=== PATIENT | male | born 1940 | race Caucasian/White ===

== ENCOUNTER 2023-02-17 13:31 | Outpatient (OUT) | payer MEDICARE, SELFPAY ==
[2023-02-17 14:00] LABS: Bilirubin Urine NEGATIVE (NEGATIVE); Blood Urine NEGATIVE (NEGATIVE); Clarity Urine CLEAR (CLEAR); Color Urine LT. YELLOW (YELLOW); Glucose Urine UA NEGATIVE (NEGATIVE); Ketones Urine NEGATIVE (NEGATIVE); Leukocyte Esterase Urine SMALL (NEGATIVE); Nitrite Urine NEGATIVE (NEGATIVE); Protein Urine NEGATIVE (NEG/TRACE); Urobilinogen Urine 0.2 EU/dL (0.2-1.0); pH Urine 5.5 (5.0-9.0)
[2023-02-17 14:07] LABS: Basophils Absolute Auto 0.1 10^3/uL (0.0-0.1); Basophils Percent Auto 1.2 % (0.2-2.0); Eosinophils Absolute Auto 0.9 10^3/uL (0.0-0.7); Eosinophils Percent Auto 10.9 % (0.9-7.0); Hematocrit 40.3 % (42.0-54.0); Hemoglobin 12.4 g/dL (14.0-18.0); Immature Granulocytes Abs Auto 0.05 10^3/uL (0.00-0.03); Immature Granulocytes Pct Auto 0.6 % (0.0-0.5); Lymphocytes Absolute Auto 0.8 10^3/uL (1.2-3.8); Mean Corpuscular HGB Conc 30.8 g/dL (29.9-35.2); Mean Corpuscular Hemoglobin 28.2 pg (25.9-34.0); Mean Corpuscular Volume 91.8 fL (80.0-94.0); Mean Platelet Volume 10.2 fL (9.5-13.5); Monocytes Absolute Auto 0.7 10^3/uL (0.3-0.8); Monocytes Percent Auto 8.3 % (1.7-12.0); Neutrophils Absolute Auto 5.8 10^3/uL (1.4-6.5); Platelet Count 176 10^3/uL (150-450); Red Blood Count 4.39 10^6/uL (4.70-6.10); White Blood Count 8.4 10^3/uL (4.0-11.0)
[2023-02-17 14:14] LABS: Creatinine Urine Random 34.03 mg/dL (20.00-300.00); Protein Creatinine Ratio Urine 0.51; Total Protein Urine Random 17.4 mg/dL (<=11.9)
[2023-02-17 14:44] LABS: Alanine Aminotransferase 19 U/L (16-63); Albumin Globulin Ratio 0.6; Albumin Level 3.1 g/dL (3.4-5.0); Alkaline Phosphatase 80 U/L (46-116); Anion Gap 12.6; Aspartate Amino Transferase 30 U/L (15-37); BUN Creatinine Ratio 20.7; Bilirubin Total 0.8 mg/dL (0.2-1.0); Calcium 8.4 mg/dL (8.5-10.1); Carbon Dioxide 26.8 mmol/L (21.0-32.0); Chloride 107 mmol/L (98-107); Estimated GFR (African America 33 (>=60); Estimated GFR (Non-African Ame 27 (>=60); Globulin 5.4 g/dL; Glucose 181 mg/dL (74-106); Phosphorus 3.5 mg/dL (2.6-4.7); Potassium 4.4 mmol/L (3.5-5.1); Sodium 142 mmol/L (136-145); Total Protein 8.5 g/dL (6.4-8.2)
[2023-02-18 11:09] LABS: PTH, Intact 70 pg/mL (15-65)
== END 2023-02-17 13:32 | disposition home or self-care (01) ==
PROVIDERS: PCP Internal Medicine; Visit Provider Internal Medicine Nephrology
DX: I12.9 Hypertensive chronic kidney disease with stage 1 through stage 4 chronic kidney disease, or unspecified chronic kidney disease (principal); N18.4 Chronic kidney disease, stage 4 (severe); E79.0 Hyperuricemia without signs of inflammatory arthritis and tophaceous disease; N20.0 Calculus of kidney; E11.22 Type 2 diabetes mellitus with diabetic chronic kidney disease; E21.1 Secondary hyperparathyroidism, not elsewhere classified; E78.5 Hyperlipidemia, unspecified; E55.9 Vitamin D deficiency, unspecified
CPT/HCPCS: 36415; 80053; 81003; 82306; 82570; 83735; 83970; 84100; 84156; 85025

== ENCOUNTER 2023-09-09 13:20 | Inpatient (IN) | payer MEDICARE, SELFPAY ==
[2023-09-09] VITALS (65 sets, daily range): BP systolic 92–191; BP diastolic 61–148; PULSE 68–150; RESP 6–40; TEMP 36.2–37.4; O2SAT 88–96; BMI 28.7; BMI 30.5
--- NOTE | 2023-09-09 13:29 | ED.CHESTPAI1 ---
HPI - Chest Pain General Chief Complaint: Chest Pain Stated Complaint: CHEST PAIN Time Seen by Provider: 09/09/23 13:28 History of Present Illness HPI narrative: Patient is an 83-year-old male with a history of cardiomyopathy, CHF, A-fib who presents to the ER with his daughter and grandson for the evaluation of shortness of breath and increased confusion. Patient's grandson states that he visited him yesterday and the patient was complaining of shortness of breath, today they took him to a regular doctor's appointment and the nurse practitioner noted that he had an abnormal EKG, he is noted to be in rapid A-fib in the ER. He does have a history of A-fib and daughter states he takes Eliquis for this, it is sent to his home so it does not show up on a pharmacy list. Patient reports not feeling well for the last week, he was noted to be hypoxic, in rapid A-fib. He denies vomiting or diarrhea. He is eating and drinking according to him, his is also sick so the daughter states neither one of them have been caring for themselves appropriately over the last several days. Today he seems more confused to them. Related Data Home Medications Medication Instructions Recorded Confirmed allopurinol 300 mg tablet 300 mg PO BID 09/09/23 09/09/23 apixaban 5 mg tablet (Eliquis) 5 mg PO Q12H 09/09/23 09/09/23 bumetanide 1 mg tablet 1 mg PO BID 09/09/23 09/09/23 carvedilol 25 mg tablet 25 mg PO BID 09/09/23 09/09/23 hydralazine 100 mg tablet 100 mg PO BID 09/09/23 09/09/23 Allergies Allergy/AdvReac Type Severity Reaction Status Date / Time No Known Drug Allergies Allergy Verified 09/09/23 13:28 Review of Systems ROS Constitutional Denies: fever or chills Ears, nose, mouth, and throat Denies: throat pain or nasal congestion Cardiovascular Reports: chest pain Respiratory Reports: shortness of breath; Denies: cough Gastrointestinal Denies: nausea or vomiting Genitourinary Denies: painful urination Musculoskeletal Denies: back pain Integumentary/Breast Denies: rash Neurological Reports: confusion; Denies: headache Endocrine Denies: excessive urination Hematologic/Lymphatic Reports: easy bruising and easy bleeding PFSH PFSH Social History Smoking status: Never smoker Exam Narrative Exam Narrative: Gen.: Awake, alert, in no distress Head: Normocephalic, atraumatic ENT: Significantly dry Mucous membranes Respiratory: No respiratory distress, lungs clear bilaterally Cardio: Tachycardia, irregular Gastrointestinal: Abdomen is soft, nondistended and nontender to palpation Extremities: Moves extremities equally, Bilateral lower extremities with chronic vascular changes and duskiness, multiple scabbed wounds to the anterior tibias. Psych: Normal mood and affect Neuro: Patient is drowsy but answers questions appropriately, slow to answer but with no slurred speech or focal deficit. Skin: Warm, dry, intact Constitutional Vital Signs, click to edit/add: Last Vital Signs Temp 98.1 F 09/09/23 13:28 Pulse 124 H 09/09/23 13:50 Resp 16 09/09/23 13:50 BP 171/147 H 09/09/23 14:16 Pulse Ox 95 09/09/23 13:50 O2 Del Method Room Air 09/09/23 13:28 Course Vital Signs Vital signs: Vital Signs Temperature 98.1 F 09/09/23 13:28 Pulse Rate 134 H 09/09/23 13:28 Respiratory Rate 20 09/09/23 13:28 Blood Pressure 179/128 H 09/09/23 13:28 Pulse Oximetry 89 L 09/09/23 13:28 Oxygen Delivery Method Room Air 09/09/23 13:28 Temperature 98.1 F 09/09/23 13:28 Pulse Rate 124 H 09/09/23 13:50 Respiratory Rate 16 09/09/23 13:50 Blood Pressure 171/147 H 09/09/23 14:16 Pulse Oximetry 95 09/09/23 13:50 Oxygen Delivery Method Room Air 09/09/23 13:28 MDM - Chest Pain MDM Narrative Medical decision making narrative: Patient was given a Cardizem bolus, started on a Cardizem drip, gentle IV fluids given as he appeared clinically dry. CT of the brain, chest x-ray were obtained, CT angio of the chest is not able to be performed as the patient has significant acute kidney injury. BNP is elevated, troponin within normal limits. The remainder of his lab studies are stable. Except for his potassium of 6.3. Calcium gluconate, sodium bicarb, insulin and glucose given in the ER. Second line was inserted for peripheral IV access. Patient will be admitted to ICU For A-fib with RVR, hyperkalemia, CHF. Stable at time of admission. Medical Records Data Attestation: I reviewed the patient's medical records. Lab Data Attestation: I reviewed the patient's lab results. Labs: Lab Results 09/09/23 Range/Units 13:45 WBC 7.5 (4.0-11.0) 10^3/uL RBC 5.27 (4.70-6.10) 10^6/uL Hgb 14.8 (14.0-18.0) g/dL Hct 49.7 (42.0-54.0) % MCV 94.3 H (80.0-94.0) fL MCH 28.1 (25.9-34.0) pg MCHC 29.8 L (29.9-35.2) g/dL RDW 19.8 H (11.0-15.0) % Plt Count 178 (150-450) 10^3/uL MPV 11.2 (9.5-13.5) fL Seg Neuts % (Manual) 81.0 Band Neutrophils % 1.0 (0-5) % Lymphocytes % (Manual) 8.0 L (20.5-60.0) % Monocytes % (Manual) 8.0 (1.7-12.0) % Eosinophils % (Manual) 2.0 (0.9-7.0) % Basophils % (Manual) 0.0 L (0.2-2.0) % Neutrophils # (Manual) 6.07 (1.4-6.5) 10^3/uL Band Neutrophils # 0.1 (0.0-0.3) 10^3/uL Lymphocytes # (Manual) 0.60 L (1.20-3.80) 10^3/uL Monocytes # (Manual) 0.60 (0.30-0.80) 10^3/uL Eosinophils # (Manual) 0.15 (0.00-0.70) 10^3/uL Basophils # (Manual) 0.00 (0.00-0.10) 10^3/uL Anisocytosis 1+ PT 13.5 H (9.0-11.6) sec INR 1.29 APTT 29.5 (22.3-36.2) sec Sodium 144 (136-145) mmol/L Potassium 6.3 H* (3.5-5.1) mmol/L Chloride 107 (98-107) mmol/L Carbon Dioxide 23.0 (21.0-32.0) mmol/L Anion Gap 20.3 BUN 59.0 H (7.0-18.0) mg/dL Creatinine 2.67 H (0.70-1.30) mg/dL Est GFR ( Amer) 28 L (>=60) Est GFR (Non-Af Amer) 23 L (>=60) BUN/Creatinine Ratio 22.1 Glucose 178 H (74-106) mg/dL Calcium 9.4 (8.5-10.1) mg/dL Total Bilirubin 3.3 H (0.2-1.0) mg/dL AST 52 H (15-37) U/L ALT 19 (16-63) U/L Alkaline Phosphatase 90 (46-116) U/L Troponin I High Sens 48.1 (4.0-76.1) pg/mL NT-Pro-B Natriuret Pep 29966.0 H* (<=1800.0) pg/mL Total Protein 10.6 H (6.4-8.2) g/dL Albumin 3.4 (3.4-5.0) g/dL Globulin 7.2 g/dL Albumin/Globulin Ratio 0.[address] scan - head: Attestation: I have reviewed the pertinent imaging results. Radiologist's impression: ITS Impressions Head CT 09/09/23 15:09 IMPRESSION: 1. No acute intracranial abnormality. 2. Periventricular deep white matter gliosis likely secondary to chronic microangiopathic disease. 3. Chronic pansinusitis. Electronically authenticated by: GLENDY WASHBURN Date: 09/09/2023 15:24 Chest x-ray: Attestation: I have reviewed the pertinent imaging results. Radiologist's impression: ITS Impressions Head CT 09/09/23 15:09 IMPRESSION: 1. No acute intracranial abnormality. 2. Periventricular deep white matter gliosis likely secondary to chronic microangiopathic disease. 3. Chronic pansinusitis. Electronically authenticated by: GLENDY WASHBURN Date: 09/09/2023 15:24 ECG Data Attestation: I personally reviewed and interpreted this ECG as follows: (A-fib with RVR at a rate of 132, ST depression noted in the lateral leads with no acute ST elevation or ectopy. EKG reviewed by attending physician) Discharge Plan Discharge Chief Complaint: Chest Pain Clinical Impression: CHF (congestive heart failure), Acute confusion, Hypoxia, Atrial fibrillation with rapid ventricular response, Acute hyperkalemia, Acute kidney injury Patient Disposition: Admitted As Inpatient Time of Disposition Decision: 15:32 Prescriptions / Home Meds: No Action carvedilol 25 mg tablet 25 mg PO BID hydralazine 100 mg tablet 100 mg PO BID bumetanide 1 mg tablet 1 mg PO BID allopurinol 300 mg tablet 300 mg PO BID Eliquis 5 mg tablet 5 mg PO Q12H Referrals: DENNIS RICH [Primary Care Provider] - 1 week
--- NOTE | 2023-09-09 13:38 | ECG_ITS ---
The [facility] Test Date: 2023-09-09 Pat Name: FAWAD KIRKPATRICK Department: Room: - Gender: Male [employer]: : 1940 Requested By: DENNIS RICH Order Number: [id number] Reading MD: CATHY JUAREZ Measurements Intervals [place] Rate: 132 P: -83047 [place]: -80956 QRS: -25 QRSD: 98 T: 130 QT: 298 QTc: 376 Interpretive Statements 55585 Atrial fibrillation with rapid ventricular response 3434 Septal myocardial infarction, age undetermined [address] depression, possible subendocardial injury or digitalis effect 35058 Twave abnormality, possible anterolateral ischemia or digitalis effect 9150 abnormal ECG Electronically Signed On 09-09-2023 22:18:15 EST by CATHY JUAREZ
[2023-09-09] MEDS: DILTIAZEM HCL 25 MG/5 ML VIAL 10 MG IV (14:16)
[2023-09-09] MEDS: 0.9 % SODIUM CHLORIDE 1,000 ML 500 ML IV (14:17)
[2023-09-09] MEDS: dilTIAZem HCL 125 MG in 0.9 % SODIUM CHLORIDE 100 ML IV (14:21)
[2023-09-09 14:27] LABS: Hematocrit 49.7 % (42.0-54.0); Hemoglobin 14.8 g/dL (14.0-18.0); Mean Corpuscular HGB Conc 29.8 g/dL (29.9-35.2); Mean Corpuscular Hemoglobin 28.1 pg (25.9-34.0); Mean Corpuscular Volume 94.3 fL (80.0-94.0); Mean Platelet Volume 11.2 fL (9.5-13.5); Platelet Count 178 10^3/uL (150-450); Red Blood Count 5.27 10^6/uL (4.70-6.10); Red Cell Distribution Width 19.8 % (11.0-15.0); White Blood Count 7.5 10^3/uL (4.0-11.0)
[2023-09-09 14:47] LABS: Alanine Aminotransferase 19 U/L (16-63); Albumin Globulin Ratio 0.5; Albumin Level 3.4 g/dL (3.4-5.0); Alkaline Phosphatase 90 U/L (46-116); Anion Gap 20.3; Aspartate Amino Transferase 52 U/L (15-37); BUN Creatinine Ratio 22.1; Bilirubin Total 3.3 mg/dL (0.2-1.0); Calcium 9.4 mg/dL (8.5-10.1); Chloride 107 mmol/L (98-107); Estimated GFR (African America 28 (>=60); Estimated GFR (Non-African Ame 23 (>=60); Globulin 7.2 g/dL; Glucose 178 mg/dL (74-106); Sodium 144 mmol/L (136-145); Total Protein 10.6 g/dL (6.4-8.2); Troponin I High Sensitivity 48.1 pg/mL (4.0-76.1)
[2023-09-09 14:50] LABS: Potassium 6.3 mmol/L (3.5-5.1)
[2023-09-09 14:53] LABS: INR 1.29; Partial Thromboplastin Time 29.5 sec (22.3-36.2); Prothrombin Time 13.5 sec (9.0-11.6)
[2023-09-09 14:55] LABS: Segmented Neut Absolute Manual 6.07 10^3/uL (1.4-6.5)
[2023-09-09 14:56] LABS: Anisocytosis 1+; Band Neutrophils Absolute 0.1 10^3/uL (0.0-0.3); Eosinophils Absolute Manual 0.15 10^3/uL (0.00-0.70)
--- NOTE | 2023-09-09 15:09 | CT_ITS ---
The [address] [address] Patient Name: FAWAD KIRKPATRICK MRN: [id number] date: 1940 Sex: M Assigned Patient Location: ER Current Patient Location: ER Accession/Order Number: [id number] Exam Date: 09/09/2023 15:05 Report Date: 09/09/2023 15:24 At the request of: SUSAN VALDES Procedure: CT head/brain wo con CT head/brain wo con, 09/09/2023 3:05 PM EST INDICATION: Confusion COMPARISON: No prior CT scan of the head available for comparison at the time of this dictation. TECHNIQUE: Axial CT images of the brain from skull base to vertex, including portions of the face and sinuses, were obtained without contrast. Multiplanar reformatted images were generated and reviewed as needed. FINDINGS: No intracranial mass, hydrocephalus, midline shift or acute hemorrhage. No extra-axial collection. Periventricular and deep white matter microvascular ischemic change. [place]-white matter differentiation is preserved. Remote lacunar infarcts within the basal ganglia bilaterally. Chronic mucosal thickening within the ethmoid air cells, sphenoid, maxillary and frontal sinuses with complete opacification of the left frontal sinus. The mastoid air cells are clear. Orbits are within normal limits. No acute skull fracture. CT/CT head/brain wo con IMPRESSION: 1. No acute intracranial abnormality. 2. Periventricular deep white matter gliosis likely secondary to chronic microangiopathic disease. 3. Chronic pansinusitis. Electronically authenticated by: GLENDY WASHBURN Date: 09/09/2023 15:24
--- NOTE | 2023-09-09 15:20 | XR_ITS ---
[address] [address] Patient Name: FAWAD KIRKPATRICK MRN: [id number] date: 1940 Sex: M Assigned Patient Location: ER Current Patient Location: ED.MAIN Accession/Order Number: [id number] Exam Date: 09/09/2023 15:09 Report Date: 09/09/2023 15:49 At the request of: SUSAN VALDES Procedure: XR chest 2V Two-view CHEST RADIOGRAPH, 09/09/2023 3:09 PM EST COMPARISON: None. CLINICAL HISTORY: Shortness of breath Findings and impression: 1. Borderline pulmonary venous hypertension/pulmonary vascular congestion. 2. Mild bibasilar atelectasis suspected. Subtle underlying pneumonitis would be difficult to exclude. 3. Cardiomegaly. 4. Degenerative changes visualized spine and bilateral shoulders. The bones are mineralized. Electronically authenticated by: Gianna RODRIGUEZ Date: 09/09/2023 15:49
[2023-09-09] MEDS: CALCIUM GLUCONATE 1,000 MG/10 ML VIAL 1000 MG IVP (15:23)
[2023-09-09] MEDS: SODIUM BICARBONATE 50 MEQ/50 ML 8.4% - SYRINGE IV (15:23)
[2023-09-09] MEDS: DEXTROSE 50 %-WATER 25 GM/50 ML SYRINGE IV (15:23)
[2023-09-09] MEDS: INSULIN REGULAR 300 UNITS/3 ML 10 UNIT IV (15:23)
--- NOTE | 2023-09-09 15:38 | PC.NURSE ---
pt resting in bed comfortably at this time. daughter remains at bedside. Dr Deleon in room discussing plan to keep pt at hospital.
[2023-09-09 16:27] LABS: Adenovirus NOT DETECTED (NOT DETECTE); Bordetella parapertussis NOT DETECTED (NOT DETECTE); Coronavirus 229E NOT DETECTED (NOT DETECTE); Coronavirus HKU1 NOT DETECTED (NOT DETECTE); Coronavirus NL63 NOT DETECTED (NOT DETECTE); Coronavirus OC43 NOT DETECTED (NOT DETECTE); Human Metapneumovirus NOT DETECTED (NOT DETECTE); Human Rhinovirus/Enterovirus NOT DETECTED (NOT DETECTE); Influenza B NOT DETECTED (NOT DETECTE); Mycoplasma pneumoniae NOT DETECTED (NOT DETECTE); Parainfluenza Virus 1 NOT DETECTED (NOT DETECTE); Parainfluenza Virus 2 NOT DETECTED (NOT DETECTE); Parainfluenza Virus 3 NOT DETECTED (NOT DETECTE); Parainfluenza Virus 4 NOT DETECTED (NOT DETECTE); Respiratory Syncytial Virus NOT DETECTED (NOT DETECTE); SARS-CoV-2 NOT DETECTED (NOT DETECTE)
[2023-09-09] MEDS: BUMETANIDE 1 MG/4 ML VIAL 2 MG IVP (16:39)
--- NOTE | 2023-09-09 16:44 | CA_ITS ---
Patient Name: FAWAD KIRKPATRICK MR#: [id number] : 1940 Exam Date: 09/10/2023 Ordering Doctor: DR MARGOTH FRAGA . ECHOCARDIOGRAM REPORT PROCEDURE: CA ECHO DOPPLER COMPLETE INDICATIONS: CHF, atrial fibrillation, influenza A, COPD, diabetes, hypertension COMPARISON: None. DESCRIPTION: COMPLETE ECHOCARDIOGRAM Real-time transthoracic echocardiography with 2D, M-mode, spectral and color flow Doppler performed. QUALITY: Technical quality was good. 75 , 230#, BSA 2.33 m2 LEFT VENTRICLE: Normal chamber size. Mild concentric left ventricular hypertrophy. LV EF: Global left ventricular systolic function is difficult to assess but appears moderately reduced; visually estimated ejection fraction is 30 to 35%. Unable to assess regional wall motion abnormality; consider contrast study for better delineation of endocardial borders. DIASTOLIC: Not adequately assessed due to heart rhythm. ATRIAL SEPTUM: Inadequately seen. LEFT ATRIUM: Severe dilatation. RIGHT ATRIUM: Severe dilatation. RIGHT VENTRICLE: Poorly seen; appears normal in size with preserved systolic function. TRICUSPID VALVE: Normal mobility and thickness. Mild regurgitation. Doppler studies reveal moderately (45-60) elevated right sided pressures. RVSP 54 mmHg MITRAL VALVE: Mild mitral annular calcification. Moderate to severe mitral regurgitation. Mildly thickened with decreased mobility of the posterior leaflet. Cannot assess presence of mitral stenosis. AORTIC VALVE: Normal trileaflet appearance. Moderately calcified aortic valve with restricted mobility. Doppler velocity suggests mild aortic valve stenosis. DVI 0.35, ABE 1.8 cm2. No aortic regurgitation. AORTIC ROOT: Normal diameter and appearance. PULMONIC VALVE: Normal thickness and mobility. No stenosis. No regurgitation. PERICARDIUM: Anterior free space; trivial effusion versus fat pad. IVC: IVC is dilated (3.3 cm) with no collapse. CONCLUSION: 1. Global left ventricular systolic function is difficult to assess but appears moderately reduced; visually estimated ejection fraction is 30 to 35% 2. The right ventricle is poorly seen but appears normal in size with preserved systolic function 3. Biatrial enlargement 4. Mild left ventricular hypertrophy 5. Mild tricuspid regurgitation; moderately elevated right ventricular systolic pressure 6. Moderate to severe mitral regurgitation 7. Mild aortic valve stenosis 8. Anterior free space; trivial effusion versus fat pad Adult Echocardiography Procedure Report Left Ventricle LVEDD (3.7 - 5.6 cm): 5.38 cm LVESD (2.2 - 4.0 cm): 4.18 cm LVIVS thickness (0.6 - 1.2 cm): 1.25 cm LVPW thickness (0.5 - 1.0 cm): 1.14 cm LVOT Max Gradient: 1.34 mm[Hg] LVOT Area (cm2): 0.58 m/s Peak Velocity (LVOT): 0.58 m/s Mean Velocity (LVOT): 0.37 m/s LVOT Diameter 2.45 cm Left Atrium LA Volume Index (2D A2C): 51.75 ml/m2 Left Atrium Systolic Dimension: 5.31 cm Mitral Valve Mitral Valve E-Wave Peak Velocity: 0.89 m/s Right Ventricle Aorta AO Root Diam: 4.02 cm Ascending Ao Diam: 3.58 cm Aortic Valve AoV Area (Peak Sumeet): 1.82 cm2, 1.66 cm2 AoV Area (VTI): 1.82 cm2, 1.69 cm2 Peak Velocity(Antegrade Flow): 1.65 m/s, 1.56 m/s, 1.30 m/s Peak Gradient(Antegrade Flow): 10.91 mm[Hg], 9.71 mm[Hg], 6.75 mm[Hg] Mean Velocity(Antegrade Flow): 1.27 m/s, 1.15 m/s, 1.00 m/s Mean Gradient(Antegrade Flow): 7.16 mm[Hg], 5.91 mm[Hg], 4.58 mm[Hg] Velocity Time Integral: 29.81 cm, 25.71 cm, 27.47 cm Tricuspid Valve Peak Velocity (Regurgitant Flow): 3.12 m/s Pulmonic Valve Peak Velocity: 0.65 m/s Peak Gradient: 2.02 mm[Hg], 1.35 mm[Hg] Right Atrium Dictated by: Jessica Reis M.D. on 09/10/2023 at 15:49 Approved by: Jessica Reis M.D. on 09/10/2023 at 15:58
--- NOTE | 2023-09-09 16:46 | US_ITS ---
The [address] [address] Patient Name: FAWAD KIRKPATRICK MRN: [id number] date: 1940 Sex: M Assigned Patient Location: ICU Current Patient Location: ICU Accession/Order Number: [id number] Exam Date: 09/09/2023 18:55 Report Date: 09/09/2023 23:09 At the request of: MARGOTH FRAGA Procedure: US right upper quadrant EXAM: US right upper quadrant HISTORY: Elevated bili COMPARISON: None. TECHNIQUE: Transabdominal sonographic images of the right upper quadrant were obtained in standard projections. FINDINGS: The wire walker reports a technically limited exam due to patient body habitus and not being able to move from the C5 position. The pancreas is largely obscured by bowel gas, limiting evaluation. The liver is enlarged at 24 cm in length. Normal hepatopedal flow is seen in the portal vein. There is a 2.7 cm echogenic shadowing stone in the dependent gallbladder. There is mild gallbladder wall thickening measuring 4 mm. The sonographic Daigle's sign is reported negative. The common bile duct is normal at 6 mm. The right kidney measures 9.4 x 4.5 x 5.2 cm and contains multiple hypoechoic lesions measuring up to 2.4 cm in the upper pole. Mild free fluid is seen inferior to the liver. US/US right upper quadrant IMPRESSION: 1. Cholelithiasis with mild gallbladder wall thickening, but no sonographic Daigle's sign. If there is clinical concern for early cholecystitis, further evaluation with a nuclear HIDA scan could be considered. 2. Mild right upper quadrant ascites. 3. Hepatomegaly. 4. Hypoechoic right renal lesions, suboptimally evaluated due to body habitus and bowel gas, most likely Bosniak category 1 and/or category 2 cysts. Electronically authenticated by: KYLIE ALVARADO Date: 09/09/2023 23:09
[2023-09-09 17:05] LABS: Glucometer 139 mg/dL (74-106)
[2023-09-09 17:18] LABS: ABG PCO2 41.6 mmHg (35.0-45.0); Allen Test POS (POSITIVE); Base Excess ABG -4.6 mmol/L (-2.0-2.0); HCO3 ABG 21.5 mmol/L (22.0-26.0); O2 Mode NC; Oxygen Saturation ABG 94.4 %; pH ABG 7.321 (7.350-7.450)
[2023-09-09 17:19] LABS: Influenza A\\H3 DETECTED
[2023-09-09 17:19] LABS: Liters per Minute 3; Puncture Site LEFT RADIAL
[2023-09-09 17:30] LABS: Bilirubin Urine NEGATIVE (NEGATIVE); Blood Urine SMALL (NEGATIVE); Clarity Urine CLEAR (CLEAR); Color Urine LT. YELLOW (YELLOW); Glucose Urine UA NEGATIVE (NEGATIVE); Ketones Urine NEGATIVE (NEGATIVE); Leukocyte Esterase Urine SMALL (NEGATIVE); Nitrite Urine NEGATIVE (NEGATIVE); Protein Urine 100 mg/dL (NEG/TRACE); Specific Gravity Urine 1.025 (1.005-1.025); Urobilinogen Urine 0.2 EU/dL (0.2-1.0); pH Urine 5.5 (5.0-9.0)
[2023-09-09 17:31] LABS: Urine Microscopic Indicated YES
[2023-09-09 17:45] LABS: Amorphous Sediment Urine MODERATE; Bacteria Urine TRACE #/HPF (NONE SEEN); Cast Seen? SEEN #/LPF (NONE SEEN); Crystals Seen? Seen #/HPF (None Seen); Fine Granular Casts Urine FEW; Mucus Urine NONE SEEN (NONE SEEN); RBC Urine 0-2 #/HPF (0-2); Squamous Epithelial Cell Urine FEW #/LPF (NONE/RARE); Urine Culture Indicated YES; WBC Urine 20-50 #/HPF (NONE SEEN)
[2023-09-09] MEDS: BUMETANIDE 10 MG in 0.9 % SODIUM CHLORIDE 160 ML 20 MG IV (18:01)
[2023-09-09 18:31] LABS: Potassium 5.2 mmol/L (3.5-5.1)
[2023-09-09] MEDS: CARVEDILOL 25 MG TABLET PO (20:42)
[2023-09-09] MEDS: OSELTAMIVIR PHOSPHATE 30 MG CAPSULE PO (20:42)
[2023-09-09] MEDS: APIXABAN 5 MG TABLET PO (20:42)
[2023-09-09] MEDS: HYDRALAZINE HCL 50 MG TABLET 100 MG PO (20:42)
[2023-09-09 20:55] LABS: Glucometer 127 mg/dL (74-106)
[2023-09-10] VITALS (166 sets, daily range): BP systolic 80–153; BP diastolic 43–107; PULSE 65–101; RESP 6–37; TEMP 36.6–37.3; O2SAT 82–100; BMI 30.5
[2023-09-10 04:34] LABS: Basophils Percent Auto 0.5 % (0.2-2.0); Eosinophils Percent Auto 0.1 % (0.9-7.0); Hematocrit 40.6 % (42.0-54.0); Hemoglobin 12.3 g/dL (14.0-18.0); Immature Granulocytes Abs Auto 0.06 10^3/uL (0.00-0.03); Immature Granulocytes Pct Auto 0.7 % (0.0-0.5); Lymphocytes Absolute Auto 0.4 10^3/uL (1.2-3.8); Lymphocytes Percent Auto 5.3 % (20.5-60.0); Mean Corpuscular HGB Conc 30.3 g/dL (29.9-35.2); Mean Corpuscular Hemoglobin 28.4 pg (25.9-34.0); Mean Corpuscular Volume 93.8 fL (80.0-94.0); Mean Platelet Volume 10.7 fL (9.5-13.5); Monocytes Absolute Auto 0.8 10^3/uL (0.3-0.8); Monocytes Percent Auto 9.2 % (1.7-12.0); Neutrophils Percent Auto 84.2 % (43.0-75.0); Platelet Count 135 10^3/uL (150-450); Red Blood Count 4.33 10^6/uL (4.70-6.10); White Blood Count 8.3 10^3/uL (4.0-11.0)
[2023-09-10 04:57] LABS: Alanine Aminotransferase 24 U/L (16-63); Albumin Globulin Ratio 0.5; Albumin Level 2.6 g/dL (3.4-5.0); Alkaline Phosphatase 68 U/L (46-116); Anion Gap 15.5; Aspartate Amino Transferase 53 U/L (15-37); BUN Creatinine Ratio 23.9; Bilirubin Total 1.9 mg/dL (0.2-1.0); Calcium 8.7 mg/dL (8.5-10.1); Carbon Dioxide 24.6 mmol/L (21.0-32.0); Chloride 109 mmol/L (98-107); Estimated GFR (African America 27 (>=60); Estimated GFR (Non-African Ame 22 (>=60); Globulin 5.6 g/dL; Glucose 164 mg/dL (74-106); Potassium 5.1 mmol/L (3.5-5.1); Sodium 144 mmol/L (136-145); Total Protein 8.2 g/dL (6.4-8.2)
[2023-09-10 04:59] LABS: Ammonia 38 umol/L (11-32)
--- NOTE | 2023-09-10 05:00 | XR_ITS ---
The [address] [address] Patient Name: FAWAD KIRKPATRICK MRN: [id number] date: 1940 Sex: M Assigned Patient Location: ICU Current Patient Location: ICU Accession/Order Number: [id number] Exam Date: 09/10/2023 05:09 Report Date: 09/10/2023 05:26 At the request of: MARGOTH FRAGA Procedure: XR chest 1V EXAM: XR chest 1V HISTORY: Congestive heart failure. COMPARISON: Chest radiograph dated 09/09/2023. TECHNIQUE: AP erect portable chest radiograph performed. FINDINGS: Stable mild prominence of the cardiomediastinal silhouette and stable mild atheromatous calcification at the aortic arch. Stable pulmonary vascular congestion with slightly worsened patchy airspace disease within the mid and lower lung zones. There is no pleural effusion. In the right clinical setting, these findings are consistent with congestive heart failure with pulmonary edema. Correlate with clinical findings to exclude an underlying pneumonia. There is no pneumothorax or acute osseous abnormality. XR/XR chest 1V IMPRESSION: Findings which in the right clinical setting can be associated with congestive heart failure with pulmonary edema. The airspace disease at both lung bases has slightly worsened. Correlate with clinical findings to exclude an underlying pneumonia. Electronically authenticated by: REBA MCKENNA Date: 09/10/2023 05:26
[2023-09-10 07:47] LABS: Glucometer 157 mg/dL (74-106)
[2023-09-10] MEDS: HYDRALAZINE HCL 50 MG TABLET 100 MG PO (08:07)
[2023-09-10] MEDS: CARVEDILOL 25 MG TABLET PO (08:07)
[2023-09-10] MEDS: APIXABAN 5 MG TABLET PO ×2 (08:08→21:43)
[2023-09-10] MEDS: FLUTICASONE UMECLIDIN VILANTER 1 EACH IH (08:09)
--- NOTE | 2023-09-10 08:09 | RESP.RT ---
Trelegy inhaler given to pt by nursing. Pt brought inhaler from home.
[2023-09-10] MEDS: INSULIN GLARGINE LIXISENATIDE 55 EACH SUBQ (08:10)
[2023-09-10] MEDS: ISOSORBIDE MONONITRATE 60 MG TAB.ER.24H 120 MG PO (08:11)
[2023-09-10] MEDS: TRIAMCINOLONE ACETONIDE 0.1% CREAM 15 GM TUBE 1 APPLIC TOPICAL (08:12)
--- NOTE | 2023-09-10 10:52 | CM.NOTE ---
Rounds made with Dr. Meyer, no discharge today. Will start pt on Tamiflu and IV diuretic.
--- NOTE | 2023-09-10 11:19 | PC.NURSE ---
Pt stood and pivoted from commode to chair with walker and x2 assist. Blankets given to pt while resting in chair with lower extremities raised. Personal belongings within reach, PO fluids within reach. Pt denies other needs at this time.
[2023-09-10 11:28] LABS: Glucometer 169 mg/dL (74-106)
--- NOTE | 2023-09-10 11:32 | PM.HP ---
H&P: HPI History of Present Illness Chief complaint: CHEST PAIN Afib with RVR CHF Hyperkalemia Narrative: 83 y/o male sent to ER from PCP office with chest pain and rapid afib. History of CHF and CAD. C/o not feeling well for several days. Increased fatigue and no energy. also sick and has cough. Noticed increased LE edema. In ER found afib with RVR. Pulse ox 88% on room air and noticed labored breathing. Chest x-ray with fluid overload and influenza A positive. Given IV bumex and admitted. Started cardizem drip for rapid afib. Placed on bumex drip and started tamiflu. Feels better overnight and less edema. Converted to NSR and off cardizem drip. Review of Systems ROS Constitutional Denies: fever, chills or fatigue Cardiovascular Reports: edema; Denies: chest pain, palpitations or lightheadedness Respiratory Reports: shortness of breath and cough; Denies: wheezing Gastrointestinal Denies: abdominal pain, nausea, vomiting or diarrhea Genitourinary Denies: painful urination [facility] Medical History (Updated 09/10/23 @ 07:38 by Narciso Meyer MD) Chronic heart failure with preserved ejection fraction (HFpEF) ?I50.32 - Chronic diastolic (congestive) heart failure (ICD-10) Paroxysmal atrial fibrillation ?I48.0 - Paroxysmal atrial fibrillation (ICD-10) Acute kidney injury ?N17.9 - Acute kidney failure, unspecified (ICD-10) Hypoxia ?R09.02 - Hypoxemia (ICD-10) Acute confusion ?R41.0 - Disorientation, unspecified (ICD-10) CHF (congestive heart failure) ?I50.9 - Heart failure, unspecified (ICD-10) Social History Smoking status: Never smoker Highest level of school completed/degree received: high school graduate Meds Home Medications and Allergies Home Medications Medication Instructions Recorded Confirmed Type albuterol sulfate 0.63 mg/3 mL 0.63 mg inhalation Q6H PRN 09/09/23 09/09/23 History solution for nebulization shortness of breath or wheezing apixaban 5 mg tablet (Eliquis) 5 mg PO Q12H 09/09/23 09/09/23 History bumetanide 1 mg tablet 1 mg PO BID 09/09/23 09/09/23 History carvedilol 25 mg tablet 25 mg PO BID 09/09/23 09/09/23 History fluticasone fur. 200 mcg-umeclid 1 inh inhalation DAILY 09/09/23 09/09/23 History 62.5 mcg-vilant 25 mcg inhalat.powder (Trelegy Ellipta) hydralazine 100 mg tablet 100 mg PO BID 09/09/23 09/09/23 History insulin glargine 100 55 unit subcut DAILY 09/09/23 09/09/23 History unit-lixisenatide 33 mcg/mL subcutaneous pen (Soliqua 100/33) isosorbide mononitrate 120 mg 120 mg PO DAILY 09/09/23 09/09/23 History tablet,extended release 24 hr triamcinolone acetonide 0.1 % 1 applic topical BID 09/09/23 09/09/23 History topical cream Allergies Allergy/AdvReac Type Severity Reaction Status Date / Time No Known Drug Allergies Allergy Verified 09/09/23 13:28 Exam Constitutional Vital Signs, click to edit/add: Last Vital Signs Temp 97.9 F 09/10/23 08:00 Pulse 83 09/10/23 10:00 Resp 25 H 09/10/23 09:14 BP 80/54 L 09/10/23 09:14 Pulse Ox 95 09/10/23 10:00 O2 Del Method Nasal Cannula 09/10/23 09:08 O2 Flow Rate 3 09/10/23 09:08 Documenting provider has reviewed patient's vital signs: yes Common normals: no apparent distress, oriented x3 and alert HENMT Common normals: normocephalic Eye Common normals: PERRL and EOMs intact bilaterally Respiratory Common normals: normal respiratory effort and no use of accessory muscles Cardio Common normals: regular rate, regular rhythm, no gallops, no murmurs and no rub GI Common normals: Normal to inspection, nondistended, normoactive bowel sounds present and non-tender Extremity General: edema (1+ bipedal edema) Results Labs Labs: Short CBC 09/09/23 09/10/23 Range/Units 13:45 04:23 WBC 7.5 8.3 (4.0-11.0) 10^3/uL Hgb 14.8 12.3 L (14.0-18.0) g/dL Hct 49.7 40.6 L (42.0-54.0) % Plt Count 178 135 L (150-450) 10^3/uL BMP 09/09/23 09/09/23 09/10/23 13:45 18:19 04:23 Sodium 144 144 Potassium 6.3 H* 5.2 H 5.1 Chloride 107 109 H Carbon Dioxide 23.0 24.6 BUN 59.0 H 67.0 H Creatinine 2.67 H 2.80 H Glucose 178 H 164 H Calcium 9.4 8.7 Liver Function 09/09/23 09/10/23 Range/Units 13:45 04:23 Total Bilirubin 3.3 H 1.9 H (0.2-1.0) mg/dL AST 52 H 53 H (15-37) U/L ALT 19 24 (16-63) U/L Alkaline Phosphatase 90 68 (46-116) U/L Albumin 3.4 2.6 L (3.4-5.0) g/dL Urine 09/09/23 Range/Units 17:19 Urine Color Lt. yellow (YELLOW) Urine Clarity Clear (CLEAR) Urine pH 5.5 (5.0-9.0) Ur Specific [place] 1.025 (1.005-1.025) Urine Protein 100 A (NEG/TRACE) mg/dL Urine Glucose (UA) Negative (NEGATIVE) mg/dL ABG ABG results: 09/09/23 17:09 ABG pH 7.321 L ABG pCO2 41.6 ABG pO2 75.0 L ABG HCO3 21.5 L ABG O2 Saturation 94.4 ABG Base Excess -4.6 L Assessment and Plan Assessment and Plan (1) Acute on chronic heart failure with preserved ejection fraction (HFpEF): (2) Influenza A: (3) Atrial fibrillation with rapid ventricular response: (4) Acute hypoxic respiratory failure: (5) Altered mental status: (6) Acute hyperkalemia: (7) Elevated bilirubin: (8) Cholelithiasis: (9) Type 2 diabetes mellitus with hyperglycemia: (10) COPD (chronic obstructive pulmonary disease): (11) Benign essential hypertension: (12) Hepatomegaly: (13) CKD (chronic kidney disease) stage 4, GFR 15-29 ml/min: (14) CAD (coronary artery disease): Plan Presented with rapid afib, CHF exacerbation, and influenza A. Converted to NSR and resume oral coreg. Edema improved after bumex drip and start IV bumex. Check echo. Started tamiflu for influenza and use albuterol PRN. Wean O2 as tolerated. Start PT/OT for weakness. Resume other home medication. Plan for at least a 2 midnight stay for inpatient medically necessary services. Urinary Catheter Management Urinary Catheter Management Urethral: Cath placed during this visit: yes Urethral indwelling: Yes Reason for continuing: measure accurate output Insertion date: 09/09/23 Insertion time: 17:30
--- NOTE | 2023-09-10 16:10 | CM.NOTE ---
Important Message From Medicare discussed with pt, pt verbalizes understanding and signs paper. Original given to pt and copy placed on pt's chart.
--- NOTE | 2023-09-10 16:22 | SWNOTE1 ---
SW looked over therapy notes and skilled facility is being recommended. SW spoke with pt about going to rehab. Pt kept voicing he was weak and did not feel well. SW attempted to explain to pt what short term rehab was and how medicare worked. Pt was having a hard time understanding at this time. At this time pt was not able to tell SW a facility he would like to go to. SW to re-assess Wednesday.
--- NOTE | 2023-09-10 16:30 | SWNOTE1 ---
SW received message from nurse, Abelino, and pt voiced he wants the [facility]. [facility] sent referral to [facility].
--- NOTE | 2023-09-10 16:38 | SWNOTE1 ---
SW spoke with pt from [facility] and he did voice he wants to go to [facility]. Referral has been sent.
[2023-09-10 16:47] LABS: Glucometer 147 mg/dL (74-106)
[2023-09-10] MEDS: OSELTAMIVIR PHOSPHATE 30 MG CAPSULE PO (21:43)
[2023-09-10 21:50] LABS: Glucometer 136 mg/dL (74-106)
[2023-09-10] MEDS: BUMETANIDE 1 MG/4 ML VIAL IVP (23:41)
[2023-09-11] VITALS (114 sets, daily range): BP systolic 85–140; BP diastolic 46–94; PULSE 70–99; RESP 2–39; TEMP 36.6–36.9; O2SAT 86–100
[2023-09-11 04:11] LABS: Basophils Percent Auto 0.3 % (0.2-2.0); Eosinophils Absolute Auto 0.1 10^3/uL (0.0-0.7); Eosinophils Percent Auto 0.8 % (0.9-7.0); Hematocrit 40.1 % (42.0-54.0); Hemoglobin 12.1 g/dL (14.0-18.0); Immature Granulocytes Abs Auto 0.04 10^3/uL (0.00-0.03); Immature Granulocytes Pct Auto 0.4 % (0.0-0.5); Lymphocytes Absolute Auto 0.6 10^3/uL (1.2-3.8); Lymphocytes Percent Auto 6.7 % (20.5-60.0); Mean Corpuscular HGB Conc 30.2 g/dL (29.9-35.2); Mean Corpuscular Hemoglobin 28.5 pg (25.9-34.0); Mean Corpuscular Volume 94.4 fL (80.0-94.0); Monocytes Absolute Auto 0.6 10^3/uL (0.3-0.8); Neutrophils Absolute Auto 7.8 10^3/uL (1.4-6.5); Neutrophils Percent Auto 85.8 % (43.0-75.0); Platelet Count 143 10^3/uL (150-450); Red Blood Count 4.25 10^6/uL (4.70-6.10); Red Cell Distribution Width 19.3 % (11.0-15.0); White Blood Count 9.1 10^3/uL (4.0-11.0)
[2023-09-11 04:26] LABS: Ammonia 22 umol/L (11-32)
[2023-09-11 04:30] LABS: Alanine Aminotransferase 49 U/L (16-63); Albumin Globulin Ratio 0.4; Albumin Level 2.5 g/dL (3.4-5.0); Alkaline Phosphatase 64 U/L (46-116); Anion Gap 11.9; Aspartate Amino Transferase 76 U/L (15-37); BUN Creatinine Ratio 27.2; Bilirubin Total 1.2 mg/dL (0.2-1.0); Calcium 8.2 mg/dL (8.5-10.1); Carbon Dioxide 28.3 mmol/L (21.0-32.0); Chloride 106 mmol/L (98-107); Estimated GFR (African America 24 (>=60); Estimated GFR (Non-African Ame 20 (>=60); Globulin 5.6 g/dL; Glucose 154 mg/dL (74-106); Potassium 4.2 mmol/L (3.5-5.1); Sodium 142 mmol/L (136-145); Total Protein 8.1 g/dL (6.4-8.2)
[2023-09-11 07:39] LABS: Glucometer 118 mg/dL (74-106)
--- NOTE | 2023-09-11 07:43 | P.PN_ITS ---
Progress Note: Subjective Subjective Interval history: patient is an 87-year-old gentleman with active influenza A virus, acute decompensated combined congestive heart failure, hepatomegaly with elevated Total Bilirubin, acute on chronic renal failure, atrial fibrillation, and a history of chronic obstructive pulmonary disease and type 2 diabetes. upon admission patient was on an IV Cardizem drip which has been discontinued since patient's rate has been below one hundred. He was also placed on a Bumex drip a nd as of yesterday which is getting IV 1 mg of Bumex every 12 hours. He has had approximately three thousand mL's of fluid out. He continues Tamiflu for his active influenza virus. He is requiring 2 L of nasal cannula oxygen which she states is not something he uses at home. This morning patient says that he feels improved from a respiratory standpoint, but is still having significant weakness. He tells me that his has also had the influenza virus. He denies any abdominal pain, nausea vomiting diarrhea or fevers. 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 He had a recent echocardiogram that showed a ejection fraction of 30-35 percent with some biatrial enlargement and severe mitral regurgitation. I discussed findings of echocardiogram with patient and he was aware of his history of congestive heart failure and chronic kidney disease. Exam Narrative Exam Narrative: General: Patient is alert, and oriented to person, place and time, some shortness of breath while talking Skin: stasis dermatitis to bilateral lower ext. Head: atraumatic, acephalic Eyes: PERRLA, no nystagmus present, conjunctiva clear, no scleral icterus Ears: normal gross auditory acuity Nose: symmetric, no discharge Mouth/Throat: poor dentition Neck: no masses palpated Heart: irregular rate and rhythm, no murmurs/rubs/gallops Lungs: no audible wheezes, crackles and diminished breath sounds all lung schwarz Abdomen: Normal audible bowel sounds, no distension, No palpable masses, no organomegaly, no rebound/guarding/ or rigidity Musculoskeletal: +1 swelling bilateral lower extremities Neuro: CN II-X grossly intact Constitutional Vital Signs, click to edit/add: Last Vital Signs Temp 97.8 F 09/11/23 06:00 Pulse 76 09/11/23 06:50 Resp 21 09/11/23 06:50 BP 114/71 09/11/23 06:30 Pulse Ox 94 L 09/11/23 06:50 O2 Del Method Nasal Cannula 09/11/23 06:00 O2 Flow Rate 2 09/11/23 06:00 Progress Note: Objective Labs Labs: Short CBC 09/11/23 Range/Units 04:01 WBC 9.1 (4.0-11.0) 10^3/uL Hgb 12.1 L (14.0-18.0) g/dL Hct 40.1 L (42.0-54.0) % Plt Count 143 L (150-450) 10^3/uL BMP 09/11/23 04:01 Sodium 142 Potassium 4.2 Chloride 106 Carbon Dioxide 28.3 BUN 84.0 H* Creatinine 3.09 H Glucose 154 H Calcium 8.2 L Liver Function 09/11/23 Range/Units 04:01 Total Bilirubin 1.2 H (0.2-1.0) mg/dL AST 76 H (15-37) U/L ALT 49 (16-63) U/L Alkaline Phosphatase 64 (46-116) U/L Albumin 2.5 L (3.4-5.0) g/dL Progress Note: A&P Assessment and Plan (1) Acute on chronic combined systolic (congestive) and diastolic (congestive) heart failure: Assessment and Plan: patient with echocardiogram showing ejection fraction of 30-35 percent, biatrial enlargement, severe mitral regurgitation. Patient was initially diuresed on a Bumex drip. Transition to Bumex 1 mg IV every 12 hours yesterday. Patient has h ad approximately 3 L out. Patient was placed on a fluid restriction of fifteen hundred mL. Along with low-sodium diet. Patient's history is complicated by chronic atrial fibrillation and active influenza virus. Continue home medications of isosorbide, Coreg. Continue to monitor closely input and output.due to patient substantially diminished ejection fraction would have a low threshold for transfer to higher care facility with cardiology consultation capabilities.pro BNP eighteen thousand three hundred twenty-two. Chest x-ray consistent with bilateral pulmonary edema, recheck CXR today (2) Influenza A: Assessment and Plan: continue Tamiflu (3) Acute hypoxic respiratory failure: Assessment and Plan: secondary to acute respiratory illness from influenza, chronic obstructive pulmonary disease exacerbation and possibly, and active pulmonary edema from acute combined congestive heart failure. Patient is requiring 2 L of nasal cannula. Continue to titrate oxygen as needed. 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 Most likely from diuresis. We'll continue to monitor. Hold nephrotoxic medications. Qualifiers: Acute renal failure type: unspecified Qualified Code(s): N17.9 - Acute kidney failure, unspecified (5) Paroxysmal atrial fibrillation: Assessment and Plan: patient with a history of atrial fibrillation and when admitted was found to be in RVR. Was placed on an IV Cardizem drip which has since been discontinued since patient's heart rate is now controlled less than one hundred. We will continue home medications of Coreg and isosorbide. We will also continue Eliquis (6) Elevated bilirubin: Assessment and Plan: right upper quadrant ultrasound showed cholelithiasis with thickening of the gallbladder and some right upper quadrant ascites and hepatomegaly. Total bilirubin was originally elevated but is now down to 1.2 normal AST and ALTs. Normal ammonia level. (7) Cholelithiasis: Assessment and Plan: does not appear to be in active Cholecystitis, no nausea vomiting. elevated total bili but normal ammonia and LFT's, monitor, hopeful follow up as outpatient for this (8) Type 2 diabetes mellitus with hyperglycemia: Assessment and Plan: will check ha1c, continue insulin, fsbs qac and qhs (9) COPD (chronic obstructive pulmonary disease): Assessment and Plan: continue trelegy and albuterol as needed. No chronic O2 (10) Benign essential hypertension: Assessment and Plan: continue home medications, more hypotensive with diuresis (11) Hepatomegaly: Assessment and Plan: fatty liver vs alcohol? Hepatitis panel ordered (12) CKD (chronic kidney disease) stage 4, GFR 15-29 ml/min: (13) CAD (coronary artery disease): Assessment and Plan: check lipids, initial trop normal, recheck today, on tele Plan patient is full code Patient will still require 1-2 more days inpatient due to current conditions for medical care Urinary Catheter Management Urinary Catheter Management Urethral: Cath placed during this visit: yes Urethral indwelling: Yes Reason for continuing: ICU pt on diuretics Insertion date: 09/09/23 Insertion time: 17:30
[2023-09-11] MEDS: APIXABAN 5 MG TABLET PO (08:50)
[2023-09-11] MEDS: HYDRALAZINE HCL 50 MG TABLET 100 MG PO (08:50)
[2023-09-11] MEDS: CARVEDILOL 25 MG TABLET PO (08:51)
[2023-09-11] MEDS: ISOSORBIDE MONONITRATE 60 MG TAB.ER.24H 120 MG PO (08:51)
[2023-09-11] MEDS: INSULIN GLARGINE LIXISENATIDE 55 EACH SUBQ (08:56)
[2023-09-11] MEDS: TRIAMCINOLONE ACETONIDE 0.1% CREAM 15 GM TUBE 1 APPLIC TOPICAL (08:59)
--- NOTE | 2023-09-11 10:38 | PT.DAILY ---
Physical Therapy Daily Note PT Daily Note/Assess Start: 09/10/23 11:46 Freq: Status: Active Protocol: Document 09/11/23 10:05 ANIL (Rec: 09/11/23 10:38 ANIL [id number]) Physical Therapy Daily Note/Assessment Time In/Time Out Time In 10:05 Time Out 10:25 Subjective Subjective Patient reports knees and hips were giving him trouble prior to getting sick, but nothing like they are now. I just can 't believe how weak I am, I need to get stronger and get home to my . Therapeutic Exercise Time Therapeutic Exercise Minutes (minutes) 10 Therapeutic Exercise Units 1 Therapeutic Exercise Treatment Therapeutic Exercise Treatment Seated exercises as follows to build up strength:10x each unless noted. HR/TR, marches, LAQ, hip adduction squeeze, MRE of hip abduction, MRE of HS curl, chair push ups x5 Therapeutic Activity Time Therapeutic Activity Minutes (minutes) 7 Therapeutic Activity Units 0 Therapeutic Activity Treatment Chair Transfer Ability Minimum Assist Therapeutic Activity Comments Sit to stand x3 from chair at RW with min assist, but very shaky in B LE once standing. Attempted to stand 30-45 seconds each stand to promote WB through B LE's. Patient wanted to try to ambulate but due to only 1 assist in room and amount of shakiness therapist did not feel this was safe. Would recommend 2 assist for transfers and ambulation at this point. SPO2 did decreased to 86 percent by 3rd stand but quickly ricardo to 92 percent with rest break. Total Physical Therapy Time Total Therapy Minutes 17 Total Physical Therapy Units 1 Summary Daily Note Summary Did show improvement with sit to stand transfers but significant B LE weakness is noted, recommending 2 assist for transfers and gait due to this. Patient is highly motivated and works hard with exercise program making him an excellent candidate for SNF stay post acute care DC, to build back strength and ambulation ability.
[2023-09-11 11:22] LABS: Glucometer 162 mg/dL (74-106)
--- NOTE | 2023-09-11 11:30 | XR_ITS ---
[address] [address] Patient Name: FAWAD KIRKPATRICK MRN: [id number] date: 1940 Sex: M Assigned Patient Location: ICU Current Patient Location: ICU Accession/Order Number: [id number] Exam Date: 09/11/2023 13:35 Report Date: 09/11/2023 12:01 At the request of: SUSANA BROWNLEE Procedure: XR chest 1V EXAM: XR chest 1V HISTORY: chf COMPARISON: 09/10/2023 FINDINGS/IMPRESSION: 1. Bibasilar patchy atelectasis. Low lung volumes. Improvement in pulmonary edema as compared to the prior exam from 09/10/2022. Improved aeration of the lungs particularly at the lung bases. 2. No pneumothorax. 3. Heart size and mediastinal contours are normal. 4. No acute osseous abnormality. Electronically authenticated by: SHIVANI LUCAS Date: 09/11/2023 12:01
[2023-09-11 11:58] LABS: Magnesium 2.1 mg/dL (1.8-2.4)
[2023-09-11] MEDS: BUMETANIDE 1 MG/4 ML VIAL IVP (13:01)
[2023-09-11 13:16] LABS: Troponin I High Sensitivity 873.8 pg/mL (4.0-76.1)
--- NOTE | 2023-09-11 14:32 | ECG_ITS ---
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
[2023-09-11 15:55] LABS: Glucometer 223 mg/dL (74-106)
[2023-09-11] MEDS: INSULIN ASPART 300 UNIT/3 ML PEN SUBQ (15:55)
== END 2023-09-11 19:18 | disposition short-term general hospital (02) | DRG 280 ==
LOC: ER 15:32 → ICU 16:21
PROVIDERS: Physician Assistant; Admitting Provider Family Medicine; Emergency Provider Emergency Medicine; PCP Internal Medicine; Visit Provider Family Medicine
DX: I13.0 Hypertensive heart and chronic kidney disease with heart failure and stage 1 through stage 4 chronic kidney disease, or unspecified chronic kidney disease (principal); I50.43 Acute on chronic combined systolic (congestive) and diastolic (congestive) heart failure; I21.29 ST elevation (STEMI) myocardial infarction involving other sites; J96.01 Acute respiratory failure with hypoxia; N17.9 Acute kidney failure, unspecified; N18.4 Chronic kidney disease, stage 4 (severe); I48.20 Chronic atrial fibrillation, unspecified; J44.1 Chronic obstructive pulmonary disease with (acute) exacerbation; I34.0 Nonrheumatic mitral (valve) insufficiency; I42.9 Cardiomyopathy, unspecified; R41.0 Disorientation, unspecified; I25.10 Atherosclerotic heart disease of native coronary artery without angina pectoris; E87.5 Hyperkalemia; I48.0 Paroxysmal atrial fibrillation; J10.1 Influenza due to other identified influenza virus with other respiratory manifestations; E11.65 Type 2 diabetes mellitus with hyperglycemia; K80.20 Calculus of gallbladder without cholecystitis without obstruction; R16.0 Hepatomegaly, not elsewhere classified; E11.22 Type 2 diabetes mellitus with diabetic chronic kidney disease; Z79.01 Long term (current) use of anticoagulants; Z79.899 Other long term (current) drug therapy
CPT/HCPCS: 0202U; 36415; 36600; 51702; 70450; 71045; 71046; 76705; 80053; 81001; 82140; 82805; 82948; 83735; 83880; 84132; 84484; 85007; 85025; 85027; 85610; 85730; 87040; 87070; 87086; 87150; 87186; 87205; 93005; 93306; 93356; 94640; 94761; 96365; 96366; 96367; 96375; 96376; 97110; 97163; 97165; 99285

== ENCOUNTER 2023-09-17 13:10 | Outpatient (REF) | payer MEDICARE, SELFPAY ==
--- OUTSIDE RECORDS SUMMARY | 2023-09-17 13:28 | XMS_ITS | CCD ---
Author Name Unknown Address [address] [place] [address] Organization [facility] Care Team Providers Care Analog Ic Design Architect Name Role Phone SIMMONS, ROME Unavailable Unavailable PARKER ANTONIO Unavailable Unavailable SIMMONS, ROME Unavailable Unavailable CANALES ANTONIO Unavailable Unavailable BELCHER, LORENZO P Unavailable Unavailable BELCHER, LORENZO P Unavailable Unavailable BELCHER, LORENZO P Unavailable Unavailable JORDANA, SHANIQUA M Unavailable Unavailable BELCHER, LORENZO P Unavailable Unavailable BELCHER, LORENZO P Unavailable Unavailable BELCHER, LORENZO P Unavailable Unavailable BELCHER, LORENZO P Unavailable Unavailable BELCHER, LORENZO P Unavailable Unavailable JORDANA, SHANIQUA M Unavailable Unavailable JORDANA, SHANIQUA M Unavailable Unavailable BELCHER, LORENZO P Unavailable Unavailable BELCHER, LORENZO P Unavailable Unavailable BELCHER, LORENZO P Unavailable Unavailable JORDANA, SHANIQUA M Unavailable Unavailable BELCHER, LORENZO P Unavailable Unavailable BELCHER, LORENZO P Unavailable Unavailable BELCHER, LORENZO P Unavailable Unavailable BELCHER, LORENZO P Unavailable Unavailable Unavailable Unavailable Scott Jamesiz Unavailable Awilda Noel Unavailable Kraig Mar Attending Unavailable Kraig Mar Admitting Unavailable Antonio Canales Primary Care Unavailable DR ANTONIO CANALES Primary Care Unavailable MISC, DR GLOVER Admitting Unavailable MISC, DR GLOVER Attending Unavailable MISC, DR GLOVER Consulting Unavailable BAKHOUS, AZIZ Admitting Unavailable BAKHOUS, AZIZ Attending Unavailable DR ANTONIO CANALES Primary Care Unavailable BAKHOUS, AZIZ Consulting Unavailable BAKHOUS, AZIZ Admitting Unavailable BAKHOUS, SCOTTIZ Attending Unavailable DR ANTONIO ACNALES Primary Care Unavailable BAKHOUS, AZIZ Consulting Unavailable MISC, DR DOCTOR Admitting Unavailable MISC, DR GLOVER Attending Unavailable PARKER, DR COLLINS Primary Care Unavailable [facility], DOCTOR Consulting Unavailable Antonio Canales Unavailable Simomns, Dr. Sameera Bryant Referring Nataliya vailable Canales II, Dr. Antonio Sanders Primary Care Nataliya vailable Simmons, Dr. Sameera Bryant Attending Nataliya vailable Simmons, Dr. Sameera Bryant Attending Nataliya vailable Simmons, Dr. Sameera Bryant Referring Nataliya vailable Canales II, Dr. Antonio Sanders Primary Care Nataliya vailable Simmons, Dr. Sameera Bryant Attending Nataliya vailable Simmons, Dr. Sameera Bryant Referring Nataliya vailable Parker II, Dr. Antonio Sanders Primary Care Nataliya Antonio Moore MD Unavailable Antonio Canales MD Primary Care Provider Antonio Canales MD Primary Care Provider PILLO MCKENNA Attending Unavailable STEPHANIE MARSHALL Attending Unavailable PILLO MCKENNA Attending Unavailable Allergies Allergy Classification Reported Allergen(s) Allergy Type Date of Onset Reaction(s) Facility (8 sources) Acetaminophen / oxyCODONE; Translations: [Percocet TABS] Drug Allergy 08-05-19 24 Other [facility] [employer] Work Phone: (15 sources) amLODIPine; Translations: [amlodipine] Drug Allergy 01-27-20 23 Unknown, Itching [facility] [address] [email or web address] Work Phone: (12 sources) Angiotensin Converting Enzyme (Ed) Inhibitors; Translations: [ED Inhibitors] Allergy to drug (finding) Cough, Unknown [facility] [address] [email or web address] Work Phone: (12 sources) Lisinopril; Translations: [lisinopril] Drug Allergy Cough [facility] [email or web address] Work Phone: (5 sources) Acetaminophen / oxyCODONE Drug Allergy [facility] [employer] Other (5 sources) Angiotensin Converting Enzyme (Ed) Inhibitors Propensity to adverse reactions Unknown [employer] Other (7 sources) moxifloxacin Drug Allergy 01-27-20 23 Unknown [employer] Other (5 sources) NIFEdipine Drug Allergy cough [employer] Other (5 sources) AMLOPIDINE Propensity to adverse reactions ITCHING [employer] Other (5 sources) Neomycin-Polymyxi n Drug allergy Unknown [employer] Other (1 source) Acetaminophen Drug Allergy 01-02-20 [facility] (1 source) amLODIPine Drug Allergy 01-02-20 [facility] (1 source) Lisinopril Drug Allergy 01-02-20 [facility] (1 source) NIFEdipine Drug Allergy 01-02-20 [facility] (1 source) oxyCODONE Drug Allergy 01-02-20 [facility] (1 source) Amino Acids Drug Allergy [facility] (1 source) NIFEdipine Drug Allergy [facility] Repository (2 sources) Acetaminophen / oxyCODONE Drug Allergy 01-27-20 23 Unknown [facility] (2 sources) Angiotensin-conve rting enzyme inhibitor agent Drug Allergy 01-27-20 23 Cough, Unknown [facility] (2 sources) Lisinopril Propensity to adverse reactions 12-01-19 [facility] (2 sources) Nifedipine Allergy to substance 01-27-20 Cough [facility] (2 sources) Neomycin-Polymyxi n B Gu Drug Allergy 01-27-20 23 Unknown [facility] (1 source) Angiotensin-conve rting enzyme inhibitor agent Drug Allergy 08-05-19 24 Cough [facility] Medications Current Medications Medication Drug Class(es) Dates Sig (Normalized) Sig (Original) albuterol 0.21 mg/ml inhalation solution (7 sources) beta2-Adrenergic Agonist albuterol 0.63 MG/3M L nebulizer solution Take 0.63 mg by nebulization every 6 (six) hours if needed for shortness of breath or wheezing. 0 Active Albuterol Sulfat e (2.5 MG/3ML) 0.083% 3 ml as needed Inhalation Three times a day Active allopurinol 300 mg oral tablet (15 sources) Xanthine Oxidase Inhibitor End: 09-15-2023 take 1 tablet by mouth twice daily allopurinol (Zyloprim) 300 mg tablet Take 1 tablet (300 mg) by mouth 2 times a day. 0 09/15/2023 Discontinued (Therapy completed) Allopurinol 300 MG 1 tab(s) daily twice daily for 90 days Active take 2 tablets by mouth once lacho ly Allopurinol 300 MG Oral Tablet TAKE 2 TABLETS DAILY. Quantity: 0 Refills: 0 Ordered: 18-Feb-2022 DO Active apixaban 5 mg oral tablet (14 sources) Factor Xa Inhibitor take 1 tablet by mouth twice daily apixaban (Eliquis) 5 mg tablet Take 1 tablet (5 mg) by mouth 2 times a day. 0 Active take 1 tablet by nemesio th every twelve hours apixaban (Eliquis) 5 MG tablet Take 5 mg by mouth every 12 (twelve) hours. 0 Active aspirin 81 mg delayed release oral tablet (7 sources) Platelet Aggregation Inhibitor, Nonsteroidal Anti-inflammatory Drug take 1 tablet by mouth two times weekly aspirin 81 mg EC tablet Take 1 tablet (81 mg) by mouth 2 times a week. 0 Active atorvastatin 40 mg oral tablet (1 source) HMG-CoA Reductase Inhibitor End: 024 take 1 tablet by mouth once daily at bedtime atorvastatin (Lipitor) 40 mg tablet Take 1 tablet (40 mg) by mouth once daily at bedtime. 0 09/15/2023 Discontinued (Therapy completed) bumetanide 1 mg oral tablet (14 sources) Loop Diuretic Start: 023 take 1 tablet by mouth twice daily bumetanide (Bumex) 1 MG tablet Indications: Chronic combined systolic and diastolic heart failure (CMS/HCC) TAKE ONE TABLET BY MOUTH TWICE A DAY 60 tablet 5 06/07/2023 Active take 1 tablet by nemesio th once daily in the evening as needed bumetanide (Bumex) 1 mg tablet Take 1 tablet (1 mg) by mouth once daily. May take extra tablet in the evening as needed. 0 Active carvedilol 25 mg oral tablet (15 sources) alpha-Adrenergic Jennifer, beta-Adrenergic Jennifer Start: 06-06-2021 take 1 tablet by mouth twice daily carvedilol (Coreg) 25 mg tablet Take 1 tablet (25 mg) by mouth 2 times a day. 0 06/06/2021 Active take 1 tablet by mouth every twe lve hours Coreg 25 MG tablet Take 25 mg by mouth every 12 (twelve) hours. 0 Active cholecalciferol 0.05 mg oral tablet (5 sources) Vitamin D Start: 02-24-2023 take 1 tablet by mouth once daily cholecalciferol (Vitamin D-3) 50 MCG (2000 UT) tablet Take 1 tablet (2,000 Units) by mouth once daily. 0 02/24/2023 Active End: 09-15-2023 take 2 capsules by mouth once daily cholecalciferol (Vitamin D-3) 25 MCG (1000 UT) capsule Take 2 capsules (50 mcg) by mouth once daily. 0 09/15/2023 Discontinued (Dose adjustment) take 1 capsule by mo uth once daily Vitamin D (Cholecalciferol) 50 MCG (2000 UT) Oral Capsule TAKE 1 CAPSULE Daily Quantity: 0 Refills: 0 Ordered: 10-Mar-2023 DO Active 30 actuat fluticasone furoate 0.1 mg/actuat / umeclidinium 0.0625 mg/actuat / vilanterol 0.025 mg/actuat dry powder inhaler (13 sources) Anticholinergic, Corticosteroid, beta2-Adrenergic Agonist take 1 puff(s) by inhalation once daily as needed upfgkbcmetl-qhirmamxb-emclbtmd (TRELEGY-ELLIPTA) 100-62.5-25 mcg blister with device Inhale 1 puff once daily as needed. 0 Active take 1 puff(s) by inhalation onc e daily Trelegy Ellipta 100-62.5-25 MCG/INH 1 puff Inhalation Once a day Active hydrALAZINE hydrochloride 100 mg oral tablet (15 sources) Arteriolar Vasodilator Start: 02-18-2022 End: 09-15-2023 take 1 tablet by mouth twice daily hydrALAZINE (Apresoline) 100 mg tablet Take 1 tablet (100 mg) by mouth 2 times a day. 0 02/18/2022 09/15/2023 Discontinued (Dose adjustment) End: 09-15-2023 take 1 tablet by mouth three times daily hydrALAZINE (Apresoline) 50 mg tablet Take 1 tablet (50 mg) by mouth 3 times a day. 0 09/15/2023 Discontinued (Therapy completed) take 2 tablets by [facility] every twelve hours hydrALAZINE HCl 50 MG 2 tablet Orally bid Active take 1 tablet by nemesio twice daily hydrALAZINE HCl - 50 MG Oral Tablet TAKE 1 TABLET BY MOUTH TWICE DAILY Quantity: 180 Refills: 3 Ordered: 29-Aug-2021 DO Active 3 ml insulin glargine 100 unt/ml / lixisenatide 0.033 mg/ml pen injector (14 sources) Insulin Analog insulin glargine -lixisenatide (Soliqua 100/33) 100 unit-33 mcg/mL insulin pen Inject under the skin. As directed 0 Active insulin glargine -lixisenatide (Soliqua) 100-33 UNT-MCG/ML pen Inject 55 Units under the skin in the morning. Inject before meals. 0 Active 24 hr isosorbide mononitrate 120 mg extended release oral tablet (14 sources) Nitrate Vasodilator Start: 07-01-2023 take 1 tablet by mouth every twenty-four hours in the morning isosorbide mononitrate ER (Imdur) 120 MG 24 hr tablet Indications: Chronic systolic heart failure (CMS/HCC) Take 1 tablet (120 mg) by mouth in the morning. 100 tablet 3 07/01/2023 Active take 1 tablet by mouth once amirah y isosorbide mononitrate ER (Imdur) 120 mg 24 hr tablet Take 1 tablet (120 mg) by mouth once daily. 0 Active take 1 tablet by mouth once amirah y Isosorbide Mononitrate ER 30 MG Oral Tablet Extended Release 24 Hour TAKE 1 TABLET DAILY. Quantity: 90 Refills: 3 Ordered: 29-Aug-2021 DO Active Nitro Sublingual 0.3 0.3mg (5 sources) Nitro Sublingual 0.3 0.3mg 1 Sublingual Every 5min x3 Active Nitro Sublingual 0.3 0.3mg 1 Sublingual Every 5min x3 Not-Taking oseltamivir 30 mg oral capsule (1 source) Neuraminidase Inhibitor take 1 capsule by mouth once daily oseltamivir (Tamiflu) 30 mg capsule Take 1 capsule (30 mg) by mouth once daily. 0 Active polyethylene glycol 400 4 mg/ml / propylene glycol 3 mg/ml ophthalmic solution (2 sources) Polyethyl Glycol-Propyl Glycol 0.4-0.3 % solution 1 drop into affected eye as needed Ophthalmic 2 - 4 time(s) a day 0 Active rosuvastatin calcium 10 mg oral tablet (7 sources) HMG-CoA Reductase Inhibitor Start: 022 take 1 tablet by mouth every week rosuvastatin (Crestor) 10 mg tablet Take 1 tablet (10 mg) by mouth per week. 0 08/29/2021 Active Trelegy Ellipta 100-62.5-25 MCG/INH (1 source) take 1 puff(s) by inhalation once daily Trelegy Ellipta 100-62.5-25 MCG/INH 1 puff Inhalation Once a day Active triamcinolone acetonide 1 mg/ml topical cream (20 sources) Corticosteroid Start: 024 triamcinolone (Kenalog) 0.1 % cream Indications: Dermatitis Apply topically 2 (two) times a day 45 g 2 08/24/2023 Active Start: 12-30-2017 KENALOG - 10 m g Dec, 40 mg Start: 10-27-2017 KENALOG - 10 m g Oct, 40 mg Start: 10-26-2017 KENALOG - 10 m g Oct, 40 mg Start: 08-26-2016 Kenalog -40 mg Aug, 40 mg Start: 12-14-2014 Kenalog -40 mg November, 40 mg Start: 07-06-2014 KENALOG - 10 m g Jun, 40 mg Problems Active Problems Problem Classification Problem Date Documented Date Episodic/Chronic Cancer of colon (14 sources) Malignant tumor of colon; Translations: [Malignant neoplasm of colon, unspecified] Onset: 3 01-26-2023 Chronic Cancer of colon (8 sources) Personal history of other malignant neoplasm of large intestine; Translations: [History of malignant neoplasm of colon] Onset: 8 08-05-2023 Episodic Cardiac dysrhythmias (20 sources) Permanent atrial fibrillation; Translations: [Atrial fibrillation] Onset: 3 01-26-2023 Chronic Cardiac dysrhythmias (1 source) Cardiac dysrhythmias Onset: 7 Chronic kidney disease (20 sources) Chronic kidney disease, stage 4 (severe); Translations: [Chronic kidney disease stage 4] Onset: 8 Resolved: 2 Chronic Chronic kidney disease (2 sources) Chronic kidney disease Onset: 7 Chronic obstructive pulmonary disease and bronchiectasis (12 sources) Pulmonary emphysema; Translations: [Emphysema, unspecified] Onset: 3 01-26-2023 Chronic Chronic ulcer of skin (2 sources) Ulcer of lower extremity; Translations: [Non-pressure chronic ulcer of unspecified part of unspecified lower leg with unspecified severity] Onset: 3 01-26-2023 Chronic Conditions associated with dizziness or vertigo (1 source) Conditions associated with dizziness or vertigo; Translations: [R42 - Dizziness and giddiness] Onset: 2 Congestive heart failure; nonhypertensive (20 sources) Edema; Translations: [Heart failure, unspecified] Onset: 3 Resolved: 3 01-26-2023 Chronic Coronary atherosclerosis and other heart disease (20 sources) Atherosclerotic heart disease of [place] coronary artery without angina pectoris; Translations: [Coronary atherosclerosis] Onset: 7 01-26-2023 Chronic Coronary atherosclerosis and other heart disease (8 sources) Past history of procedure; Translations: [Percutaneous transluminal coronary angioplasty status] Onset: 4 09-15-2023 Episodic Coronary atherosclerosis and other heart disease (1 source) Coronary atherosclerosis and other heart disease Onset: 7 Deficiency and other anemia (1 source) Anemia in chronic kidney disease; Translations: [Anemia in chronic kidney disease] Onset: 8 Chronic Deficiency and other anemia (5 sources) Anemia of renal disease; Translations: [Anemia in chronic kidney disease] Chronic Diabetes mellitus with complications (20 sources) Disorder of kidney due to diabetes mellitus; Translations: [Type 2 diabetes mellitus with diabetic chronic kidney disease] Onset: 2 Resolved: 2 Chronic Diabetes mellitus without complication (8 sources) Diabetes mellitus; Translations: [Diabetes mellitus without mention of complication, type II or unspecified type, not stated as uncontrolled] Onset: 4 09-15-2023 Chronic Diabetes mellitus without complication (1 source) Diabetes mellitus without complication Onset: 7 Disorders of lipid metabolism (20 sources) Hyperlipidemia; Translations: [Other and unspecified hyperlipidemia] Onset: 2 Resolved: 2 Chronic Diverticulosis and diverticulitis (7 sources) Diverticular disease of colon; Translations: [Diverticulosis of large intestine without perforation or abscess without bleeding] Onset: 3 01-26-2023 Chronic Essential hypertension (20 sources) Hypertensive disorder; Translations: [Unspecified essential hypertension] Onset: 3 01-26-2023 Chronic Essential hypertension (1 source) Essential hypertension Onset: 7 Gangrene (1 source) Gangrenous disorder; Translations: [Gangrene, not elsewhere classified] 09-02-2023 Episodic Gout and other crystal arthropathies (7 sources) Gout; Translations: [Gout, unspecified] Onset: 3 01-26-2023 Chronic Heart valve disorders (7 sources) Mitral valve regurgitation; Translations: [Nonrheumatic mitral (valve) insufficiency] Onset: 3 01-26-2023 Chronic Hypertension with complications and secondary hypertension (15 sources) Hypertensive renal disease; Translations: [Hypertensive chronic kidney disease with stage 1 through stage 4 chronic kidney disease, or unspecified chronic kidney disease] Onset: 2 Resolved: 2 Chronic Mood disorders (7 sources) Depressive disorder; Translations: [Major depressive disorder, single episode, unspecified] Onset: 3 01-26-2023 Chronic Mycoses (1 source) Onychomycosis; Translations: [Tinea unguium] 09-02-2023 Episodic Nutritional deficiencies (7 sources) Vitamin D deficiency; Translations: [Vitamin D deficiency, unspecified] Onset: 2 Resolved: 2 Chronic Osteoarthritis (18 sources) Osteoarthritis of hip; Translations: [Unilateral primary osteoarthritis, left hip] Onset: 3 01-26-2023 Chronic Other aftercare (6 sources) Drug therapy finding; Translations: [Long-term (current) use of other medications] Episodic Other aftercare (5 sources) Long-term current use of anticoagulant; Translations: [jail (current) use of anticoagulants] Episodic Other aftercare (1 source) Taking high risk medication; Translations: [Other half-way (current) drug therapy] 09-15-2023 Episodic Other circulatory disease (5 sources) History of angioplasty; Translations: [Peripheral vascular angioplasty status] Episodic Other connective tissue disease (1 source) Pain of toes of bilateral feet; Translations: [Pain in right toe(s)] 09-02-2023 Episodic Other diseases of kidney and ureters (7 sources) Renal tubular acidosis; Translations: [Other disorders resulting from impaired renal tubular function] Onset: 3 01-26-2023 Chronic Other endocrine disorders (5 sources) Secondary hyperparathyroidism; Translations: [Secondary hyperparathyroidism, not elsewhere classified] Chronic Other endocrine disorders (5 sources) Secondary hyperparathyroidism, not elsewhere classified; Translations: [SECONDARY HYPERPARATHYROIDISM NEC] Onset: 2 Resolved: 2 Chronic Other inflammatory condition of skin (7 sources) Psoriasis; Translations: [Psoriasis, unspecified] Onset: 3 01-26-2023 Chronic Other nervous system disorders (7 sources) Difficulty walking; Translations: [Difficulty in walking, not elsewhere classified] Onset: 3 01-26-2023 Chronic Other nutritional; endocrine; and metabolic disorders (5 sources) Obesity; Translations: [Obesity, unspecified] Chronic Other nutritional; endocrine; and metabolic disorders (5 sources) Body mass index 30+ - obesity; Translations: [Body mass index (BMI) 30.0-30.9, adult] Chronic Other nutritional; endocrine; and metabolic disorders (4 sources) Body mass index (BMI) 30.0-30.9, adult; Translations: [BODY MASS INDEX BMI 30.0-30.9 ADULT] Onset: 2 Resolved: 2 Chronic Other nutritional; endocrine; and metabolic disorders (10 sources) Hyperuricemia without signs of inflammatory arthritis and tophaceous disease; Translations: [HU W/O SIGNS IA AND TOPHACEOUS DZ] Onset: 2 Resolved: 2 Episodic Other nutritional; endocrine; and metabolic disorders (1 source) Overweight in adulthood with body mass index of 25 or more but less than 30; Translations: [Overweight] Episodic Hilda-; endo-; and myocarditis; cardiomyopathy (except that caused by tuberculosis or sexually transmitted disease) (8 sources) Cardiomyopathy; Translations: [Other primary cardiomyopathies] Onset: 4 08-05-2023 Chronic Peripheral and visceral atherosclerosis (1 source) Peripheral vascular disease; Translations: [Peripheral vascular disease, unspecified] 09-02-2023 Chronic Residual codes; unclassified (5 sources) Swelling - edema - symptom; Translations: [Edema, unspecified] Episodic Residual codes; unclassified (2 sources) Never smoked tobacco; Translations: [Other specified health status] Onset: 4 09-15-2023 Episodic Spondylosis; intervertebral disc disorders; other back problems (5 sources) Lumbar discitis; Translations: [Discitis, unspecified, lumbar region] Chronic Unclassified (1 source) Cardiomyopathy, unspecified / I42.9(ICD-9) Onset: 7 Unclassified (2 sources) Athscl heart disease of burns [place] coronary artery w/o ang pctrs / I25.10(ICD-9) Onset: 7 Unclassified (1 source) Coronary angioplasty status / Z98.61(ICD-9) Onset: 7 Unclassified (1 source) Overweight / E66.3(ICD-9) Onset: 7 Unclassified (1 source) Unknown / UNK(Unknown) Onset: 8 Urinary tract infections (5 sources) Chronic cystitis; Translations: [Other chronic cystitis without hematuria] Chronic Past or Other Problems Problem Classification Problem Date Documented Date Episodic/Chronic Biliary tract disease (7 sources) Biliary calculus; Translations: [Calculus of gallbladder without cholecystitis without obstruction] Onset: 01-26-2023 01-26-2023 Episodic Calculus of urinary tract (20 sources) Kidney stone; Translations: [Calculus of kidney] Onset: 09-10-2021 Resolved: 01-14-2022 Episodic Deficiency and other anemia (1 source) Iron deficiency anemia, unspecified; Translations: [Iron deficiency anemia, unspecified] Onset: 03-10-2016 Episodic Deficiency and other anemia (7 sources) Iron deficiency anemia; Translations: [Iron deficiency anemia, unspecified] Onset: 01-26-2023 01-26-2023 Episodic Hemorrhoids (7 sources) Internal hemorrhoids; Translations: [Other hemorrhoids] Onset: 01-26-2023 01-26-2023 Episodic Malaise and fatigue (1 source) Weakness; Translations: [R53.1 - Weakness] Onset: 01-01-2022 Episodic Other connective tissue disease (2 sources) Muscle pain; Translations: [Myalgia, unspecified site] Onset: 04-29-2023 04-29-2023 Episodic Other diseases of veins and lymphatics (2 sources) Peripheral venous insufficiency; Translations: [Venous insufficiency (chronic) (peripheral)] Onset: 01-26-2023 01-26-2023 Episodic Other nutritional; endocrine; and metabolic disorders (1 source) Abnormal weight gain; Translations: [Abnormal weight gain] Onset: 11-30-2017 Episodic Residual codes; unclassified (7 sources) Difficulty sleeping ; Translations: [Sleep disorder, unspecified] Onset: 01-26-2023 01-26-2023 Episodic Unclassified (6 sources) Never smoked tobacco; Translations: [Never a smoker] Unclassified (1 source) Onset: 09-15-2023 09-15-2023 Varicose veins of lower extremity (7 sources) Dilated subcutaneous veins; Translations: [Varicose veins of unspecified lower extremity with inflammation] Onset: 01-26-2023 01-26-2023 Episodic Results Test Name Value Interpretation Reference Range Facility Office Visit (Cardiology)on 03-10-2023 Follow-up visit Diagnoses/Problems Assessed Atherosclerosis of coronary artery (414.00) (I25.10) Cardiomyopathy (425.4) (I42.9) Diabetes mellitus (250.00) (E11.9) Hyperlipidemia (272.4) (E78.5) Hypertension (401.9) (I10) Permanent atrial fibrillation (427.31) (I48.21) Status post coronary angioplasty (V45.82) (Z98.61) Never a smoker Overweight with body mass index (BMI) of 29 to 29.9 in adult (278.02,V85.25) (E66.3,Z68.29) High risk medication use (V58.69) (Z79.899) Chronic kidney disease, stage 4 (severe) (585.4) (N18.4) Orders Overweight with body mass index (BMI) of 29 to 29.9 in adult Healthy Weight Tips; Status:Complete - Retrospective Authorization; Done: [id number] Some eating tips that can help you lose weight.; Status:Complete - Retrospective Authorization; Done: [id number] SocHx: Never a smoker Tobacco Use Screening; Status:Complete; Done: [id number] Patient Instructions Please bring all medicines, vitamins, and herbal supplements with you when you come to the office. Prescriptions will not be filled unless you are compliant with your follow up appointments or have a follow up appointment scheduled as per instruction of your physician. Refills should be requested at the time of your visit. Follow up in 6[ ] months Chief Complaint JONY MCKAY is being seen for a 6 month follow-up of. Patient is in the office for follow-up for the problems noted below accompanied by his and his daughter. Since his last visit 6 months ago he has had no reported problems of dyspnea, chest pain or falls and no bleeding complications. He continues to follow with nephrology. Lab data from August 2022 were reviewed by myself and discussed with him and his family. His review of system essentially normal physical examination was unremarkable except for irregular rhythm consistent with his permanent atrial fibrillation Assessment/recommendations 1. Permanent atrial fibrillation. Patient is anticoagulated with Eliquis with no TIAs or bleeds. 2. controlled hypertension, present medical therapy will be left unchanged 3. Stage IV chronic kidney disease, managed by Nephrology. Lab from August 2022 was reviewed 4. Hyperlipidemia, currently on rosuvastatin. Well-tolerated 5. Coronary artery disease. Previous angioplasty in 2013 in [place]. Involving the LAD and the right coronary artery both are patent by cardiac catheterization November 2018, I reiterated the need for aggressive risk factors modification 6. High-risk medication, with anticoagulation. There has been no bleeding complications 7. Diabetes, managed by PCP, diabetes seems to be under control 8. 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 Due to renal insufficiency the use of RAAS inhibition has been avoided, therefore he has been on hydralazine and nitrates combination and remains compensated 9. Overweight, encouraged the patient to bring his BMI down with diet and exercise Surgical History Problems History of Angioplasty History of Cardiac catheterization History of Colon surgery History of Colonoscopy History of Esophagogastroduodenoscopy History of Nasal polypectomy History of Percutaneous transluminal coronary angioplasty History of Tonsillectomy Current Meds Medication NameInstruction Allopurinol 300 MG Oral TabletTake 1 tablet twice daily Aspirin EC Low Dose 81 MG Oral Tablet Delayed Release1 tablet twice weekly Bumetanide 1 MG Oral TabletTAKE 1 TABLET DAILY. TAKE 1 TABLET IN THE EVENING NEEDED. Carvedilol 25 MG Oral TabletTake one tablet by mouth twice a day Eliquis 5 MG Oral TabletTake 1 tablet twice daily hydrALAZINE HCl - 100 MG Oral TabletTAKE ONE TABLET TWO TIMES DAILY Isosorbide Mononitrate ER 120 MG Oral Tablet Extended Release 24 HourTAKE 1 TABLET DAILY. Rosuvastatin Calcium 10 MG Oral TabletTAKE ONE TABLET BY MOUTH ONCE WEEKLY Soliqua 100-33 UNT-MCG/ML Subcutaneous Solution Pen-injectoras directed Trelegy Ellipta 100-62.5-25 MCG/INH AEPBINHALE 1 PUFFS Daily Vitamin D (Cholecalciferol) 50 MCG (1999 UT) Oral CapsuleTAKE 1 CAPSULE Daily Allergies Medication ED Inhibitors Cough; Recorded By: Ana Lilia Kim; 06/06/2021 10:40:28 AM amlodipine Itching; Recorded By: Ana Lilia Kim; 06/06/2021 10:40:28 AM lisinopril Cough; Recorded By: Ana Lilia Kim; 06/06/2021 10:40:28 AM Percocet TABS LOOPY; Recorded By: Ana Lilia Kim; 06/06/2021 10:40:28 AM Social History Problems Daily caffeine consumption, 1 serving a day Never a smoker No alcohol use No illicit drug use Review of Systems Constitutional: not feeling tired. Cardiovascular: no intermittent leg claudication and as noted in HPI. Respiratory: no cough and no shortness of breath. Gastrointestinal: no change in bowel habits and no blood in stools. Integumentary: no skin rashes. Neurological: no seizures and no frequent falls. All other systems have been reviewed and are negative for complaint. Vitals Vital Signs Recorded: [id number] 10: (more content not included)... Normal [facility] Tobacco Screening.on 023 Fall risk assessment a) No falls within the last year [facility] [address] DO Work Phone: Tobacco use status [facility]PHS b) No [facility] [address] DO Work Phone: PTH INTACTon 09-16-2022 PTH, Intact 94 pg/mL Critically high 15-65 [facility] Comment on above: Performed By: #### P THINT #### [facility] [address] [place] [address] Dr. Louis Mak HEMOGRAM AND PLATELon 2022 Hematocrit (Bld) [Volume fraction] 46.4 % Normal 42.0-54.0 [facility] Comment on above: Performed By: #### M G, CMP, URIC #### [facility] [address] [place] [address] Dr. Louis Mak Hemoglobin (Bld) [Mass/Vol] 14.4 g/dL Normal 14.0-18.0 [facility] Comment on above: Performed By: #### M G, CMP, URIC #### [facility] [address] [place] [address] Dr. Louis Mak MCH (RBC) [Entitic mass] 28.7 pg Normal 25.9-34.0 [facility] Comment on above: Performed By: #### M G, CMP, URIC #### [facility] [address] [place] [address] Dr. Louis Mak MCHC (RBC) [Mass/Vol] 31.0 g/dL Normal 29.9-35.2 [facility] Comment on above: Performed By: #### M G, CMP, URIC #### [facility] [address] [place] [address] Dr. Louis Mak MCV (RBC) [Entitic vol] 92.4 fL Normal 80.0-94.0 [facility] Comment on above: Performed By: #### M G, CMP, URIC #### [facility] [address] [place] [address] Dr. Louis Mak PLT 168 103/ul Normal 150-450 [facility] Comment on above: Performed By: #### M G, CMP, URIC #### [facility] [address] [place] [address] Dr. Louis Mak RBC 5.02 106/ul Normal 4.70-6.10 [facility] Comment on above: Performed By: #### M G, CMP, URIC #### [facility] [address] [place] [address] Dr. Louis Mak WBC 9.2 103/ul Normal 4.0-11.0 [facility] Comment on above: Performed By: #### M G, CMP, URIC #### [facility] [address] [place] [address] Dr. oLuis Mak MAGNESIUMon 09-15-2022 Magnesium [Mass/Vol] 1.8 mg/dL Normal 1.8-2.4 [facility] Comment on above: Performed By: #### M G, CMP, URIC #### [facility] [address] [place] [address] Dr. Louis Mak PHOSPHORUSon 09-15-2022 Phosphate [Mass/Vol] 3.8 mg/dL Normal 2.6-4.7 [facility] Comment on above: Performed By: #### C MP, URIC, PHOS, MG #### [facility] [address] [place] [address] Dr. Louis Mak PROF 14(COMP METB)on 023 Albumin [Mass/Vol] 3.5 g/dL Normal 3.4-5.0 [facility] Comment on above: Performed By: #### C MP, URIC, PHOS, MG #### [facility] [address] [place] [address] Dr. Louis Mak Albumin/Globulin [Mass ratio] 0.8 {ratio} Normal [facility] Comment on above: Performed By: #### C MP, URIC, PHOS, MG #### [facility] [address] [place] [address] Dr. Louis Mak ALP [Catalytic activity/Vol] 80 U/L Normal 46-116 [facility] Comment on above: Performed By: #### C MP, URIC, PHOS, MG #### [facility] [address] [place] [address] Dr. Louis Mak ALT [Catalytic activity/Vol] 18 U/L Normal 16-63 [facility] Comment on above: Performed By: #### C MP, URIC, PHOS, MG #### [facility] [address] [place] [address] Dr. Louis Mak Anion gap [Moles/Vol] 11.0 mmol/L Normal [facility] Comment on above: Performed By: #### C MP, URIC, PHOS, MG #### [facility] [address] [address] [address] Louis Mak AST [Catalytic activity/Vol] 28 U/L Normal 15-37 [facility] Comment on above: Performed By: #### C MP, URIC, PHOS, MG #### [facility] [address] [address] [address] Louis Mak Bilirubin [Mass/Vol] 0.8 mg/dL Normal 0.2-1.0 [facility] Comment on above: Performed By: #### C MP, URIC, PHOS, MG #### [facility] [address] [address] [address] Louis Mak Calcium [Mass/Vol] 9.2 mg/dL Normal 8.5-10.1 [facility] Comment on above: Performed By: #### C MP, URIC, PHOS, MG #### [facility] [address] [address] [address] Louis Mak Chloride [Moles/Vol] 108 mmol/L Critically high 98-107 [facility] Comment on above: Performed By: #### C MP, URIC, PHOS, MG #### [facility] [address] [address] [address] Luois Mak CO2 [Moles/Vol] 29.4 mmol/L Normal 21.0-32.0 [facility] Comment on above: Performed By: #### C MP, URIC, PHOS, MG #### [facility] [address] [address] [address] Louis Mak Creatinine [Mass/Vol] 2.11 mg/dL Critically high 0.70-1.30 [facility] Comment on above: Performed By: #### C MP, URIC, PHOS, MG #### [facility] [address] [address] [address] Louis Mak EGFR-AF ROMANIAN 37 mL/min/1.73m2 Critically low >=60 [facility] Comment on above: Performed By: #### C MP, URIC, PHOS, MG #### [facility] [address] [place] [address] Dr. Louis Mak EGFR-NON AF ROMANIAN 30 mL/min/1.73m2 Critically low >=60 [facility] Comment on above: Performed By: #### C MP, URIC, PHOS, MG #### [facility] [address] [place] [address] Dr. Louis Mak Globulin (S) [Mass/Vol] 4.6 g/dL Normal [facility] Comment on above: Performed By: #### C MP, URIC, PHOS, MG #### [facility] [address] [place] [address] Dr. Louis Mak Glucose [Mass/Vol] 143 mg/dL Critically high 74-106 [facility] Comment on above: Performed By: #### C MP, URIC, PHOS, MG #### [facility] [address] [place] [address] Dr. Louis Mak Potassium [Moles/Vol] 4.4 mmol/L Normal 3.5-5.1 [facility] Comment on above: Performed By: #### C MP, URIC, PHOS, MG #### [facility] [address] [place] [address] Dr. Louis Mak Protein [Mass/Vol] 8.1 g/dL Normal 6.4-8.2 [facility] Comment on above: Performed By: #### C MP, URIC, PHOS, MG #### [facility] [address] [place] [address] Dr. Louis Mak Sodium [Moles/Vol] 144 mmol/L Normal 136-145 [facility] Comment on above: Performed By: #### C MP, URIC, PHOS, MG #### [facility] [address] [place] [address] Dr. Louis Mak Urea nitrogen [Mass/Vol] 46.0 mg/dL Critically high 7.0-18.0 [facility] Comment on above: Performed By: #### C MP, URIC, PHOS, MG #### [facility] [address] [address] [address] Louis Mak Urea nitrogen/Creatini ne [Mass ratio] 21.8 mg/mg Normal [facility] Comment on above: Performed By: #### C MP, URIC, PHOS, MG #### [facility] [address] [address] [address] Louis Mak UA RANDOMon 09-15-2022 Bilirubin Ql (U) Negative Normal NEGATIVE [facility] Comment on above: Performed By: #### M G, CMP, URIC #### [facility] [address] [address] [address] Louis Mak Clarity (U) CLEAR Normal CLEAR [facility] Comment on above: Performed By: #### M G, CMP, URIC #### [facility] [address] [place] [address] Dr. Louis Mak Color (U) LT. YELLOW Normal YELLOW [facility] Comment on above: Performed By: #### M G, CMP, URIC #### [facility] [address] [address] [address] Louis Mak Glucose Ql (U) Negative Normal NEGATIVE [facility] Comment on above: Performed By: #### M G, CMP, URIC #### [facility] [address] [address] [address] Louis Mak Hemoglobin Ql (U) Negative Normal NEGATIVE [facility] Comment on above: Performed By: #### M G, CMP, URIC #### [facility] [address] [address] [address] Louis Mak Ketones Ql (U) Negative Normal NEGATIVE [facility] Comment on above: Performed By: #### M G, CMP, URIC #### [facility] [address] [place] [address] Dr. Louis Mak LEUKOCYTES SMALL Abnormal NEGATIVE [facility] Comment on above: Performed By: #### M G, CMP, URIC #### [facility] [address] [place] [address] Dr. Louis Mak Nitrite Ql (U) Negative Normal NEGATIVE [facility] Comment on above: Performed By: #### M G, CMP, URIC #### [facility] [address] [address] [address] Louis Mak pH (U) 5.5 [pH] Normal 5-9 [facility] Comment on above: Performed By: #### M G, CMP, URIC #### [facility] [address] [address] [address] Louis Mak SPEC GRAVITY 1.010 Normal 1.005-<=1.0 25 [facility] Comment on above: Performed By: #### M G, CMP, URIC #### [facility] [address] [place] [address] Dr. Louis Mak UA PROTEIN Negative Normal NEGATIVE/ TRACE [facility] Comment on above: Performed By: #### M G, CMP, URIC #### [facility] [address] [place] [address] Dr. Louis Mak Urobilinogen Qn (U) 0.2 {Efra'U}/dL Normal 0.2 - 1.0 [facility] Comment on above: Performed By: #### M G, CMP, URIC #### [facility] [address] [place] [address] Dr. Louis Mak URIC ACID SERUMon 09-15-2022 Urate [Mass/Vol] 5.3 mg/dL Normal 3.5-7.2 [facility] Comment on above: Performed By: #### C MP, URIC, PHOS, MG #### [facility] [address] [place] [address] Dr. Louis Mak URINE T PROTEIN CREAT RATIOo n 09-15-2022 Protein (U) [Mass/Vol] 16.9 mg/dL Critically high <=12.0 [facility] Comment on above: Performed By: #### U RTPCR #### [facility] [address] [place] [address] Dr. Louis Mak UR PROT CREAT RAT 0.77 Normal [facility] Comment on above: Performed By: #### U RTPCR #### [facility] [address] [place], [place] [address] Dr. Louis Mak URINE CREAT 22.03 mg/dL Normal 20.00-300.0 0 [facility] Comment on above: Performed By: #### U RTPCR #### [facility] [address] [place], [place] [address] Dr. Louis Mak VITAMIN D 25 OHon 09-15-2022 VIT D 25-OH 13.9 ng/mL Normal [facility] Comment on above: Performed By: #### M G, CMP, URIC #### [facility] [address] [place], [place] [address] Dr. Louis Mak VIT D RANGES SEE BELOW Normal [facility] Comment on above: Result Comment: <20 ng/mL Vit D deficient 20 - <30 ng/mL Vit D insufficient 30 - 100 ng/mL Vit D sufficient >100 ng/mL Potential Toxicity Performed By: #### M G, CMP, URIC #### [facility] [address] [place], [place] [address] Dr. Louis Mak Office Visit (Cardiology)on 09-02-2022 Follow-up visit Diagnoses/Problems Assessed Permanent atrial fibrillation (427.31) (I48.21) Hypertension (401.9) (I10) Cardiomyopathy (425.4) (I42.9) Atherosclerosis of coronary artery (414.00) (I25.10) Status post coronary angioplasty (V45.82) (Z98.61) Hyperlipidemia (272.4) (E78.5) Diabetes mellitus (250.00) (E11.9) Chronic kidney disease, stage 4 (severe) (585.4) (N18.4) High risk medication use (V58.69) (Z79.899) Never a smoker Class 1 obesity with body mass index (BMI) of 30.0 to 30.9 in adult (278.00,V85.30) (E66.9,Z68.30) Orders Atherosclerosis of coronary artery Renew: Aspirin EC Low Dose 81 MG Oral Tablet Delayed Release; 1 tablet twice weekly Cardiomyopathy Renew: Carvedilol 25 MG Oral Tablet; Take one tablet by mouth twice a day Cardiomyopathy, Hypertension Renew: hydrALAZINE HCl - 100 MG Oral Tablet; TAKE ONE TABLET TWO TIMES DAILY SocHx: Never a smoker Tobacco Use Screening; Status:Complete; Done: [id number] Patient Instructions Please bring all medicines, vitamins, and herbal supplements with you when you come to the office. Prescriptions will not be filled unless you are compliant with your follow up appointments or have a follow up appointment scheduled as per instruction of your physician. Refills should be requested at the time of your visit. Need lab from Dr. Canales-will have in September Follow up in 6 months Chief Complaint JONY MCKAY is being seen for HTN Management. Patient is in the office for follow-up for the problems noted below. He has had no trouble with hypertension since last visit in fact he was able to reduce hydralazine down to 100 mg twice daily along with the other medication he is on and his pressure is under control. His lab data from PCP were requested. He is in chronic atrial fibrillation on Eliquis with controlled heart rate. Has had no anginal symptoms and his kidney function appears to be stable. His weight remains above target. He has irregular rhythm on examination but the rest of examination reveals only obesity. Assessment/recommendations 1. Permanent atrial fibrillation. Patient is anticoagulated with Eliquis with no TIAs or bleeds. 2. controlled hypertension, present medical therapy will be left unchanged 3. Stage IV chronic kidney disease, managed by Nephrology. Recent lab data from PCP were requested 4. Hyperlipidemia, currently on rosuvastatin. Lab data from PCP requested 5. Coronary artery disease. Previous angioplasty in 2013 in [place]. Involving the LAD and the right coronary artery both are patent by cardiac catheterization November 2018, I reiterated the need for aggressive risk factors modification 6. High-risk medication, with anticoagulation. There has been no bleeding complications 7. Diabetes, managed by PCP, diabetes seems to be under control, lab data were requested 8. 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 Due to renal insufficiency the use of RAAS inhibition has been avoided, therefore he has been on hydralazine and nitrates combination and remains compensated 9. Borderline obesity, encouraged the patient to bring his BMI down with diet and exercise Surgical History Problems History of Angioplasty History of Cardiac catheterization History of Colon surgery History of Colonoscopy History of Esophagogastroduodenoscopy History of Nasal polypectomy History of Percutaneous transluminal coronary angioplasty History of Tonsillectomy Current Meds Medication NameInstruction Allopurinol 300 MG Oral TabletTAKE 2 TABLETS DAILY. Aspirin EC Low Dose 81 MG Oral Tablet Delayed Release1 tablet twice weekly Bumetanide 1 MG Oral TabletTAKE 1 TABLET DAILY. TAKE 1 TABLET IN THE EVENING NEEDED. Carvedilol 25 MG Oral TabletTake one tablet by mouth twice a day Eliquis 5 MG Oral TabletTake 1 tablet twice daily hydrALAZINE HCl - 100 MG Oral TabletTAKE ONE TABLET TWO TIMES DAILY Isosorbide Mononitrate ER 120 MG Oral Tablet Extended Release 24 HourTAKE 1 TABLET DAILY. Rosuvastatin Calcium 10 MG Oral TabletTAKE 1 TABLET Weekly Soliqua 100-33 UNT-MCG/ML Subcutaneous Solution Pen-injectoras directed Trelegy Ellipta 100-62.5-25 MCG/INH AEPBINHALE 1 PUFFS Daily Allergies Medication ED Inhibitors Cough; Recorded By: Ana Lilia iKm; 06/06/2021 10:40:28 AM amlodipine Itching; Recorded By: Ana Lilia Kim; 06/06/2021 10:40:28 AM lisinopril Cough; Recorded By: Ana Lilia Kim; 06/06/2021 10:40:28 AM Percocet TABS LOOPY; Recorded By: Ana Lilia Kim; 06/06/2021 10:40:28 AM Social History Problems Daily caffeine consumption, 1 serving a day Never a smoker No alcohol use No illicit drug use Review of Systems Constitutional: not feeling tired. Cardiovascular: no intermittent leg claudication and as noted in HPI. Respiratory: no cough and no shortness of breath. Gastrointestinal: no change in bowel habits and no blood in stools. Integumentary: no skin rashes. Neurological: no seizures and no frequent falls. All other sy (more content not included)... Normal [facility] Tobacco Screening.on 023 Adult depression screening assessment No [facility] [place] [address] [place] Work Phone: Fall risk assessment a) No falls within the last year [facility] [address] [place] [address] DO Work Phone: Tobacco use status [facility] b) No [facility] [address] DO Work Phone: PTH INTACTon 05-19-2022 PTH, Intact 47 pg/mL Normal 15-65 [facility] Comment on above: Performed By: #### P THINT #### [facility] [address] [place] [address] Dr. Louis Mak HEMOGRAM AND PLATELon 2021 Hematocrit (Bld) [Volume fraction] 47.0 % Normal 42.0-54.0 [facility] Comment on above: Performed By: #### M G, CMP, URIC #### [facility] [address] [place] [address] Dr. Louis Mak Hemoglobin (Bld) [Mass/Vol] 14.9 g/dL Normal 14.0-18.0 [facility] Comment on above: Performed By: #### M G, CMP, URIC #### [facility] [address] [place] [address] Dr. Louis Mak MCH (RBC) [Entitic mass] 29.2 pg Normal 25.9-34.0 [facility] Comment on above: Performed By: #### M G, CMP, URIC #### [facility] [address] [place] [address] Dr. Louis Mak MCHC (RBC) [Mass/Vol] 31.7 g/dL Normal 29.9-35.2 [facility] Comment on above: Performed By: #### M G, CMP, URIC #### [facility] [address] [place] [address] Dr. Louis Mak MCV (RBC) [Entitic vol] 92.2 fL Normal 80.0-94.0 [facility] Comment on above: Performed By: #### M G, CMP, URIC #### [facility] [address] [place] [address] Dr. Louis Mak PLT 155 103/ul Normal 150-450 [facility] Comment on above: Performed By: #### M G, CMP, URIC #### [facility] [address] [place] [address] Dr. Louis Mak RBC 5.10 106/ul Normal 4.70-6.10 [facility] Comment on above: Performed By: #### M G, CMP, URIC #### [facility] [address] [place], [place] [id number] Dr. Louis Mak WBC 9.5 103/ul Normal 4.0-11.0 [facility] Comment on above: Performed By: #### M G, CMP, URIC #### [facility] [address] [place] [address] Dr. Louis Mak MAGNESIUMon 05-18-2022 Magnesium [Mass/Vol] 1.9 mg/dL Normal 1.8-2.4 [facility] Comment on above: Performed By: #### M G, CMP, URIC #### [facility] [address] [place] [address] Dr. Louis Mak PROF 14(COMP METB)on 022 Albumin [Mass/Vol] 3.3 g/dL Critically low 3.4-5.0 [facility] Comment on above: Performed By: #### M G, CMP, URIC #### [facility] [address] [place] [address] Dr. Louis Mak Albumin/Globulin [Mass ratio] 0.7 {ratio} Normal [facility] Comment on above: Performed By: #### M G, CMP, URIC #### [facility] [address] [place] [address] Dr. Louis Mak ALP [Catalytic activity/Vol] 72 U/L Normal 46-116 [facility] Comment on above: Performed By: #### M G, CMP, URIC #### [facility] [address] [place] [address] Dr. Louis Mak ALT [Catalytic activity/Vol] 20 U/L Normal 16-63 [facility] Comment on above: Performed By: #### M G, CMP, URIC #### [facility] [address] [place] [address] Dr. Louis Mak Anion gap [Moles/Vol] 10.7 mmol/L Normal [facility] Comment on above: Performed By: #### M G, CMP, URIC #### [facility] [address] [place] [address] Dr. Louis Mak AST [Catalytic activity/Vol] 34 U/L Normal 15-37 [facility] Comment on above: Performed By: #### M G, CMP, URIC #### [facility] [address] [address] [address] Louis Mak Bilirubin [Mass/Vol] 0.5 mg/dL Normal 0.2-1.0 [facility] Comment on above: Performed By: #### M G, CMP, URIC #### [facility] [address] [place] [address] Dr. Louis Mak Calcium [Mass/Vol] 8.9 mg/dL Normal 8.5-10.1 [facility] Comment on above: Performed By: #### M G, CMP, URIC #### [facility] [address] [place] [address] Dr. Louis Mak Chloride [Moles/Vol] 111 mmol/L Critically high 98-107 [facility] Comment on above: Performed By: #### M G, CMP, URIC #### [facility] [address] [place] [address] Dr. Louis Mak CO2 [Moles/Vol] 25.7 mmol/L Normal 21.0-32.0 [facility] Comment on above: Performed By: #### M G, CMP, URIC #### [facility] [address] [place] [address] Dr. Louis Mak Creatinine [Mass/Vol] 2.17 mg/dL Critically high 0.70-1.30 [facility] Comment on above: Performed By: #### M G, CMP, URIC #### [facility] [address] [place] [address] Dr. Louis Mak EGFR-AF ROMANIAN 36 mL/min/1.73m2 Critically low >=60 [facility] Comment on above: Performed By: #### M G, CMP, URIC #### [facility] [address] [place] [address] Dr. Louis Mak EGFR-NON AF ROMANIAN 29 mL/min/1.73m2 Critically low >=60 [facility] Comment on above: Performed By: #### M G, CMP, URIC #### [facility] [address] [place] [address] Dr. Louis Mak Globulin (S) [Mass/Vol] 4.5 g/dL Normal [facility] Comment on above: Performed By: #### M G, CMP, URIC #### [facility] [address] [address] [address] Louis Mak Glucose [Mass/Vol] 104 mg/dL Normal 74-106 [facility] Comment on above: Performed By: #### M G, CMP, URIC #### [facility] [address] [address] [address] Louis Mak Potassium [Moles/Vol] 4.4 mmol/L Normal 3.5-5.1 [facility] Comment on above: Performed By: #### M G, CMP, URIC #### [facility] [address] [place] [address] Dr. Louis Mak Protein [Mass/Vol] 7.8 g/dL Normal 6.4-8.2 [facility] Comment on above: Performed By: #### M G, CMP, URIC #### [facility] [address] [place] [address] Dr. Louis Mak Sodium [Moles/Vol] 143 mmol/L Normal 136-145 [facility] Comment on above: Performed By: #### M G, CMP, URIC #### [facility] [address] [place] [address] Dr. Louis Mak Urea nitrogen [Mass/Vol] 55.0 mg/dL Critically high 7.0-18.0 [facility] Comment on above: Performed By: #### M G, CMP, URIC #### [facility] [address] [place] [address] Dr. Louis Mak Urea nitrogen/Creatini ne [Mass ratio] 25.3 mg/mg Normal [facility] Comment on above: Performed By: #### M G, CMP, URIC #### [facility] [address] [place] [address] Dr. Louis Mak UA RANDOMon 05-18-2022 Bilirubin Ql (U) Negative Normal NEGATIVE [facility] Comment on above: Performed By: #### M G, CMP, URIC #### [facility] [address] [address] [address] Louis Mak Clarity (U) CLEAR Normal CLEAR [facility] Comment on above: Performed By: #### M G, CMP, URIC #### [facility] [address] [place] [address] Dr. Louis Mak Color (U) LT. YELLOW Normal YELLOW [facility] Comment on above: Performed By: #### M G, CMP, URIC #### [facility] [address] [address] [address] Louis Mak Glucose Ql (U) Negative Normal NEGATIVE [facility] Comment on above: Performed By: #### M G, CMP, URIC #### [facility] [address] [place] [address] Dr. Louis Mak Hemoglobin Ql (U) Negative Normal NEGATIVE [facility] Comment on above: Performed By: #### M G, CMP, URIC #### [facility] [address] [place] [address] Dr. Louis Mak Ketones Ql (U) Negative Normal NEGATIVE [facility] Comment on above: Performed By: #### M G, CMP, URIC #### [facility] [address] [place] [address] Dr. Louis Mak LEUKOCYTES LARGE Abnormal NEGATIVE [facility] Comment on above: Performed By: #### M G, CMP, URIC #### [facility] [address] [place] [address] Dr. Louis Mak Nitrite Ql (U) Negative Normal NEGATIVE [facility] Comment on above: Performed By: #### M G, CMP, URIC #### [facility] [address] [place] [address] Dr. Louis Mak pH (U) 5.5 [pH] Normal 5-9 [facility] Comment on above: Performed By: #### M G, CMP, URIC #### [facility] [address] [place] [address] Dr. Louis Mak SPEC GRAVITY 1.020 Normal 1.005-<=1.0 25 [facility] Comment on above: Performed By: #### M G, CMP, URIC #### [facility] [address] [place] [address] Dr. Louis Mak UA PROTEIN Negative Normal NEGATIVE/ TRACE [facility] Comment on above: Performed By: #### M G, CMP, URIC #### [facility] [address] [place] [address] Dr. Louis Mak Urobilinogen Qn (U) 0.2 {Efra'U}/dL Normal 0.2 - 1.0 [facility] Comment on above: Performed By: #### M G, CMP, URIC #### [facility] [address] [place] [address] Dr. Louis Mak URIC ACID SERUMon 05-18-2022 Urate [Mass/Vol] 6.4 mg/dL Normal 3.5-7.2 [facility] Comment on above: Performed By: #### M G, CMP, URIC #### [facility] [address] [place] [address] Dr. Louis Mak URINE T PROTEIN CREAT RATIOo n 05-18-2022 Protein (U) [Mass/Vol] 19.1 mg/dL Critically high <=12.0 [facility] Comment on above: Performed By: #### M G, CMP, URIC #### [facility] [address] [place] [address] Dr. Louis Mak UR PROT CREAT RAT 0.97 Normal [facility] Comment on above: Performed By: #### M G, CMP, URIC #### [facility] [address] [place] [address] Dr. Louis Mak URINE CREAT 19.74 mg/dL Critically low 20.00-300.0 0 [facility] Comment on above: Performed By: #### M G, CMP, URIC #### [facility] [address] [place] [address] Dr. Louis Mak VITAMIN D 25 OHon 05-18-2022 VIT D 25-OH 13.4 ng/mL Normal [facility] Comment on above: Performed By: #### M G, CMP, URIC #### [facility] [address] [address] [address] Louis Mak VIT D RANGES SEE BELOW Normal [facility] Comment on above: Result Comment: <20 ng/mL Vit D deficient 20 - <30 ng/mL Vit D insufficient 30 - 100 ng/mL Vit D sufficient >100 ng/mL Potential Toxicity Performed By: #### M G, CMP, URIC #### [facility] [address] [address] [address] Louis Mak Office Visit (Cardiology)on 03-24-2022 Follow-up visit Diagnoses/Problems Assessed Hypertension (401.9) (I10) Orders Cardiomyopathy Renew: Carvedilol 25 MG Oral Tablet; Take one tablet by mouth twice a day Patient Instructions ov as scheduled 09/02 Same meds Chief Complaint JONY MCKAY is being seen for hypertension. Patient is in the office for follow-up for hypertension management since we increase hydralazine. His pressure is now completely under control. He has no side effect of medications. Schedule of visit will be left unchanged. Current Meds Medication NameInstruction Allopurinol 300 MG Oral TabletTAKE 2 TABLETS DAILY. Aspirin EC Low Dose 81 MG Oral Tablet Delayed Release1 tablet twice weekly Bumetanide 1 MG Oral TabletTAKE 1 TABLET DAILY NEEDED Carvedilol 25 MG Oral TabletTake one tablet by mouth twice a day Eliquis 5 MG Oral TabletTake 1 tablet twice daily hydrALAZINE HCl - 100 MG Oral Tablettake 1 1/2 tablet two times daily Isosorbide Mononitrate ER 120 MG Oral Tablet Extended Release 24 HourTAKE 1 TABLET DAILY. Rosuvastatin Calcium 10 MG Oral TabletTAKE 1 TABLET Weekly Soliqua 100-33 UNT-MCG/ML Subcutaneous Solution Pen-injectoras directed Trelegy Ellipta 100-62.5-25 MCG/INH Inhalation Aerosol Powder Breath ActivatedINHALE 1 PUFFS Daily Allergies Medication ED Inhibitors Cough; Recorded By: Ana Lilia Kim; 06/06/2021 10:40:28 AM amlodipine Itching; Recorded By: Ana Lilia Kim; 06/06/2021 10:40:28 AM lisinopril Cough; Recorded By: Ana Lilia Kim; 06/06/2021 10:40:28 AM Percocet TABS LOOPY; Recorded By: Ana Lilia Kim; 06/06/2021 10:40:28 AM Vitals Vital Signs Printed in Appendix #1 below. Signatures Electronically signed by : Sameera Simmons MD; Mar 24 2022 10:26AM EST (Author) Appendix #1 Vital Signs Patient: JONY MCKAY; : 1940; Recorded: [id number] 10:01AMRecorded: [id number] 09:43AMRecorded: [id number] 09:33AM [id number], RUE, Sitting [id number], RUE, Sitting Heart Rate70 Height6 ft 2 in Afqajv160 lb BMI Rgvtilynwd87.92 kg/m2 BSA Calculated2.32 Normal [facility] PHQ-2 VITALSon 02-18-2022 Adult depression screening assessment No [facility] [place] [address] DO Work Phone: Fall risk assessment a) No falls within the last year [facility] [address] [place] [address] DO Work Phone: Tobacco use status CPHS b) No [facility] [place] [address] DO Work Phone: CREATININE URINEon URINE CREAT 129.96 mg/dL Normal 20.00-300.0 0 [facility] Comment on above: Performed By: #### M G, CMP, URIC #### [facility] [address] [place] [address] Dr. Louis Mak MICROALBUMIN, RAND URon - mALB 16.2 mg/L Normal <=30.0 [facility] Comment on above: Performed By: #### M G, CMP, URIC #### [facility] [address] [address] [address] Louis Mak PTH INTACTon 01-10-2022 PTH, Intact 32 pg/mL Normal 15-65 [facility] Comment on above: Performed By: #### M G, CMP, URIC #### [facility] [address] [place] [address] Dr. Louis Mak UA RANDOMon 01-10-2022 Bilirubin Ql (U) Negative Normal NEGATIVE [facility] Comment on above: Performed By: #### U A #### [facility] [address] [place] [address] Dr. Louis Mak Clarity (U) CLEAR Normal CLEAR [facility] Comment on above: Performed By: #### U A #### [facility] [address] [place] [address] Dr. Louis Mak Color (U) LT. YELLOW Normal YELLOW [facility] Comment on above: Performed By: #### U A #### [facility] [address] [place] [address] Dr. Louis Mak Glucose Ql (U) Negative Normal NEGATIVE [facility] Comment on above: Performed By: #### U A #### [facility] [address] [place] [address] Dr. Louis Mak Hemoglobin Ql (U) Negative Normal NEGATIVE [facility] Comment on above: Performed By: #### U A #### [facility] [address] [place] [address] Dr. Louis Mak Ketones Ql (U) Negative Normal NEGATIVE [facility] Comment on above: Performed By: #### U A #### [facility] [address] [place] [address] Dr. Louis Mak LEUKOCYTES SMALL Abnormal NEGATIVE [facility] Comment on above: Performed By: #### U A #### [facility] [address] [place] [address] Dr. Louis Mak Nitrite Ql (U) Negative Normal NEGATIVE [facility] Comment on above: Performed By: #### U A #### [facility] [address] [place] [address] Dr. Louis Mak pH (U) 5.0 [pH] Normal 5-9 [facility] Comment on above: Performed By: #### U A #### [facility] [address] [place] [address] Dr. Louis Mak SPEC GRAVITY 1.025 Normal 1.005-<=1.0 25 [facility] Comment on above: Performed By: #### U A #### [facility] [address] [place] [address] Dr. Louis Mak UA PROTEIN 30 mg/dl Abnormal NEGATIVE/ TRACE [facility] Comment on above: Performed By: #### U A #### [facility] [address] [address] [address] Louis Mak Urobilinogen Qn (U) 0.2 {Efra'U}/dL Normal 0.2 - 1.0 [facility] Comment on above: Performed By: #### U A #### [facility] [address] [address] [address] Louis Mak HEMOGRAM AND PLATELon 2021 Hematocrit (Bld) [Volume fraction] 45.9 % Normal 42.0-54.0 [facility] Comment on above: Performed By: #### M G, CMP, URIC #### [facility] [address] [address] [address] Louis Mak Hemoglobin (Bld) [Mass/Vol] 14.0 g/dL Normal 14.0-18.0 [facility] Comment on above: Performed By: #### M G, CMP, URIC #### [facility] [address] [address] [address] Louis Mak MCH (RBC) [Entitic mass] 27.4 pg Normal 25.9-34.0 [facility] Comment on above: Performed By: #### M G, CMP, URIC #### [facility] [address] [address] [address] Louis Mak MCHC (RBC) [Mass/Vol] 30.5 g/dL Normal 29.9-35.2 [facility] Comment on above: Performed By: #### M G, CMP, URIC #### [facility] [address] [address] [address] Louis Mak MCV (RBC) [Entitic vol] 89.8 fL Normal 80.0-94.0 [facility] Comment on above: Performed By: #### M G, CMP, URIC #### [facility] [address] [address] [address] Louis Mak PLT 168 103/ul Normal 150-450 [facility] Comment on above: Performed By: #### M G, CMP, URIC #### [facility] [address] [address] [address] Louis Mak RBC 5.11 106/ul Normal 4.70-6.10 [facility] Comment on above: Performed By: #### M G, CMP, URIC #### [facility] [address] [address] [address] Louis Mak WBC 9.7 103/ul Normal 4.0-11.0 [facility] Comment on above: Performed By: #### M G, CMP, URIC #### [facility] [address] [address] [address] Louis Mak PROF 14(COMP METB)on 022 Albumin [Mass/Vol] 3.1 g/dL Critically low 3.4-5.0 [facility] Comment on above: Performed By: #### M G, CMP, URIC #### [facility] [address] [place] [address] Dr. Louis Mak Albumin/Globulin [Mass ratio] 0.6 {ratio} Normal [facility] Comment on above: Performed By: #### M G, CMP, URIC #### [facility] [address] [place] [address] Dr. Louis Mak ALP [Catalytic activity/Vol] 82 U/L Normal 46-116 [facility] Comment on above: Performed By: #### M G, CMP, URIC #### [facility] [address] [address] [address] Louis Mak ALT [Catalytic activity/Vol] 18 U/L Normal 16-63 [facility] Comment on above: Performed By: #### M G, CMP, URIC #### [facility] [address] [place] [address] Dr. Louis Mak Anion gap [Moles/Vol] 11.6 mmol/L Normal [facility] Comment on above: Performed By: #### M G, CMP, URIC #### [facility] [address] [place] [address] Dr. Louis Mak AST [Catalytic activity/Vol] 43 U/L Critically high 15-37 [facility] Comment on above: Performed By: #### M G, CMP, URIC #### [facility] [address] [address] [address] Louis Mak Bilirubin [Mass/Vol] 0.8 mg/dL Normal 0.2-1.0 [facility] Comment on above: Performed By: #### M G, CMP, URIC #### [facility] [address] [address] [address] Louis Mak Calcium [Mass/Vol] 8.8 mg/dL Normal 8.5-10.1 [facility] Comment on above: Performed By: #### M G, CMP, URIC #### [facility] [address] [place] [address] Dr. Louis Mak Chloride [Moles/Vol] 110 mmol/L Critically high 98-107 [facility] Comment on above: Performed By: #### M G, CMP, URIC #### [facility] [address] [place] [address] Dr. Louis Mak CO2 [Moles/Vol] 25.9 mmol/L Normal 21.0-32.0 [facility] Comment on above: Performed By: #### M G, CMP, URIC #### [facility] [address] [place] [address] Dr. Louis Mak Creatinine [Mass/Vol] 2.22 mg/dL Critically high 0.70-1.30 [facility] Comment on above: Performed By: #### M G, CMP, URIC #### [facility] [address] [place] [address] Dr. Louis Mak EGFR-AF ROMANIAN 35 mL/min/1.73m2 Critically low >=60 [facility] Comment on above: Performed By: #### M G, CMP, URIC #### [facility] [address] [place] [address] Dr. Louis Mak EGFR-NON AF ROMANIAN 29 mL/min/1.73m2 Critically low >=60 [facility] Comment on above: Performed By: #### M G, CMP, URIC #### [facility] [address] [address] [address] Louis Mak Globulin (S) [Mass/Vol] 5.0 g/dL Normal [facility] Comment on above: Performed By: #### M G, CMP, URIC #### [facility] [address] [address] [address] Louis Mak Glucose [Mass/Vol] 90 mg/dL Normal 74-106 [facility] Comment on above: Performed By: #### M G, CMP, URIC #### [facility] [address] [address] [address] Louis Mak Potassium [Moles/Vol] 4.5 mmol/L Normal 3.5-5.1 [facility] Comment on above: Performed By: #### M G, CMP, URIC #### [facility] [address] [place] [address] Dr. Louis Mak Protein [Mass/Vol] 8.1 g/dL Normal 6.4-8.2 [facility] Comment on above: Performed By: #### M G, CMP, URIC #### [facility] [address] [address] [address] Louis Mak Sodium [Moles/Vol] 143 mmol/L Normal 136-145 [facility] Comment on above: Performed By: #### M G, CMP, URIC #### [facility] [address] [address] [address] Louis Mak Urea nitrogen [Mass/Vol] 41.0 mg/dL Critically high 7.0-18.0 [facility] Comment on above: Performed By: #### M G, CMP, URIC #### [facility] [address] [address] [address] Louis Mak Urea nitrogen/Creatini ne [Mass ratio] 18.5 mg/mg Normal [facility] Comment on above: Performed By: #### M G, CMP, URIC #### [facility] [address] [address] [address] Louis Mak URIC ACID SERUMon 01-09-2022 Urate [Mass/Vol] 5.2 mg/dL Normal 3.5-7.2 [facility] Comment on above: Performed By: #### M G, CMP, URIC #### [facility] [address] [address] [address] Louis Mak VITAMIN D 25 OHon 01-09-2022 VIT D 25-OH 13.7 ng/mL Normal [facility] Comment on above: Performed By: #### M G, CMP, URIC #### [facility] [address] [place], [place] [address] Dr. Louis Mak VIT D RANGES SEE BELOW Normal [facility] Comment on above: Result Comment: <20 ng/mL Vit D deficient 20 - <30 ng/mL Vit D insufficient 30 - 100 ng/mL Vit D sufficient >100 ng/mL Potential Toxicity Performed By: #### M G, CMP, URIC #### [facility] [address] [place], [place] [address] Dr. Louis Mak ECG 12 lead ECGon 01-01-2022 ECG 12 lead ECG [place] [address] Electrocardiograph Report Signed Patient: Jony Mckay JR MR#: [id number] : 1940 Acct:[id number] Age/Sex: 81 / M ADM Date: 01/01/22 Loc: ER Room: Type: [facility] ER Attending Dr: Ordering Provider: Kraig Mar DO Date of Service: 01/01/22 ECG/ECG 12 lead ECG: lightheaded Copies to: Test Reason : Blood Pressure : 211/117 mmHG Vent. Rate : 105 BPM Atrial Rate : 096 BPM P-R Int : 000 ms QRS Dur : 098 ms QT Int : 376 ms P-R-T Axes : 000 -19 138 degrees QTc Int : 496 ms Atrial fibrillation with rapid ventricular response with premature ventricular or aberrantly conducted complexes Confirmed by Kraig MAR DO ([id number]) on 01/01/2022 12:49:28 PM Referred By: Electronically Signed By:Kraig MAR DO Transcribed By: MUS Signed By Kraig Mar DO 0 01/01/22 1249 Normal [facility] Glucose Poct Glucometerson 0 01-01-2022 Commemt1 Glu2: Cleaned Meter Normal [facility] Comment on above: Result Comment: PERF ORMED BY: [facility] [place] [address] PATHOLOGIST [employer] OWEN HUSAIN M.D. Performed By: #### G JORGE #### Point of Care testing , Glucose [Mass/Vol] 63 mg/dL Normal [facility] Comment on above: Result Comment: [facility] Glucose Reference Range is dependent on time and content of last meal. Glucose of more than 200 mg/dL in a nonstressed, ambulatory subject supports the diagnosis of Diabetes Mellitus. Performed By: #### G JORGE #### Point of Care testing , Complete Blood Counton 12-25 Erythrocyte distribution width (RBC) [Ratio] 17.4 % High 11.0-15.0 [facility] [employer] Super[employer] Comment on above: Performed By: #### C MP, CBC, TSH #### [facility] [address] [place], [place] [id number] Hematocrit (Bld) [Volume fraction] 45.6 % Normal 38.5-50.0 [facility] [place] [facility] Specialist Comment on above: Performed By: #### C MP, CBC, TSH #### [facility] [address] [place], [place] [id number] Hemoglobin (Bld) [Mass/Vol] 13.7 g/dL Normal 13.0-17.1 [facility] [employer] Comment on above: Performed By: #### C MP, CBC, TSH #### [facility] [address] [place], [place] [id number] MCH (RBC) [Entitic mass] 27.2 pg Normal 27.0-33.0 [facility] [place] [facility] Comment on above: Performed By: #### C MP, CBC, TSH #### [facility] [address] [place], [place] [id number] MCHC (RBC) [Mass/Vol] 30.0 g/dL Low 32.0-36.0 [facility] [place] [facility] Comment on above: Performed By: #### C MP, CBC, TSH #### [facility] [address] [place], [place] [id number] MCV (RBC) [Entitic vol] 91 fL Normal 80-100 [facility] [place] [facility] Comment on above: Performed By: #### C MP, CBC, TSH #### [facility] [address] [place], [place] [id number] Platelet mean volume (Bld) [Entitic vol] 10.40 fL Normal 7.50-12.50 [facility] [place] [facility] Comment on above: Performed By: #### C MP, CBC, TSH #### [facility] [address] [place], [place] [id number] Platelets (Bld) [#/Vol] 192 10*3/uL Normal 140-400 [facility] [place] [facility] Specialist Comment on above: Performed By: #### C MP, CBC, TSH #### [facility] [address] [place], [place] [id number] RBC (Bld) [#/Vol] 5.04 10*6/uL Normal 4.20-5.80 [facility] Comment on above: Performed By: #### C MP, CBC, TSH #### [facility] [address] [place], [place] [id number] RDW-SD 57.2 fL High 37.0-50.0 [facility] [place] [facility] Specialist Comment on above: Performed By: #### C MP, CBC, TSH #### [facility] [address] [place], [place] [id number] WBC (Bld) [#/Vol] 8.0 10*3/uL Normal 3.8-11.0 [facility] Comment on above: Performed By: #### C MP, CBC, TSH #### [facility] [address] [place], [place] [id number] Comprehensive Metabolic Pane bret 12-25-2021 Albumin [Mass/Vol] 3.6 g/dL Normal 3.6-5.1 [facility] [place] [facility] Special[facility] Comment on above: Performed By: #### C MP, CBC, TSH #### [facility] [address] [place], [place] [id number] Albumin/Globulin [Mass ratio] 0.9 {ratio} Low 1.0-2.5 [facility] [place] [facility] Special[facility] Comment on above: Performed By: #### C MP, CBC, TSH #### [facility] [address] [facility] [place] [id number] ALP [Catalytic activity/Vol] 89 U/L Normal 40-129 [facility] [place] [facility] Special[facility] Comment on above: Performed By: #### C MP, CBC, TSH #### [facility] [address] [facility] [place] [place] [id number] ALT [Catalytic activity/Vol] 13 U/L Normal 9-46 [facility] [place] [facility] Comment on above: Result Comment: 06/18 Female reference range changed. Performed By: #### C MP, CBC, TSH #### [facility] [address] [facility] [place] [id number] Anion gap [Moles/Vol] 14 mmol/L Normal 12-20 [facility] [place] [facility] Specialist Comment on above: Result Comment: Effe ctive 07/24/2019 reference range changed. Performed By: #### C MP, CBC, TSH #### [facility] [address] [place], [place] [id number] AST [Catalytic activity/Vol] 32 U/L Normal 10-40 [facility] [place] [facility] Specialist Comment on above: Performed By: #### C MP, CBC, TSH #### [facility] [address] [place], [place] [id number] Bilirubin [Mass/Vol] 0.43 mg/dL Normal 0.30-1.20 [facility] [place] [facility] Specialist Comment on above: Performed By: #### C MP, CBC, TSH #### [facility] [address] [place], [place] [id number] BUN/CREA 23 Ratio High 6-22 [facility] [place] [facility] Specialist Comment on above: Performed By: #### C MP, CBC, TSH #### [facility] [address] [facility] [place] [id number] Calcium [Mass/Vol] 9.3 mg/dL Normal 8.6-10.2 [facility] [place] [facility] Specialist Comment on above: Performed By: #### C MP, CBC, TSH #### [facility] [address] [facility] [place] [id number] Chloride [Moles/Vol] 108 mmol/L High 98-107 [facility] [place] [facility] Specialist Comment on above: Performed By: #### C MP, CBC, TSH #### [facility] [address] [place] [id number] CO2 [Moles/Vol] 26 mmol/L Normal 20-31 [facility] [employer] Super[employer] Comment on above: Performed By: #### C MP, CBC, TSH #### [facility] [address] [place], [place] [id number] Creatinine [Mass/Vol] 2.1 mg/dL High 0.7-1.4 [facility] [employer] Super[facility] Comment on above: Performed By: #### C MP, CBC, TSH #### [facility] [address] [place], [place] [id number] eGFRAA 38 mL/min/1.73m2 Low >60 [facility] [employer] Supervisor Comment on above: Performed By: #### C MP, CBC, TSH #### [facility] [address] [place], [place] [id number] eGFRNAA 31 mL/min/1.73m2 Low >60 [facility] [employer] Supervisor Comment on above: Performed By: #### C MP, CBC, TSH #### [facility] [address] [place], [place] [id number] Globulin (S) [Mass/Vol] 3.8 g/dL High 1.9-3.7 [facility] [employer] Supervisor Comment on above: Performed By: #### C MP, CBC, TSH #### [facility] [address] [place], [place] [id number] Glucose [Mass/Vol] 104 mg/dL High 65-99 [facility] [employer] Supervisor Comment on above: Result Comment: For FASTING Glucose --- ADA reference ranges: Normal 65-99 mg/dl Prediabetes 100-125 Diabetes >/= 126 Performed By: #### C MP, CBC, TSH #### [facility] [address] [place], [place] [id number] Potassium [Moles/Vol] 4.8 mmol/L Normal 3.5-5.5 [facility] [employer] Supervisor Comment on above: Performed By: #### C MP, CBC, TSH #### [facility] [address] [place], [place] [id number] Protein [Mass/Vol] 7.4 g/dL Normal 6.1-8.1 [facility] [employer] Supervisor Comment on above: Performed By: #### C MP, CBC, TSH #### [facility] [address] [place], [place] [id number] Sodium [Moles/Vol] 144 mmol/L Normal 135-146 [facility] [place] [facility] Specialist Comment on above: Performed By: #### C MP, CBC, TSH #### [facility] [address] [place], [place] [id number] Urea nitrogen [Mass/Vol] 48 mg/dL High 7-25 [facility] [place] [facility] Specialist Comment on above: Performed By: #### C MP, CBC, TSH #### [facility] [address] [place], [place] [id number] Q - B-TYPE NATRIURETIC (BNP) on 12-25-2021 Natriuretic peptide B (Bld) [Mass/Vol] 205 pg/mL High <100 [facility] [place] [facility] Specialist Comment on above: Order Comment: [facility] performed at: [employer], [facility], [address] [place] [address], [address] [place] [address], [phone], High Lead Yarder: Kulwant Gibbs MD [facility] Collection Date/Time: [facility] Results Received Date/Time: [id number] [facility] Reported Date/Time: [id number] Result Comment: BNP levels increase with age in the general population with the highest values seen in individuals greater than 75 years of age. Reference: J. Am. Eun. Cardiol. 2002; 40:976-982. Performed By: #### [id number] #### [facility] [address] [place] [address] TSHon 12-25-2021 TSH 2.150 uIU/mL Normal 0.400-4.500 [facility] [place] [facility] Specialist Comment on above: Performed By: #### C MP, CBC, TSH #### [facility] [address] [place], [place] [id number] Basic Metabolic Panelon 05-0 Anion gap [Moles/Vol] 17 mmol/L Normal 12-20 [facility] [place] [facility] Specialist Comment on above: Result Comment: Effe ctive 07/24/2019 reference range changed. Performed By: #### B MP #### [facility] [address] [place], [place] [id number] Calcium [Mass/Vol] 9.1 mg/dL Normal 8.6-10.2 [facility] [place] [facility] Specialist Comment on above: Performed By: #### B MP #### [facility] [address] [place], [place] [id number] Chloride [Moles/Vol] 105 mmol/L Normal 98-107 [facility] [place] [facility] Specialist Comment on above: Performed By: #### B MP #### [facility] [address] [place], [place] [id number] CO2 [Moles/Vol] 25 mmol/L Normal 20-31 [facility] [place] [facility] Specialist Comment on above: Performed By: #### B MP #### [facility] [address] [place], [place] [id number] Creatinine [Mass/Vol] 2.4 mg/dL High 0.7-1.4 [facility] [place] [facility] Specialist Comment on above: Performed By: #### B MP #### [facility] [address] [place], [place] [id number] eGFRAA 32 mL/min/1.73m2 Low >60 [facility] [employer] Supervisor Comment on above: Performed By: #### B MP #### [facility] [address] [place], [place] [id number] eGFRNAA 26 mL/min/1.73m2 Low >60 [facility] [employer] Supervisor Comment on above: Performed By: #### B MP #### [facility] [address] [place], [place] [id number] Glucose [Mass/Vol] 291 mg/dL High 65-99 [facility] [employer] Supervisor Comment on above: Result Comment: For FASTING Glucose --- ADA reference ranges: Normal 65-99 mg/dl Prediabetes 100-125 Diabetes >/= 126 Performed By: #### B MP #### [facility] [address] [place], [place] [id number] Potassium [Moles/Vol] 4.8 mmol/L Normal 3.5-5.5 [facility] [place] [facility] Specialist Comment on above: Performed By: #### B MP #### [facility] [address] [place], [place] [id number] Sodium [Moles/Vol] 142 mmol/L Normal 135-146 [facility] [employer] Supervisor Comment on above: Performed By: #### B MP #### [facility] [address] [place], [place] [id number] Urea nitrogen [Mass/Vol] 58 mg/dL High 7-25 [facility] [employer] Supervisor Comment on above: Performed By: #### B MP #### [facility] [address] [place], [place] [id number] Tobacco Screening.on Adult depression screening assessment No [facility] [place] [address] DO Work Phone: Fall risk assessment a) No falls within the last year [facility] [address] DO Work Phone: Heart Rate Irregular [facility] [address] DO Work Phone: Tobacco use status CPHS b) No [facility] [address] DO Work Phone: Comprehensive Metabolic Pane bret 06-23-2021 Albumin [Mass/Vol] 4.1 g/dL Normal 3.6-5.1 [facility] [employer] Supervisor Comment on above: Performed By: #### L IPD, CMP #### [facility] [address] [place], [place] [id number] Albumin/Globulin [Mass ratio] 1.0 {ratio} Normal 1.0-2.5 [facility] [employer] Supervisor Comment on above: Performed By: #### L IPD, CMP #### [facility] [address] [place], [place] [id number] ALP [Catalytic activity/Vol] 89 U/L Normal 40-129 [facility] [employer] Supervisor Comment on above: Performed By: #### L IPD, CMP #### [facility] [address] [place], [place] [id number] ALT [Catalytic activity/Vol] 14 U/L Normal 9-46 [facility] [employer] Supervisor Comment on above: Result Comment: 06/18 Female reference range changed. Performed By: #### L IPD, CMP #### [facility] [address] [place], [place] [id number] Anion gap [Moles/Vol] 18 mmol/L Normal 12-20 [facility] [employer] Supervisor Comment on above: Result Comment: Effe ctive 07/24/2019 reference range changed. Performed By: #### L IPD, CMP #### [facility] [address] [place], [place] [id number] AST [Catalytic activity/Vol] 19 U/L Normal 10-40 [facility] [employer] Supervisor Comment on above: Performed By: #### L IPD, CMP #### [facility] [address] [place], [place] [id number] Bilirubin [Mass/Vol] 0.63 mg/dL Normal 0.30-1.20 [facility] [employer] Supervisor Comment on above: Performed By: #### L IPD, CMP #### [facility] [address] [place], [place] [id number] BUN/CREA 22 Ratio Normal 6-22 [facility] [employer] Supervisor Comment on above: Performed By: #### L IPD, CMP #### [facility] [address] [place], [place] [id number] Calcium [Mass/Vol] 9.5 mg/dL Normal 8.6-10.2 [facility] [employer] Supervisor Comment on above: Performed By: #### L IPD, CMP #### [facility] [address] [place], [place] [id number] Chloride [Moles/Vol] 109 mmol/L High 98-107 [facility] [employer] Supervisor Comment on above: Performed By: #### L IPD, CMP #### [facility] [address] [place], [place] [id number] CO2 [Moles/Vol] 21 mmol/L Normal 20-31 [facility] [employer] Supervisor Comment on above: Performed By: #### L IPD, CMP #### [facility] [address] [place], [place] [id number] Creatinine [Mass/Vol] 2.9 mg/dL High 0.7-1.4 [facility] [employer] Supervisor Comment on above: Performed By: #### L IPD, CMP #### [facility] [address] [place], [place] [id number] eGFRAA 26 mL/min/1.73m2 Low >60 [facility] [employer] Supervisor Comment on above: Performed By: #### L IPD, CMP #### [facility] [address] [place], [place] [id number] eGFRNAA 21 mL/min/1.73m2 Low >60 [facility] [employer] Supervisor Comment on above: Performed By: #### L IPD, CMP #### [facility] [address] [place], [place] [id number] Globulin (S) [Mass/Vol] 4.0 g/dL High 1.9-3.7 [facility] [place] [facility] Specialist Comment on above: Performed By: #### L IPD, CMP #### [facility] [address] [place], [place] [id number] Glucose [Mass/Vol] 133 mg/dL High 65-99 [facility] [employer] Supervisor Comment on above: Result Comment: For FASTING Glucose --- ADA reference ranges: Normal 65-99 mg/dl Prediabetes 100-125 Diabetes >/= 126 Performed By: #### L IPD, CMP #### [facility] [address] [place], [place] [id number] Potassium [Moles/Vol] 4.4 mmol/L Normal 3.5-5.5 [facility] [employer] Supervisor Comment on above: Performed By: #### L IPD, CMP #### [facility] [address] [place], [place] [id number] Protein [Mass/Vol] 8.1 g/dL Normal 6.1-8.1 [facility] [employer] Supervisor Comment on above: Performed By: #### L IPD, CMP #### [facility] [address] [place], [place] [id number] Sodium [Moles/Vol] 144 mmol/L Normal 135-146 [facility] [employer] Supervisor Comment on above: Performed By: #### L IPD, CMP #### [facility] [address] [place], [place] [id number] Urea nitrogen [Mass/Vol] 62 mg/dL High 7-25 [facility] [employer] Supervisor Comment on above: Performed By: #### L IPD, CMP #### [facility] [address] [place], [place] [id number] Lipid Panelon 06-23-2021 Cholesterol [Mass/Vol] 136 mg/dL Normal 125-200 [facility] [employer] Supervisor Comment on above: Result Comment: Low risk < 200mg/dL Borderline risk 201-239 mg/dl High risk > or equal to 240 Performed By: #### L IPD, CMP #### [facility] [address] [place], [place] [id number] Cholesterol in HDL [Mass/Vol] 30 mg/dL Low >40 [facility] [place] [facility] Specialist Comment on above: Result Comment: High Cardiovascular Risk HDL <40 mg/dL Low Cardiovascular Risk HDL > or equal to 60 mg/dl Performed By: #### L IPD, CMP #### [facility] [address] [place], [place] [id number] Cholesterol in LDL [Mass/Vol] 86 mg/dL Normal [facility] [place] [facility] Specialist Comment on above: Result Comment: LDL ATP III CLASSIFICATION LDL less than 100 mg/dl Optimal LDL 100-129 mg/dl Near or above optimal LDL 130-159 Borderline high LDL 160-189 High LDL greater than 189 mg/dl Very High Performed By: #### L IPD, CMP #### [facility] [address] [place], [place] [id number] Cholesterol in VLDL [Mass/Vol] 20 mg/dL Normal [facility] [place] [facility] Specialist Comment on above: Performed By: #### L IPD, CMP #### [facility] [address] [place], [place] [id number] Cholesterol.total /Cholesterol in HDL [Mass ratio] 5 {ratio} Normal [facility] [place] [facility] Specialist Comment on above: Performed By: #### L IPD, CMP #### [facility] [address] [place], [place] [id number] Triglyceride [Mass/Vol] 102 mg/dL Normal 30-150 [facility] [place] [facility] Specialist Comment on above: Result Comment: TRIG ATPIII CLASSIFICATIONS TRIG less than 150 mg/dl Normal TRIG 150-199 mg/dl Borderline High TRIG 200-500 mg/dl High TRIG greather than 500 mg/dl Very High Performed By: #### L IPD, CMP #### [facility] [address] [place], [place] [id number] Q - B-TYPE NATRIURETIC (BNP) on 06-23-2021 Natriuretic peptide B (Bld) [Mass/Vol] 117 pg/mL High <100 [facility] [employer] Supervisor Comment on above: Order Comment: [facility] Testing performed at: [employer], [employer] [facility], [address] [place] [address], [address] [place] [address], [place], [phone], High Lead Yarder: Kulwant Gibbs MD [facility] Collection Date/Time: [facility] Results Received Date/Time: [facility] Reported Date/Time: Result Comment: BNP levels increase with age in the general population with the highest values seen in individuals greater than 75 years of age. Reference: J. Am. Eun. Cardiol. 2002; 40:976-982. Performed By: #### 3 [id number] #### [facility] [address] [place] [address] Lab Reportson 12-30-2020 Lab Reports [id number]#1.00CD:127 [facility] Consent for COVID Vaccineon 10-16-2020 SARS-CoV-2 (COVID-19) RNA GLORIA+probe Ql (Unsp spec) [id number]#1.00CD:127 [facility] Consent for COVID Vaccineon 09-28-2020 SARS-CoV-2 (COVID-19) RNA GLORIA+probe Ql (Unsp spec) [id number]#1.00CD:127 [facility] Consent for Treatmenton 09-16 Consent for Treatment [id number]#1.00CD:127 [facility] Coding Summary.on 09-26-2020 Coding Summary. CODING DATE: [facility] STATUS: PAYOR: Medicare APC DESCRIPTION [employer] - Level 1B ($11-$20) ADMIT DX: REASON FOR VISIT DX: Z23 Encounter for immunization FINAL DX: PRINCIPAL: Z23 Encounter for immunization SECONDARY: PYMT PROC APC STAT DESCRIPTION DOCTOR NAME DATE NOTE: The code number assigned matches the documented diagnosis and / or procedure in the patient's chart. However, the narrative phrase printed from the coding software may appear abbreviated, or result in slightly different terminology. Coded By: Casie Mullins Date Saved: 09/26/2020 12:04 pm [facility] CNSWon 03-30-2018 CNSW Social Work ([facility]) -JONY MCKAY ([id number]) 1940 MDate Time Provider Department03/30/18 BRIGID LIRA) ARISTEO During your visit today, we recorded the following information about you:FAITH Alva 04/06/2018 9:11 AM SignedSOCIAL WORK NOTE:CANCER CENTERDate of service: 03/30/2018PLAN: Continue follow up as neededF/U APPOINTMENT: PRNChart review completed by this SW due to the Patient being listed on the FirstTime Treatment Report. Patient is receiving a non-chemo regime. No SWassessment is indicated at this time.JOSESITO Alva-Dorothylergimallorie As of Date: 03/30/2018(No Known Allergies)Date Reviewed: 03/23/2018Reviewed by: Noreen Cantu - Fully AssessedPrescriptions as of 03/30/2018 Sig: PEG 400-PROPYLENE GLYCOL 0.4 * Use in eyes. FLUTICASONE 200 MCG-VILANTERO* Inhale 1 Inhalation as instru* NITROGLYCERIN 0.3 MG SUBLINGU* Dissolve 0.3 mg under the ton* CLONIDINE HCL 0.1 MG TABLET Take 0.1 mg by mouth twice da* CARVEDILOL 12.5 MG TABLET Take 12.5 mg by mouth twice d* TRIAMCINOLONE ACETONIDE 0.1 %* Apply to affected area. ALBUTEROL INHALATION Inhale as instructed. IRBESARTAN 150 MG TABLET Take 150 mg by mouth daily at* ERGOCALCIFEROL (VITAMIN D2) 5* Take 50,000 Units by mouth on* XARELTO ORAL Take by mouth. SITAGLIPTIN 100 MG TABLET Take 100 mg by mouth once lacho* ASPIRIN 81 MG TABLET,DELAYED * Take 81 mg by mouth once amirah* ATORVASTATIN 10 MG TABLET Take 10 mg by mouth once amirah* SODIUM BICARBONATE ORAL Take 650 mg by mouth once lacho* ACETAMINOPHEN 325 MG TABLET Take 650 mg by mouth every 6 * AMIODARONE 200 MG TABLET Take 200 mg by mouth once lacho* BUMETANIDE 1 MG TABLET Take 1 mg by mouth twice amirah* GLYBURIDE 1.25 MG TABLET Take 5 mg by mouth daily with* HYDRALAZINE 50 MG TABLET Take 50 mg by mouth twice lacho* ISOSORBIDE MONONITRATE ER 30 * Take 60 mg by mouth once amirah*Problem List As Of Date 03/30/2018 Noted Resolved Microcytic anemia [D50.9] INVALID FOR* Anemia of chronic kidney failure [N18.9, D63.1] INVALID FOR* Iron deficiency anemia [D50.9] INVALID FOR* History of colon cancer [Z85.038] INVALID FOR* Status:Closed by BRIGID LIRA on 04/06/18 Normal [facility] PROGRESSon 03-30-2018 Protein mass conc HNO ID: [id number] thor: Brigid ([facility]) AbranSerjanee: (none)Author Type: Social WorkerType: Progress NotesFiled: 04/06/2018 9:11 AMNote Text:SOCIAL WORK NOTE:CANCER CENTERDate of service: 03/30/2018PLAN: Continue follow up as neededF/U APPOINTMENT: PRNChart review completed by this SW due to the Patient being listed on theFirst Time Treatment Report. Patient is receiving a non-chemo regime. NoSW assessment is indicated at this time.Bebe Alva Normal [facility] CEAon 03-23-2018 CEA 5.5 ng/mL High 0.0-2.9 [facility] Comment on above: Result Comment: Test analyzed by the Kady DxI method. Performed By: #### R CBCDF ####[facility] [address] [place], [place] [phone] CNOVSPon 03-23-2018 CNOVSP Visit (SP) Office ([facility]) -JONY MCKAY ([id number]) 1940 MDate Time Provider Department03/23/18 11:30 AM LORENZO BELCHER During your visit today, we recorded the following information about you: Temperature Pulse Respiration Blood pressure 98 degrees 102/minute 16/minute 140/82 Weight Height 114.1 kg 1.806 Ilya Belcher MD 03/23/2018 1:17 PM SignedCHIEF COMPLAINT: iron deficiency anemia, colorectal cancerHISTORY OF PRESENT ILLNESS: Jony Mckay is a 77 year old male who presentsin follow-up of above. Previously seen in consultation for iron deficiency.11/2015 : Admitted to [facility] with microcytic anemia, recommendationwas to complete endoscopic evaluation : Large polyps identified in the distal and mid ascending colon, midascending colon lesion consistent with moderately differentiatedadenocarcinoma, distal ascending colon lesion reported as tubular adenoma12/2015 : Completes right ileocolic resection, pT1N0 - moderatelydifferentiated adenocarcinoma noted06/2016 : Microcytic anemia again noted patient did have severe episode ofepistaxis which was felt to be causing his anemia and would have replacementwith IV iron in response with improvement of blood counts07/2016 : Due to persistent anemia he did have repeat colonoscopy whichidentified mass at the splenic flexure09/2016 : Completed resection of tubulovillous adenoma at the splenic flexurewith improvement of his blood counts-had been in observation since that time02/2018 : Continues in observationPatient returns today and he is with his family. Notes that with exertion heis a little bit of dyspnea. Otherwise denies chest pain, palpitations. Deniescough or hemoptysis. Denies any recent change in bowel habits.PAST MEDICAL HISTORYDiagnosis Date- CAD (coronary artery disease)- Colon cancer (HCC)- COPD (chronic obstructive pulmonary disease) (HCC)- Diabetes mellitus (HCC)- HypertensionPAST SURGICAL HISTORYProcedure Laterality Date- COLONOSCOPY- EGDReview of Social History includes:Social History Marital status: Unknown Spouse name: Years of education: Number of children:Social History Main Topics Smoking status: Never Smoker Smokeless tobacco: Never Used Alcohol use: No Drug use: NoNo family history on file.Current Outpatient Prescriptions:fluticasone-jacquelin anterol (BREO ELLIPTA) 200-25 mcg/dose inhaler Inhale 1Inhalation as instructed once daily.nitroglycerin sublingual (NITROSTAT) 0.3 mg SL tablet Dissolve 0.3 mg under thetongue every 5 minutes as needed.cloNIDine HCl (CATAPRES) 0.1 mg tablet Take 0.1 mg by mouth twice daily.carvedilol (COREG) 12.5 mg tablet Take 12.5 mg by mouth twice daily with meals.ALBUTEROL INHALATION Inhale as instructed.irbesartan (AVAPRO) 150 mg tablet Take 150 mg by mouth daily at bedtime.ergocalciferol, vitamin D2, (VITAMIN D) 50,000 unit capsule Take 50,000 Unitsby mouth once each week.aspirin, enteric coated (ASPIRIN LOW DOSE) 81 mg EC tablet Take 81 mg by mouthonce daily.atorvastatin (LIPITOR) 10 mg tablet Take 10 mg by mouth once daily.bumetanide (BUMEX) 1 mg tablet Take 1 mg by mouth twice daily.hydrALAZINE (APRESOLINE) 50 mg tablet Take 50 mg by mouth twice daily.isosorbide mononitrate ER (IMDUR) 30 mg 24 hr tablet Take 60 mg by mouth oncedaily. Changed per ER physician for elevated BP has f/u with cardiologytomorrow 09/10peg 400-propylene glycol (SYSTANE GEL) 0.4-0.3 % drpg Use in eyes.triamcinolone-emollient comb45 0.1 % crea Apply to affected area.rivaroxaban (XARELTO ORAL) Take by mouth.sitaGLIPtin (JANUVIA) 100 mg tablet Take 100 mg by mouth once daily.SODIUM BICARBONATE ORAL Take 650 mg by mouth once daily.acetaminophen (TYLENOL) 325 mg tablet Take 650 mg by mouth every 6 hours asneeded. No Tylenol 09/10 pending upcoming OR miodarone (PACERONE) 200 mg tablet Take 200 mg by mouth once daily.glyBURIDE (MICRONASE, DIABETA) 1.25 mg tablet Take 5 mg by mouth daily withbreakfast.No current facility-administered medications for this visit.REVIEW OF SYSTEMS:Constitutional: No recent fevers, chills or sweats. Decreased energy as notedabove. Weight gain as noted above.HEENT: No oral sores no thrushGI: No blood in the stool, no constipation or diarrheaPULM:no cough or dyspnea,denies hemoptysisCV: no chest pain or palpitations, denies leg swellingNeuro: Denies current headaches or double visionGU: No hematuriaPsyche: Family notes move his been more labileMSK: No tender spots to palpation or joint swellingPHYSICAL EXAMINATION:BP 140/82 Pulse 102 Temp 36.7 ?C (98 ?F) (Oral) Resp 16 Ht 180.6 cm(5' 11.1 ) Wt 114.1 kg (251 lb 9.6 oz) SpO2 95% BMI 34.99 kg/m?General appearance: No distress, alert awakeLungs: clear to auscultation, no wheezing or rhonchiHeart: Negative. RRR without murmur, gallop, or rubs. No ectopy.Abdomen: Nontender nondistended no organomegalyPsychiatric: Normal mood affectNeuro: Cranial nerves II through XII intactLymph: No cervical supraclavicular or axillary adenopathy.Extremities: No erythema no woundsLABS:Results for JONY MCKAY ( ) as of 03/23/2018 11:59 Ref. Range 01/12/2018 10:36 03/23/2018 11:37WBC Latest Ref Range: 3.70 - 11.00 k/uL 8.94 8.59RBC Latest Ref Range: 4.20 - 6.00 m/uL 4.25 4.29Hemoglobin Latest Ref Range: 13.0 - 17.0 g/dL 10.7 (L) 10.2 (L)Hematocrit Latest Ref Range: 39.0 - 51.0 % 35.1 (L) 34.6 (L)Platelet Count Latest Ref Range: 150 - 400 k/uL 295 252MCV Latest Ref Range: 80.0 - 100.0 fL 82.6 80. COLONOSCOPY WITH PATHOLOGY BELOW12/2015 Resection07/2017 ColonoscopyASSESSMENT/PLAN: Jony Mckay is a 77 year old male with anemia, kidneydisease and stage 1 colorectal cancer. Had subsequent resection of a villousadenoma at the splenic flexure. We have been monitoring with his blood countsin his CEA which has been mildly elevated but with no persistent increase.Reviewed findings again today with the patient, his spouse and granddaughter.Reviewed mild worsening of anemia with progression towards microcytosis. Ironstudies pending but in the past has been intolerant of oral iron. Wouldschedule for IV iron infusion and monitor labs. Would continue to monitor CEA.Role Of imaging less clear in light of patient's expressed preference to avoidfurther medical intervention if he were to have issues with recurrence.Furthermore, imaging with contrast has mild contraindication in light of renaldysfunction. Would monitor clinically at this time.1. Stage 1 colon cancer:-Continue to monitor CEA with repeat labs in 3-4 months2. Iron deficiency anemia-Would give IV iron and monitor response may eventually need growth factorsupport3. Anemia chronic kidney disease-improved, monitor-Follow with nephrology, serum protein electrophoresis with immunofixation didnot identify a monoclonal protein4. Tubulovillous adenoma-resection completedAlfred Desirae Belcher, MDAlguanaco Belcher MD 03/23/2018 1:17 PM SignedCHIEF COMPLAINT: iron deficiency anemia, colorectal cancerHISTORY OF PRESENT ILLNESS: Jony Mckay is a 76 year old male who presentsin follow-up of above. Previously seen in consultation for iron deficiency.11/2015 : Admitted to [facility] with microcytic anemia, recommendationwas to complete endoscopic evaluation : Large polyps identified in the distal and mid ascending colon, midascending colon lesion consistent with moderately differentiatedadenocarcinoma, distal ascending colon lesion reported as tubular adenoma12/2015 : Completes right ileocolic resection, pT1N0 - moderatelydifferentiated adenocarcinoma noted06/2016 : Microcytic anemia again noted patient did have severe episode ofepistaxis which was felt to be causing his anemia and would have replacementwith IV iron in response with improvement of blood counts07/2016 : Due to persistent anemia he did have repeat colonoscopy whichidentified mass at the splenic flexure09/2016 : Completed resection of tubulovillous adenoma at the splenic flexurewith improvement of his blood counts-had been in observation since that timePatient returns today and denies new complaints.PAST MEDICAL HISTORYDiagnosis Date- CAD (coronary artery disease)- Colon cancer (HCC)- COPD (chronic obstructive pulmonary disease) (HCC)- Diabetes mellitus (HCC)- HypertensionPAST SURGICAL HISTORYProcedure Laterality Date- COLONOSCOPY- EGDReview of Social History includes:Social History Marital status: Unknown Spouse name: Years of education: Number of children:Social History Main Topics Smoking status: Never Smoker Smokeless tobacco: Never Used Alcohol use: No Drug use: NoNo family history on file.Current Outpatient Prescriptions:fluticasone-jacquelin anterol (BREO ELLIPTA) 200-25 mcg/dose inhaler Inhale 1Inhalation as instructed once daily.nitroglycerin sublingual (NITROSTAT) 0.3 mg SL tablet Dissolve 0.3 mg under thetongue every 5 minutes as needed.cloNIDine HCl (CATAPRES) 0.1 mg tablet Take 0.1 mg by mouth twice daily.carvedilol (COREG) 12.5 mg tablet Take 12.5 mg by mouth twice daily with meals.ALBUTEROL INHALATION Inhale as instructed.irbesartan (AVAPRO) 150 mg tablet Take 150 mg by mouth daily at bedtime.ergocalciferol, vitamin D2, (VITAMIN D) 50,000 unit capsule Take 50,000 Unitsby mouth once each week.aspirin, enteric coated (ASPIRIN LOW DOSE) 81 mg EC tablet Take 81 mg by mouthonce daily.atorvastatin (LIPITOR) 10 mg tablet Take 10 mg by mouth once daily.bumetanide (BUMEX) 1 mg tablet Take 1 mg by mouth twice daily.hydrALAZINE (APRESOLINE) 50 mg tablet Take 50 mg by mouth twice daily.isosorbide mononitrate ER (IMDUR) 30 mg 24 hr tablet Take 60 mg by mouth oncedaily. Changed per ER physician for elevated BP has f/u with cardiologytomorrow 09/10peg 400-propylene glycol (SYSTANE GEL) 0.4-0.3 % drpg Use in eyes.triamcinolone-emollient comb45 0.1 % crea Apply to affected area.rivaroxaban (XARELTO ORAL) Take by mouth.sitaGLIPtin (JANUVIA) 100 mg tablet Take 100 mg by mouth once daily.SODIUM BICARBONATE ORAL Take 650 mg by mouth once daily.acetaminophen (TYLENOL) 325 mg tablet Take 650 mg by mouth every 6 hours asneeded. No Tylenol 09/10 pending upcoming OR miodarone (PACERONE) 200 mg tablet Take 200 mg by mouth once daily.glyBURIDE (MICRONASE, DIABETA) 1.25 mg tablet Take 5 mg by mouth daily withbreakfast.No current facility-administered medications for this visit.REVIEW OF SYSTEMS:Constitutional: No recent fevers, chills or sweats. Decreased energy as notedabove. Weight gain as noted above.HEENT: No oral sores no thrushGI: Denies any blood in the stool, denies change in bowel habits, deniesconstipationPULM:no cough or dyspnea,denies hemoptysisCV: no chest pain or palpitations, denies leg swellingNeuro: Denies current headaches or double visionGU: Denies hematuria or change in bladder habitsPsyche: Family notes move his been more labileMSK: No tender spots to palpation or joint swellingPHYSICAL EXAMINATION:BP 140/82 Pulse 102 Temp 36.7 ?C (98 ?F) (Oral) Resp 16 Ht 180.6 cm(5' 11.1 ) Wt 114.1 kg (251 lb 9.6 oz) SpO2 95% BMI 34.99 kg/m?General appearance: No distress, alert awakeLungs: clear to auscultation, no wheezing or rhonchiHeart: Negative. RRR without murmur, gallop, or rubs. No ectopy.Abdomen: Nontender nondistended no organomegalyPsychiatric: Normal mood affectNeuro: Cranial nerves II through XII intactLymph: No cervical supraclavicular or axillary adenopathy.Extremities: No erythema no woundsCBC with diff:WBC 8.00 08/10/2017RBC 4.95 08/10/2017Hemoglobin 12.2 08/10/2017Hematocrit 39.7 08/10/2017MCV 80.2 08/10/2017MCH 24.6 08/10/2017MCHC 30.7 08/10/2017RDW-CV 18.7 08/10/2017Platelet Count 238 08/10/2017MPV 9.4 08/10/2017Neut% 69.5 04/13/2017Lymph% 12.8 04/13/2017Mono% 9.1 04/13/2017Eosin% 7.4 04/13/2017Baso% 1.2 04/13/2017Abs Neut (ANC) 6.33 04/13/2017Abs Lym 1.44 07/08/2016Abs Dickens 0.83 04/13/2017Abs Eosin 0.67 04/13/2017Abs Baso 0.11 COLONOSCOPY WITH PATHOLOGY BELOW12/2015 Resection07/2017 ColonoscopyLABS:Results for JONY MCKAY ( ) as of 01/24/2018 14:13 Ref. Range 01/12/2018 10:36WBC Latest Ref Range: 3.70 - 11.00 k/uL 8.94RBC Latest Ref Range: 4.20 - 6.00 m/uL 4.25Hemoglobin Latest Ref Range: 13.0 - 17.0 g/dL 10.7 (L)Hematocrit Latest Ref Range: 39.0 - 51.0 % 35.1 (L)Platelet Count Latest Ref Range: 150 - 400 k/uL 295ASSESSMENT/PLAN: Jony Mckay is a 77 year old male with anemia, kidneydisease and stage 1 colorectal cancer. Had subsequent resection of a villousadenoma at the splenic flexure. We have been monitoring with his blood countsin his CEA which has been mildly elevated but with no persistent increase.Would continue to monitor at this time.1. Stage 1 colon cancer:-Continue to monitor CEA with repeat labs in 3-4 months2. Iron deficiency anemia-Resolved, would monitor-I suspect some degree of his anemia is due to renal dysfunction but at thispoint no clear role for growth factor support3. Anemia chronic kidney disease-improved, monitor-Follow with nephrology, serum protein electrophoresis with immunofixation didnot identify a monoclonal protein4. Tubulovillous adenoma-resection completedAlfred BEAN Agudeloefterrence Provider: LORENZO BELCHER [[id number]]Allergies As of Date: 03/23/2018(No Known Allergies)Date Reviewed: 03/23/2018Reviewed by: Noreen Cantu - Fully AssessedPrimary Visit Diagnosis:History of colon cancer [Z85.038] Other Visit Diagnoses:Microcytic anemia [D50.9] Anemia of chronic renal failure, stage 4 (severe) (HCC) [N18.4, D63.1]Disposition: Return in about 3 months (around 06/22/2018).Follow-up and Disposition History RecordedPrescriptions as of 03/23/2018 Sig: FLUTICASONE 200 MCG-VILANTERO* Inhale 1 Inhalation as instru* NITROGLYCERIN 0.3 MG SUBLINGU* Dissolve 0.3 mg under the ton* CLONIDINE HCL 0.1 MG TABLET Take 0.1 mg by mouth twice da* CARVEDILOL 12.5 MG TABLET Take 12.5 mg by mouth twice d* ALBUTEROL INHALATION Inhale as instructed. IRBESARTAN 150 MG TABLET Take 150 mg by mouth daily at* ERGOCALCIFEROL (VITAMIN D2) 5* Take 50,000 Units by mouth on* ASPIRIN 81 MG TABLET,DELAYED * Take 81 mg by mouth once amirah* ATORVASTATIN 10 MG TABLET Take 10 mg by mouth once amirah* BUMETANIDE 1 MG TABLET Take 1 mg by mouth twice amirah* HYDRALAZINE 50 MG TABLET Take 50 mg by mouth twice lacho* ISOSORBIDE MONONITRATE ER 30 * Take 60 mg by mouth once amirah* PEG 400-PROPYLENE GLYCOL 0.4 * Use in eyes. TRIAMCINOLONE ACETONIDE 0.1 %* Apply to affected area. XARELTO ORAL Take by mouth. SITAGLIPTIN 100 MG TABLET Take 100 mg by mouth once lacho* SODIUM BICARBONATE ORAL Take 650 mg by mouth once lacho* ACETAMINOPHEN 325 MG TABLET Take 650 mg by mouth every 6 * AMIODARONE 200 MG TABLET Take 200 mg by mouth once lacho* GLYBURIDE 1.25 MG TABLET Take 5 mg by mouth daily with*Problem List As Of Date 03/23/2018 Noted Resolved Microcytic anemia [D50.9] INVALID FOR* Anemia of chronic kidney failure [N18.9, D63.1] INVALID FOR* Iron deficiency anemia [D50.9] INVALID FOR* History of colon cancer [Z85.038] INVALID FOR*Encounter Status:Closed by LORENZO BELCHER MD on 03/23/18 Normal [facility] Comp Metabolic Panelon 03-23 Albumin mass conc 3.7 g/dL Low 3.9-4.9 [facility] Comment on above: Performed By: #### R CBCDF ####[facility] [address] [place], [place] [phone] ALP enzyme act/vol 70 U/L Normal 36-108 [facility] Comment on above: Performed By: #### R CBCDF ####[facility], [place] [phone] ALT enzyme act/vol 10 U/L Normal 10-54 [facility] Comment on above: Performed By: #### R CBCDF ####[place] [address], [place] [phone] Anion gap 3 molar conc 7 mmol/L Low 9-18 [facility] Comment on above: Performed By: #### R CBCDF ####[place] [address], [place] [phone] AST enzyme act/vol 10 U/L Low 14-40 [facility] Comment on above: Performed By: #### R CBCDF ####[place] [address], [place] [phone] Bilirubin mass conc 0.5 mg/dL Normal 0.2-1.3 [facility] Comment on above: Performed By: #### R CBCDF ####[place] [address], [place] [phone] Calcium mass conc 9.3 mg/dL Normal 8.5-10.2 [facility] Comment on above: Performed By: #### R CBCDF ####[place] [address], [place] [phone] Chloride molar conc 111 mmol/L High 97-105 [facility] Comment on above: Performed By: #### R CBCDF ####[place] [address], [place] [phone] CO2 molar conc 27 mmol/L Normal 22-30 [facility] Comment on above: Performed By: #### R CBCDF ####[place] [address], [place] [phone] Creatinine mass conc 2.41 mg/dL High 0.73-1.22 [facility] Comment on above: Performed By: #### R CBCDF ####[place] [address] [place], [place] [phone] eGFR- Amer. 32 Normal [facility] Comment on above: Performed By: #### R CBCDF ####[address] [phone] GFR/1.73 sq M predicted among non-blacks MDRD vol rate/area (S/P/Bld) 26 . Normal [facility] Comment on above: Result Comment: eGFR (Estimated GFR) Units of measure: mL/min/1.73 meters squaredeGFR is derived from the reexpressed MDRD Study equation using the following parameters: serum creatinine, age, gender and race. The creatinine assay has been calibrated to be traceable to IDMS.An eGFR <60 mL/min/1.73m2 for >3 months is consistent with chronic kidney disease. Refer to KDOQI guidelines for clinical interpretation.In patients with unstable renal function, e.g. those with acute kidney injury, the eGFR may not accurately reflect actual GFR. Performed By: #### R CBCDF ####[address] [phone] Glucose mass conc 137 mg/dL High 74-99 [facility] Comment on above: Performed By: #### R CBCDF ####[address] [phone] Potassium molar conc 4.4 mmol/L Normal 3.7-5.1 [facility] Comment on above: Performed By: #### R CBCDF ####[address] [phone] Protein mass conc 7.0 g/dL Normal 6.3-8.0 [facility] Comment on above: Performed By: #### R CBCDF ####[address] [phone] Sodium molar conc 145 mmol/L High 136-144 [facility] Comment on above: Performed By: #### R CBCDF ####[place] [address] [place], [place] [phone] Urea nitrogen mass conc 39 mg/dL High 9-24 [facility] Comment on above: Performed By: #### R CBCDF ####[facility] [place], [place] [phone] EPOon 03-23-2018 EPO 95.3 mIU/mL High 2.6-18.5 [facility] Comment on above: Result Comment: Test analyzed by the [employer] DxI method. Performed By: #### R CBCDF ####[address] [phone] Ferritinon 03-23-2018 Ferritin 30.8 ng/mL Normal 30.3-565.7 [facility] Comment on above: Performed By: #### R CBCDF ####[place] [phone] Iron and TIBCon 03-23-2018 Iron mass conc 23 ug/dL Low 41-186 [facility] Comment on above: Performed By: #### R CBCDF ####[place] [phone] TIBC 311 ug/dL Normal 232-386 [facility] Comment on above: Performed By: #### R CBCDF ####[place] [phone] Transferrin Saturatn 7 % Low 15-57 [facility] Comment on above: Performed By: #### R CBCDF ####[facility] [place] [address] [phone] PROGRESSon 03-23-2018 Protein mass conc HNO ID: [id number] thor: Lorenzo Tucker: (none)Author Type: PhysicianType: Progress NotesFiled: 03/23/2018 1:17 PMNote Text:CHIEF COMPLAINT: iron deficiency anemia, colorectal cancerHISTORY OF PRESENT ILLNESS: Jony Mckya is a 76 year old male whopresents in follow-up of above. Previously seen in consultation for irondeficiency.11/2015 : Admitted to [facility] with microcytic anemia,recommendation was to complete endoscopic evaluation : Large polyps identified in the distal and mid ascending colon, midascending colon lesion consistent with moderately differentiatedadenocarcinoma, distal ascending colon lesion reported as tubular adenoma12/2015 : Completes right ileocolic resection, pT1N0 - moderatelydifferentiated adenocarcinoma noted06/2016 : Microcytic anemia again noted patient did have severe episode ofepistaxis which was felt to be causing his anemia and would havereplacement with IV iron in response with improvement of blood counts07/2016 : Due to persistent anemia he did have repeat colonoscopy whichidentified mass at the splenic flexure09/2016 : Completed resection of tubulovillous adenoma at the splenicflexure with improvement of his blood counts-had been in observation sincethat timePatient returns today and denies new complaints.PAST MEDICAL HISTORYDiagnosis Date- CAD (coronary artery disease)- Colon cancer (HCC)- COPD (chronic obstructive pulmonary disease) (HCC)- Diabetes mellitus (HCC)- HypertensionPAST SURGICAL HISTORYProcedure Laterality Date- COLONOSCOPY- EGDReview of Social History includes:Social History Marital status: Unknown Spouse name: Years of education: Number of children:Social History Main Topics Smoking status: Never Smoker Smokeless tobacco: Never Used Alcohol use: No Drug use: NoNo family history on file.Current Outpatient Prescriptions:fluticasone-jacquelin anterol (BREO ELLIPTA) 200-25 mcg/dose inhaler Inhale 1Inhalation as instructed once daily.nitroglycerin sublingual (NITROSTAT) 0.3 mg SL tablet Dissolve 0.3 mgunder the tongue every 5 minutes as needed.cloNIDine HCl (CATAPRES) 0.1 mg tablet Take 0.1 mg by mouth twice daily.carvedilol (COREG) 12.5 mg tablet Take 12.5 mg by mouth twice daily withmeals.ALBUTEROL INHALATION Inhale as instructed.irbesartan (AVAPRO) 150 mg tablet Take 150 mg by mouth daily at bedtime.ergocalciferol, vitamin D2, (VITAMIN D) 50,000 unit capsule Take 50,000Units by mouth once each week.aspirin, enteric coated (ASPIRIN LOW DOSE) 81 mg EC tablet Take 81 mg bymouth once daily.atorvastatin (LIPITOR) 10 mg tablet Take 10 mg by mouth once daily.bumetanide (BUMEX) 1 mg tablet Take 1 mg by mouth twice daily.hydrALAZINE (APRESOLINE) 50 mg tablet Take 50 mg by mouth twice daily.isosorbide mononitrate ER (IMDUR) 30 mg 24 hr tablet Take 60 mg by mouthonce daily. Changed per ER physician for elevated BP has f/u withcardiology tomorrow 09/10peg 400-propylene glycol (SYSTANE GEL) 0.4-0.3 % drpg Use in eyes.triamcinolone-emollient comb45 0.1 % crea Apply to affected area.rivaroxaban (XARELTO ORAL) Take by mouth.sitaGLIPtin (JANUVIA) 100 mg tablet Take 100 mg by mouth once daily.SODIUM BICARBONATE ORAL Take 650 mg by mouth once daily.acetaminophen (TYLENOL) 325 mg tablet Take 650 mg by mouth every 6 hoursas needed. No Tylenol 09/10 pending upcoming OR miodarone (PACERONE) 200 mg tablet Take 200 mg by mouth once daily.glyBURIDE (MICRONASE, DIABETA) 1.25 mg tablet Take 5 mg by mouth dailywith breakfast.No current facility-administered medications for this visit.REVIEW OF SYSTEMS:Constitutional: No recent fevers, chills or sweats. Decreased energy asnoted above. Weight gain as noted above.HEENT: No oral sores no thrushGI: Denies any blood in the stool, denies change in bowel habits, deniesconstipationPULM:no cough or dyspnea,denies hemoptysisCV: no chest pain or palpitations, denies leg swellingNeuro: Denies current headaches or double visionGU: Denies hematuria or change in bladder habitsPsyche: Family notes move his been more labileMSK: No tender spots to palpation or joint swellingPHYSICAL EXAMINATION:BP 140/82 Pulse 102 Temp 36.7 ?C (98 ?F) (Oral) Resp 16 Ht180.6 cm (5' 11.1 ) Wt 114.1 kg (251 lb 9.6 oz) SpO2 95% BMI34.99 kg/m?General appearance: No distress, alert awakeLungs: clear to auscultation, no wheezing or rhonchiHeart: Negative. RRR without murmur, gallop, or rubs. No ectopy.Abdomen: Nontender nondistended no organomegalyPsychiatric: Normal mood affectNeuro: Cranial nerves II through XII intactLymph: No cervical supraclavicular or axillary adenopathy.Extremities: No erythema no woundsCBC with diff:WBC 8.00 08/10/2017RBC 4.95 08/10/2017Hemoglobin 12.2 08/10/2017Hematocrit 39.7 08/10/2017MCV 80.2 08/10/2017MCH 24.6 08/10/2017MCHC 30.7 08/10/2017RDW-CV 18.7 08/10/2017Platelet Count 238 08/10/2017MPV 9.4 08/10/2017Neut% 69.5 04/13/2017Lymph% 12.8 04/13/2017Mono% 9.1 04/13/2017Eosin% 7.4 04/13/2017Baso% 1.2 04/13/2017Abs Neut (ANC) 6.33 04/13/2017Abs Lym 1.44 07/08/2016Abs Dickens 0.83 04/13/2017Abs Eosin 0.67 04/13/2017Abs Baso 0.11 04/13/20175 COLONOSCOPY WITH PATHOLOGY BELOW12/2015 Resection07/2017 ColonoscopyLABS:Results for JONY MCKAY ( ) as of 01/24/2018 14:13 Ref. Range 01/12/2018 10:36WBC Latest Ref Range: 3.70 - 11.00 k/uL 8.94RBC Latest Ref Range: 4.20 - 6.00 m/uL 4.25Hemoglobin Latest Ref Range: 13.0 - 17.0 g/dL 10.7 (L)Hematocrit Latest Ref Range: 39.0 - 51.0 % 35.1 (L)Platelet Count Latest Ref Range: 150 - 400 k/uL 295ASSESSMENT/PLAN: Jony Mckay is a 77 year old male with anemia, kidneydisease and stage 1 colorectal cancer. Had subsequent resection of avillous adenoma at the splenic flexure. We have been monitoring with hisblood counts in his CEA which has been mildly elevated but with nopersistent increase. Would continue to monitor at this time.1. Stage 1 colon cancer:-Continue to monitor CEA with repeat labs in 3-4 months2. Iron deficiency anemia-Resolved, would monitor-I suspect some degree of his anemia is due to renal dysfunction but atthis point no clear role for growth factor support3. Anemia chronic kidney disease-improved, monitor-Follow with nephrology, serum protein electrophoresis with immunofixationdid not identify a monoclonal protein4. Tubulovillous adenoma-resection completedAlfred Desirae Belcher MD Normal [facility] Protein mass conc HNO ID: [id number] thor: Lorenzo Tucker: (none)Author Type: PhysicianType: Progress NotesFiled: 03/23/2018 1:17 PMNote Text:CHIEF COMPLAINT: iron deficiency anemia, colorectal cancerHISTORY OF PRESENT ILLNESS: Jony Mckay is a 77 year old male whopresents in follow-up of above. Previously seen in consultation for irondeficiency.11/2015 : Admitted to [facility] with microcytic anemia,recommendation was to complete endoscopic evaluation : Large polyps identified in the distal and mid ascending colon, midascending colon lesion consistent with moderately differentiatedadenocarcinoma, distal ascending colon lesion reported as tubular adenoma12/2015 : Completes right ileocolic resection, pT1N0 - moderatelydifferentiated adenocarcinoma noted06/2016 : Microcytic anemia again noted patient did have severe episode ofepistaxis which was felt to be causing his anemia and would havereplacement with IV iron in response with improvement of blood counts07/2016 : Due to persistent anemia he did have repeat colonoscopy whichidentified mass at the splenic flexure09/2016 : Completed resection of tubulovillous adenoma at the splenicflexure with improvement of his blood counts-had been in observation sincethat time02/2018 : Continues in observationPatient returns today and he is with his family. Notes that with exertionhe is a little bit of dyspnea. Otherwise denies chest pain, palpitations. Denies cough or hemoptysis. Denies any recent change in bowel habits.PAST MEDICAL HISTORYDiagnosis Date- CAD (coronary artery disease)- Colon cancer (HCC)- COPD (chronic obstructive pulmonary disease) (HCC)- Diabetes mellitus (HCC)- HypertensionPAST SURGICAL HISTORYProcedure Laterality Date- COLONOSCOPY- EGDReview of Social History includes:Social History Marital status: Unknown Spouse name: Years of education: Number of children:Social History Main Topics Smoking status: Never Smoker Smokeless tobacco: Never Used Alcohol use: No Drug use: NoNo family history on file.Current Outpatient Prescriptions:fluticasone-jacquelin anterol (BREO ELLIPTA) 200-25 mcg/dose inhaler Inhale 1Inhalation as instructed once daily.nitroglycerin sublingual (NITROSTAT) 0.3 mg SL tablet Dissolve 0.3 mgunder the tongue every 5 minutes as needed.cloNIDine HCl (CATAPRES) 0.1 mg tablet Take 0.1 mg by mouth twice daily.carvedilol (COREG) 12.5 mg tablet Take 12.5 mg by mouth twice daily withmeals.ALBUTEROL INHALATION Inhale as instructed.irbesartan (AVAPRO) 150 mg tablet Take 150 mg by mouth daily at bedtime.ergocalciferol, vitamin D2, (VITAMIN D) 50,000 unit capsule Take 50,000Units by mouth once each week.aspirin, enteric coated (ASPIRIN LOW DOSE) 81 mg EC tablet Take 81 mg bymouth once daily.atorvastatin (LIPITOR) 10 mg tablet Take 10 mg by mouth once daily.bumetanide (BUMEX) 1 mg tablet Take 1 mg by mouth twice daily.hydrALAZINE (APRESOLINE) 50 mg tablet Take 50 mg by mouth twice daily.isosorbide mononitrate ER (IMDUR) 30 mg 24 hr tablet Take 60 mg by mouthonce daily. Changed per ER physician for elevated BP has f/u withcardiology tomorrow 09/10peg 400-propylene glycol (SYSTANE GEL) 0.4-0.3 % drpg Use in eyes.triamcinolone-emollient comb45 0.1 % crea Apply to affected area.rivaroxaban (XARELTO ORAL) Take by mouth.sitaGLIPtin (JANUVIA) 100 mg tablet Take 100 mg by mouth once daily.SODIUM BICARBONATE ORAL Take 650 mg by mouth once daily.acetaminophen (TYLENOL) 325 mg tablet Take 650 mg by mouth every 6 hoursas needed. No Tylenol 09/10 pending upcoming OR 3/1amiodarone (PACERONE) 200 mg tablet Take 200 mg by mouth once daily.glyBURIDE (MICRONASE, DIABETA) 1.25 mg tablet Take 5 mg by mouth dailywith breakfast.No current facility-administered medications for this visit.REVIEW OF SYSTEMS:Constitutional: No recent fevers, chills or sweats. Decreased energy asnoted above. Weight gain as noted above.HEENT: No oral sores no thrushGI: No blood in the stool, no constipation or diarrheaPULM:no cough or dyspnea,denies hemoptysisCV: no chest pain or palpitations, denies leg swellingNeuro: Denies current headaches or double visionGU: No hematuriaPsyche: Family notes move his been more labileMSK: No tender spots to palpation or joint swellingPHYSICAL EXAMINATION:BP 140/82 Pulse 102 Temp 36.7 ?C (98 ?F) (Oral) Resp 16 Ht180.6 cm (5' 11.1 ) Wt 114.1 kg (251 lb 9.6 oz) SpO2 95% BMI34.99 kg/m?General appearance: No distress, alert awakeLungs: clear to auscultation, no wheezing or rhonchiHeart: Negative. RRR without murmur, gallop, or rubs. No ectopy.Abdomen: Nontender nondistended no organomegalyPsychiatric: Normal mood affectNeuro: Cranial nerves II through XII intactLymph: No cervical supraclavicular or axillary adenopathy.Extremities: No erythema no woundsLABS:Results for JONY MCKAY ( ) as of 03/23/2018 11:59 Ref. Range 01/12/2018 10:36 03/23/2018 11:37WBC Latest Ref Range: 3.70 - 11.00 k/uL 8.94 8.59RBC Latest Ref Range: 4.20 - 6.00 m/uL 4.25 4.29Hemoglobin Latest Ref Range: 13.0 - 17.0 g/dL 10.7 (L) 10.2 (L)Hematocrit Latest Ref Range: 39.0 - 51.0 % 35.1 (L) 34.6 (L)Platelet Count Latest Ref Range: 150 - 400 k/uL 295 252MCV Latest Ref Range: 80.0 - 100.0 fL 82.6 80. COLONOSCOPY WITH PATHOLOGY BELOW6 Resection07/2017 ColonoscopyASSESSMENT/PLAN: Jony Mckay is a 77 year old male with anemia, kidneydisease and stage 1 colorectal cancer. Had subsequent resection of avillous adenoma at the splenic flexure. We have been monitoring with hisblood counts in his CEA which has been mildly elevated but with nopersistent increase. Reviewed findings again today with the patient, hisspouse and granddaughter. Reviewed mild worsening of anemia withprogression towards microcytosis. Iron studies pending but in the pasthas been intolerant of oral iron. Would schedule for IV iron infusion andmonitor labs. Would continue to monitor CEA. Role Of imaging less clearin light of patient's expressed preference to avoid further medicalintervention if he were to have issues with recurrence. Furthermore,imaging with contrast has mild contraindication in light of renaldysfunction. Would monitor clinically at this time.1. Stage 1 colon cancer:-Continue to monitor CEA with repeat labs in 3-4 months2. Iron deficiency anemia-Would give IV iron and monitor response may eventually need growth factorsupport3. Anemia chronic kidney disease-improved, monitor-Follow with nephrology, serum protein electrophoresis with immunofixationdid not identify a monoclonal protein4. Tubulovillous adenoma-resection completedAlfred Desirae Belcher MD Normal [facility] Remote CBCDIF (for [facility] use o nly)on 03-23-2018 Abs Baso 0.03 k/uL Normal 0.00-0.10 [facility] Abs Dickens 0.74 k/uL Normal 0.00-0.86 [facility] Abs Neut 6.21 k/uL Normal 1.45-7.50 [facility] Basophils/100 WBC Auto (Bld) 0.3 % Normal [facility] Eosinophils Auto #/vol (Bld) 0.63 10*3/uL High 0.00-0.45 [facility] Eosinophils/100 WBC Auto (Bld) 7.3 % Normal [facility] Erythrocyte distribution width Auto Ratio (RBC) 18.1 % High 11.5-15.0 [facility] Hematocrit Auto Volume Fraction (Bld) 34.6 % Low 39.0-51.0 [facility] Hemoglobin mass conc (Bld) 10.2 g/dL Low 13.0-17.0 [facility] Lymphocytes Auto #/vol (Bld) 0.98 10*3/uL Low 1.00-4.00 [facility] Lymphocytes/100 WBC Auto (Bld) 11.4 % Normal [facility] MCH Auto Entitic mass (RBC) 23.8 pG Low 26.0-34.0 [facility] MCHC Auto mass conc (RBC) 29.5 g/dL Low 30.5-36.0 [facility] MCV Auto Entitic volume (RBC) 80.7 fL Normal 80.0-100.0 [facility] Monocytes/100 WBC Auto (Bld) 8.6 % Normal [facility] Neutrophils/100 WBC Auto (Bld) 72.4 % Normal [facility] Platelet mean volume Auto Entitic volume (Bld) 9.5 fL Normal 9.0-12.7 [facility] Platelets Auto #/vol (Bld) 252 10*3/uL Normal 150-400 [facility] RBC Auto #/vol (Bld) 4.29 10*6/uL Normal 4.20-6.00 [facility] WBC Auto #/vol (Bld) 8.59 10*3/uL Normal 3.70-11.00 [facility] Reticulocyteon 03-23-2018 Abs Retic 0.075 M/uL Normal 0.0180-0.10 00 [facility] Comment on above: Performed By: #### R CBCDF ####[id number] [place], [place] [phone] Retic% 1.8 % Normal 0.4-2.0 [facility] Comment on above: Performed By: #### R CBCDF ####[id number] [place], [place] [phone] Vitamin B12on 03-23-2018 Cobalamin (Vitamin B12) mass conc 434 pg/mL Normal 232-1245 [facility] Comment on above: Performed By: #### R CBCDF ####[address] [phone] CEAon 01-12-2018 CEA 5.4 ng/mL High 0.0-2.9 [facility] Comment on above: Result Comment: Test analyzed by the [employer] DxI method. Performed By: #### C MP, CEA ####[facility] [address] [place], [place] [phone] CNOVSPon 01-12-2018 CNOVSP Visit (SP) Office ([place]) -JONY MCKAY ([id number]) 1940 MDate Time Provider Department01/12/18 11:15 AM LORENZO BELCHER During your visit today, we recorded the following information about you: Temperature Pulse Respiration Blood pressure 97.5 degrees 69/minute 16/minute 120/79 Weight Height 114.8 kg 1.806 Ilya Belcher MD 01/24/2018 3:05 PM SignedCHIEF COMPLAINT: iron deficiency anemia, colorectal cancerHISTORY OF PRESENT ILLNESS: Jony Mckay is a 76 year old male who presentsin follow-up of above. Previously seen in consultation for iron deficiency.11/2015 : Admitted to [facility] with microcytic anemia, recommendationwas to complete endoscopic evaluation : Large polyps identified in the distal and mid ascending colon, midascending colon lesion consistent with moderately differentiatedadenocarcinoma, distal ascending colon lesion reported as tubular adenoma12/2015 : Completes right ileocolic resection, pT1N0 - moderatelydifferentiated adenocarcinoma noted06/2016 : Microcytic anemia again noted patient did have severe episode ofepistaxis which was felt to be causing his anemia and would have replacementwith IV iron in response with improvement of blood counts07/2016 : Due to persistent anemia he did have repeat colonoscopy whichidentified mass at the splenic flexure09/2016 : Completed resection of tubulovillous adenoma at the splenic flexurewith improvement of his blood counts-had been in observation since that timePatient returns today and denies new complaints.PAST MEDICAL HISTORYDiagnosis Date- CAD (coronary artery disease)- Colon cancer (HCC)- COPD (chronic obstructive pulmonary disease) (HCC)- Diabetes mellitus (HCC)- HypertensionPAST SURGICAL HISTORYProcedure Laterality Date- COLONOSCOPY- EGDReview of Social History includes:Social History Marital status: Unknown Spouse name: Years of education: Number of children:Social History Main Topics Smoking status: Never Smoker Smokeless tobacco: Never Used Alcohol use: No Drug use: NoNo family history on file.Current Outpatient Prescriptions:peg 400-propylene glycol (SYSTANE GEL) 0.4-0.3 % drpg Use in eyes.fluticasone-vilanterol (BREO ELLIPTA) 200-25 mcg/dose inhaler Inhale 1Inhalation as instructed once daily.nitroglycerin sublingual (NITROSTAT) 0.3 mg SL tablet Dissolve 0.3 mg under thetongue every 5 minutes as needed.cloNIDine HCl (CATAPRES) 0.1 mg tablet Take 0.1 mg by mouth twice daily.carvedilol (COREG) 12.5 mg tablet Take 12.5 mg by mouth twice daily with meals.triamcinolone-emollient comb45 0.1 % crea Apply to affected area.ALBUTEROL INHALATION Inhale as instructed.irbesartan (AVAPRO) 150 mg tablet Take 150 mg by mouth daily at bedtime.ergocalciferol, vitamin D2, (VITAMIN D) 50,000 unit capsule Take 50,000 Unitsby mouth once each week.rivaroxaban (XARELTO ORAL) Take by mouth.bumetanide (BUMEX) 1 mg tablet Take 1 mg by mouth twice daily.hydrALAZINE (APRESOLINE) 50 mg tablet Take 50 mg by mouth twice daily.isosorbide mononitrate ER (IMDUR) 30 mg 24 hr tablet Take 60 mg by mouth oncedaily. Changed per ER physician for elevated BP has f/u with cardiologytomorrow 09/10sitaGLIPtin (JANUVIA) 100 mg tablet Take 100 mg by mouth once daily.aspirin, enteric coated (ASPIRIN LOW DOSE) 81 mg EC tablet Take 81 mg by mouthonce daily.atorvastatin (LIPITOR) 10 mg tablet Take 10 mg by mouth once daily.SODIUM BICARBONATE ORAL Take 650 mg by mouth once daily.acetaminophen (TYLENOL) 325 mg tablet Take 650 mg by mouth every 6 hours asneeded. No Tylenol 09/10 pending upcoming OR miodarone (PACERONE) 200 mg tablet Take 200 mg by mouth once daily.glyBURIDE (MICRONASE, DIABETA) 1.25 mg tablet Take 5 mg by mouth daily withbreakfast.No current facility-administered medications for this visit.REVIEW OF SYSTEMS:Constitutional: No recent fevers, chills or sweats. Decreased energy as notedabove. Weight gain as noted above.HEENT: No oral sores no thrushGI: Denies any blood in the stool, denies change in bowel habits, deniesconstipationPULM:no cough or dyspnea,denies hemoptysisCV: no chest pain or palpitations, denies leg swellingNeuro: Denies current headaches or double visionGU: Denies hematuria or change in bladder habitsPsyche: Family notes move his been more labileMSK: No tender spots to palpation or joint swellingPHYSICAL EXAMINATION:BP 120/79 Pulse 69 Temp 36.4 ?C (97.5 ?F) (Oral) Resp 16 Ht 180.6cm (5' 11.1 ) Wt 114.8 kg (253 lb) SpO2 96% BMI 35.19 kg/m?General appearance: No distress, alert awakeLungs: clear to auscultation, no wheezing or rhonchiHeart: Negative. RRR without murmur, gallop, or rubs. No ectopy.Abdomen: Nontender nondistended no organomegalyPsychiatric: Normal mood affectNeuro: Cranial nerves II through XII intactLymph: No cervical supraclavicular or axillary adenopathy.Extremities: No erythema no woundsCBC with diff:WBC 8.00 08/10/2017RBC 4.95 08/10/2017Hemoglobin 12.2 08/10/2017Hematocrit 39.7 08/10/2017MCV 80.2 08/10/2017MCH 24.6 08/10/2017MCHC 30.7 08/10/2017RDW-CV 18.7 08/10/2017Platelet Count 238 08/10/2017MPV 9.4 08/10/2017Neut% 69.5 04/13/2017Lymph% 12.8 04/13/2017Mono% 9.1 04/13/2017Eosin% 7.4 04/13/2017Baso% 1.2 04/13/2017Abs Neut (ANC) 6.33 04/13/2017Abs Lym 1.44 07/08/2016Abs Dickens 0.83 04/13/2017Abs Eosin 0.67 04/13/2017Abs Baso 0.11 COLONOSCOPY WITH PATHOLOGY BELOW12/2015 Resection07/2017 ColonoscopyLABS:Results for JONY MCKAY ( ) as of 01/24/2018 14:13 Ref. Range 01/12/2018 10:36WBC Latest Ref Range: 3.70 - 11.00 k/uL 8.94RBC Latest Ref Range: 4.20 - 6.00 m/uL 4.25Hemoglobin Latest Ref Range: 13.0 - 17.0 g/dL 10.7 (L)Hematocrit Latest Ref Range: 39.0 - 51.0 % 35.1 (L)Platelet Count Latest Ref Range: 150 - 400 k/uL 295ASSESSMENT/PLAN: Jony Mckay is a 77 year old male with anemia, kidneydisease and stage 1 colorectal cancer. Had subsequent resection of a villousadenoma at the splenic flexure. We have been monitoring with his blood countsin his CEA which has been mildly elevated but with no persistent increase.Would continue to monitor at this time.1. Stage 1 colon cancer:-Continue to monitor CEA with repeat labs in 3-4 months2. Iron deficiency anemia-Resolved, would monitor-I suspect some degree of his anemia is due to renal dysfunction but at thispoint no clear role for growth factor support3. Anemia chronic kidney disease-improved, monitor-Follow with nephrology, serum protein electrophoresis with immunofixation didnot identify a monoclonal protein4. Tubulovillous adenoma-resection completedAlfred BEAN Agudeloefnatalieing Provider: LORENZO BELCHER [[id number]]Allergies As of Date: 01/12/2018(No Known Allergies)Date Reviewed: 01/12/2018Reviewed by: Noreen Cantu - Fully AssessedReason for Visit: Colon Cancer [529] Cmt: 3 month follow upPrimary Visit Diagnosis:History of colon cancer [Z85.038] Other Visit Diagnoses:Microcytic anemia [D50.9] Anemia of chronic renal failure, stage 4 (severe) (HCC) [N18.4, D63.1]Order(s):IRON + TIBC [SQIRON] Order #: [id number] FUTURE FERRITIN BLD [SQFERR] Order #: [id number] FUTURE VITAMIN B12 BLOOD [SQB12] Order #: [id number] FUTURE CBC + DIFF (FOR REMOTE [facility] USE) [SQRCBCDF] Order #: [id number] FUTURE RETIC COUNT [SQRETIC] Order #: [id number] FUTURE ERYTHROPOIETIN/EPO [SQEPO] Order #: [id number] FUTUREDisposition: Return in about 2 months (around 03/14/2018).Follow-up and Disposition History RecordedPrescriptions as of 01/12/2018 Sig: PEG 400-PROPYLENE GLYCOL 0.4 * Use in eyes. FLUTICASONE 200 MCG-VILANTERO* Inhale 1 Inhalation as instru* NITROGLYCERIN 0.3 MG SUBLINGU* Dissolve 0.3 mg under the ton* CLONIDINE HCL 0.1 MG TABLET Take 0.1 mg by mouth twice da* CARVEDILOL 12.5 MG TABLET Take 12.5 mg by mouth twice d* TRIAMCINOLONE ACETONIDE 0.1 %* Apply to affected area. ALBUTEROL INHALATION Inhale as instructed. IRBESARTAN 150 MG TABLET Take 150 mg by mouth daily at* ERGOCALCIFEROL (VITAMIN D2) 5* Take 50,000 Units by mouth on* XARELTO ORAL Take by mouth. BUMETANIDE 1 MG TABLET Take 1 mg by mouth twice amirah* HYDRALAZINE 50 MG TABLET Take 50 mg by mouth twice lacho* ISOSORBIDE MONONITRATE ER 30 * Take 60 mg by mouth once amirah* SITAGLIPTIN 100 MG TABLET Take 100 mg by mouth once lacho* ASPIRIN 81 MG TABLET,DELAYED * Take 81 mg by mouth once amirah* ATORVASTATIN 10 MG TABLET Take 10 mg by mouth once amirah* SODIUM BICARBONATE ORAL Take 650 mg by mouth once lacho* ACETAMINOPHEN 325 MG TABLET Take 650 mg by mouth every 6 * AMIODARONE 200 MG TABLET Take 200 mg by mouth once lacho* GLYBURIDE 1.25 MG TABLET Take 5 mg by mouth daily with*Problem List As Of Date 01/12/2018 Noted Resolved Microcytic anemia [D50.9] INVALID FOR* Anemia of chronic kidney failure [N18.9, D63.1] INVALID FOR* Iron deficiency anemia [D50.9] INVALID FOR* History of colon cancer [Z85.038] INVALID FOR*Encounter Status:Closed by LORENZO BELCHER MD on 01/24/18 Normal [facility] Comp Metabolic Panelon 01-12 Albumin mass conc 3.6 g/dL Low 3.9-4.9 [facility] Comment on above: Performed By: #### C MP, CEA ####[place] [phone] ALP enzyme act/vol 68 U/L Normal 36-108 [facility] Comment on above: Performed By: #### C MP, CEA ####[place] [phone] ALT enzyme act/vol 17 U/L Normal 10-54 [facility] Comment on above: Performed By: #### C MP, CEA ####[place] [phone] Anion gap 3 molar conc 11 mmol/L Normal 9-18 [facility] Comment on above: Performed By: #### C MP, CEA ####[address] [phone] AST enzyme act/vol 19 U/L Normal 14-40 [facility] Comment on above: Performed By: #### C MP, CEA ####[place] [phone] Bilirubin mass conc 0.4 mg/dL Normal 0.2-1.3 [facility] Comment on above: Performed By: #### C MP, CEA ####[place] [phone] Calcium mass conc 9.1 mg/dL Normal 8.5-10.2 [facility] Comment on above: Performed By: #### C OLIVER, CEA ####[facility], [place] [phone] Chloride molar conc 108 mmol/L High 97-105 [facility] Comment on above: Performed By: #### C OLIVER, CEA ####[place] [address], [place] [phone] CO2 molar conc 23 mmol/L Normal 22-30 [facility] Comment on above: Performed By: #### C OLIVER, CEA ####[place] [address], [place] [phone] Creatinine mass conc 2.33 mg/dL High 0.73-1.22 [facility] Comment on above: Performed By: #### Castillo BOYD, CEA ####[place] [place], [place] [phone] eGFR- Amer. 33 Normal [facility] Comment on above: Performed By: #### C OLIVER, CEA ####[place] [address] [place], [place] [phone] GFR/1.73 sq M predicted among non-blacks MDRD vol rate/area (S/P/Bld) 27 . Normal [facility] Comment on above: Result Comment: eGFR (Estimated GFR) Units of measure: mL/min/1.73 meters squaredeGFR is derived from the reexpressed MDRD Study equation using the following parameters: serum creatinine, age, gender and race. The creatinine assay has been calibrated to be traceable to IDMS.An eGFR <60 mL/min/1.73m2 for >3 months is consistent with chronic kidney disease. Refer to KDOQI guidelines for clinical interpretation.In patients with unstable renal function, e.g. those with acute kidney injury, the eGFR may not accurately reflect actual GFR. Performed By: #### Castillo BOYD, CEA ####[place] [address], [place] [phone] Glucose mass conc 215 mg/dL High 74-99 [facility] Comment on above: Result Comment: The [place] [employer] (ADA) provides guidance for cutoff values for fasting glucose and random glucose. The ADA defines fasting as no caloric intake for at least 8 hours. Fasting plasma glucose results between 100 to 125 mg/dL indicate increased risk for diabetes (prediabetes).Fasting plasma glucose results greater than or equal to 126 mg/dL meet the criteria for diagnosis of diabetes. In the absence of unequivocal hyperglycemia, results should be confirmed by repeat testing. In a patient with classic symptoms of hyperglycemia or hyperglycemic crisis, random plasma glucose results greater than or equal to 200 mg/dL meet the criteria for diagnosis of diabetes.Reference: Standards of Medical Care in Diabetes 2016, [place] [employer]. Diabetes Care. 2016.39(Suppl 1). Performed By: #### C OLIVER CEA ####[address] [phone] Potassium molar conc 4.7 mmol/L Normal 3.7-5.1 [facility] Comment on above: Performed By: #### C OLIVER CEA ####[facility] [place], [place] [phone] Protein mass conc 7.0 g/dL Normal 6.3-8.0 [facility] Comment on above: Performed By: #### C OLIVER, CEA ####[facility] [address] [place], [place] [phone] Sodium molar conc 142 mmol/L Normal 136-144 [facility] Comment on above: Performed By: #### C OLIVER CEA ####[facility] [address], [place] [phone] Urea nitrogen mass conc 43 mg/dL High 9-24 [facility] Comment on above: Performed By: #### C OLIVER, CEA ####[facility] [place], [place] [phone] Creatinineon 01-12-2018 Creatinine 2.39 mg/dL High 0.50-1.30 [facility] Comment on above: Performed By: #### 1 [id number] ####[facility] [address] [place] [address] eGFR (MDRD) 27 mL/min/{1.73_m2} Normal [facility] Comment on above: Result Comment: Inte rpretation for Chronic Kidney Disease:Stages 1&2 >60 Healthy or potential kidney damage.Mild decrease of GFR.Stage 3 30-59 Moderate decrease of GFR.Stage 4 15-29 Severe decrease of GFR.Stage 5 <15 Kidney failure or on dialysis. Performed By: #### 1 [id number] ####[facility] [address] [place] [address] Electrolyte Panelon 01-13-20 18 Anion gap 11 mmol/L Normal 10-20 [facility] Comment on above: Performed By: #### 1 [id number] ####[facility] [address] [place] [address] Bicarbonate (HCO3) 26 mmol/L Normal 21-32 [facility] Comment on above: Performed By: #### 1 [id number] ####[facility] [address] [place] [address] Chloride 111 mmol/L High 98-107 [facility] Comment on above: Performed By: #### 1 [id number] ####[facility] [address] [place] [address] Potassium molar conc 4.7 mmol/L Normal 3.5-5.1 [facility] Comment on above: Performed By: #### 1 [id number] ####[facility] [address] [place] [address] Sodium 143 mmol/L Normal 136-145 [facility] Comment on above: Performed By: #### 1 [id number] ####[facility] [address] [place] [address] PROGRESSon 01-12-2018 Protein mass conc HNO ID: [id number] thor: Lorenzo Tucker: (none)Author Type: PhysicianType: Progress NotesFiled: 01/24/2018 3:05 PMNote Text:CHIEF COMPLAINT: iron deficiency anemia, colorectal cancerHISTORY OF PRESENT ILLNESS: Jony Mckay is a 76 year old male whopresents in follow-up of above. Previously seen in consultation for irondeficiency.11/2015 : Admitted to [facility] with microcytic anemia,recommendation was to complete endoscopic evaluation : Large polyps identified in the distal and mid ascending colon, midascending colon lesion consistent with moderately differentiatedadenocarcinoma, distal ascending colon lesion reported as tubular adenoma12/2015 : Completes right ileocolic resection, pT1N0 - moderatelydifferentiated adenocarcinoma noted06/2016 : Microcytic anemia again noted patient did have severe episode ofepistaxis which was felt to be causing his anemia and would havereplacement with IV iron in response with improvement of blood counts07/2016 : Due to persistent anemia he did have repeat colonoscopy whichidentified mass at the splenic flexure09/2016 : Completed resection of tubulovillous adenoma at the splenicflexure with improvement of his blood counts-had been in observation sincethat timePatient returns today and denies new complaints.PAST MEDICAL HISTORYDiagnosis Date- CAD (coronary artery disease)- Colon cancer (HCC)- COPD (chronic obstructive pulmonary disease) (HCC)- Diabetes mellitus (HCC)- HypertensionPAST SURGICAL HISTORYProcedure Laterality Date- COLONOSCOPY- EGDReview of Social History includes:Social History Marital status: Unknown Spouse name: Years of education: Number of children:Social History Main Topics Smoking status: Never Smoker Smokeless tobacco: Never Used Alcohol use: No Drug use: NoNo family history on file.Current Outpatient Prescriptions:peg 400-propylene glycol (SYSTANE GEL) 0.4-0.3 % drpg Use in eyes.fluticasone-vilanterol (BREO ELLIPTA) 200-25 mcg/dose inhaler Inhale 1Inhalation as instructed once daily.nitroglycerin sublingual (NITROSTAT) 0.3 mg SL tablet Dissolve 0.3 mgunder the tongue every 5 minutes as needed.cloNIDine HCl (CATAPRES) 0.1 mg tablet Take 0.1 mg by mouth twice daily.carvedilol (COREG) 12.5 mg tablet Take 12.5 mg by mouth twice daily withmeals.triamcinolone-emoll ient comb45 0.1 % crea Apply to affected area.ALBUTEROL INHALATION Inhale as instructed.irbesartan (AVAPRO) 150 mg tablet Take 150 mg by mouth daily at bedtime.ergocalciferol, vitamin D2, (VITAMIN D) 50,000 unit capsule Take 50,000Units by mouth once each week.rivaroxaban (XARELTO ORAL) Take by mouth.bumetanide (BUMEX) 1 mg tablet Take 1 mg by mouth twice daily.hydrALAZINE (APRESOLINE) 50 mg tablet Take 50 mg by mouth twice daily.isosorbide mononitrate ER (IMDUR) 30 mg 24 hr tablet Take 60 mg by mouthonce daily. Changed per ER physician for elevated BP has f/u withcardiology tomorrow 09/10sitaGLIPtin (JANUVIA) 100 mg tablet Take 100 mg by mouth once daily.aspirin, enteric coated (ASPIRIN LOW DOSE) 81 mg EC tablet Take 81 mg bymouth once daily.atorvastatin (LIPITOR) 10 mg tablet Take 10 mg by mouth once daily.SODIUM BICARBONATE ORAL Take 650 mg by mouth once daily.acetaminophen (TYLENOL) 325 mg tablet Take 650 mg by mouth every 6 hoursas needed. No Tylenol 09/10 pending upcoming OR miodarone (PACERONE) 200 mg tablet Take 200 mg by mouth once daily.glyBURIDE (MICRONASE, DIABETA) 1.25 mg tablet Take 5 mg by mouth dailywith breakfast.No current facility-administered medications for this visit.REVIEW OF SYSTEMS:Constitutional: No recent fevers, chills or sweats. Decreased energy asnoted above. Weight gain as noted above.HEENT: No oral sores no thrushGI: Denies any blood in the stool, denies change in bowel habits, deniesconstipationPULM:no cough or dyspnea,denies hemoptysisCV: no chest pain or palpitations, denies leg swellingNeuro: Denies current headaches or double visionGU: Denies hematuria or change in bladder habitsPsyche: Family notes move his been more labileMSK: No tender spots to palpation or joint swellingPHYSICAL EXAMINATION:BP 120/79 Pulse 69 Temp 36.4 ?C (97.5 ?F) (Oral) Resp 16 Ht180.6 cm (5' 11.1 ) Wt 114.8 kg (253 lb) SpO2 96% BMI 35.19 kg/m?General appearance: No distress, alert awakeLungs: clear to auscultation, no wheezing or rhonchiHeart: Negative. RRR without murmur, gallop, or rubs. No ectopy.Abdomen: Nontender nondistended no organomegalyPsychiatric: Normal mood affectNeuro: Cranial nerves II through XII intactLymph: No cervical supraclavicular or axillary adenopathy.Extremities: No erythema no woundsCBC with diff:WBC 8.00 08/10/2017RBC 4.95 08/10/2017Hemoglobin 12.2 08/10/2017Hematocrit 39.7 08/10/2017MCV 80.2 08/10/2017MCH 24.6 08/10/2017MCHC 30.7 08/10/2017RDW-CV 18.7 08/10/2017Platelet Count 238 08/10/2017MPV 9.4 08/10/2017Neut% 69.5 04/13/2017Lymph% 12.8 04/13/2017Mono% 9.1 04/13/2017Eosin% 7.4 04/13/2017Baso% 1.2 04/13/2017Abs Neut (ANC) 6.33 04/13/2017Abs Lym 1.44 07/08/2016Abs Dickens 0.83 04/13/2017Abs Eosin 0.67 04/13/2017Abs Baso 0.11 COLONOSCOPY WITH PATHOLOGY BELOW12/2015 Resection07/2017 ColonoscopyLABS:Results for JONY MCKAY ( ) as of 01/24/2018 14:13 Ref. Range 01/12/2018 10:36WBC Latest Ref Range: 3.70 - 11.00 k/uL 8.94RBC Latest Ref Range: 4.20 - 6.00 m/uL 4.25Hemoglobin Latest Ref Range: 13.0 - 17.0 g/dL 10.7 (L)Hematocrit Latest Ref Range: 39.0 - 51.0 % 35.1 (L)Platelet Count Latest Ref Range: 150 - 400 k/uL 295ASSESSMENT/PLAN: Jony Mckay is a 77 year old male with anemia, kidneydisease and stage 1 colorectal cancer. Had subsequent resection of avillous adenoma at the splenic flexure. We have been monitoring with hisblood counts in his CEA which has been mildly elevated but with nopersistent increase. Would continue to monitor at this time.1. Stage 1 colon cancer:-Continue to monitor CEA with repeat labs in 3-4 months2. Iron deficiency anemia-Resolved, would monitor-I suspect some degree of his anemia is due to renal dysfunction but atthis point no clear role for growth factor support3. Anemia chronic kidney disease-improved, monitor-Follow with nephrology, serum protein electrophoresis with immunofixationdid not identify a monoclonal protein4. Tubulovillous adenoma-resection completedAlfred Desirae Belcher MD Normal [facility] Remote CBCDIF (for [facility] use o nly)on 01-12-2018 Abs Baso 0.12 k/uL High <0.11 [facility] Comment on above: Performed By: #### R CBCDF ####[facility] [place], [place] [phone] Abs Dickens 0.55 k/uL Normal <0.87 [facility] Comment on above: Performed By: #### R CBCDF ####[facility] [place], [place] [phone] Abs Neut 6.01 k/uL Normal 1.45-7.50 [facility] Comment on above: Performed By: #### R CBCDF ####[facility] [place], [place] [phone] Basophils/100 WBC Auto (Bld) 1.4 % Normal [facility] Comment on above: Performed By: #### R CBCDF ####[facility] [place], [place] [phone] Comment AGC=6.01 Normal [facility] Comment on above: Result Comment: Prel iminary result. Interpret with caution. Final results may vary. Results requested and read back by:MCKENNA CARRILLO NCCC1 @[id number] Performed By: #### R CBCDF ####[place] [address] [address], [place] [phone] Eosinophils Auto #/vol (Bld) 1.20 10*3/uL High <0.46 [facility] Comment on above: Performed By: #### R CBCDF ####[place] [address] [address] [place] [phone] Eosinophils/100 WBC Auto (Bld) 13.8 % Normal [facility] Comment on above: Performed By: #### R CBCDF ####[place] [address] [address] [place] [phone] Erythrocyte distribution width Auto Ratio (RBC) 18.7 % High 11.5-15.0 [facility] Comment on above: Performed By: #### R CBCDF ####[place] [address], [place] [phone] Hematocrit Auto Volume Fraction (Bld) 35.1 % Low 39.0-51.0 [facility] Comment on above: Performed By: #### R CBCDF ####[place] [address] [address] [place] [phone] Hemoglobin mass conc (Bld) 10.7 g/dL Low 13.0-17.0 [facility] Comment on above: Performed By: #### R CBCDF ####[place] [address] [address] [place] [phone] Lymphocytes Auto #/vol (Bld) 0.84 10*3/uL Low 1.00-4.00 [facility] Comment on above: Performed By: #### R CBCDF ####[place] [address] [address] [place] [phone] Lymphocytes/100 WBC Auto (Bld) 9.6 % Normal [facility] Comment on above: Performed By: #### R CBCDF ####[place] [address] [address] [place] [phone] MCH Auto Entitic mass (RBC) 25.2 pG Low 26.0-34.0 [facility] Comment on above: Performed By: #### R CBCDF ####[place] [address] [place], [place] [phone] MCHC Auto mass conc (RBC) 30.5 g/dL Normal 30.5-36.0 [facility] Comment on above: Performed By: #### R CBCDF ####[place] [address] [address], [place] [phone] MCV Auto Entitic volume (RBC) 82.6 fL Normal 80.0-100.0 [facility] Comment on above: Performed By: #### R CBCDF ####[address] [phone] Monocytes/100 WBC Auto (Bld) 6.3 % Normal [facility] Comment on above: Performed By: #### R CBCDF ####[address] [phone] Neutrophils/100 WBC Auto (Bld) 68.9 % Normal [facility] Comment on above: Performed By: #### R CBCDF ####[address] [phone] Platelet mean volume Auto Entitic volume (Bld) 10.0 fL Normal 9.0-12.7 [facility] Comment on above: Performed By: #### R CBCDF ####[place] [address] [place], [place] [phone] Platelets Auto #/vol (Bld) 295 10*3/uL Normal 150-400 [facility] Comment on above: Performed By: #### R CBCDF ####[place] [address], [place] [phone] RBC Auto #/vol (Bld) 4.25 10*6/uL Normal 4.20-6.00 [facility] Comment on above: Performed By: #### R CBCDF ####[facility] [address] [place], [place] [phone] WBC Auto #/vol (Bld) 8.94 10*3/uL Normal 3.70-11.00 [facility] Comment on above: Performed By: #### R CBCDF ####[facility] [place], [place] [phone] Urea Nitrogenon 01-12-2018 Urea nitrogen 46 mg/dL High 6-23 [facility] Comment on above: Performed By: #### 1 [id number] ####[facility] [address] [place] [address] CEAon 11-30-2017 CEA 5.6 ng/mL High 0.0-2.9 [facility] Comment on above: Result Comment: Test analyzed by the [employer] DxI method. Performed By: #### C MP, IRON, FERR, CEA ####[facility] [address] [place], [place] [phone] CNOVSPon 11-30-2017 CNOVSP Visit (SP) Office ([place]) -JONY MCKAY ([id number]) 1940 [facility] Department11/30/17 11:30 AM SHANIQUA JEFFERY During your visit today, we recorded the following information about you: Temperature Pulse Respiration Blood pressure 97.7 degrees 67/minute 18/minute 147/81 Weight Height 115.3 kg 1.806 Mohamud Robledo 11/30/2017 11:13 AM SignedPatient looked over medication list. Medication list updated.SHANIQUA JEFFERY PA-C 11/30/2017 1:01 PM SignedCHIEF COMPLAINT: iron deficiency anemia, colorectal cancerHISTORY OF PRESENT ILLNESS: Jony Mckay is a 77 year old male who presentsin follow-up of above. Previously seen in consultation for iron deficiency. Hadcolonoscopy that noted moderately differentiated adenocarcinoma arising in avillous adenoma within the ascending colon. Would have resection- noted [id number], beta resection December 2015. Had repeat 08/2016 colonoscopy which notedmass at the splenic flexure- 3cm biopsied and noted to be tubulovillousadenoma. Completed resection and is now on observation. He has had issues withrenal dysfunction and is now followed by nephrology. Had recent colonoscopy byDr. Han.Patient with his today. 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 He denies any new problems or complaints.He is off of coumadin and now on xarelto for the last month (for a fib). Hedenies any bleeding.PAST MEDICAL HISTORYDiagnosis Date- CAD (coronary artery disease)- Colon cancer (HCC)- COPD (chronic obstructive pulmonary disease) (HCC)- Diabetes mellitus (HCC)- HypertensionPAST SURGICAL HISTORYProcedure Laterality Date- COLONOSCOPY- EGDReview of Social History includes:Social History Marital status: Unknown Spouse name: Years of education: Number of children:Social History Main Topics Smoking status: Never Smoker Smokeless tobacco: Never Used Alcohol use: No Drug use: NoNo family history on file.Current Outpatient Prescriptions:rivaroxaban (XARELTO ORAL) Take by mouth.sitaGLIPtin (JANUVIA) 100 mg tablet Take 100 mg by mouth once daily.aspirin, enteric coated (ASPIRIN LOW DOSE) 81 mg EC tablet Take 81 mg by mouthonce daily.atorvastatin (LIPITOR) 10 mg tablet Take 10 mg by mouth once daily.SODIUM BICARBONATE ORAL Take 650 mg by mouth once daily.acetaminophen (TYLENOL) 325 mg tablet Take 650 mg by mouth every 6 hours asneeded. No Tylenol 09/10 pending upcoming OR miodarone (PACERONE) 200 mg tablet Take 200 mg by mouth once daily.bumetanide (BUMEX) 1 mg tablet Take 1 mg by mouth twice daily.glyBURIDE (MICRONASE, DIABETA) 1.25 mg tablet Take 5 mg by mouth daily withbreakfast.hydrALAZINE (APRESOLINE) 50 mg tablet Take 50 mg by mouth twice daily.isosorbide mononitrate ER (IMDUR) 30 mg 24 hr tablet Take 60 mg by mouth oncedaily. Changed per ER physician for elevated BP has f/u with cardiologytomorrow 09/10No current facility-administered medications for this visit.REVIEW OF SYSTEMS:Constitutional: No recent fevers, chills or sweats. Energy level stableHEENT: No oral sores no thrushGI: Denies any blood in the stool, denies change in bowel habits, deniesconstipationPULM:no cough or dyspnea,denies hemoptysisCV: no chest pain or palpitations, denies leg swellingNeuro: Denies current headaches or double visionGU: Denies hematuria or change in bladder habitsMSK: No tender spots to palpation or joint swellingPHYSICAL EXAMINATION:BP 147/81 Pulse 67 Temp 36.5 ?C (97.7 ?F) (Oral) Resp 18 Ht 180.6cm (5' 11.1 ) Wt 115.3 kg (254 lb 3.2 oz) SpO2 95% BMI 35.35 kg/m?General appearance: No distress, alert awakeLungs: clear to auscultation, no wheezing or rhonchiHeart: Negative. RRR without murmur, gallop, or rubs. No ectopy.Abdomen: Nontender nondistended no organomegalyPsychiatric: Normal mood affectNeuro: Cranial nerves II through XII intactLymph: No cervical supraclavicular or axillary adenopathy.Extremities: No erythema no woundsASSESSMENT/PLAN: Jony Mckay is a 77 year old male with anemia, kidneydisease and stage 1 colorectal cancer. Repeat colonoscopy with mass in thetubulovillous adenoma at the splenic flexure with plans for resection andreanastamosis. Has completed resection. Counts today with improved hgb. Stillwith elevated creatinine and he follows with nephrology. Somewhat reticent toobtain imaging for any symptoms and absence of strong indication given renaldysfunction and relatively low yield of a noncontrast CT. My sense is that therenal dysfunction stems from his other medical conditions and is occasionallycomplicated by acute illness.Patient did have mild elevation in CEA. Repeating today and will monitor.Reviewed with the patient and family today. Would observe closely at thistime.1. Stage 1 colon cancer:-Continue to monitor CEA with repeat labs in 3-4 months-Patient to contact the office with any changes2. Iron deficiency anemia-Resolved, would monitor3. Anemia chronic kidney disease-improved, monitor-Follow with nephrology, serum protein electrophoresis with immunofixation didnot identify a monoclonal protein4. Tubulovillous adenoma-resection completedLORENA CRUZ-CCc:Dr. Tong Marroquin EloshiReferring Provider: LORENZO BELCHER [[id number]]Allergies As of Date: 11/30/2017(No Known Allergies)Date Reviewed: 11/30/2017Reviewed by: Shaniqua Jeffery - Fully AssessedReason for Visit: Colon Cancer [529] Cmt: follow upPrimary Visit Diagnosis:Iron deficiency anemia, unspecified iron deficiency anemia type [D50.9] Other Visit Diagnoses:Anemia of chronic renal failure, stage 4 (severe) (HCC) [N18.4, D63.1] History of colon cancer [Z85.038]Order(s):CBC + DIFF (FOR REMOTE [facility] USE) [SQRCBCDF] Order #: [id number] FUTURE CEA BLD [SQCEA] Order #: [id number] FUTURE IRON + TIBC [SQIRON] Order #: [id number] FUTURE FERRITIN BLD [SQFERR] Order #: [id number] FUTURE COMP METABOLIC PANEL [SQCMP] Order #: [id number] FUTUREDisposition: Return in about 3 months (around 03/02/2018).Follow-up and Disposition History RecordedPrescriptions as of 11/30/2017 Sig: XARELTO ORAL Take by mouth. SITAGLIPTIN 100 MG TABLET Take 100 mg by mouth once lacho* ASPIRIN 81 MG TABLET,DELAYED * Take 81 mg by mouth once amirah* ATORVASTATIN 10 MG TABLET Take 10 mg by mouth once amirah* SODIUM BICARBONATE ORAL Take 650 mg by mouth once lacho* ACETAMINOPHEN 325 MG TABLET Take 650 mg by mouth every 6 * AMIODARONE 200 MG TABLET Take 200 mg by mouth once lacho* BUMETANIDE 1 MG TABLET Take 1 mg by mouth twice amirah* GLYBURIDE 1.25 MG TABLET Take 5 mg by mouth daily with* HYDRALAZINE 50 MG TABLET Take 50 mg by mouth twice lacho* ISOSORBIDE MONONITRATE ER 30 * Take 60 mg by mouth once amirah*Problem List As Of Date 11/30/2017 Noted Resolved Microcytic anemia [D50.9] INVALID FOR* Anemia of chronic kidney failure [N18.9, D63.1] INVALID FOR* Iron deficiency anemia [D50.9] INVALID FOR* History of colon cancer [Z85.038] INVALID FOR*Visit Notes:>> Isabel Robledo e November 30, 2017 11:12 AM Status: SignedPatient looked over medication list. Medication list updated.Encounter Status:Closed by SHANIQUA JEFFERY on 11/30/17 Normal [facility] Comp Metabolic Panelon 11-30 Albumin mass conc 3.6 g/dL Low 3.9-4.9 [facility] Comment on above: Performed By: #### C MP, IRON, FERR, CEA ####[place] [address] [address] [phone] ALP enzyme act/vol 78 U/L Normal 36-108 [facility] Comment on above: Performed By: #### C MP, IRON, FERR, CEA ####[place] [address] [place] [phone] ALT enzyme act/vol 27 U/L Normal 10-54 [facility] Comment on above: Performed By: #### C MP, IRON, FERR, CEA ####[place] [address] [place] [phone] Anion gap 3 molar conc 12 mmol/L Normal 9-18 [facility] Comment on above: Performed By: #### C MP, IRON, FERR, CEA ####[place] [address] [phone] AST enzyme act/vol 20 U/L Normal 14-40 [facility] Comment on above: Performed By: #### C MP, IRON, FERR, CEA ####[place] [address] [place] [phone] Bilirubin mass conc 0.4 mg/dL Normal 0.2-1.3 [facility] Comment on above: Performed By: #### C MP, IRON, FERR, CEA ####[place] [address] [address] [place] [phone] Calcium mass conc 8.6 mg/dL Normal 8.5-10.2 [facility] Comment on above: Performed By: #### C MP, IRON, FERR, CEA ####[place] [address] [place] [phone] Chloride molar conc 106 mmol/L High 97-105 [facility] Comment on above: Performed By: #### C MP, IRON, FERR, CEA ####[place] [address] [place] [phone] CO2 molar conc 25 mmol/L Normal 22-30 [facility] Comment on above: Performed By: #### C MP, IRON, FERR, CEA ####[place] [address] [place] [phone] Creatinine mass conc 2.30 mg/dL High 0.73-1.22 [facility] Comment on above: Performed By: #### C MP, IRON, FERR, CEA ####[place] [address] [place] [phone] eGFR- Amer. 34 Normal [facility] Comment on above: Performed By: #### C MP, IRON, FERR, CEA ####[place] [address] [place] [phone] GFR/1.73 sq M predicted among non-blacks MDRD vol rate/area (S/P/Bld) 28 . Normal [facility] Comment on above: Result Comment: eGFR (Estimated GFR) Units of measure: mL/min/1.73 meters squaredeGFR is derived from the reexpressed MDRD Study equation using the following parameters: serum creatinine, age, gender and race. The creatinine assay has been calibrated to be traceable to IDMS.An eGFR <60 mL/min/1.73m2 for >3 months is consistent with chronic kidney disease. Refer to KDOQI guidelines for clinical interpretation.In patients with unstable renal function, e.g. those with acute kidney injury, the eGFR may not accurately reflect actual GFR. Performed By: #### C MP, IRON, FERR, CEA ####[facility] [place], [place] [phone] Glucose mass conc 166 mg/dL High 74-99 [facility] Comment on above: Result Comment: The [place] [employer] (ADA) provides guidance for cutoff values for fasting glucose and random glucose. The ADA defines fasting as no caloric intake for at least 8 hours. Fasting plasma glucose results between 100 to 125 mg/dL indicate increased risk for diabetes (prediabetes).Fasting plasma glucose results greater than or equal to 126 mg/dL meet the criteria for diagnosis of diabetes. In the absence of unequivocal hyperglycemia, results should be confirmed by repeat testing. In a patient with classic symptoms of hyperglycemia or hyperglycemic crisis, random plasma glucose results greater than or equal to 200 mg/dL meet the criteria for diagnosis of diabetes.Reference: Standards of Medical Care in Diabetes 2016, [place] [employer]. Diabetes Care. 2016.39(Suppl 1). Performed By: #### C MP, IRON, FERR, CEA ####[facility] [place], [place] [phone] Potassium molar conc 4.8 mmol/L Normal 3.7-5.1 [facility] Comment on above: Performed By: #### C MP, IRON, FERR, CEA ####[facility] [place], [place] [phone] Protein mass conc 7.0 g/dL Normal 6.3-8.0 [facility] Comment on above: Performed By: #### C MP, IRON, FERR, CEA ####[facility], [place] [phone] Sodium molar conc 143 mmol/L Normal 136-144 [facility] Comment on above: Performed By: #### C MP, IRON, FERR, CEA ####[facility], [place] [phone] Urea nitrogen mass conc 38 mg/dL High 9-24 [facility] Comment on above: Performed By: #### C MP, IRON, FERR, CEA ####[address] [phone] Ferritinon 11-30-2017 Ferritin 33.0 ng/mL Normal 30.3-565.7 [facility] Comment on above: Performed By: #### C MP, IRON, FERR, CEA ####[place] [phone] Iron and TIBCon 11-30-2017 Iron mass conc 32 ug/dL Low 41-186 [facility] Comment on above: Performed By: #### C MP, IRON, FERR, CEA ####[place] [phone] TIBC 304 ug/dL Normal 232-386 [facility] Comment on above: Performed By: #### C MP, IRON, FERR, CEA ####[address] [phone] Transferrin Saturatn 11 % Low 15-57 [facility] Comment on above: Performed By: #### C MP, IRON, FERR, CEA ####[address] [phone] PROGRESSon 11-30-2017 Protein mass conc HNO ID: [id number] thor: Shaniqua Boogieervice: (none)Author Type: Physician AssistantType: Progress NotesFiled: 11/30/2017 1:01 PMNote Text:CHIEF COMPLAINT: iron deficiency anemia, colorectal cancerHISTORY OF PRESENT ILLNESS: Jony cMkay is a 77 year old male whopresents in follow-up of above. Previously seen in consultation for irondeficiency. Had colonoscopy that noted moderately differentiatedadenocarcinoma arising in a villous adenoma within the ascending colon.Would have resection- noted T1N0 disease, beta resection December 2015. 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 Completed resection and isnow on observation. He has had issues with renal dysfunction and is nowfollowed by nephrology. Had recent colonoscopy by Dr. Han.Patient with his today. 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 He denies any new problems or complaints.He is off of coumadin and now on xarelto for the last month (for a fib).He denies any bleeding.PAST MEDICAL HISTORYDiagnosis Date- CAD (coronary artery disease)- Colon cancer (HCC)- COPD (chronic obstructive pulmonary disease) (HCC)- Diabetes mellitus (HCC)- HypertensionPAST SURGICAL HISTORYProcedure Laterality Date- COLONOSCOPY- EGDReview of Social History includes:Social History Marital status: Unknown Spouse name: Years of education: Number of children:Social History Main Topics Smoking status: Never Smoker Smokeless tobacco: Never Used Alcohol use: No Drug use: NoNo family history on file.Current Outpatient Prescriptions:rivaroxaban (XARELTO ORAL) Take by mouth.sitaGLIPtin (JANUVIA) 100 mg tablet Take 100 mg by mouth once daily.aspirin, enteric coated (ASPIRIN LOW DOSE) 81 mg EC tablet Take 81 mg bymouth once daily.atorvastatin (LIPITOR) 10 mg tablet Take 10 mg by mouth once daily.SODIUM BICARBONATE ORAL Take 650 mg by mouth once daily.acetaminophen (TYLENOL) 325 mg tablet Take 650 mg by mouth every 6 hoursas needed. No Tylenol 09/10 pending upcoming OR miodarone (PACERONE) 200 mg tablet Take 200 mg by mouth once daily.bumetanide (BUMEX) 1 mg tablet Take 1 mg by mouth twice daily.glyBURIDE (MICRONASE, DIABETA) 1.25 mg tablet Take 5 mg by mouth dailywith breakfast.hydrALAZINE (APRESOLINE) 50 mg tablet Take 50 mg by mouth twice daily.isosorbide mononitrate ER (IMDUR) 30 mg 24 hr tablet Take 60 mg by mouthonce daily. Changed per ER physician for elevated BP has f/u withcardiology tomorrow 09/10No current facility-administered medications for this visit.REVIEW OF SYSTEMS:Constitutional: No recent fevers, chills or sweats. Energy level stableHEENT: No oral sores no thrushGI: Denies any blood in the stool, denies change in bowel habits, deniesconstipationPULM:no cough or dyspnea,denies hemoptysisCV: no chest pain or palpitations, denies leg swellingNeuro: Denies current headaches or double visionGU: Denies hematuria or change in bladder habitsMSK: No tender spots to palpation or joint swellingPHYSICAL EXAMINATION:BP 147/81 Pulse 67 Temp 36.5 ?C (97.7 ?F) (Oral) Resp 18 Ht180.6 cm (5' 11.1 ) Wt 115.3 kg (254 lb 3.2 oz) SpO2 95% BMI35.35 kg/m?General appearance: No distress, alert awakeLungs: clear to auscultation, no wheezing or rhonchiHeart: Negative. RRR without murmur, gallop, or rubs. No ectopy.Abdomen: Nontender nondistended no organomegalyPsychiatric: Normal mood affectNeuro: Cranial nerves II through XII intactLymph: No cervical supraclavicular or axillary adenopathy.Extremities: No erythema no woundsASSESSMENT/PLAN: Jony Mckay is a 77 year old male with anemia, kidneydisease and stage 1 colorectal cancer. Repeat colonoscopy with mass in thetubulovillous adenoma at the splenic flexure with plans for resection andreanastamosis. Has completed resection. Counts today with improved hgb.Still with elevated creatinine and he follows with nephrology. Somewhatreticent to obtain imaging for any symptoms and absence of strongindication given renal dysfunction and relatively low yield of anoncontrast CT. My sense is that the renal dysfunction stems from hisother medical conditions and is occasionally complicated by acute illness.Patient did have mild elevation in CEA. Repeating today and will monitor.Reviewed with the patient and family today. Would observe closely at thistime.1. Stage 1 colon cancer:-Continue to monitor CEA with repeat labs in 3-4 months-Patient to contact the office with any changes2. Iron deficiency anemia-Resolved, would monitor3. Anemia chronic kidney disease-improved, monitor-Follow with nephrology, serum protein electrophoresis with immunofixationdid not identify a monoclonal protein4. Tubulovillous adenoma-resection completedMINDY LORENA COLLINS-CCc:Dr. Tong Neil Normal [facility] Remote CBCDIF (for [facility] use o nly)on 11-30-2017 Abs Baso 0.05 k/uL Normal <0.11 [facility] Comment on above: Performed By: #### R CBCDF ####[place] [address], [place] [phone] Abs Dickens 0.68 k/uL Normal <0.87 [facility] Comment on above: Performed By: #### R CBCDF ####[place] [address] [address] [place] [phone] Abs Neut 5.95 k/uL Normal 1.45-7.50 [facility] Comment on above: Performed By: #### R CBCDF ####[place] [address], [place] [phone] Basophils/100 WBC Auto (Bld) 0.6 % Normal [facility] Comment on above: Performed By: #### R CBCDF ####[place] [address] [address] [place] [phone] Comment AGC=6.00 Normal [facility] Comment on above: Result Comment: Prel iminary result. Interpret with caution. Final results may vary. Results requested and read back by:MAL/KRUNAL/1118/11/30/17/ANA Performed By: #### R CBCDF ####[place] [address] [place] [phone] Eosinophils Auto #/vol (Bld) 0.14 10*3/uL Normal <0.46 [facility] Comment on above: Performed By: #### R CBCDF ####[place] [address], [place] [phone] Eosinophils/100 WBC Auto (Bld) 1.6 % Normal [facility] Comment on above: Performed By: #### R CBCDF ####[address] [phone] Erythrocyte distribution width Auto Ratio (RBC) 19.4 % High 11.5-15.0 [facility] Comment on above: Performed By: #### R CBCDF ####[address] [phone] Hematocrit Auto Volume Fraction (Bld) 38.0 % Low 39.0-51.0 [facility] Comment on above: Performed By: #### R CBCDF ####[place] [phone] Hemoglobin mass conc (Bld) 11.8 g/dL Low 13.0-17.0 [facility] Comment on above: Performed By: #### R CBCDF ####[place] [phone] Lymphocytes Auto #/vol (Bld) 0.93 10*3/uL Low 1.00-4.00 [facility] Comment on above: Performed By: #### R CBCDF ####[place] [phone] Lymphocytes/100 WBC Auto (Bld) 12.0 % Normal [facility] Comment on above: Performed By: #### R CBCDF ####[place] [phone] MCH Auto Entitic mass (RBC) 25.4 pG Low 26.0-34.0 [facility] Comment on above: Performed By: #### R CBCDF ####[place] [phone] MCHC Auto mass conc (RBC) 31.1 g/dL Normal 30.5-36.0 [facility] Comment on above: Performed By: #### R CBCDF ####[place] [phone] MCV Auto Entitic volume (RBC) 81.9 fL Normal 80.0-100.0 [facility] Comment on above: Performed By: #### R CBCDF ####[place] [address] [place], [place] [phone] Monocytes/100 WBC Auto (Bld) 8.8 % Normal [facility] Comment on above: Performed By: #### R CBCDF ####[address] [phone] Neutrophils/100 WBC Auto (Bld) 76.8 % Normal [facility] Comment on above: Performed By: #### R CBCDF ####[address] [phone] Platelet mean volume Auto Entitic volume (Bld) 10.1 fL Normal 9.0-12.7 [facility] Comment on above: Performed By: #### R CBCDF ####[address] [phone] Platelets Auto #/vol (Bld) 180 10*3/uL Normal 150-400 [facility] Comment on above: Performed By: #### R CBCDF ####[address] [phone] RBC Auto #/vol (Bld) 4.64 10*6/uL Normal 4.20-6.00 [facility] Comment on above: Performed By: #### R CBCDF ####[address] [phone] WBC Auto #/vol (Bld) 7.86 10*3/uL Normal 3.70-11.00 [facility] Comment on above: Performed By: #### R CBCDF ####[address] [phone] CEAon 08-10-2017 CEA 4.9 ng/mL High 0.0-2.9 [facility] Comment on above: Result Comment: Test analyzed by the Kady DxI method. Performed By: #### C MP, FERR, IRON, CEA ####[facility] [address] [place], [place] [phone] CNOVSPon 08-10-2017 CNOVSP Visit (SP) Office ([place]) -JONY MCKAY ([id number]) 1940 MDate Time Provider Department08/10/17 10:45 AM LORENZO BELCHER During your visit today, we recorded the following information about you: Temperature Pulse Respiration Blood pressure 98.2 degrees 68/minute 16/minute 144/76 Weight Height 116.2 kg 1.806 Ilya Belcher MD 08/10/2017 12:51 PM SignedCHIEF COMPLAINT: iron deficiency anemia, colorectal cancerHISTORY OF PRESENT ILLNESS: Jony Mckay is a 76 year old male who presentsin follow-up of above. Previously seen in consultation for iron deficiency. Hadcolonoscopy that noted moderately differentiated adenocarcinoma arising in avillous adenoma within the ascending colon. Would have resection- noted [id number], beta resection December 2015. Had repeat 08/2016 colonoscopy which notedmass at the splenic flexure- 3cm biopsied and noted to be tubulovillousadenoma. Completed resection and is now on observation. He has had issues withrenal dysfunction and is now followed by nephrology. Had recent colonoscopy byDr. Motley.Patient with his family today. Notes more fatigue. Patient's family notes heis less active than prior to his surgeries. His granddaughter notes he is attimes more ramirez. Patient denies change in bowel habits.PAST MEDICAL HISTORYDiagnosis Date- CAD (coronary artery disease)- Colon cancer (HCC)- COPD (chronic obstructive pulmonary disease) (HCC)- Diabetes mellitus (HCC)- HypertensionPAST SURGICAL HISTORYProcedure Laterality Date- COLONOSCOPY- EGDReview of Social History includes:Social History Marital status: Unknown Spouse name: Years of education: Number of children:Social History Main Topics Smoking status: Never Smoker Smokeless status: Never Used Alcohol use: No Drug use: NoNo family history on file.Current Outpatient Prescriptions:sitaGLIPtin (JANUVIA) 100 mg tablet Take 100 mg by mouth once daily.amLODIPine (NORVASC) 10 mg tablet Take 10 mg by mouth once daily.aspirin, enteric coated (ASPIRIN LOW DOSE) 81 mg EC tablet Take 81 mg by mouthonce daily.atorvastatin (LIPITOR) 10 mg tablet Take 10 mg by mouth once daily.SODIUM BICARBONATE ORAL Take 650 mg by mouth once daily.acetaminophen (TYLENOL) 325 mg tablet Take 650 mg by mouth every 6 hours asneeded. No Tylenol 09/10 pending upcoming OR miodarone (PACERONE) 200 mg tablet Take 200 mg by mouth once daily.bumetanide (BUMEX) 1 mg tablet Take 1 mg by mouth twice daily.glyBURIDE (MICRONASE, DIABETA) 1.25 mg tablet Take 1.25 mg by mouth daily withbreakfast.hydrALAZINE (APRESOLINE) 50 mg tablet Take 50 mg by mouth twice daily.isosorbide mononitrate ER (IMDUR) 30 mg 24 hr tablet Take 60 mg by mouth oncedaily. Changed per ER physician for elevated BP has f/u with cardiologytomorrow 09/10warfarin (COUMADIN) 5 mg tablet Take 5 mg by mouth daily as directed. On hold09/10 for OR 3/1No current facility-administered medications for this visit.REVIEW OF SYSTEMS:Constitutional: No recent fevers, chills or sweats. Decreased energy as notedabove. Weight gain as noted above.HEENT: No oral sores no thrushGI: Denies any blood in the stool, denies change in bowel habits, deniesconstipationPULM:no cough or dyspnea,denies hemoptysisCV: no chest pain or palpitations, denies leg swellingNeuro: Denies current headaches or double visionGU: Denies hematuria or change in bladder habitsPsyche: Family notes move his been more labileMSK: No tender spots to palpation or joint swellingPHYSICAL EXAMINATION:BP 144/76 Pulse 68 Temp 36.8 ?C (98.2 ?F) (Oral) Resp 16 Ht 180.6 cm(5' 11.1ANDquot;) Wt 116.2 kg (256 lb 3.2 oz) BMI 35.63 kg/p2Zcvmdth appearance: No distress, alert awakeLungs: clear to auscultation, no wheezing or rhonchiHeart: Negative. RRR without murmur, gallop, or rubs. No ectopy.Abdomen: Nontender nondistended no organomegalyPsychiatric: Normal mood affectNeuro: Cranial nerves II through XII intactLymph: No cervical supraclavicular or axillary adenopathy.Extremities: No erythema no woundsCBC with diff:WBC 8.00 08/10/2017RBC 4.95 08/10/2017Hemoglobin 12.2 08/10/2017Hematocrit 39.7 08/10/2017MCV 80.2 08/10/2017MCH 24.6 08/10/2017MCHC 30.7 08/10/2017RDW-CV 18.7 08/10/2017Platelet Count 238 08/10/2017MPV 9.4 08/10/2017Neut% 69.5 04/13/2017Lymph% 12.8 04/13/2017Mono% 9.1 04/13/2017Eosin% 7.4 04/13/2017Baso% 1.2 04/13/2017Abs Neut (ANC) 6.33 04/13/2017Abs Lym 1.44 07/08/2016Abs Dickens 0.83 04/13/2017Abs Eosin 0.67 04/13/2017Abs Baso 0.11 04/13/2017ASSESSMENT/PLAN: Jony Mckay is a 76 year old male with anemia, kidneydisease and stage 1 colorectal cancer. Repeat colonoscopy with mass in thetubulovillous adenoma at the splenic flexure with plans for resection jf. Has completed resection. Counts today with improved hgb. Stillwith elevated creatinine and he follows with nephrology. Somewhat reticent toobtain imaging for any symptoms and absence of strong indication given renaldysfunction and relatively low yield of a noncontrast CT. My sense is that therenal dysfunction stems from his other medical conditions and is occasionallycomplicated by acute illness.Patient does have mild elevation in CEA. Reviewed with the patient and familytoday. Would observe closely at this time. Discussed mood with patient andfamily. Given weight gain and decreased activity levels would check TSH.Otherwise encouraged to contact DR. Canales, his primary provider for furtherscreening and management.1. Stage 1 colon cancer:-Continue to monitor CEA with repeat labs in 3-4 months-Patient to contact the office with any changes2. Iron deficiency anemia-Resolved, would monitor3. Anemia chronic kidney disease-improved, monitor-Follow with nephrology, serum protein electrophoresis with immunofixation didnot identify a monoclonal protein4. Tubulovillous adenoma-resection completedAled Desirae Belcher, MDReferring Provider: LORENZO BELCHER [[id number]]Allergies As of Date: 08/10/2017(No Known Allergies)Date Reviewed: 08/10/2017Reviewed by: Lorenzo Belcher - Fully AssessedReason for Visit: Anemia [6] Cmt: 4 month follow upPrimary Visit Diagnosis:History of colon cancer [Z85.038] Other Visit Diagnoses:Iron deficiency anemia, unspecified iron deficiency anemia type [D50.9] Abnormal weight gain [R63.5] Chronic kidney disease, stage IV (severe) (HCC) [N18.4]Order(s):TSH BLD [SQTSH] Order #: [id number] FUTURE CBC + DIFF (FOR REMOTE [facility] USE) [SQRCBCDF] Order #: [id number] FUTURE COMP METABOLIC PANEL [SQCMP] Order #: [id number] FUTURE IRON + TIBC [SQIRON] Order #: [id number] FUTURE FERRITIN BLD [SQFERR] Order #: [id number] FUTURE CEA BLD [SQCEA] Order #: [id number] FUTUREDisposition: Return in about 4 months (around 12/08/2017).Follow-up and Disposition History RecordedPrescriptions as of 08/10/2017 Sig: SITAGLIPTIN 100 MG TABLET Take 100 mg by mouth once lacho* AMLODIPINE 10 MG TABLET Take 10 mg by mouth once amirah* ASPIRIN 81 MG TABLET,DELAYED * Take 81 mg by mouth once amirah* ATORVASTATIN 10 MG TABLET Take 10 mg by mouth once amirah* SODIUM BICARBONATE ORAL Take 650 mg by mouth once lacho* ACETAMINOPHEN 325 MG TABLET Take 650 mg by mouth every 6 * AMIODARONE 200 MG TABLET Take 200 mg by mouth once lacho* BUMETANIDE 1 MG TABLET Take 1 mg by mouth twice amirah* GLYBURIDE 1.25 MG TABLET Take 1.25 mg by mouth daily w* HYDRALAZINE 50 MG TABLET Take 50 mg by mouth twice lacho* ISOSORBIDE MONONITRATE ER 30 * Take 60 mg by mouth once amirah* WARFARIN 5 MG TABLET Take 5 mg by mouth daily as d*Problem List As Of Date 08/10/2017 Noted Resolved Microcytic anemia [D50.9] INVALID FOR* Anemia of chronic kidney failure [N18.9, D63.1] INVALID FOR* Iron deficiency anemia [D50.9] INVALID FOR* History of colon cancer [Z85.038] INVALID FOR*Encounter Status:Closed by LORENZO BELCHER MD on 08/10/17 Normal [facility] Comp Metabolic Panelon 08-10 Albumin mass conc 3.4 g/dL Low 3.9-4.9 [facility] Comment on above: Performed By: #### C MP, FERR, IRON, CEA ####[facility] [address] [place], [place] [phone] ALP enzyme act/vol 81 U/L Normal 36-108 [facility] Comment on above: Performed By: #### C MP, FERR, IRON, CEA ####[facility] [address], [place] [phone] ALT enzyme act/vol 20 U/L Normal 10-54 [facility] Comment on above: Performed By: #### C MP, FERR, IRON, CEA ####[facility] [address], [place] [phone] Anion gap 3 molar conc 11 mmol/L Normal 9-18 [facility] Comment on above: Performed By: #### C MP, FERR, IRON, CEA ####[facility] [address], [place] [phone] AST enzyme act/vol 17 U/L Normal 14-40 [facility] Comment on above: Performed By: #### C MP, FERR, IRON, CEA ####[place] [address] [address] [phone] Bilirubin mass conc 0.3 mg/dL Normal 0.2-1.3 [facility] Comment on above: Performed By: #### C MP, FERR, IRON, CEA ####[place] [address] [phone] Calcium mass conc 8.9 mg/dL Normal 8.5-10.2 [facility] Comment on above: Performed By: #### C MP, FERR, IRON, CEA ####[place] [address] [address] [place] [phone] Chloride molar conc 103 mmol/L Normal 97-105 [facility] Comment on above: Performed By: #### C MP, FERR, IRON, CEA ####[place] [address] [address] Ave[place] [phone] CO2 molar conc 26 mmol/L Normal 22-30 [facility] Comment on above: Performed By: #### C MP, FERR, IRON, CEA ####[place] [address] [address] [place] [phone] Creatinine mass conc 2.39 mg/dL High 0.73-1.22 [facility] Comment on above: Performed By: #### C MP, FERR, IRON, CEA ####[place] [address] [place] [address] [place] [phone] eGFR- Amer. 32 Normal [facility] Comment on above: Performed By: #### C MP, FERR, IRON, CEA ####[place] [address] [address] [place] [phone] GFR/1.73 sq M predicted among non-blacks MDRD vol rate/area (S/P/Bld) 27 . Normal [facility] Comment on above: Result Comment: eGFR (Estimated GFR) Units of measure: mL/min/1.73 meters squaredeGFR is derived from the reexpressed MDRD Study equation using the following parameters: serum creatinine, age, gender and race. The creatinine assay has been calibrated to be traceable to [employer].An eGFR <60 mL/min/1.73m2 for >3 months is consistent with chronic kidney disease. Refer to KDOQI guidelines for clinical interpretation.In patients with unstable renal function, e.g. those with acute kidney injury, the eGFR may not accurately reflect actual GFR. Performed By: #### C MP, FERR, IRON, CEA ####[facility] [place], [place] [phone] Glucose mass conc 174 mg/dL High 74-99 [facility] Comment on above: Result Comment: The [place] [employer] (ADA) provides guidance for cutoff values for fasting glucose and random glucose. The ADA defines fasting as no caloric intake for at least 8 hours. Fasting plasma glucose results between 100 to 125 mg/dL indicate increased risk for diabetes (prediabetes).Fasting plasma glucose results greater than or equal to 126 mg/dL meet the criteria for diagnosis of diabetes. In the absence of unequivocal hyperglycemia, results should be confirmed by repeat testing. In a patient with classic symptoms of hyperglycemia or hyperglycemic crisis, random plasma glucose results greater than or equal to 200 mg/dL meet the criteria for diagnosis of diabetes.Reference: Standards of Medical Care in Diabetes 2016, [place] [employer]. Diabetes Care. 2016.39(Suppl 1). Performed By: #### C MP, FERR, IRON, CEA ####[facility], [place] [phone] Potassium molar conc 4.3 mmol/L Normal 3.7-5.1 [facility] Comment on above: Performed By: #### C MP, FERR, IRON, CEA ####[facility] [place], [place] [phone] Protein mass conc 7.9 g/dL Normal 6.3-8.0 [facility] Comment on above: Performed By: #### C MP, FERR, IRON, CEA ####[facility] [place] [phone] Sodium molar conc 140 mmol/L Normal 136-144 [facility] Comment on above: Performed By: #### C MP, FERR, IRON, CEA ####[address], [place] [phone] Urea nitrogen mass conc 34 mg/dL High 9-24 [facility] Comment on above: Performed By: #### C MP, FERR, IRON, CEA ####[address] [place] [phone] Ferritinon 08-10-2017 Ferritin 45.5 ng/mL Normal 30.3-565.7 [facility] Comment on above: Performed By: #### C MP, FERR, IRON, CEA ####[place] [phone] Iron and TIBCon 08-10-2017 Iron mass conc 31 ug/dL Low 41-186 [facility] Comment on above: Performed By: #### C MP, FERR, IRON, CEA ####[place] [phone] TIBC 275 ug/dL Normal 232-386 [facility] Comment on above: Performed By: #### C MP, FERR, IRON, CEA ####[place] [phone] Transferrin Saturatn 11 % Low 15-57 [facility] Comment on above: Performed By: #### C MP, FERR, IRON, CEA ####[address] [phone] PROGRESSon 08-10-2017 Protein mass conc HNO ID: [id number] thor: Lorenzo Tucker: (none)Author Type: PhysicianType: Progress NotesFiled: 08/10/2017 12:51 PMNote Text:CHIEF COMPLAINT: iron deficiency anemia, colorectal cancerHISTORY OF PRESENT ILLNESS: Jony Mckay is a 76 year old male whopresents in follow-up of above. Previously seen in consultation for irondeficiency. Had colonoscopy that noted moderately differentiatedadenocarcinoma arising in a villous adenoma within the ascending colon.Would have resection- noted T1N0 disease, beta resection December 2015. 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 Completed resection and isnow on observation. He has had issues with renal dysfunction and is nowfollowed by nephrology. Had recent colonoscopy by Dr. Motley.Patient with his family today. Notes more fatigue. Patient's familynotes he is less active than prior to his surgeries. His granddaughternotes he is at times more ramirez. Patient denies change in bowel habits.PAST MEDICAL HISTORYDiagnosis Date- CAD (coronary artery disease)- Colon cancer (HCC)- COPD (chronic obstructive pulmonary disease) (HCC)- Diabetes mellitus (HCC)- HypertensionPAST SURGICAL HISTORYProcedure Laterality Date- COLONOSCOPY- EGDReview of Social History includes:Social History Marital status: Unknown Spouse name: Years of education: Number of children:Social History Main Topics Smoking status: Never Smoker Smokeless status: Never Used Alcohol use: No Drug use: NoNo family history on file.Current Outpatient Prescriptions:sitaGLIPtin (JANUVIA) 100 mg tablet Take 100 mg by mouth once daily.amLODIPine (NORVASC) 10 mg tablet Take 10 mg by mouth once daily.aspirin, enteric coated (ASPIRIN LOW DOSE) 81 mg EC tablet Take 81 mg bymouth once daily.atorvastatin (LIPITOR) 10 mg tablet Take 10 mg by mouth once daily.SODIUM BICARBONATE ORAL Take 650 mg by mouth once daily.acetaminophen (TYLENOL) 325 mg tablet Take 650 mg by mouth every 6 hoursas needed. No Tylenol 09/10 pending upcoming OR miodarone (PACERONE) 200 mg tablet Take 200 mg by mouth once daily.bumetanide (BUMEX) 1 mg tablet Take 1 mg by mouth twice daily.glyBURIDE (MICRONASE, DIABETA) 1.25 mg tablet Take 1.25 mg by mouth dailywith breakfast.hydrALAZINE (APRESOLINE) 50 mg tablet Take 50 mg by mouth twice daily.isosorbide mononitrate ER (IMDUR) 30 mg 24 hr tablet Take 60 mg by mouthonce daily. Changed per ER physician for elevated BP has f/u withcardiology tomorrow 09/10warfarin (COUMADIN) 5 mg tablet Take 5 mg by mouth daily as directed. Onhold 09/10 for OR 3/1No current facility-administered medications for this visit.REVIEW OF SYSTEMS:Constitutional: No recent fevers, chills or sweats. Decreased energy asnoted above. Weight gain as noted above.HEENT: No oral sores no thrushGI: Denies any blood in the stool, denies change in bowel habits, deniesconstipationPULM:no cough or dyspnea,denies hemoptysisCV: no chest pain or palpitations, denies leg swellingNeuro: Denies current headaches or double visionGU: Denies hematuria or change in bladder habitsPsyche: Family notes move his been more labileMSK: No tender spots to palpation or joint swellingPHYSICAL EXAMINATION:BP 144/76 Pulse 68 Temp 36.8 ?C (98.2 ?F) (Oral) Resp 16 Ht 180.6cm (5' 11.1 ) Wt 116.2 kg (256 lb 3.2 oz) BMI 35.63 kg/q3Qvcgckc appearance: No distress, alert awakeLungs: clear to auscultation, no wheezing or rhonchiHeart: Negative. RRR without murmur, gallop, or rubs. No ectopy.Abdomen: Nontender nondistended no organomegalyPsychiatric: Normal mood affectNeuro: Cranial nerves II through XII intactLymph: No cervical supraclavicular or axillary adenopathy.Extremities: No erythema no woundsCBC with diff:WBC 8.00 08/10/2017RBC 4.95 08/10/2017Hemoglobin 12.2 08/10/2017Hematocrit 39.7 08/10/2017MCV 80.2 08/10/2017MCH 24.6 08/10/2017MCHC 30.7 08/10/2017RDW-CV 18.7 08/10/2017Platelet Count 238 08/10/2017MPV 9.4 08/10/2017Neut% 69.5 04/13/2017Lymph% 12.8 04/13/2017Mono% 9.1 04/13/2017Eosin% 7.4 04/13/2017Baso% 1.2 04/13/2017Abs Neut (ANC) 6.33 04/13/2017Abs Lym 1.44 07/08/2016Abs Dickens 0.83 04/13/2017Abs Eosin 0.67 04/13/2017Abs Baso 0.11 04/13/2017ASSESSMENT/PLAN: Jony Mckay is a 76 year old male with anemia, kidneydisease and stage 1 colorectal cancer. Repeat colonoscopy with mass in thetubulovillous adenoma at the splenic flexure with plans for resection katieanastamosis. Has completed resection. Counts today with improved hgb.Still with elevated creatinine and he follows with nephrology. Somewhatreticent to obtain imaging for any symptoms and absence of strongindication given renal dysfunction and relatively low yield of anoncontrast CT. My sense is that the renal dysfunction stems from hisother medical conditions and is occasionally complicated by acute illness.Patient does have mild elevation in CEA. Reviewed with the patient andfamily today. Would observe closely at this time. Discussed mood withpatient and family. Given weight gain and decreased activity levels wouldcheck TSH. Otherwise encouraged to contact DR. Canales, his primaryprovider for further screening and management.1. Stage 1 colon cancer:-Continue to monitor CEA with repeat labs in 3-4 months-Patient to contact the office with any changes2. Iron deficiency anemia-Resolved, would monitor3. Anemia chronic kidney disease-improved, monitor-Follow with nephrology, serum protein electrophoresis with immunofixationdid not identify a monoclonal protein4. Tubulovillous adenoma-resection completedAlfred Desirae Belcher MD Normal [facility] Remote CBCDIF (for [facility] use o nly)on 08-10-2017 Abs Baso 0.08 k/uL Normal <0.11 [facility] Comment on above: Performed By: #### R CBCDF ####[facility] [address] [place], [place] [phone] Abs Dickens 0.72 k/uL Normal <0.87 [facility] Comment on above: Performed By: #### R CBCDF ####[place] [address] [address], [place] [phone] Abs Neut 5.73 k/uL Normal 1.45-7.50 [facility] Comment on above: Performed By: #### R CBCDF ####[place] [address] [address], [place] [phone] Basophils/100 WBC Auto (Bld) 1.0 % Normal [facility] Comment on above: Performed By: #### R CBCDF ####[address] [phone] Comment AGC=5.75 Normal [facility] Comment on above: Result Comment: Prel iminary result. Interpret with caution. Final results may vary. Results requested and read back by: NCCC1 @1100 [address] Performed By: #### R CBCDF ####[address] [phone] Eosinophils Auto #/vol (Bld) 0.47 10*3/uL High <0.46 [facility] Comment on above: Performed By: #### R CBCDF ####[address] [phone] Eosinophils/100 WBC Auto (Bld) 5.8 % Normal [facility] Comment on above: Performed By: #### R CBCDF ####[address] [phone] Erythrocyte distribution width Auto Ratio (RBC) 18.7 % High 11.5-15.0 [facility] Comment on above: Performed By: #### R CBCDF ####[address] [phone] Hematocrit Auto Volume Fraction (Bld) 39.7 % Normal 39.0-51.0 [facility] Comment on above: Performed By: #### R CBCDF ####[address] [phone] Hemoglobin mass conc (Bld) 12.2 g/dL Low 13.0-17.0 [facility] Comment on above: Performed By: #### R CBCDF ####[address] [phone] Lymphocytes Auto #/vol (Bld) 1.07 10*3/uL Normal 1.00-4.00 [facility] Comment on above: Performed By: #### R CBCDF ####[place] [phone] Lymphocytes/100 WBC Auto (Bld) 13.3 % Normal [facility] Comment on above: Performed By: #### R CBCDF ####[place] [phone] MCH Auto Entitic mass (RBC) 24.6 pG Low 26.0-34.0 [facility] Comment on above: Performed By: #### R CBCDF ####[place] [phone] MCHC Auto mass conc (RBC) 30.7 g/dL Normal 30.5-36.0 [facility] Comment on above: Performed By: #### R CBCDF ####[address] [phone] MCV Auto Entitic volume (RBC) 80.2 fL Normal 80.0-100.0 [facility] Comment on above: Performed By: #### R CBCDF ####[place] [phone] Monocytes/100 WBC Auto (Bld) 8.9 % Normal [facility] Comment on above: Performed By: #### R CBCDF ####[place] [phone] Neutrophils/100 WBC Auto (Bld) 71.0 % Normal [facility] Comment on above: Performed By: #### R CBCDF ####[address] [phone] Platelet mean volume Auto Entitic volume (Bld) 9.4 fL Normal 9.0-12.7 [facility] Comment on above: Performed By: #### R CBCDF ####[address] [phone] Platelets Auto #/vol (Bld) 238 10*3/uL Normal 150-400 [facility] Comment on above: Performed By: #### R CBCDF ####[address] [id number] RBC Auto #/vol (Bld) 4.95 10*6/uL Normal 4.20-6.00 [facility] Comment on above: Performed By: #### R CBCDF ####[address] [phone] WBC Auto #/vol (Bld) 8.00 10*3/uL Normal 3.70-11.00 [facility] Comment on above: Performed By: #### R CBCDF ####[address] [phone] T[facility]on 08-10-2017 Thyrotropin Qn 2.540 uU/mL Normal 0.400-5.500 [facility] Comment on above: Performed By: #### T SH ####[address] [id number] Vital Signs Date Time Vital Sign Value Performing Clinician Facility 09-15-2023 10:41-0500 Diastolic blood pressure 78 mm[Hg] Sameera Simmons MD Work Phone: [facility] 09-15-2023 10:41-0500 Systolic blood pressure 136 mm[Hg] Sameera Simmons MD Work Phone: [facility] 09-15-2023 10:14-0500 Body height 188 cm Sameera Simmons MD Work Phone: [facility] 09-15-2023 10:14-0500 Body mass index (BMI) [Ratio] 27.48 kg/m2 Sameera Simmons MD Work Phone: [facility] 09-15-2023 10:14-0500 Body weight 97.07 kg Sameera Simmons MD Work Phone: [facility] 09-15-2023 10:14-0500 Heart rate 72 /min Sameera Simmons MD Work Phone: [facility] 09-02-2023 13:15-0500 Body height 188 cm Pillo Mckenna DPM Work Phone: [facility] 09-02-2023 13:15-0500 Body mass index (BMI) [Ratio] 29.53 kg/m2 Pilol Mckenna DPM Work Phone: [facility] 09-02-2023 13:15-0500 Body weight 104.33 kg Pillo Mckenna DPM Work Phone: [facility] 09-02-2023 13:15-0500 Diastolic blood pressure 80 mm[Hg] Pillo Mckenna DPM Work Phone: [facility] 09-02-2023 13:15-0500 Heart rate 79 /min Pillo Mckenna DPM Work Phone: [facility] 09-02-2023 13:15-0500 Systolic blood pressure 123 mm[Hg] Pillo Mckenna DPM Work Phone: [facility] 03-10-2023 10:34-0400 Body height 187.96 cm Antonio Canales Work Phone: [facility] 250 DO Work Phone: 03-10-2023 10:34-0400 Body mass index (BMI) [Ratio] 29.53 kg/m2 Antonio Canales Work Phone: [facility] 250 DO Work Phone: 03-10-2023 10:34-0400 Body surface area Derived from formula 2.31 m2 Antoniocandi Canales Work Phone: [facility] 250 DO Work Phone: 03-10-2023 10:34-0400 Body weight 104.33 kg Antonio Reina Canales Work Phone: [facility] 250 DO Work Phone: 03-10-2023 10:34-0400 Diastolic blood pressure 58 mm[Hg] Antonio Reina Parker Work Phone: [facility] 250 DO Work Phone: 03-10-2023 10:34-0400 Heart rate 66 /min Antonio Huang Canales Work Phone: [facility] 250 DO Work Phone: 03-10-2023 10:34-0400 Systolic blood pressure 118 mm[Hg] Antonio Reina Parker Work Phone: [facility] 250 DO Work Phone: 09-23-2022 11:00-0500 Body height 192.02 cm Barbara [employer] Other [employer] Other 09-23-2022 11:00-0500 Body mass index (BMI) [Ratio] 28.51 kg/m2 ESBATechgeneva [employer] Other [employer] Other 09-23-2022 11:00-0500 Body temperature 97.2 [degF] Barbara [employer] Other [employer] Other 09-23-2022 11:00-0500 Body weight 105.14 kg Barbara [employer] Other [employer] Other 09-23-2022 11:00-0500 Diastolic blood pressure 66 mm[Hg] Barbara James Other [employer] Other 09-23-2022 11:00-0500 Respiratory rate 20 /min Barbara James Other [employer] Other 09-23-2022 11:00-0500 SaO2% (BldA) [Mass fraction] 93 % Barbara James Other [employer] Other 09-23-2022 11:00-0500 Systolic blood pressure 103 mm[Hg] Barbara James Other [employer] Other 09-02-2022 10:31-0500 Body height 187.96 cm Sameera Simmons MD Work Phone: [facility] 250 DO Work Phone: 09-02-2022 10:31-0500 Body mass index (BMI) [Ratio] 30.56 kg/m2 Sameera Simmons MD Work Phone: [facility] 250 DO Work Phone: 09-02-2022 10:31-0500 Body surface area Derived from formula 2.34 m2 Sameera Simmons MD Work Phone: [facility] 250 DO Work Phone: 09-02-2022 10:31-0500 Body weight 107.96 kg Sameera Simmons MD Work Phone: [facility] 250 DO Work Phone: 09-02-2022 10:31-0500 Diastolic blood pressure 74 mm[Hg] Sameera Simmons MD Work Phone: [facility] 250 DO Work Phone: 09-02-2022 10:31-0500 Heart rate 78 /min Sameera Simmons MD Work Phone: [facility] 250 DO Work Phone: 09-02-2022 10:31-0500 Systolic blood pressure 114 mm[Hg] Sameera Simmons MD Work Phone: [facility] 250 DO Work Phone: 05-20-2022 12:20-0400 Body height 192.02 cm Barbara Molinakosta Other [employer] Other 05-20-2022 12:20-0400 Body mass index (BMI) [Ratio] 29.1 kg/m2 Barbara Molinas Other [employer] Other 05-20-2022 12:20-0400 Body temperature 97.5 [degF] Barbara Molinas Other [employer] Other 05-20-2022 12:20-0400 Body weight 107.32 kg Barbara Molinas Other [employer] Other 05-20-2022 12:20-0400 Diastolic blood pressure 86 mm[Hg] Barbara Molinas Other [employer] Other 05-20-2022 12:20-0400 Respiratory rate 20 /min Barbara Molinas Other [employer] Other 05-20-2022 12:20-0400 SaO2% (BldA) [Mass fraction] 94 % Barbara Molinas Other [employer] Other 05-20-2022 12:20-0400 Systolic blood pressure 126 mm[Hg] Barbara James Other [facility] [employer] Other 03-24-2022 10:01-0400 Diastolic blood pressure 70 mm[Hg] Sameera Simmons MD Work Phone: [facility] 250 DO Work Phone: 03-24-2022 10:01-0400 Systolic blood pressure 110 mm[Hg] Sameera Simmons MD Work Phone: [facility] 250 DO Work Phone: 03-24-2022 09:43-0400 Diastolic blood pressure 88 mm[Hg] Sameera Simmons MD Work Phone: [facility] 250 DO Work Phone: 03-24-2022 09:43-0400 Systolic blood pressure 130 mm[Hg] Sameera Simmons MD Work Phone: [facility] 250 DO Work Phone: 03-24-2022 09:33-0400 Body height 187.96 cm Sameera Simmons MD Work Phone: [facility] 250 DO Work Phone: 03-24-2022 09:33-0400 Body mass index (BMI) [Ratio] 29.92 kg/m2 Sameera Simmons MD Work Phone: [facility] 250 DO Work Phone: 03-24-2022 09:33-0400 Body surface area Derived from formula 2.32 m2 Sameera Simmons MD Work Phone: [facility] 250 DO Work Phone: 03-24-2022 09:33-0400 Body weight 105.69 kg Sameera Simmons MD Work Phone: [facility] 250 DO Work Phone: 03-24-2022 09:33-0400 Diastolic blood pressure 100 mm[Hg] Sameera Simmons MD Work Phone: [facility] 250 DO Work Phone: 03-24-2022 09:33-0400 Heart rate 70 /min Sameera Simmons MD Work Phone: [facility] 250 DO Work Phone: 03-24-2022 09:33-0400 Systolic blood pressure 130 mm[Hg] Sameera Simmons MD Work Phone: [facility] 250 DO Work Phone: 02-18-2022 11:05-0400 Diastolic blood pressure 94 mm[Hg] Sameera Simmons MD Work Phone: [facility] 250 DO Work Phone: 02-18-2022 11:05-0400 Systolic blood pressure 160 mm[Hg] Sameera Simmons MD Work Phone: [facility] 250 DO Work Phone: 02-18-2022 10:30-0400 Body height 187.96 cm Sameera Simmons MD Work Phone: [facility] 250 DO Work Phone: 02-18-2022 10:30-0400 Body mass index (BMI) [Ratio] 30.04 kg/m2 Sameera Simmons MD Work Phone: [facility] 250 DO Work Phone: 02-18-2022 10:30-0400 Body surface area Derived from formula 2.32 m2 Sameera Simmons MD Work Phone: [facility] 250 DO Work Phone: 02-18-2022 10:30-0400 Body weight 106.14 kg Sameera Simmons MD Work Phone: [facility] 250 DO Work Phone: 02-18-2022 10:30-0400 Diastolic blood pressure 96 mm[Hg] Sameera Simmons MD Work Phone: [facility] 250 DO Work Phone: 02-18-2022 10:30-0400 Heart rate 66 /min Sameera Simmons MD Work Phone: [facility] DO Work Phone: 02-18-2022 10:30-0400 Systolic blood pressure 152 mm[Hg] Sameera Simmons MD Work Phone: [facility] DO Work Phone: 01-14-2022 12:20-0400 Body height 192.02 cm Barbara Dashlisbeth Other [facility] [employer] Other 01-14-2022 12:20-0400 Body mass index (BMI) [Ratio] 29.2 kg/m2 Scottgeneva Dashramones Other [facility] [employer] Other 01-14-2022 12:20-0400 Body temperature 97.6 [degF] Scottgeneva Dashramones Other [facility] [employer] Other 01-14-2022 12:20-0400 Body weight 107.68 kg Scottgeneva Dashramones Other [employer] Other 01-14-2022 12:20-0400 Diastolic blood pressure 93 mm[Hg] Barbara Dashramones Other [employer] Other 01-14-2022 12:20-0400 Respiratory rate 20 /min Aziz Bakhous Other [employer] Other 01-14-2022 12:20-0400 SaO2% (BldA) [Mass fraction] 95 % Aziz Bakhous Other [employer] Other 01-14-2022 12:20-0400 Systolic blood pressure 151 mm[Hg] Aziz Bakhous Other [employer] Other 09-10-2021 14:20-0500 Body height 192.02 cm Aziz Bakhous Other [employer] Other 09-10-2021 14:20-0500 Body mass index (BMI) [Ratio] 29.47 kg/m2 Aziz Bakhous Other [employer] Other 09-10-2021 14:20-0500 Body temperature 97.6 [degF] Aziz Bakhous Other [employer] Other 09-10-2021 14:20-0500 Body weight 108.68 kg Aziz Bakhous Other [employer] Other 09-10-2021 14:20-0500 Diastolic blood pressure 93 mm[Hg] Aziz Bakhous Other [employer] Other 09-10-2021 14:20-0500 Respiratory rate 20 /min Aziz Bakhous Other [employer] Other 09-10-2021 14:20-0500 SaO2% (BldA) [Mass fraction] 96 % Aziz Bakhous Other [employer] Other 09-10-2021 14:20-0500 Systolic blood pressure 155 mm[Hg] Barbara James Other [facility] [employer] Other 08-29-2021 10:11-0500 Body height 187.96 cm Sameera Simmons MD Work Phone: [facility] 250 DO Work Phone: 08-29-2021 10:11-0500 Body mass index (BMI) [Ratio] 30.69 kg/m2 Sameera Simmons MD Work Phone: [facility] 250 DO Work Phone: 08-29-2021 10:11-0500 Body surface area Derived from formula 2.34 m2 Sameera Simmons MD Work Phone: [facility] 250 DO Work Phone: 08-29-2021 10:11-0500 Body weight 108.41 kg Sameera Simmons MD Work Phone: [facility] 250 DO Work Phone: 08-29-2021 10:11-0500 Diastolic blood pressure 72 mm[Hg] Sameera Simmons MD Work Phone: [facility] 250 DO Work Phone: 08-29-2021 10:11-0500 Heart rate 84 /min Sameera Simmons MD Work Phone: [facility] 250 DO Work Phone: 08-29-2021 10:11-0500 Systolic blood pressure 136 mm[Hg] Sameera Simmons MD Work Phone: [facility] 250 DO Work Phone: Encounters Encounter Date Encounter Type Care Provider Facility Start: 09-15-2023 End: 09-15-2023 Office outpatient visit 25 minutes Sameera Simmons MD Work Phone: [facility] Comment on above: High risk medication use (Primary Dx); Atherosclerosis of coronary artery, unspecified vessel or lesion type, unspecified whether angina present, unspecified whether burns pai[place] or transplanted heart; Permanent atrial fibrillation ([facility]/HCC); Status post coronary angioplasty; Hypertension, unspecified type; Hyperlipidemia, unspecified hyperlipidemia type; Never smoked cigarettes; Benign hypertensive kidney disease with chronic kidney disease stage I through stage IV, or unspecified(403.10); Cardiomyopathy, ischemic; Diabetes mellitus type II, non insulin dependent ([facility]) Start: 09-09-2023 End: 09-09-2023 ambulatory STEPHANIE MARSHALL Not Available Start: 09-02-2023 End: 09-02-2023 ambulatory PILLO MCKENNA Not Available Start: 09-02-2023 Chart abstracting Pillo jovel DPM Work Phone: [facility] Start: 09-02-2023 End: 09-02-2023 Office outpatient visit 15 minutes Pillo Mckenna DPM Work Phone: [facility] Comment on above: 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 Sameera Simmons Facility: Start: 09-23-2022 End: 09-23-2022 ambulatory Barbara James Other [facility] [employer] Other Start: 09-23-2022 Office outpatient vi sit 25 minutes Aziz Bakhous [facility] Start: 09-15-2022 End: 09-16-2022 ambulatory AZIZ BAKHOUS Facility:[facility]1 Start: 09-02-2022 Office outpatient vi sit 25 minutes Sameera Simmons MD Work Phone: [facility] 250 DO Work Phone: Start: 09-02-[address] Sameera Simmons Facility: Start: 05-20-2022 End: 05-20-2022 ambulatory Aziz Bakhous Other [facility] [employer] Other Start: 05-20-2022 Office outpatient vi sit 25 minutes Aziz Bakhous [facility] Start: 05-18-2022 End: 05-19-2022 ambulatory AZGENEVA MOLINAS Facility:[facility]1 Start: 03-24-2022 Office outpatient vi sit 10 minutes Sameera Simmons MD Work Phone: [facility] 250 DO Work Phone: Start: 03-24-[address] Sameera Simmons Facility: Start: 02-18-2022 Office outpatient vi sit 25 minutes Sameera Simmons MD Work Phone: [facility] 250 DO Work Phone: Start: 01-14-2022 End: 01-14-2022 ambulatory Azgeneva James Other [facility] Other Start: 01-14-2022 Office outpatient vi sit 25 minutes Aziz Bakhous [facility] Start: 01-10-2022 End: 01-11-[address] DOCTOR JEWELL Facility:[facility]1 Start: 01-09-2022 End: 01-10-[address] ANTONIO CANALES Facility:[facility] Start: 01-01-2022 End: 01-01-2022 Emergency department patient visit Kraig Mar Facility:[facility] Start: 12-29-2021 End: 12-29-2021 ambulatory Awilda Noel Other [facility] Other Start: 12-29-2021 Telephone encounter Awilda Noel [facility] Start: 09-10-2021 End: 09-10-2021 ambulatory Barbara James Other [facility] Other Start: 09-10-2021 Office outpatient vi sit 15 minutes Azgeneva Heidilisbeth [facility] Start: 08-29-2021 Office outpatient vi sit 25 minutes Sameera Simmons MD Work Phone: [facility] 250 DO Work Phone: Start: 06-06-2021 AUDIT Sameera Simmons MD Work Phone: [facility] [address] [place] Work Phone: Start: 04-06-2018 End: 04-07-2018 Patient encounter LORENZO BELCHER [facility] Start: 03-30-2018 End: 03-31-2018 Patient encounter LORENZO BELCHER [facility] Start: 03-23-2018 End: 03-24-2018 Patient encounter LORENZO BELCHER [facility] Start: 01-12-2018 Ambulatory SAMEERA SIMMONS Facility :[id number] Start: 01-12-2018 End: 01-25-2018 Patient encounter LORENZO BELCHER [facility] Start: 11-30-2017 End: 12-01-2017 Patient encounter LORENZO BELCHER [facility] Start: 08-10-2017 End: 08-11-2017 Patient encounter LORENZO BELCHER [facility] Start: 04-07-2017 Ambulatory SAMEERA SIMMONS Facility :[id number] Procedures Date Procedure Procedure Detail Performing Clinician Angioplasty of blood vessel Sameera Simmons MD Work Phone: Cardiac catheterization Isaiah Simmons MD Work Phone: Colonoscopy Sameera Simmons MD Work Phone: Esophagogastroduodenoscopy H giuseppe Simmons MD Work Phone: Nasal polypectomy Sameera johnson MD Work Phone: Operation on colon Sameera whiting MD Work Phone: Percutaneous translu brayan coronary angioplasty Sameera Simmons MD Work Phone: Tonsillectomy Sameera Simmons MD Work Phone: Plan of Treatment Date Care Activity Detail Author Start: 09-13-2024 Echocardiography Echocardiogram [facility] Start: 05-20-2024 Medicare Annual Well ness (AWV) Medicare Annual Wellness (AWV) [facility] Start: 05-20-2024 Pneumococcal Vaccine : 65+ Years (2 of 2 - PCV) Pneumococcal Vaccine: 65+ Years (2 of 2 - PCV) [facility] Comment on above: Postponed from 03/24 (Patient Refused) Start: 05-20-2024 Pneumococcal Vaccine : 65+ Years (3 - PCV) Pneumococcal Vaccine: 65+ Years (3 - PCV) [facility] Comment on above: Postponed from 03/24 (Patient Refused) Start: 03-29-2024 End: 03-29-2024 Patient encounter procedure 03/29/2024 9:50 AM EDT Office Visit [facility] [address] [facility] [address] [place] [address] Sameera Simmons MD [address] [facility] [address] [place] [address] [facility] Start: 01-16-2024 Influenza vaccination Influenza Vacc ine (#1) [facility] Comment on above: Postponed from 03/19 (Patient Refused) Start: 11-11-2023 End: 11-11-2023 Patient encounter procedure 11/11/2023 2:10 PM EDT Office Visit [facility] [address] [place] [address] Pillo Mckenna DPM [address] [facility] [address] [place] [address] [facility] Start: 09-15-2023 FUV, Provider: Sameera Simmons, Status: Pen, Time: 10:00 AM FUV, Provider: Sameera Simmons, Status: Pen, Time: 10:00 AM [facility] 250 DO Work Phone: Start: 09-09-2023 End: 09-09-2023 Patient encounter procedure 09/09/2023 2:00 PM EST Office Visit [facility] [address] [facility] [address] [place] [address] Antonio Canales MD [address] [facility] [address] [place], [place] [id number] [facility] Start: 09-02-2023 End: 10-01-2023 US.doppler Lower extremity artery Vascular US lower extremity arterial Doppler complete Vascular Ultrasound Routine Dry gangrene (CMS/HCC) PVD (peripheral vascular disease) (CMS/HCC) Expected: 09/02/2023 (Approximate), Expires: 10/01/2023 [facility] Work Phone: Comment on above: Expected: 09/02/2023 (Approximate), Expires: 10/01/2023 Start: 09-02-2023 End: 09-02-2023 Patient encounter procedure 09/02/2023 1:20 PM EST Procedure Visit [facility] [address] [facility] [address] [place] [id number] Pillo Mckenna DPM [address] [facility] [address] [place] [address] [facility] Start: 08-20-2023 Hemoglobin A1c measurement Kourtney betes: Hemoglobin A1C [facility] Start: 03-19-2023 COVID-19 Vaccine ( season) COVID-19 Vaccine ( season) [facility] Start: 03-19-2023 Influenza vaccination Influenza Vacc ine (#1) [facility] Start: 03-10-2023 FUV, Provider: Sameera Simmons, Status: Pen, Time: 10:30 AM FUV, Provider: Sameera Simmons, Status: Pen, Time: 10:30 AM -[facility] 250 DO Work Phone: Start: 09-02-2022 FUV, Provider: Sameera Simmons, Status: Pen, Time: 10:20 AM FUV, Provider: Sameera Simmons, Status: Pen, Time: 10:20 AM [facility] 250 DO Work Phone: Start: 03-10-2022 NURSEVST, Provider: RALF PEREZ OUTPATIENT CASE MANAGER 1,[id number], Status: Pen, Time: 10:00 AM NURSEVST, Provider: RALF PEREZ OUTPATIENT CASE MANAGER 1,[id number], Status: Pen, Time: 10:00 AM [facility] 250 DO Work Phone: Start: 02-18-2022 FUV, Provider: Sameera Simmons, Status: Pen, Time: 10:20 AM FUV, Provider: Sameera Simmons, Status: Pen, Time: 10:20 AM [facility] 250 DO Work Phone: Start: 08-20-2021 FUV, Provider: Sameera Simmons, Status: Pen, Time: 11:15 AM FUV, Provider: Sameera Simmons, Status: Pen, Time: 11:15 AM -[facility] [address] [place] Work Phone: Start: 03-24-2020 Pneumococcal Vaccine : 65+ Years (3 - PCV) Pneumococcal Vaccine: 65+ Years (3 - PCV) [facility] Start: 12-15-2019 Glaucoma screening Diabetes: R etinopathy Screening [facility] Start: 1992 Zoster Vaccines (1 of 2) Zoste r Vaccines (1 of 2) [facility] Start: 1964 DTaP/Tdap/Td Vaccine s (1 - Tdap) DTaP/Tdap/Td Vaccines (1 - Tdap) [facility] Start: 1961 Urine screening for protein Diabetes: Urine Protein Screening [facility] Start: 1952 Diabetic foot examination Diabetes: Foot Exam [facility] Start: 1952 Glaucoma screening Diabetes: R etinopathy Screening [facility] Start: 1942 Creatinine measurement Creatinine Le brendon [facility] Start: 1942 Hemoglobin A1c measurement Kourtney betes: Hemoglobin A1C [facility] Start: 1942 Lipid panel Lipid Panel [facility] Start: 1942 Medicare Annual Well ness Visit Medicare Annual Wellness Visit (AWV) [facility] Start: 1942 Potassium measurement Potassium Leve l [facility] Immunizations Immunization Date Immunization Notes Care Provider Fa cility 10-11-2020 Pfizer-BioNTech COVID-19 Vacc 30 MCG/0.3ML Intramuscular Suspension Sameera Simmons MD Work Phone: [place] [address] DO Work Phone: 09-20-2020 Pfizer-BioNTech COVID-19 Vacc 30 MCG/0.3ML Intramuscular Suspension Sameera Simmons MD Work Phone: [place] [address] DO Work Phone: 03-24-2019 pneumococcal polysaccharide vaccine, 23 valent Sameera Simmons MD Work Phone: [facility] 07-19-2012 influenza virus vaccine, unspecified formulation Sameera Simmons MD Work Phone: [facility] 250 DO Work Phone: 07-19-2004 pneumococcal polysaccharide vaccine, 23 valent Sameera Simmons MD Work Phone: [facility] 250 DO Work Phone: NEGATED: Highlighted row has not occurred! 8 pneumococcal polysaccharide vaccine, 23 valent Patient Objection Barbara James Other [employer] Other NEGATED: Highlighted row has not occurred! 8 zoster vaccine recombinant Patient Objection Barbara James Other [employer] Other NEGATED: Highlighted row has not occurred! 8 influenza, high dose seasonal, preservative-free Patient Objection Brabara James Other [employer] Other NEGATED: Highlighted row has not occurred! 6 influenza, injectable,quadrival ent, preservative free, pediatric Patient Objection Barbara James Other [employer] Other NEGATED: Highlighted row has not occurred! 6 pneumococcal polysaccharide vaccine, 23 valent Barbara James Other [employer] Other Payers Date Payer Category Payer Unknown 2022 Self-pay 2007 Medicare [id number] 1959 Medicare [id number] 2.1 [id number] 1959 Unknown [id number] 2.1 [id number] 1942 Unknown [id number] 2.16.84 [id number] 1942 Unknown [id number] 2.16.84 [id number] 1942 Unknown [id number] 2.16.84 [id number] 1942 Unknown [id number] 2.16.84 [id number] 1942 Unknown [id number] 2.16. [id number] 1942 Unknown [id number] 2.16. [id number] 1942 Unknown [id number] 2.16. [id number] 1942 Unknown [id number] 2.16.84 [id number] 1942 Unknown [id number] 2.16.84 [id number] 1942 Unknown [id number] 2.16.840 .[id number] Medicare [id number] Unknown [id number] 2.16.8 [id number] Social History Date Type Detail Facility Start: 02-11-2023 End: 09-15-2023 Daily caffeine consumption, 1 serving a day Daily caffeine consumption, 1 serving a day [facility] Work Phone: Start: 02-11-2023 End: 09-15-2023 Sex Assigned At [facility] Work Phone: Start: 01-26-2023 End: 09-15-2023 Tobacco smoking status [facility] Never smoked tobacco [facility] Start: 01-26-2023 End: 09-15-2023 Tobacco use and exposure Smokeless tobacco non-user [facility] Start: 09-01-2023 End: 09-15-2023 Alcohol intake Lifetime non-drinker (finding) [facility] Within the last year , have you been afraid of your partner or ex-partner? No [facility] Work Phone: Do you belong to any clubs or organizations such as taoist groups, unions, fraternal or athletic groups, or school groups? Yes [facility] Are you now , , , , never or living with a partner? [facility] How often to you hav e a drink containing alcohol? Never [facility] How many standard dr inks containing alcohol do you have on a typical day? Patient does not drink [facility] Do you feel stress - tense, restless, nervous, or anxious, or unable to sleep at night because your mind is troubled all the time - these days [OSQ] Not at all [facility] (I/We) worried wheth er (my/our) food would run out before (I/we) got money to buy more. Never true [facility] Start: 1940 Sex Assigned At Not on file [facility] Start: 09-05-2023 End: 09-15-2023 Exposure to SARS-CoV-2 (event) Not sure [facility] Medical Equipment Procedure Code Equipment Code Equipment Original Text Equi pment Identifier Dates 1 each by Other route every 12 (twelve) hours. [id number] Clinical Notes 09-10-2021 to 09-15-2023 Sameera Simmons MD - 09/15/2023 10:00 AM ESTPatient InstructionsPillo Mckenna DPM - 09/02/2023 1:20 PM EST Note Date & Type Note Facility 09-15-2023 History of Present illness Narrative Subjective Jony Mckay . is a 83 y.o. male Chief Complaint Follow-up HPI Patient is in the office for follow-up for the problems noted below accompanied by his and his fpxdfxpd-wd-oob. I saw the patient in the hospital for the last several days while he was inpatient at [facility] and was discharged home yesterday. He was in the hospital with flu which was inconsequential. His troponin was slightly elevated which we felt to be not ischemic in nature. His echocardiogram showed improvement of ejection fraction up to 45%. He had no symptoms of chest pain. He was sent on a set of medications that are different from what he was supposed to be on at home which I clarified today. He reports no orthopnea PND or lower extremity edema. His pressure is under control. His medical therapy was reviewed in details with him. His lungs sounded normal he does have chronic atrial fibrillation with irregular rhythm and did not have any lower extremity edema and his blood pressure is under control. He has stage IV chronic kidney disease which has been followed closely by nephrology. Assessment/recommendations 1. Permanent atrial fibrillation. Patient is anticoagulated with Eliquis with no TIAs or bleeds. 2. controlled hypertension, present medical therapy will be left unchanged 3. Stage IV chronic kidney disease, managed by Nephrology. 4. Hyperlipidemia, currently on rosuvastatin. Well-tolerated 5. Coronary artery disease. Previous angioplasty in 2013 in [place]. Involving the LAD and the right coronary artery both are patent by cardiac catheterization November 2018, I reiterated the need for aggressive risk factors modification 6. High-risk medication, with anticoagulation. There has been no bleeding complications 7. Diabetes, managed by PCP, diabetes seems to be under control 8. 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 Ejection fraction echo August 2023 at [facility] 40-45%. Due to renal insufficiency the use of RAAS inhibition has been avoided, therefore he has been on hydralazine and nitrates combination and remains compensated 9. Overweight, encouraged the patient to bring his BMI down with diet and exercise Review of Systems All other systems reviewed and are negative. Vitals: 09/15/23 1014 09/15/23 1041 BP: (!) 148/92 136/78 BP Location: Right arm Left arm Patient Position: Sitting Sitting Pulse: 72 Weight: 97.1 kg (214 lb) Height: 1.88 m (6' 2 ) Objective Physical Exam Constitutional: Appearance: Normal appearance. HENT: Nose: Nose normal. Neck: Vascular: No carotid bruit. Cardiovascular: Rate and Rhythm: Normal rate. Pulses: Normal pulses. Heart sounds: Normal heart sounds. Pulmonary: Effort: Pulmonary effort is normal. Abdominal: General: Bowel sounds are normal. Palpations: Abdomen is soft. Musculoskeletal: General: Normal range of motion. Cervical back: Normal range of motion. Right lower leg: No edema. Left lower leg: No edema. Skin: General: Skin is warm and dry. Neurological: General: No focal deficit present. Mental Status: He is alert. Psychiatric: Mood and Affect: Mood normal. Behavior: Behavior normal. Thought Content: Thought content normal. Judgment: Judgment normal. Allergies Ed inhibitors, Amlodipine, and Oxycodone-acetaminophen Current Medications Current Outpatient Medications: apixaban (Eliquis) 5 mg tablet, Take 1 tablet (5 mg) by mouth 2 times a day., Disp: , Rfl: aspirin 81 mg EC tablet, Take 1 tablet (81 mg) by mouth 2 times a week., Disp: , Rfl: bumetanide (Bumex) 1 mg tablet, Take 1 tablet (1 mg) by mouth once daily. May take extra tablet in the evening as needed., Disp: , Rfl: carvedilol (Coreg) 25 mg tablet, Take 1 tablet (25 mg) by mouth 2 times a day., Disp: , Rfl: cholecalciferol (Vitamin D-3) 50 MCG (2000 UT) tablet, Take 1 tablet (2,000 Units) by mouth once daily., Disp: , Rfl: nmeukiwyxxy-vgpzmjumz-zfrawqlj (TRELEGY-ELLIPTA) 100-62.5-25 mcg blister with device, Inhale 1 puff once daily as needed., Disp: , Rfl: insulin glargine-lixisenatide (Soliqua 100/33) 100 unit-33 mcg/mL insulin pen, Inject under the skin. As directed, Disp: , Rfl: isosorbide mononitrate ER (Imdur) 120 mg 24 hr tablet, Take 1 tablet (120 mg) by mouth once daily., Disp: , Rfl: oseltamivir (Tamiflu) 30 mg capsule, Take 1 capsule (30 mg) by mouth once daily., Disp: , Rfl: rosuvastatin (Crestor) 10 mg tablet, Take 1 tablet (10 mg) by mouth per week., Disp: , Rfl: Assessment/Plan 1. High risk medication use 2. Atherosclerosis of coronary artery, unspecified vessel or lesion type, unspecified whether angina present, unspecified whether burns paiute or transplanted heart 3. Permanent atrial fibrillation (CMS/HCC) Follow Up In Cardiology 4. Status post coronary angioplasty 5. Hypertension, unspecified type 6. Hyperlipidemia, unspecified hyperlipidemia type 7. Never smoked cigarettes 8. Benign hypertensive kidney disease with chronic kidney disease stage I through stage IV, or unspecified(403.10) 9. Cardiomyopathy, ischemic 10. Diabetes mellitus type II, non insulin dependent (CMS/HCC) Scribe Attestation By signing my name below, IMarline LPN, Scribe attest that this documentation has been prepared under the direction and in the presence of Sameera Simmons MD. Provider Attestation - Scribe documentation All medical record entries made by the Scribe were at my direction and personally dictated by me. I have reviewed the chart and agree that the record accurately reflects my personal performance of the history, physical exam, discussion and plan. documented in this encounter [facility] Work Phone: 09-15-2023 Instructions Marline Hope LPN - 09/15/2023 10:00 AM EST BMI was above normal measurement. Current weight: 97.1 kg (214 lb) Weight change since last visit (-) denotes wt loss -16 lbs Weight loss needed to achieve BMI 25: 19.7 Lbs Weight loss needed to achieve BMI 30: -19.2 Lbs Provided instructions on dietary changes Provided instructions on exercise Advised to Increase physical activity. Please bring all medicines, vitamins, and herbal supplements with you when you come to the office. Prescriptions will not be filled unless you are compliant with your follow up appointments or have a follow up appointment scheduled as per instruction of your physician. Refills should be requested at the time of your visit. documented in this encounter [facility] Work Phone: 09-02-2023 History of Present illness Narrative Patient: Jony Mckay : 1940 PCP: Antonio Canales MD SUBJECTIVE Patient presents today with a CC of elongated, thick nails. Pt states nails have been elongated and thick for many years and cause pain with ambulation in shoegear. Pt has tried previous treatment with minimal relief. Pt presents today for nail care and treatment. Patient is DM2 Patient now has secondary complaints of small black spots on the right and left toes. He believes his shoes may be too tight but denies any drainage nausea fever vomiting chills and states been present for the past month. Patient has positive history of PVD in the past Allergies: Allergies Allergen Reactions Lisinopril Other reaction(s): coughing Ed Inhibitors Cough and Unknown Amlodipine Unknown Moxifloxacin Unknown Neomycin-Polymyxin B Gu Unknown Nifedipine Cough Oxycodone-Acetaminophen Unknown Past Medical History: Past Medical History: Diagnosis Date A-fib (CMS/[facility]) CL (acute kidney injury) on CKD2 Nephrolithiasis with Hydroureter may 232018 (hx of hospitalization) Anemia Arthritis CAD (coronary artery disease) ([facility]/HCC) CHF (congestive heart failure) ([facility]) Chronic airway obstruction ([facility]) Chronic kidney disease Chronic sinusitis 2012 CKD (chronic kidney disease) Colon cancer ([facility]) Controlled diabetes mellitus type II without complication ([facility]/HCC) COPD (chronic obstructive pulmonary disease) ([facility]/HCC) Coronary atherosclerosis ([facility]/HCC) Depression ([facility]/HCC) Depression ([facility]/HCC) Deviated septum Diabetes mellitus ([facility]) Gout Hx of echocardiogram 04/07/2017 EF-45-50% Hydronephrosis of left kidney with ureteral calculus Hydronephrosis, left 04/2018 Hypertension ([facility]) SAVAGE (iron deficiency anemia) Impaired mobility, debility, bacteremia 2010 hx of hospitalization Lumbar discitis 2018 OA (osteoarthritis) involving multiple sites, but not specified as generalized Osteoarthritis of left hip Other forms of chronic ischemic heart disease ([facility]) Pneumonia 2010 Systolic CHF ([facility]) Tubulovillous adenoma resected Medications: Current Outpatient Medications: albuterol 0.63 MG/3ML nebulizer solution, Take 0.63 mg by nebulization every 6 (six) hours if needed for shortness of breath or wheezing., Disp: , Rfl: apixaban (Eliquis) 5 MG tablet, Take 5 mg by mouth every 12 (twelve) hours., Disp: , Rfl: bumetanide (Bumex) 1 MG tablet, TAKE ONE TABLET BY MOUTH TWICE A DAY, Disp: 60 tablet, Rfl: 5 cholecalciferol (Vitamin D-3) 50 MCG (2000 UT) tablet, Take by mouth Daily., Disp: , Rfl: Coreg 25 MG tablet, Take 25 mg by mouth every 12 (twelve) hours., Disp: , Rfl: Cqtpffwstuw-Lwbpoqhrw-Jsakmb (Trelegy Ellipta) 100-62.5-25 MCG/ACT aerosol powder , Inhale 1 puff 1 (one) time each day at the same time., Disp: , Rfl: FREESTYLE LITE test strip, 1 each by Other route every 12 (twelve) hours., Disp: , Rfl: hydrALAZINE (Apresoline) 100 MG tablet, Take 1 tablet by mouth in the morning and 1 tablet before bedtime., Disp: , Rfl: insulin glargine-lixisenatide (Soliqua) 100-33 UNT-MCG/ML pen, Inject 55 Units under the skin in the morning. Inject before meals., Disp: , Rfl: isosorbide mononitrate ER (Imdur) 120 MG 24 hr tablet, Take 1 tablet (120 mg) by mouth in the morning., Disp: 100 tablet, Rfl: 3 Polyethyl Glycol-Propyl Glycol 0.4-0.3 % solution, 1 drop into affected eye as needed Ophthalmic 2 - 4 time(s) a day, Disp: , Rfl: triamcinolone (Kenalog) 0.1 % cream, Apply topically 2 (two) times a day, Disp: 45 g, Rfl: 2 Social History: Social History Socioeconomic History Marital status: Spouse name: Not on file Number of children: Not on file Years of education: Not on file Highest education level: Not on file Occupational History Not on file Tobacco Use Smoking status: Never Smokeless tobacco: Never Vaping Use Vaping Use: Unknown Substance and Sexual Activity Alcohol use: Never Drug use: Never Sexual activity: Defer Partners: Decline to Answer Other Topics Concern Not on file Social History Narrative Not on file Social Determinants of Health Financial Resource Strain: Low Risk (02/11/2023) Overall Financial Resource Strain (CARDIA) Difficulty of Paying Living Expenses: Not hard at all Food Insecurity: No Food Insecurity (02/11/2023) Hunger Vital Sign Worried About Running Out of Food in the Last Year: Never true Ran Out of Food in the Last Year: Never true Transportation Needs: No Transportation Needs (02/11/2023) PRAPARE - Transportation Lack of Transportation (Medical): No Lack of Transportation (Non-Medical): No Physical Activity: Inactive (02/11/2023) Exercise Vital Sign Days of Exercise per Week: 0 days Minutes of Exercise per Session: 0 min Stress: No Stress Concern Present (02/11/2023) [place] [employer] - Occupational Stress Questionnaire Feeling of Stress : Not at all Social Connections: Socially Integrated (02/11/2023) Social Connection and Isolation Panel [NHANES] Frequency of Communication with Friends and Family: More than three times a week Frequency of Social Gatherings with Friends and Family: More than three times a week Attends [employer] Services: More than 4 times per year Active Member of Clubs or Organizations: Yes Attends Club or Organization Meetings: More than 4 times per year Marital Status: Intimate Partner Violence: Not At Risk (02/11/2023) Humiliation, Afraid, Rape, and Kick questionnaire Fear of Current or Ex-Partner: No Emotionally Abused: No Physically Abused: No Sexually Abused: No Housing Stability: Low Risk (02/11/2023) Housing Stability Vital Sign Unable to Pay for Housing in the Last Year: No Number of Places Lived in the Last Year: 1 Unstable Housing in the Last Year: No ROS: General: denies fever, chills, fatigue, malaise OBJECTIVE LE EXAM: DERM: Elongated thick yellow crumbly nails digits 1 through 10. Negative hair growth with thin shiny atrophic skin bilaterally. Pitting edema to bilateral ankles Dry and scaly skin to bilateral feet Small black like necrotic lesion with negative drainage or erythema to the DIPJ region of the left and right 2nd digits VASC: Negative DP and negative PT pedal pulses NEURO: 5.07 [place] Td monofilament test intact to digits and forefoot bilaterally 125Hz tuning fork diminished to 1st MPJ bilaterally ORTHO: Positive pain on palpation to nails 1 through 10 Negative pain on palpation to left 3rd and 4th digits ASSESSMENT 1. Diabetes mellitus due to underlying condition with diabetic polyneuropathy, without long-term current use of insulin ([facility]) 2. Onychomycosis 3. Toe pain, bilateral 4. Dry gangrene ([facility]) 5. PVD (peripheral vascular disease) ([facility]) PLAN Patient continue with creams and lotions feet daily Discussed proper foot care with patient today. Debride nails in length and thickness digits 1 through 10 Will order LYNN and PVRs at [facility] with follow up of testing post test Discussed with patient if symptoms worsen or any drainage or redness to contact Podiatry once Pillo Mckenna DPM documented in this encounter [facility] 09-23-2022 Evaluation note Encounter Date Diagnosis Assessment Notes Sep, CKD (chronic kidney disease) stage 4, GFR 15-29 ml/min (ICD-10 - N18.4) due to atherosclerotic renal vascular disease, GFR 25-30 ml/min/1.73 m2 surface area Renal function has been stable after resolution of obstructive uropathy and creatinine down to 2.1-2.5 mg/dL closer to the baseline. Baseline creatinine 2.1 mg/dL this visit GFR 30 mL/min. Keep hemoglobin A1c under good control and blood pressure below 140/90 to attenuate chronic kidney disease progression. volume status well controlle with current dose of loop diuretic I asked the patient to stay away from NSAIDs and to keep himself well-hydrate d. Follow-up in 4 months Sep, Hyperuricemia (ICD-10 - E79.0) Uric acid at target on allopurinol. I will continue same dose of allopurinol Sep, Nephrolithiasis (ICD-10 - N20.0) Patient has recurrent bilateral kidney stones the nature of which is not clear. He had uric acid crystals in the urine. Serum uric acid has markedly improved on allopurinol. Importance of ample water intake has been addressed. No recent attack Sep, Hypertensive chronic kidney disease with stage 1 through stage 4 chronic kidney disease, or unspecified chronic kidney disease (ICD-10 - I12.9) Blood pressure is well controlled Patient monitors his blood pressure at home and to follow low Na diet I will continue same blood pressure medications Sep, Type 2 diabetes mellitus with diabetic chronic kidney disease (ICD-10 - E11.22) Follow-up with Dr. Antonio Canales. 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 likely from VD deficiency 25-hydroxy vitamin D is low at 13. I asked the patient to take qfep-onh-bdh nter vitamin D supplement. I will check PTH and 25 OH VD next visit Sep, Hyperlipidemia LDL goal <100 (ICD-10 - E78.5) 25-hydroxy vitamin D level next visitF/U with Dr. Simmons. He used to be on atorvastatin . Sep, Vitamin D deficiency (ICD-10 - E55.9) I asked the patient to take ewtf-lhg-wbr nter vitamin D supplement 2000 units daily [facility] Other 11-02-2022 Evaluation note* Encounter Date Diagnosis Assessment Notes Treatment Notes Treatment Clinical Notes May, CKD (chronic kidney disease) stage 4, GFR 15-29 ml/min (ICD-10 - N18.4) due to atherosclerotic renal vascular disease, GFR 25-30 ml/min/1.73 m2 surface area Renal function has been stable after resolution of obstructive uropathy and creatinine down to 2.3-2.5 mg/dL closer to the baseline. Baseline creatinine 2.2 mg/dL this visit GFR 29 mL/min. Keep hemoglobin A1c under good control and blood pressure below 140/90 to attenuate chronic kidney disease progression. I asked the patient to stay away from NSAIDs and to keep himself well-hydrated. Follow-up in 4 months May, Hyperuricemia (ICD-1 0 - E79.0) Uric acid at target on allopurinol. I will continue same dose of allopurinol May, Nephrolithiasis (ICD -10 - N20.0) Patient has recurrent bilateral kidney stones the nature of which is not clear. He had uric acid crystals in the urine. Serum uric acid has markedly improved on allopurinol. Importance of ample water intake has been addressed. 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 Antonio Canales. He stated that diabetes is well controlled. 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 25-hydroxy vitamin D is low at 13. I asked the patient to take fyrn-xjj-rkeysi r vitamin D supplement. I will check PTH and 25 OH VD next visit May, Hyperlipidemia LDL g oal <100 (ICD-10 - E78.5) 25-hydroxy vitamin D level next visitF/U with Dr. Simmons. He used to be on atorvastatin. May, BMI 30.0-30.9,adult (ICD-10 - Z68.30) Importance of weight loss has been addressed. May, Vitamin D deficiency (ICD-10 - E55.9) I asked the patient to take gsom-dhm-hbkqzk r vitamin D supplement 2000 units daily May, Caroline Mirza. fib is being managed by Dr. Simmons [facility] Other 06-29-2022 Evaluation note* Encounter Date Diagnosis Assessment Notes Treatment Notes Treatment Clinical Notes Dec, CKD (chronic kidney disease) stage 4, GFR 15-29 ml/min (ICD-10 - N18.4) due to atherosclerotic renal vascular disease, GFR 25-30 ml/min/1.73 m2 surface area Renal function has been stable after resolution of obstructive uropathy and creatinine down to 2.3-2.5 mg/dL closer to the baseline. Baseline creatinine 2.2 mg/dL this visit GFR 29 mL/min. Keep hemoglobin A1c under good control and blood pressure below 140/90 to attenuate chronic kidney disease progression. I asked the patient to stay away from NSAIDs and to keep himself well-hydrated. Follow-up in 4 months Dec, Hyperuricemia (ICD-1 0 - E79.0) Uric acid at target on allopurinol. I will continue same dose Dec, Nephrolithiasis (ICD -10 - N20.0) Patient has recurrent bilateral kidney stones the nature of which is not clear. He had uric acid crystals in the urine. Serum uric acid has markedly improved on allopurinol. Importance of ample water intake has been addressed. No recent attack Dec, Hypertensive chronic kidney disease with stage 1 through stage 4 chronic kidney disease, or unspecified chronic kidney disease (ICD-10 - I12.9) Blood pressure is better controlled at home. 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 Antonio Canales. He stated that diabetes is well controlled. 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 25-hydroxy vitamin D is low at 19. I asked the patient to take yoxk-krd-gkmckb r vitamin D supplement. I will check Dec, Hyperlipidemia LDL g oal <100 (ICD-10 - E78.5) 25-hydroxy vitamin D level next visitF/U with Dr. Simmons. He used to be on atorvastatin. Dec, BMI 30.0-30.9,adult (ICD-10 - Z68.30) Importance of weight loss has been addressed. Dec, Vitamin D deficiency (ICD-10 - E55.9) I asked the patient to take kadx-nkg-iqfcll r vitamin D supplement 2000 units daily Dec, Other A. fib is being managed by Dr. Simmons [facility] Other 06-13-2022 Evaluation note* Encounter Date Diagnosis Assessment Notes Treatment Notes Treatment Clinical Notes Dec, Hyperuricemia (ICD-1 0 - E79.0) [employer] [facility] Other 02-23-2022 Evaluation note* Encounter Date Diagnosis Assessment Notes Treatment Notes Treatment Clinical Notes Aug, CKD (chronic kidney disease) stage 4, GFR 15-29 ml/min (ICD-10 - N18.4) due to atherosclerotic renal vascular disease, GFR 25-30 ml/min/1.73 m2 surface area Renal function continued to improve slowly after resolution of obstructive uropathy and creatinine down to 2.3-2.5 mg/dL closer to the baseline. Baseline creatinine 2.3 mg/dL this visit GFR 27 mL/min. Keep hemoglobin A1c under good control and blood pressure below 140/90 to attenuate chronic kidney disease progression. I will check UA along with protein to creatinine ratio next visit. I asked the patient to stay away from NSAIDs and to keep himself well-hydrated. Follow-up in 4 months Aug, Hyperuricemia (ICD-1 0 - E79.0) Uric acid at target on allopurinol. I will continue same dose Aug, Nephrolithiasis (ICD -10 - N20.0) Patient has recurrent bilateral kidney stones the nature of which is not clear. He had uric acid crystals in the urine. Serum uric acid has markedly improved on allopurinol. Importance of ample water intake has been addressed. No recent attack Aug, Hypertensive chronic kidney disease with stage 1 through stage 4 chronic kidney disease, or unspecified chronic kidney disease (ICD-10 - I12.9) Blood pressure is better controlled at home. 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 Antonio Canales. He stated that diabetes is well controlled. 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 No PTH this visit. I will check at next visit. Aug, Hyperlipidemia LDL g oal <100 (ICD-10 - E78.5) F/U with Dr. Simmons. He used to be on atorvastatin. Aug, BMI 30.0-30.9,adult (ICD-10 - Z68.30) Importance of weight loss has been addressed. Aug, Other A. fib is being managed by Dr. 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, without long-term current use of insulin (CMS/HCC) Onychomycosis Dermatophytosis of nail Toe pain, bilateral PVD (peripheral vascular disease) (CMS/HCC) Unspecified peripheral vascular disease documented in this encounter [facility] Diagnosis High risk medication use- Primary Atherosclerosis of coronary artery, unspecified vessel or lesion type, unspecified whether angina present, unspecified whether burns paiute or transplanted heart Permanent atrial fibrillation ([facility]) Atrial fibrillation Status post coronary angioplasty Postsurgical percutaneous transluminal coronary angioplasty status Hypertension, unspecified type Hyperlipidemia, unspecified hyperlipidemia type Never smoked cigarettes Benign hypertensive kidney disease with chronic kidney disease stage I through stage IV, or unspecified(403.10) Benign hypertensive kidney disease with chronic kidney disease stage I through stage IV, or unspecified Cardiomyopathy, ischemic Other specified forms of chronic ischemic heart disease Diabetes mellitus type II, non insulin dependent (CMS/HCC) Type II or unspecified type diabetes mellitus without mention of complication, not stated as uncontrolled documented in this encounter [facility] Work Phone: History general Narrative - Reported* Type Description Date Medical History hypertension Medical History kidney stones Medical History colon cancer Medical History hyperlipidemia Medical History DM Medical History CHRONIC KIDNEY DISEASE Medical History CARDIOMYOPATHY Medical History MRSA BLOOD AND BACK EPISODES IN MAY 2018, JULY 2018 Surgical History Bilat. Max Antrostom y, Total ethmoidectomy, Spenoidotomy, frontal sinus exploration Surgical History cardiac stent, 3 2005 Surgical History cardiac stent, 2 2013 Surgical History Septoplasty;Disease:Deviated se ptum Surgical History Angioplasty with stent 2008 Surgical History kidney stone removal 08/2015 Surgical History colon cancer surgery 12/2015 Surgical History Ileotic resection with primary anastamosis 12/2015 Surgical History anther surgery for colon cancer 09/2016 Surgical History Colonoscopy w/ Polypectomy 12/06 15 Surgical History EGD 11/2015 Surgical History stent in left kidney 04-24-2018 Surgical History Colonoscopy 07/2017 Surgical History STENTS IN BOTH KIDNEYS 07/2018 Surgical History Procedure: Cystoscop y left retrograde pyelogram,left JJ ureteral stent under floro Hospitalization History see above Hospitalization History MRSA [employer] Other Reason for referral (narrative)* Consultation (Routine) - Authorized Specialty Diagnoses / Procedures Referred By Navin davalos Referred To Contact Cardiology Diagnoses Permanent atrial fibrillation (CMS/HCC) Procedures Follow Up In Cardiology Sameera Simmons MD [address] [place] [address], [address] [address] Sameera Simmons MD [address] [place] [address] 2, [address] [address] Referral ID Status Reason Start Date Expiration Date V isits Requested Visits Authorized [id number] Authorized 09/15/2023 09/14/2024 1 1 [facility] Work Phone: Summary Purpose Family History No Family History Records FoundUnknown Family Member Name Dates Details Family history of arterioscl erotic cardiovascular disease: Father(V17.49, Z82.49) Status:Active Unknown Family Member Name Dates Details Family history of arterioscl erotic cardiovascular disease: Father(V17.49, Z82.49) Status:Active Unknown Family Member Name Dates Details Family history of arterioscl erotic cardiovascular disease: Father(V17.49, Z82.49) Status:Active Unknown Family Member Name Dates Details Family history of arterioscl erotic cardiovascular disease: Father(V17.49, Z82.49) Status:Active Unknown Family Member Name Dates Details Family history of arterioscl erotic cardiovascular disease: Father(V17.49, Z82.49) Status:Active Family history of malignant neoplasm: Brother(V16.9, Z80.9) Status:Active Advance Directives No Advanced Directives Records FoundNo Advanced Directives Records FoundNo Advanced Directives Records FoundNo Advanced Directives Records FoundNo Advanced Directives Records FoundNo Advanced Directives Records FoundNo Advanced Directives Records FoundNo Advanced Directives Records FoundNo Advanced Directives Records Found Chief Complaint * JONY MCKAY is being seen for a 6 month follow-up of. * Patient is in the office with his for follow-up for the complex medical problems noted below which I reviewed with the patient. Fortunately he has not had any events since he was last seen in the office. He had recent blood work in May which I reviewed with him and the only abnormality I was concerned about is his LDL remains above 80. Unfortunately he stopped taking the rosuvastatin onhis own. He has advanced kidney disease which has been stable. He denies any angina and has had no tachycardia. He is currently anticoagulated with Eliquis. His weight is unchanged from previous visit which is good this time of the year after the holidays and winter. His blood pressure is under control. He does not have any evidence of volume overload. He has no anginal symptoms. * ASSESSMENT AND PLAN: * 1. Permanent atrial fibrillation. Patient is fully anticoagulated with Eliquis with no TIAs or bleeds. * 2. controlled hypertension. No change in medical therapy is needed at the present time * 3. Stage IV chronic kidney disease, managed by Nephrology. Recent basic metabolic profile results were reviewed with the patient * 4. Hyperlipidemia, patient stopped taking rosuvastatin on his own. He was educated on the need for statin in his case and the desire to bring his LDL to around 50 mg/dL. He agreed to go back on it * 5. Coronary artery disease. Previous angioplasty in 2013 in [place]. Involving the LAD and the rightcoronary artery both are patent by cardiac catheterization November 2018, I reiterated the need for aggressive risk factors modification * 6. High-risk medication, with anticoagulation being monitored closely. There has been no bleeding complications * 7. Diabetes, managed by PCP, diabetes seems to be under control * 8. 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 Ejection fraction 35% by echo 2018. Due to renal insufficiency the use of RAAS inhibition has been avoided, therefore he has been on hydralazine and nitrates combination and remains compensated * 9. Borderline obesity, encouraged the patient to bring his BMI down with diet and exercise * JONY MCKAY is being seen for a 6 month follow-up of. * Patient is in the office with his for follow-up for the complex medical problems noted below which I reviewed with the patient. Fortunately he has not had any events since he was last seen in the office. He had recent blood work in May which I reviewed with him and the only abnormality I was concerned about is his LDL remains above 80. Unfortunately he stopped taking the rosuvastatin onhis own. He has advanced kidney disease which has been stable. He denies any angina and has had no tachycardia. He is currently anticoagulated with Eliquis. His weight is unchanged from previous visit which is good this time of the year after the holidays and winter. His blood pressure is under control. He does not have any evidence of volume overload. He has no anginal symptoms. * ASSESSMENT AND PLAN: * 1. Permanent atrial fibrillation. Patient is fully anticoagulated with Eliquis with no TIAs or bleeds. * 2. controlled hypertension. No change in medical therapy is needed at the present time * 3. Stage IV chronic kidney disease, managed by Nephrology. Recent basic metabolic profile results were reviewed with the patient * 4. Hyperlipidemia, patient stopped taking rosuvastatin on his own. He was educated on the need for statin in his case and the desire to bring his LDL to around 50 mg/dL. He agreed to go back on it * 5. Coronary artery disease. Previous angioplasty in 2013 in [place]. Involving the LAD and the rightcoronary artery both are patent by cardiac catheterization November 2018, I reiterated the need for aggressive risk factors modification * 6. High-risk medication, with anticoagulation being monitored closely. There has been no bleeding complications * 7. Diabetes, managed by PCP, diabetes seems to be under control * 8. 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 Ejection fraction 35% by echo 2018. Due to renal insufficiency the use of RAAS inhibition has been avoided, therefore he has been on hydralazine and nitrates combination and remains compensated * 9. Borderline obesity, encouraged the patient to bring his BMI down with diet and exercise * JONY MCKAY is being seen for a 6 month follow-up of. * Patient is in the office for follow-up for the problems noted below accompanied by his daughter andhis . He was seen recently by his PCP for lower extremity edema which was treated successfully and resolved. He has no complaint but he is hypertensive in the office today. He has chronic atrial f ibrillation which has been maintained on anticoagulation with Eliquis and rate controlled. He has no angina orthopnea PND and no more lower extremity edema no bleeding complications or symptoms of neuro deficit. * Assessment/recommendations * 1. Permanent atrial fibrillation. Patient is fully anticoagulated with Eliquis with no TIAs or bleeds. * 2. Uncontrolled hypertension. Will increase hydralazine up to 150 mg twice daily and follow blood pressure reading in the next few weeks * 3. Stage IV chronic kidney disease, managed by Nephrology. Recent basic metabolic profile results were reviewed with the patient * 4. Hyperlipidemia, lipid profile is needed while he is on rosuvastatin * 5. Coronary artery disease. Previous angioplasty in 2013 in [place]. Involving the LAD and the rightcoronary artery both are patent by cardiac catheterization November 2018, I reiterated the need for aggressive risk factors modification * 6. High-risk medication, with anticoagulation being monitored closely. There has been no bleeding complications * 7. Diabetes, managed by PCP, diabetes seems to be under control * 8. 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 Due to renal insufficiency the use of RAAS inhibition has been avoided, therefore he has been on hydralazine and nitrates combination and remains compensated * 9. Borderline obesity, encouraged the patient to bring his BMI down with diet and exercise * JONY MCKAY is being seen for hypertension. * Patient is in the office for follow-up for hypertension management since we increase hydralazine. His pressure is now completely under control. He has no side effect of medications. Schedule of visitwill be left unchanged. * JONY MCKAY is being seen for HTN Management. * Patient is in the office for follow-up for the problems noted below. He has had no trouble with hypertension since last visit in fact he was able to reduce hydralazine down to 100 mg twice daily along with the other medication he is on and his pressure is under control. His lab data from PCP were re quested. He is in chronic atrial fibrillation on Eliquis with controlled heart rate. Has had no anginal symptoms and his kidney function appears to be stable. His weight remains above target. He has irregular rhythm on examination but the rest of examination reveals only obesity. * Assessment/recommendations * 1. Permanent atrial fibrillation. Patient is anticoagulated with Eliquis with no TIAs or bleeds. * 2. controlled hypertension, present medical therapy will be left unchanged * 3. Stage IV chronic kidney disease, managed by Nephrology. Recent lab data from PCP were requested * 4. Hyperlipidemia, currently on rosuvastatin. Lab data from PCP requested * 5. Coronary artery disease. Previous angioplasty in 2013 in [place]. Involving the LAD and the rightcoronary artery both are patent by cardiac catheterization November 2018, I reiterated the need for aggressive risk factors modification * 6. High-risk medication, with anticoagulation. There has been no bleeding complications * 7. Diabetes, managed by PCP, diabetes seems to be under control, lab data were requested * 8. 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 Due to renal insufficiency the use of RAAS inhibition has been avoided, therefore he has been on hydralazine and nitrates combination and remains compensated * 9. Borderline obesity, encouraged the patient to bring his BMI down with diet and exercise * JONY MCKAY is being seen for a 6 month follow-up of. * Patient is in the office for follow-up for the problems noted below accompanied by his and hisdaughter. Since his last visit 6 months ago he has had no reported problems of dyspnea, chest pain or falls and no bleeding complications. He continues to follow with nephrology. Lab data from August 2022 were reviewed by myself and discussed with him and his family. His review of system essentially normal physical examination was unremarkable except for irregular rhythm consistent with his permanent atrial fibrillation * Assessment/recommendations * 1. Permanent atrial fibrillation. Patient is anticoagulated with Eliquis with no TIAs or bleeds. * 2. controlled hypertension, present medical therapy will be left unchanged * 3. Stage IV chronic kidney disease, managed by Nephrology. Lab from August 2022 was reviewed * 4. Hyperlipidemia, currently on rosuvastatin. Well-tolerated * 5. Coronary artery disease. Previous angioplasty in 2013 in [place]. Involving the LAD and the rightcoronary artery both are patent by cardiac catheterization November 2018, I reiterated the need for aggressive risk factors modification * 6. High-risk medication, with anticoagulation. There has been no bleeding complications * 7. Diabetes, managed by PCP, diabetes seems to be under control * 8. 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 Due to renal insufficiency the use of RAAS inhibition has been avoided, therefore he has been on hydralazine and nitrates combination and remains compensated * 9. Overweight, encouraged the patient to bring his BMI down with diet and exercise Reason for Referral Specialty Diagnoses / Procedures Referred By Navin davalos Referred To Contact Radiology Diagnoses Dry gangrene ([facility]) PVD (peripheral vascular disease) ([facility]) Procedures Vascular US lower extremity arterial Doppler complete Pillo Mckenna, MARLO [address] [address] Referral ID Status Reason Start Date Expiration Date Visits Requested Visits Authorized [id number] Pending Review Perform Procedure 09/02/2023 02/29/2024 1 1 Additional Source Comments (unrecognized sect ion and content) No Status Records FoundNo Status Records FoundNo Status Records FoundNo Status Records FoundNo Status Records FoundNo Status Records FoundNo Status Records FoundNo Status Records FoundNo Status Records Found INFORMATION SOURCE (unrecogn ized section and content) DATE CREATED AUTHOR 01/12/2018 [facility] DATE CREATED AUTHOR AUTHOR'S ORGANIZ ATION 05/04/2018 [facility] DATE CREATED AUTHOR AUTHOR'S ORGANIZ ATION 01/11/[address] [facility] DATE CREATED AUTHOR AUTHOR'S ORGANIZ ATION 12/27/2021 [facility] dical Specialist DATE CREATED AUTHOR AUTHOR'S ORGANIZ ATION 08/22/2022 [facility] DATE CREATED AUTHOR AUTHOR'S ORGANIZ ATION 09/22/2022 [facility] DATE CREATED AUTHOR AUTHOR'S ORGANIZ ATION 03/11/2023 [facility] DATE CREATED AUTHOR AUTHOR'S ORGANIZ ATION 03/11/2023 [employer] DATE CREATED AUTHOR AUTHOR'S ORGANIZ ATION 09/17/2023 [facility] dical Specialists EPIC REASON FOR VISIT (unrecogniz ed section and content) Reason Comments DM Foot Care Dm Nails Reason Comments Follow-up 6 months Care Teams (unrecognized sec tion and content) [employer] Relationship Specialty Start Date End Date Antonio Canales MD [address] [place] [address] PCP - ACO Reach 12/10/22 Antonio Canales MD [address] [place] [address] PCP - General Internal Medicine 01/04/23 [employer] Relationship Specialty Start Date End Date Antonio Canales MD [address] [facility] [address] [place] [address] PCP - ACO Reach 12/10/22 Antonio Canales MD [address] [facility] [address] [place] [address] PCP - General Internal Medicine 01/04/23 [employer] Relationship Specialty Start Date End Date Antonio Canales MD [address] [facility] [address] [place] [address] PCP - General 02/16/23 FOR RECORDS PERTAINING TO PATIENTS WHO ARE OR HAVE BEEN ENROLLED IN A CHEMICAL DEPENDENCY/SUBSTANCEABUSE PROGRAM, SOME INFORMATION MAY BE OMITTED. This clinical summary was aggregated from multiple sources. Caution should be exercised in using it in the provision of clinical care. This summary normalizes information from multiple sources, and as a consequence, information in this document may materially change the coding, format and clinical context of patient data. In addition, data may be omitted in some cases. CLINICAL DECISIONS SHOULD BE BASED ON THE PRIMARY CLINICAL RECORDS. [facility]. provides no warranty or guarantee of the accuracy or completeness of information in this document.
[2023-09-17 13:33] LABS: Anion Gap 8.4; BUN Creatinine Ratio 31.6; Calcium 8.8 mg/dL (8.5-10.1); Carbon Dioxide 33.4 mmol/L (21.0-32.0); Chloride 108 mmol/L (98-107); Estimated GFR (African America 33 (>=60); Estimated GFR (Non-African Ame 27 (>=60); Glucose 105 mg/dL (74-106); Potassium 4.8 mmol/L (3.5-5.1); Sodium 145 mmol/L (136-145)
== END 2023-09-17 13:11 | disposition home or self-care (01) ==
LOC: LAB 13:10
PROVIDERS: PCP Internal Medicine; Visit Provider Internal Medicine Nephrology
DX: N17.9 Acute kidney failure, unspecified (principal)
CPT/HCPCS: 36415; 80048

== ENCOUNTER 2023-10-07 15:51 | Outpatient (OUT) | payer MEDICARE, SELFPAY ==
--- OUTSIDE RECORDS SUMMARY | 2023-10-07 16:06 | XMS_ITS | CCD ---
Author Organization [facility] Care Team Providers Care Senior Linux Unix Administrator Name Role Phone SIMMONS, ROME Unavailable Unavailable CANALES, ANTONIO Unavailable Unavailable SIMMONS, ROME Unavailable Unavailable CANALES, ANTONIO Unavailable Unavailable BELCHER, LORENZO P Unavailable [...] Unavailable Unavailable BELCHER, LORENZO P Unavailable Unavailable EBLCHER, LORENZO P Unavailable Unavailable BELCHER, LORENZO P Unavailable Unavailable Unavailable Unavailable Jesses, Aziz Unavailable Awilda Noel Unavailable Kraig Mar Attending [...] Unavailable DR ANTONIO CANALES Primary Care Unavailable JESSES, AZIZ Consulting Unavailable FANTA, DR GLOVER Admitting Unavailable MISC, DR GLOVER Attending Unavailable DR ANTONIO CANALES Primary Care Unavailable MISC, DR GLOVER Consulting Unavailable Antonio Canales Unavailable Simmons, Dr. Sameera Bryant Referring Nataliya vailable [...] Primary Care Nataliya Antonio Moore MD Unavailable [phone] Antonio Canales MD Primary Care Provider Antonio Canales MD Primary Care Provider PILLO MCKENNA Attending Unavailable STEPHANIE MARSHALL Attending Unavailable PILLO MCKENNA Attending Unavailable STEPHANIE MARSHALL Attending Unavailable Allergies Allergy Classification Reported Allergen(s) Allergy Type Date of Onset Reaction(s) Facility (8 sources) Acetaminophen / oxyCODONE; Translations: [Percocet TABS] Drug Allergy 08-05-19 24 Other [facility] [employer] Work Phone: (15 sources) amLODIPine; Translations: [amlodipine] Drug Allergy 01-27-20 23 Unknown, Itching [facility] [employer] Work Phone: (12 sources) Angiotensin Converting Enzyme (Ed) Inhibitors; Translations: [ED Inhibitors] Allergy to drug (finding) Cough, Unknown [facility] [place] Work Phone: (12 sources) Lisinopril; Translations: [lisinopril] Drug Allergy Cough [facility] [employer] Work Phone: (5 sources) Acetaminophen / oxyCODONE Drug Allergy [facility] [employer] Other (5 sources) Angiotensin Converting Enzyme (Ed) Inhibitors Propensity to adverse reactions Unknown [employer] Other (7 sources) moxifloxacin Drug Allergy 01-27-20 23 Unknown [employer] Other (5 sources) NIFEdipine Drug Allergy cough [employer] Other (5 sources) AMLOPIDINE Propensity to adverse reactions ITCHING [employer] Other (5 sources) Neomycin-Polymyxi n Drug allergy Unknown [employer] Other (1 source) Acetaminophen Drug Allergy 01-02-20 [facility] Repository (1 source) amLODIPine Drug Allergy 01-02-20 [facility] (1 source) Lisinopril Drug Allergy 01-02-20 [facility] (1 source) NIFEdipine Drug Allergy 01-02-20 [facility] (1 source) oxyCODONE Drug Allergy 01-02-20 [facility] (1 source) Amino Acids Drug Allergy [facility] Repository (1 source) NIFEdipine Drug Allergy [facility] (2 sources) Acetaminophen / oxyCODONE Drug Allergy 01-27-20 23 Unknown [facility] (2 sources) Angiotensin-conve rting enzyme inhibitor agent Drug Allergy 01-27-20 23 Cough, Unknown [facility] (2 sources) Lisinopril Propensity to adverse reactions 12-01-19 [facility] (2 sources) Nifedipine Allergy to substance 01-27-20 Cough [facility] (2 sources) Neomycin-Polymyxi n [facility] Drug Allergy 01-27-20 23 Unknown [facility] (1 source) Angiotensin-conve rting enzyme inhibitor agent Drug Allergy 08-05-19 24 Cough [facility] Medications Current Medications Medication Drug Class(es) Dates [...] puff(s) by inhalation once daily as needed xlarylmlzbt-bwyotqaaa-ooexdidw (TRELEGY-ELLIPTA) 100-62.5-25 mcg blister with device Inhale [...] (Therapy completed) take 2 tablets by mo uth every twelve hours hydrALAZINE HCl 50 MG 2 tablet Orally bid Active take 1 tablet by nemesio th twice daily hydrALAZINE HCl - 50 MG [...] Start: 12-30-2017 KENALOG - 10 m g 14 Dec, 2017 40 mg Start: 10-27-2017 KENALOG - 10 [...] disease (20 sources) Atherosclerotic heart disease of hoopa coronary artery without angina pectoris; Translations: [Coronary [...] sources) Long-term current use of anticoagulant; 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] Episodic Other aftercare (1 source) Taking high risk medication; Translations: [Other group home (current) drug therapy] 09-15-2023 Episodic Other circulatory [...] tobacco; Translations: [Other specified health status] Onset: 09-15-2023 Episodic Spondylosis; intervertebral disc disorders; other back problems (5 sources) Lumbar discitis; 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 Previous angioplasty in 2013 in [place]. Involving the LAD and the right coronary [...] negative for complaint. Vitals Vital Signs Recorded: [id number] 10: (more content not included)... Normal [employer] Tobacco Screening.on 023 Fall risk assessment a) No falls within the last year [facility] [place] [address] DO Work Phone: Tobacco use status [facility] b) No [facility] [place] [facility] DO Work Phone: PTH INTACTon 09-16-2022 PTH, Intact 94 pg/mL Critically high 15-65 [facility] Comment on above: Performed By: #### P THINT #### [facility] [address] [place] [address] Dr. Louis Mak HEMOGRAM AND PLATELon 2022 Hematocrit (Bld) [Volume fraction] 46.4 % Normal 42.0-54.0 [facility] Comment on above: Performed By: #### M G, CMP, URIC #### [facility] [address] [place] [address] Dr. Louis Mak Hemoglobin (Bld) [Mass/Vol] 14.4 g/dL Normal 14.0-18.0 [facility] Comment on above: Performed By: #### M G, CMP, URIC #### [facility] [address] [place] [address] Dr. Louis Mak MCH (RBC) [Entitic mass] 28.7 pg Normal 25.9-34.0 [facility] Comment on above: Performed By: #### M G, CMP, URIC #### [facility] [address] [place] [address] Dr. Louis Mak MCHC (RBC) [Mass/Vol] 31.0 g/dL Normal 29.9-35.2 [facility] Comment on above: Performed By: #### M G, CMP, URIC #### [facility] [address] [place] [address] Dr. Louis Mak MCV (RBC) [Entitic vol] 92.4 fL Normal 80.0-94.0 [facility] Comment on above: Performed By: #### M G, CMP, URIC #### [facility] [address] [place] [address] Dr. Louis Mak PLT 168 103/ul Normal 150-450 [facility] Comment on above: Performed By: #### M G, CMP, URIC #### [facility] [address] [place] [address] Dr. Louis Mak RBC 5.02 106/ul Normal 4.70-6.10 [facility] Comment on above: Performed By: #### M G, CMP, URIC #### [facility] [address] [place] [address] Dr. Louis Mak WBC 9.2 103/ul Normal 4.0-11.0 [facility] Comment on above: Performed By: #### M G, CMP, URIC #### [facility] [address] [place] [address] Dr. Louis Mak MAGNESIUMon 09-15-2022 Magnesium [Mass/Vol] 1.8 mg/dL Normal 1.8-2.4 [facility] Comment on above: Performed By: #### M G, CMP, URIC #### [facility] [address] [place] [address] Dr. Louis Mak PHOSPHORUSon 09-15-2022 Phosphate [Mass/Vol] 3.8 mg/dL Normal 2.6-4.7 [facility] Comment on above: Performed By: #### C MP, URIC, PHOS, MG #### [facility] [address] [place] [address] Dr. Louis Mak PROF 14(COMP METB)on 023 Albumin [Mass/Vol] 3.5 g/dL Normal 3.4-5.0 [facility] Comment on above: Performed By: #### C MP, URIC, PHOS, MG #### [facility] [address] [place] [address] Dr. Louis Mak Albumin/Globulin [Mass ratio] 0.8 {ratio} Normal [facility] Comment on above: Performed By: #### C MP, URIC, PHOS, MG #### [facility] [address] [place] [address] Dr. Louis Mak ALP [Catalytic activity/Vol] 80 U/L Normal 46-116 [facility] Comment on above: Performed By: #### C MP, URIC, PHOS, MG #### [facility] [address] [place] [address] Dr. Louis Mak ALT [Catalytic activity/Vol] 18 U/L Normal 16-63 [facility] Comment on above: Performed By: #### C MP, URIC, PHOS, MG #### [facility] [address] [place] [address] Dr. Louis Mak Anion gap [Moles/Vol] 11.0 mmol/L Normal [facility] Comment on above: Performed By: #### C MP, URIC, PHOS, MG #### [facility] [address] [place] [address] Dr. Louis Mak AST [Catalytic activity/Vol] 28 U/L Normal 15-37 [facility] Comment on above: Performed By: #### C MP, URIC, PHOS, MG #### [facility] [address] [address] [address] Louis Mak Bilirubin [Mass/Vol] 0.8 mg/dL Normal 0.2-1.0 [facility] Comment on above: Performed By: #### C MP, URIC, PHOS, MG #### [facility] [address] [place] [address] Dr. Louis Mak Calcium [Mass/Vol] 9.2 mg/dL Normal 8.5-10.1 [facility] Comment on above: Performed By: #### C MP, URIC, PHOS, MG #### [facility] [address] [place] [address] Dr. Louis Mak Chloride [Moles/Vol] 108 mmol/L Critically high 98-107 [facility] Comment on above: Performed By: #### C MP, URIC, PHOS, MG #### [facility] [address] [place] [address] Dr. Louis Mak CO2 [Moles/Vol] 29.4 mmol/L Normal 21.0-32.0 [facility] Comment on above: Performed By: #### C MP, URIC, PHOS, MG #### [facility] [address] [place] [address] Dr. Louis Mak Creatinine [Mass/Vol] 2.11 mg/dL Critically high 0.70-1.30 [facility] Comment on above: Performed By: #### C MP, URIC, PHOS, MG #### [facility] [address] [place] [address] Dr. Louis Mak EGFR-AF ANDORRAN 37 mL/min/1.73m2 Critically low >=60 [facility] Comment on above: Performed By: #### C MP, URIC, PHOS, MG #### [facility] [address] [place] [address] Dr. Louis Mak EGFR-NON AF ANDORRAN 30 mL/min/1.73m2 Critically low >=60 [facility] Comment on above: Performed By: #### C MP, URIC, PHOS, MG #### [facility] [address] [place] [address] Dr. Louis Mak Globulin (S) [Mass/Vol] 4.6 g/dL Normal [facility] Comment on above: Performed By: #### C MP, URIC, PHOS, MG #### [facility] [address] [place] [address] Dr. Louis Mak Glucose [Mass/Vol] 143 mg/dL Critically high 74-106 [facility] Comment on above: Performed By: #### C MP, URIC, PHOS, MG #### [facility] [address] [place] [address] Dr. Louis Mak Potassium [Moles/Vol] 4.4 mmol/L Normal 3.5-5.1 [facility] Comment on above: Performed By: #### C MP, URIC, PHOS, MG #### [facility] [address] [place] [address] Dr. Louis Mak Protein [Mass/Vol] 8.1 g/dL Normal 6.4-8.2 [facility] Comment on above: Performed By: #### C MP, URIC, PHOS, MG #### [facility] [address] [place] [address] Dr. Louis Mak Sodium [Moles/Vol] 144 mmol/L Normal 136-145 [facility] Comment on above: Performed By: #### C MP, URIC, PHOS, MG #### [facility] [address] [place] [address] Dr. Louis Mak Urea nitrogen [Mass/Vol] 46.0 mg/dL Critically high 7.0-18.0 [facility] Comment on above: Performed By: #### C MP, URIC, PHOS, MG #### [facility] [address] [address] [address] Louis Mak Urea nitrogen/Creatini ne [Mass ratio] 21.8 mg/mg Normal [facility] Comment on above: Performed By: #### C MP, URIC, PHOS, MG #### [facility] [address] [address] [address] Louis Mak UA RANDOMon 09-15-2022 Bilirubin Ql (U) Negative Normal NEGATIVE [facility] Comment on above: Performed By: #### M G, CMP, URIC #### [facility] [address] [place] [address] Dr. Louis Mak Clarity (U) CLEAR Normal CLEAR [facility] Comment on above: Performed By: #### M G, CMP, URIC #### [facility] [address] [place] [address] Dr. Louis Mak Color (U) LT. YELLOW Normal YELLOW [facility] Comment on above: Performed By: #### M G, CMP, URIC #### [facility] [address] [place] [address] Dr. Louis Mak Glucose Ql (U) Negative Normal NEGATIVE [facility] Comment on above: Performed By: #### M G, CMP, URIC #### [facility] [address] [place] [address] Dr. Louis Mak Hemoglobin Ql (U) Negative Normal NEGATIVE [facility] Comment on above: Performed By: #### M G, CMP, URIC #### [facility] [address] [place] [address] Dr. Louis Mak Ketones Ql (U) Negative Normal NEGATIVE [facility] Comment on above: Performed By: #### M G, CMP, URIC #### [facility] [address] [place] [address] Dr. Louis Mak LEUKOCYTES SMALL Abnormal NEGATIVE [facility] Comment on above: Performed By: #### M G, CMP, URIC #### [facility] [address] [place] [address] Dr. Louis Mak Nitrite Ql (U) Negative Normal NEGATIVE [facility] Comment on above: Performed By: #### M G, CMP, URIC #### [facility] [address] [address] [address] Louis Mak pH (U) 5.5 [pH] Normal 5-9 [facility] Comment on above: Performed By: #### M G, CMP, URIC #### [facility] [address] [address] [address] Louis Mak SPEC GRAVITY 1.010 Normal 1.005-<=1.0 25 [facility] Comment on above: Performed By: #### M G, CMP, URIC #### [facility] [address] [place] [address] Dr. Louis Mak UA PROTEIN Negative Normal NEGATIVE/ TRACE [facility] Comment on above: Performed By: #### M G, CMP, URIC #### [facility] [address] [place] [address] Dr. Louis Mak Urobilinogen Qn (U) 0.2 {Efra'U}/dL Normal 0.2 - 1.0 [facility] Comment on above: Performed By: #### M G, CMP, URIC #### [facility] [address] [place] [address] Dr. Louis Mak URIC ACID SERUMon 09-15-2022 Urate [Mass/Vol] 5.3 mg/dL Normal 3.5-7.2 [facility] Comment on above: Performed By: #### C MP, URIC, PHOS, MG #### [facility] [address] [place] [address] Dr. Louis Mak URINE T PROTEIN CREAT RATIOo n 09-15-2022 Protein (U) [Mass/Vol] 16.9 mg/dL Critically high <=12.0 [facility] Comment on above: Performed By: #### U RTPCR #### [facility] [address] [place] [address] Dr. Louis Mak UR PROT CREAT RAT 0.77 Normal [facility] Comment on above: Performed By: #### U RTPCR #### [facility] [address] [place] [address] Dr. Louis Mak URINE CREAT 22.03 mg/dL Normal 20.00-300.0 0 [facility] Comment on above: Performed By: #### U RTPCR #### [facility] [address] [address] [address] Louis Mak VITAMIN D 25 OHon 09-15-2022 VIT D 25-OH 13.9 ng/mL Normal [facility] Comment on above: Performed By: #### M G, CMP, URIC #### [facility] [address] [address] [address] Louis Mak VIT D RANGES SEE BELOW Normal [facility] Comment on above: Result Comment: <20 ng/mL Vit D deficient 20 - <30 ng/mL Vit D insufficient 30 - 100 ng/mL Vit D sufficient >100 ng/mL Potential Toxicity Performed By: #### M G, CMP, URIC #### [facility] [address] [place] [address] Dr. Louis Mak Office Visit (Cardiology)on 09-02-2022 [...] a smoker Tobacco Use Screening; Status:Complete; Done: [id number] Patient Instructions Please bring all medicines, vitamins, [...] artery disease. Previous angioplasty in 2013 in [place]. Involving the LAD and the right coronary [...] other sy (more content not included)... Normal [employer] Tobacco Screening.on 023 Adult depression screening assessment No [facility] 250 DO Work Phone: Fall risk assessment a) No falls within the last year [facility] 250 DO Work Phone: Tobacco use status [facility] b) No [facility] [place] [address] DO Work Phone: PTH INTACTon 05-19-2022 PTH, Intact 47 pg/mL Normal 15-65 [facility] Comment on above: Performed By: #### P THINT #### [facility] [address] [place] [address] Dr. Louis Mak HEMOGRAM AND PLATELon 2021 Hematocrit (Bld) [Volume fraction] 47.0 % Normal 42.0-54.0 [facility] Comment on above: Performed By: #### M G, CMP, URIC #### [facility] [address] [place] [address] Dr. Louis Mak Hemoglobin (Bld) [Mass/Vol] 14.9 g/dL Normal 14.0-18.0 [facility] Comment on above: Performed By: #### M G, CMP, URIC #### [facility] [address] [place] [address] Dr. Louis Mak MCH (RBC) [Entitic mass] 29.2 pg Normal 25.9-34.0 [facility] Comment on above: Performed By: #### M G, CMP, URIC #### [facility] [address] [place] [address] Dr. Louis Mak MCHC (RBC) [Mass/Vol] 31.7 g/dL Normal 29.9-35.2 [facility] Comment on above: Performed By: #### M G, CMP, URIC #### [facility] [address] [place] [address] Dr. Louis Mak MCV (RBC) [Entitic vol] 92.2 fL Normal 80.0-94.0 [facility] Comment on above: Performed By: #### M G, CMP, URIC #### [facility] [address] [place] [address] Dr. Louis Mak PLT 155 103/ul Normal 150-450 [facility] Comment on above: Performed By: #### M G, CMP, URIC #### [facility] [address] [place] [address] Dr. Louis Mak RBC 5.10 106/ul Normal 4.70-6.10 [facility] Comment on above: Performed By: #### M G, CMP, URIC #### [facility] [address] [place] [address] Dr. Louis Mak WBC 9.5 103/ul Normal 4.0-11.0 [facility] Comment on above: Performed By: #### M G, CMP, URIC #### [facility] [address] [place] [address] Dr. Louis Mak MAGNESIUMon 05-18-2022 Magnesium [Mass/Vol] 1.9 mg/dL Normal 1.8-2.4 [facility] Comment on above: Performed By: #### M G, CMP, URIC #### [facility] [address] [place] [address] Dr. Louis Mak PROF 14(COMP METB)on 022 Albumin [Mass/Vol] 3.3 g/dL Critically low 3.4-5.0 [facility] Comment on above: Performed By: #### M G, CMP, URIC #### [facility] [address] [place] [address] Dr. Louis Mak Albumin/Globulin [Mass ratio] 0.7 {ratio} Normal [facility] Comment on above: Performed By: #### M G, CMP, URIC #### [facility] [address] [place] [address] Dr. Louis Mak ALP [Catalytic activity/Vol] 72 U/L Normal 46-116 [facility] Comment on above: Performed By: #### M G, CMP, URIC #### [facility] [address] [place] [address] Dr. Louis Mak ALT [Catalytic activity/Vol] 20 U/L Normal 16-63 [facility] Comment on above: Performed By: #### M G, CMP, URIC #### [facility] [address] [place] [address] Dr. Louis Mak Anion gap [Moles/Vol] 10.7 mmol/L Normal [facility] Comment on above: Performed By: #### M G, CMP, URIC #### [facility] [address] [place] [address] Dr. Louis Mak AST [Catalytic activity/Vol] 34 U/L Normal 15-37 [facility] Comment on above: Performed By: #### M G, CMP, URIC #### [facility] [address] [address] [address] Louis Mak Bilirubin [Mass/Vol] 0.5 mg/dL Normal 0.2-1.0 [facility] Comment on above: Performed By: #### M G, CMP, URIC #### [facility] [address] [address] [address] Louis Mak Calcium [Mass/Vol] 8.9 mg/dL Normal 8.5-10.1 [facility] Comment on above: Performed By: #### M G, CMP, URIC #### [facility] [address] [address] [address] Louis Mak Chloride [Moles/Vol] 111 mmol/L Critically high 98-107 [facility] Comment on above: Performed By: #### M G, CMP, URIC #### [facility] [address] [place] [address] Dr. Louis Mak CO2 [Moles/Vol] 25.7 mmol/L Normal 21.0-32.0 [facility] Comment on above: Performed By: #### M G, CMP, URIC #### [facility] [address] [address] [address] Louis Mak Creatinine [Mass/Vol] 2.17 mg/dL Critically high 0.70-1.30 [facility] Comment on above: Performed By: #### M G, CMP, URIC #### [facility] [address] [address] [address] Louis Mak EGFR-AF ANDORRAN 36 mL/min/1.73m2 Critically low >=60 [facility] Comment on above: Performed By: #### M G, CMP, URIC #### [facility] [address] [address] [address] Louis Mak EGFR-NON AF ANDORRAN 29 mL/min/1.73m2 Critically low >=60 [facility] Comment on above: Performed By: #### M G, CMP, URIC #### [facility] [address] [address] [address] Louis Mak Globulin (S) [Mass/Vol] 4.5 g/dL Normal [facility] Comment on above: Performed By: #### M G, CMP, URIC #### [facility] [address] [place] [address] Dr. Louis Mak Glucose [Mass/Vol] 104 mg/dL Normal 74-106 [facility] Comment on above: Performed By: #### M G, CMP, URIC #### [facility] [address] [place] [address] Dr. Louis Mak Potassium [Moles/Vol] 4.4 mmol/L Normal 3.5-5.1 [facility] Comment on above: Performed By: #### M G, CMP, URIC #### [facility] [address] [place] [address] Dr. Louis Mak Protein [Mass/Vol] 7.8 g/dL Normal 6.4-8.2 [facility] Comment on above: Performed By: #### M G, CMP, URIC #### [facility] [address] [place] [address] Dr. Louis Mak Sodium [Moles/Vol] 143 mmol/L Normal 136-145 [facility] Comment on above: Performed By: #### M G, CMP, URIC #### [facility] [address] [place] [address] Dr. Louis Mak Urea nitrogen [Mass/Vol] 55.0 mg/dL Critically high 7.0-18.0 [facility] Comment on above: Performed By: #### M G, CMP, URIC #### [facility] [address] [place] [address] Dr. Louis Mak Urea nitrogen/Creatini ne [Mass ratio] 25.3 mg/mg Normal [facility] Comment on above: Performed By: #### M G, CMP, URIC #### [facility] [address] [place] [address] Dr. Louis Mak UA RANDOMon 05-18-2022 Bilirubin Ql (U) Negative Normal NEGATIVE [facility] Comment on above: Performed By: #### M G, CMP, URIC #### [facility] [address] [place] [address] Dr. Louis Mak Clarity (U) CLEAR Normal CLEAR [facility] Comment on above: Performed By: #### M G, CMP, URIC #### [facility] [address] [address] [address] Louis Mak Color (U) LT. YELLOW Normal YELLOW [facility] Comment on above: Performed By: #### M G, CMP, URIC #### [facility] [address] [address] [address] Louis Mak Glucose Ql (U) Negative Normal NEGATIVE [facility] [facility] [place] Comment on above: Performed By: #### M G, CMP, URIC #### [facility] [address] [address] [address] Louis Mka Hemoglobin Ql (U) Negative Normal NEGATIVE [facility] Comment on above: Performed By: #### M G, CMP, URIC #### [facility] [address] [address] [address] Louis Mak Ketones Ql (U) Negative Normal NEGATIVE [facility] Comment on above: Performed By: #### M G, CMP, URIC #### [facility] [address] [address] [address] Louis Mak LEUKOCYTES LARGE Abnormal NEGATIVE [facility] Comment on above: Performed By: #### M G, CMP, URIC #### [facility] [address] [address] [address] Louis Mak Nitrite Ql (U) Negative Normal NEGATIVE [facility] Comment on above: Performed By: #### M G, CMP, URIC #### [facility] [address] [address] [address] Louis Mak pH (U) 5.5 [pH] Normal 5-9 [facility] Comment on above: Performed By: #### M G, CMP, URIC #### [facility] [address] [address] [address] Louis Mak SPEC GRAVITY 1.020 Normal 1.005-<=1.0 25 [facility] Comment on above: Performed By: #### M G, CMP, URIC #### [facility] [address] [place] [address] Dr. Louis Mak UA PROTEIN Negative Normal NEGATIVE/ TRACE [facility] Comment on above: Performed By: #### M G, CMP, URIC #### [facility] [address] [place] [address] Dr. Louis Mak Urobilinogen Qn (U) 0.2 {Efra'U}/dL Normal 0.2 - 1.0 [facility] Comment on above: Performed By: #### M G, CMP, URIC #### [facility] [address] [place] [address] Dr. Louis Mak URIC ACID SERUMon 05-18-2022 Urate [Mass/Vol] 6.4 mg/dL Normal 3.5-7.2 [facility] Comment on above: Performed By: #### M G, CMP, URIC #### [facility] [address] [place] [address] Dr. Louis Mak URINE T PROTEIN CREAT RATIOo n 05-18-2022 Protein (U) [Mass/Vol] 19.1 mg/dL Critically high <=12.0 [facility] Comment on above: Performed By: #### M G, CMP, URIC #### [facility] [address] [place] [address] Dr. Louis Mak UR PROT CREAT RAT 0.97 Normal [facility] Comment on above: Performed By: #### M G, CMP, URIC #### [facility] [address] [place] [address] Dr. Louis Mak URINE CREAT 19.74 mg/dL Critically low 20.00-300.0 0 [facility] Comment on above: Performed By: #### M G, CMP, URIC #### [facility] [address] [place] [address] Dr. Louis Mak VITAMIN D 25 OHon 05-18-2022 VIT D 25-OH 13.4 ng/mL Normal [facility] Comment on above: Performed By: #### M G, CMP, URIC #### [facility] [address] [place] [address] Dr. Louis Mak VIT D RANGES SEE BELOW Normal [facility] Comment on above: Result Comment: <20 ng/mL Vit D deficient 20 - <30 ng/mL Vit D insufficient 30 - 100 ng/mL Vit D sufficient >100 ng/mL Potential Toxicity Performed By: #### M G, CMP, URIC #### [facility] [address] [place], [place] [address] Dr. Louis Mak Office Visit (Cardiology)on 03-24-2022 [...] Signs Patient: JONY MCKAY; : 1940; Recorded: 24Mar2022 10:01AMRecorded: [id number] 09:43AMRecorded: [id number] 09:33AM [id number], RUE, Sitting [id number], RUE, Sitting Heart Rate70 Height6 ft 2 in Unrqun295 lb BMI Inqmnczceh81.92 kg/m2 BSA Calculated2.32 Normal [facility] PHQ-2 VITALSon 02-18-2022 Adult depression screening assessment No [facility] [address] DO Work Phone: Fall risk assessment a) No falls within the last year [facility] [place] [address] DO Work Phone: Tobacco use status CPHS b) No [facility] [place] [address] DO Work Phone: CREATININE URINEon URINE CREAT 129.96 mg/dL Normal 20.00-300.0 0 [facility] Comment on above: Performed By: #### M G, CMP, URIC #### [facility] [address] [place] [address] Dr. Louis Mak MICROALBUMIN, RAND URon 12-18 mALB 16.2 mg/L Normal <=30.0 [facility] Comment on above: Performed By: #### M G, CMP, URIC #### [facility] [address] [address] [address] Louis Mak PTH INTACTon 01-10-2022 PTH, Intact 32 pg/mL Normal 15-65 [facility] Comment on above: Performed By: #### M G, CMP, URIC #### [facility] [address] [place] [address] Dr. Louis Mak UA RANDOMon 01-10-2022 Bilirubin Ql (U) Negative Normal NEGATIVE [facility] Comment on above: Performed By: #### U A #### [facility] [address] [place] [address] Dr. Louis Mak Clarity (U) CLEAR Normal CLEAR [facility] Comment on above: Performed By: #### U A #### [facility] [address] [place] [address] Dr. Louis Mak Color (U) LT. YELLOW Normal YELLOW [facility] Comment on above: Performed By: #### U A #### [facility] [address] [place] [address] Dr. Louis Mak Glucose Ql (U) Negative Normal NEGATIVE [facility] Comment on above: Performed By: #### U A #### [facility] [address] [place] [address] Dr. Louis Mak Hemoglobin Ql (U) Negative Normal NEGATIVE [facility] Comment on above: Performed By: #### U A #### [facility] [address] [place] [address] Dr. Louis Mak Ketones Ql (U) Negative Normal NEGATIVE [facility] Comment on above: Performed By: #### U A #### [facility] [address] [place] [address] Dr. Louis Mak LEUKOCYTES SMALL Abnormal NEGATIVE [facility] Comment on above: Performed By: #### U A #### [facility] [address] [place] [address] Dr. Louis Mak Nitrite Ql (U) Negative Normal NEGATIVE [facility] Comment on above: Performed By: #### U A #### [facility] [address] [place] [address] Dr. Louis Mak pH (U) 5.0 [pH] Normal 5-9 [facility] Comment on above: Performed By: #### U A #### [facility] [address] [place] [address] Dr. Louis Mak SPEC GRAVITY 1.025 Normal 1.005-<=1.0 25 [facility] Comment on above: Performed By: #### U A #### [facility] [address] [place] [address] Dr. Louis Mak UA PROTEIN 30 mg/dl Abnormal NEGATIVE/ TRACE [facility] Comment on above: Performed By: #### U A #### [facility] [address] [place] [address] Dr. Louis Mak Urobilinogen Qn (U) 0.2 {Efra'U}/dL Normal 0.2 - 1.0 [facility] Comment on above: Performed By: #### U A #### [facility] [address] [place] [address] Dr. Louis Mak HEMOGRAM AND PLATELon 2021 Hematocrit (Bld) [Volume fraction] 45.9 % Normal 42.0-54.0 [facility] Comment on above: Performed By: #### M G, CMP, URIC #### [facility] [address] [place] [address] Dr. Louis Mak Hemoglobin (Bld) [Mass/Vol] 14.0 g/dL Normal 14.0-18.0 [facility] Comment on above: Performed By: #### M G, CMP, URIC #### [facility] [address] [place] [address] Dr. Louis Mak MCH (RBC) [Entitic mass] 27.4 pg Normal 25.9-34.0 [facility] Comment on above: Performed By: #### M G, CMP, URIC #### [facility] [address] [place] [address] Dr. Louis Mak MCHC (RBC) [Mass/Vol] 30.5 g/dL Normal 29.9-35.2 [facility] Comment on above: Performed By: #### M G, CMP, URIC #### [facility] [address] [place] [address] Dr. Louis Mak MCV (RBC) [Entitic vol] 89.8 fL Normal 80.0-94.0 [facility] Comment on above: Performed By: #### M G, CMP, URIC #### [facility] [address] [place] [address] Dr. Louis Mak PLT 168 103/ul Normal 150-450 [facility] Comment on above: Performed By: #### M G, CMP, URIC #### [facility] [address] [address] [address] Louis Mak RBC 5.11 106/ul Normal 4.70-6.10 [facility] Comment on above: Performed By: #### M G, CMP, URIC #### [facility] [address] [place] [address] Dr. Louis Mak WBC 9.7 103/ul Normal 4.0-11.0 [facility] Comment on above: Performed By: #### M G, CMP, URIC #### [facility] [address] [place] [address] Dr. Louis Mak PROF 14(COMP METB)on 022 Albumin [Mass/Vol] 3.1 g/dL Critically low 3.4-5.0 [facility] Comment on above: Performed By: #### M G, CMP, URIC #### [facility] [address] [place] [address] Dr. Louis Mak Albumin/Globulin [Mass ratio] 0.6 {ratio} Normal [facility] Comment on above: Performed By: #### M G, CMP, URIC #### [facility] [address] [place] [address] Dr. Louis Mak ALP [Catalytic activity/Vol] 82 U/L Normal 46-116 [facility] Comment on above: Performed By: #### M G, CMP, URIC #### [facility] [address] [place] [address] Dr. Louis Mak ALT [Catalytic activity/Vol] 18 U/L Normal 16-63 [facility] Comment on above: Performed By: #### M G, CMP, URIC #### [facility] [address] [place] [address] Dr. Louis Mak Anion gap [Moles/Vol] 11.6 mmol/L Normal [facility] Comment on above: Performed By: #### M G, CMP, URIC #### [facility] [address] [place] [address] Dr. Louis Mak AST [Catalytic activity/Vol] 43 U/L Critically high 15-37 [facility] Comment on above: Performed By: #### M G, CMP, URIC #### [facility] [address] [place] [address] Dr. Louis Mak Bilirubin [Mass/Vol] 0.8 mg/dL Normal 0.2-1.0 [facility] Comment on above: Performed By: #### M G, CMP, URIC #### [facility] [address] [place] [address] Dr. Louis Mak Calcium [Mass/Vol] 8.8 mg/dL Normal 8.5-10.1 [facility] Comment on above: Performed By: #### M G, CMP, URIC #### [facility] [address] [place] [address] Dr. Louis Mak Chloride [Moles/Vol] 110 mmol/L Critically high 98-107 [facility] Comment on above: Performed By: #### M G, CMP, URIC #### [facility] [address] [place] [address] Dr. Louis Mak CO2 [Moles/Vol] 25.9 mmol/L Normal 21.0-32.0 [facility] Comment on above: Performed By: #### M G, CMP, URIC #### [facility] [address] [place] [address] Dr. Louis Mak Creatinine [Mass/Vol] 2.22 mg/dL Critically high 0.70-1.30 [facility] Comment on above: Performed By: #### M G, CMP, URIC #### [facility] [address] [place] [address] Dr. Louis Mak EGFR-AF ANDORRAN 35 mL/min/1.73m2 Critically low >=60 [facility] Comment on above: Performed By: #### M G, CMP, URIC #### [facility] [address] [place] [address] Dr. Louis Mak EGFR-NON AF ANDORRAN 29 mL/min/1.73m2 Critically low >=60 [facility] Comment on above: Performed By: #### M G, CMP, URIC #### [facility] [address] [address] [address] Louis Mak Globulin (S) [Mass/Vol] 5.0 g/dL Normal [facility] Comment on above: Performed By: #### M G, CMP, URIC #### [facility] [address] [address] [address] Louis Mak Glucose [Mass/Vol] 90 mg/dL Normal 74-106 [facility] Comment on above: Performed By: #### M G, CMP, URIC #### [facility] [address] [address] [address] Louis Mak Potassium [Moles/Vol] 4.5 mmol/L Normal 3.5-5.1 [facility] Comment on above: Performed By: #### M G, CMP, URIC #### [facility] [address] [place] [address] Dr. Louis Mak Protein [Mass/Vol] 8.1 g/dL Normal 6.4-8.2 [facility] Comment on above: Performed By: #### M G, CMP, URIC #### [facility] [address] [address] [address] Louis Mak Sodium [Moles/Vol] 143 mmol/L Normal 136-145 [facility] Comment on above: Performed By: #### M G, CMP, URIC #### [facility] [address] [address] [address] Louis Mak Urea nitrogen [Mass/Vol] 41.0 mg/dL Critically high 7.0-18.0 [facility] Comment on above: Performed By: #### M G, CMP, URIC #### [facility] [address] [address] [address] Louis Mak Urea nitrogen/Creatini ne [Mass ratio] 18.5 mg/mg Normal [facility] Comment on above: Performed By: #### M G, CMP, URIC #### [facility] [address] [address] [address] Louis Mak URIC ACID SERUMon 01-09-2022 Urate [Mass/Vol] 5.2 mg/dL Normal 3.5-7.2 [facility] Comment on above: Performed By: #### M G, CMP, URIC #### [facility] [address] [address] [address] Louis Mak VITAMIN D 25 OHon 01-09-2022 VIT D 25-OH 13.7 ng/mL Normal [facility] Comment on above: Performed By: #### M G, CMP, URIC #### [facility] [address] [address] [address] Louis Mak VIT D RANGES SEE BELOW Normal [facility] Comment on above: Result Comment: <20 ng/mL Vit D deficient 20 - <30 ng/mL Vit D insufficient 30 - 100 ng/mL Vit D sufficient >100 ng/mL Potential Toxicity Performed By: #### M G, CMP, URIC #### [facility] [address] [place], [place] [address] Dr. Louis Mak ECG 12 lead ECGon 01-01-2022 ECG 12 lead ECG [facility] [place] [address] Electrocardiograph Report Signed Patient: Jony Mckay JR MR#: [id number] : 1940 Acct:[id number] Age/Sex: 81 / M ADM Date: 01/01/22 Loc: ER Room: Type: [facility] ER Attending Dr: Ordering Provider: Kraig [...] conducted complexes Confirmed by Kraig MAR DO ([id number]) on 01/01/2022 12:49:28 PM Referred By: Electronically Signed By:Kraig MAR DO Transcribed By: MUS Signed By Kraig Mar DO 0 01/01/22 1249 Normal [facility] Glucose Poct Glucometerson 0 01-01-2022 Commemt1 Glu2: Cleaned Meter Normal [facility] Comment on above: Result Comment: PERF ORMED BY: [facility] [place] [address] PATHOLOGIST TEST BORER HELPER OWNE HUSAIN M.D. Performed By: #### G JORGE #### Point of Care testing , Glucose [Mass/Vol] 63 mg/dL Normal [facility] Comment on above: Result Comment: [facility] Glucose Reference Range is dependent on time and content of last meal. Glucose of more than 200 mg/dL in a nonstressed, ambulatory subject supports the diagnosis of Diabetes Mellitus. Performed By: #### G LUKEVEN #### Point of Care testing , Complete Blood Counton 12-25 Erythrocyte distribution width (RBC) [Ratio] 17.4 % High 11.0-15.0 [facility] Assistant [employer] Of Public [employer] Comment on above: Performed By: #### C MP, CBC, TSH #### [facility] [address], [place] [id number] Hematocrit (Bld) [Volume fraction] 45.6 % Normal 38.5-50.0 [facility] Assistant [employer] Comment on above: Performed By: #### C MP, CBC, TSH #### [facility] [address], [place] [id number] Hemoglobin (Bld) [Mass/Vol] 13.7 g/dL Normal 13.0-17.1 [facility] Assistant [employer] Comment on above: Performed By: #### C MP, CBC, TSH #### [facility] [address], [place] [id number] MCH (RBC) [Entitic mass] 27.2 pg Normal 27.0-33.0 [facility] Assistant [employer] Comment on above: Performed By: #### C MP, CBC, TSH #### [facility] [address], [place] [id number] MCHC (RBC) [Mass/Vol] 30.0 g/dL Low 32.0-36.0 [facility] Assistant [employer] Comment on above: Performed By: #### C MP, CBC, TSH #### [facility] [address], [place] [id number] MCV (RBC) [Entitic vol] 91 fL Normal 80-100 [facility] Specialist Comment on above: Performed By: #### C MP, CBC, TSH #### [facility] [address], [place] [id number] Platelet mean volume (Bld) [Entitic vol] 10.40 fL Normal 7.50-12.50 [facility] Specialist Comment on above: Performed By: #### C MP, CBC, TSH #### [facility] [address], [place] [id number] Platelets (Bld) [#/Vol] 192 10*3/uL Normal 140-400 [facility] Specialist Comment on above: Performed By: #### C MP, CBC, TSH #### [facility] [address], [place] [id number] RBC (Bld) [#/Vol] 5.04 10*6/uL Normal 4.20-5.80 [facility] Specialist Comment on above: Performed By: #### C MP, CBC, TSH #### [facility] [address], [place] [id number] RDW-SD 57.2 fL High 37.0-50.0 [facility] Specialist Comment on above: Performed By: #### C MP, CBC, TSH #### [facility] [address], [place] [id number] WBC (Bld) [#/Vol] 8.0 10*3/uL Normal 3.8-11.0 [place] Comment on above: Performed By: #### C MP, CBC, TSH #### [facility] [address], [place] [id number] Comprehensive Metabolic Pane [facility] 12-25-2021 Albumin [Mass/Vol] 3.6 g/dL Normal 3.6-5.1 [facility] Specialist Comment on above: Performed By: #### C MP, CBC, TSH #### [facility] [address], [place] [id number] Albumin/Globulin [Mass ratio] 0.9 {ratio} Low 1.0-2.5 [facility] Specialist Comment on above: Performed By: #### C MP, CBC, TSH #### [facility] [address], [place] [id number] ALP [Catalytic activity/Vol] 89 U/L Normal 40-129 [facility] Specialist Comment on above: Performed By: #### C MP, CBC, TSH #### [facility] [address], [place] [id number] ALT [Catalytic activity/Vol] 13 U/L Normal 9-46 [facility] Specialist Comment on above: Result Comment: 06/18 Female reference range changed. Performed By: #### C MP, CBC, TSH #### [facility] [address], [place] [id number] Anion gap [Moles/Vol] 14 mmol/L Normal 12-20 [facility] Specialist Comment on above: Result Comment: Effe ctive 07/24/2019 reference range changed. Performed By: #### C MP, CBC, TSH #### [facility] [address], [place] [id number] AST [Catalytic activity/Vol] 32 U/L Normal 10-40 [facility] Specialist Comment on above: Performed By: #### C MP, CBC, TSH #### [facility] [address], [place] [id number] Bilirubin [Mass/Vol] 0.43 mg/dL Normal 0.30-1.20 [facility] Specialist Comment on above: Performed By: #### C MP, CBC, TSH #### [facility] [address], [place] [id number] BUN/CREA 23 Ratio High 6-22 [facility] Specialist Comment on above: Performed By: #### C MP, CBC, TSH #### [facility] [address], [place] [id number] Calcium [Mass/Vol] 9.3 mg/dL Normal 8.6-10.2 [facility] Specialist Comment on above: Performed By: #### C MP, CBC, TSH #### [facility] [address], [place] [id number] Chloride [Moles/Vol] 108 mmol/L High 98-107 [facility] Specialist Comment on above: Performed By: #### C MP, CBC, TSH #### [facility] [address], [place] [id number] CO2 [Moles/Vol] 26 mmol/L Normal 20-31 [facility] Assistant Director Of Public [employer] Comment on above: Performed By: #### C MP, CBC, TSH #### [facility] [address], [place] [id number] Creatinine [Mass/Vol] 2.1 mg/dL High 0.7-1.4 [facility] Assistant Director Of Public [employer] Comment on above: Performed By: #### C MP, CBC, TSH #### [facility] [address], [place] [id number] eGFRAA 38 mL/min/1.73m2 Low >60 [facility] Assistant Director Of Public [employer] Comment on above: Performed By: #### C MP, CBC, TSH #### [facility] [address], [place] [id number] eGFRNAA 31 mL/min/1.73m2 Low >60 [facility] Assistant [employer] Comment on above: Performed By: #### C MP, CBC, TSH #### [facility] [address], [place] [id number] Globulin (S) [Mass/Vol] 3.8 g/dL High 1.9-3.7 [facility] Assistant [employer] Comment on above: Performed By: #### C MP, CBC, TSH #### [facility] [address], [place] [id number] Glucose [Mass/Vol] 104 mg/dL High 65-99 [facility] Assistant Director Of [employer] Comment on above: Result Comment: For FASTING Glucose --- ADA reference ranges: Normal 65-99 mg/dl Prediabetes 100-125 Diabetes >/= 126 Performed By: #### C MP, CBC, TSH #### [facility] [address], [place] [id number] Potassium [Moles/Vol] 4.8 mmol/L Normal 3.5-5.5 [facility] Assistant Director Of Public [employer] Comment on above: Performed By: #### C MP, CBC, TSH #### [facility] [address], [place] [id number] Protein [Mass/Vol] 7.4 g/dL Normal 6.1-8.1 [facility] Assistant Director Of [employer] Comment on above: Performed By: #### C MP, CBC, TSH #### [facility] [address], [place] [id number] Sodium [Moles/Vol] 144 mmol/L Normal 135-146 [facility] Specialist Comment on above: Performed By: #### C MP, CBC, TSH #### [facility] [address], [place] [id number] Urea nitrogen [Mass/Vol] 48 mg/dL High 7-25 [facility] Specialist Comment on above: Performed By: #### C MP, CBC, TSH #### [facility] [address], [place] [id number] Q - B-TYPE NATRIURETIC (BNP) on 12-25-2021 Natriuretic peptide B (Bld) [Mass/Vol] 205 pg/mL High <100 [facility] Assistant Director Of Public Works Comment on above: Order Comment: [facility] Testing performed at: [facility], [address] [place] [address], [address] [place] [address], [id number], Dietary Aide: Kulwant Gibbs MD [facility] Collection Date/Time: [id number] [facility] Results Received Date/Time: [id number] [facility] Reported Date/Time: [id number] Result Comment: BNP levels increase with age in the general population with the highest values seen in individuals greater than 75 years of age. Reference: J. Am. Eun. Cardiol. 2002; 40:976-982. Performed By: #### [id number] #### [facility] [address] [place] [address] TSHon 12-25-2021 TSH 2.150 uIU/mL Normal 0.400-4.500 [facility] Specialist Comment on above: Performed By: #### C MP, CBC, TSH #### [facility] [address], [place] [id number] Basic Metabolic Panelon 05-0 Anion gap [Moles/Vol] 17 mmol/L Normal 12-20 [facility] Specialist Comment on above: Result Comment: Effe ctive 07/24/2019 reference range changed. Performed By: #### B MP #### [facility] [address], [place] [id number] Calcium [Mass/Vol] 9.1 mg/dL Normal 8.6-10.2 [facility] Specialist Comment on above: Performed By: #### B MP #### [facility] [address], [place] [id number] Chloride [Moles/Vol] 105 mmol/L Normal 98-107 [facility] Specialist Comment on above: Performed By: #### B MP #### [facility] [address], [place] [id number] CO2 [Moles/Vol] 25 mmol/L Normal 20-31 [facility] Specialist Comment on above: Performed By: #### B MP #### [facility] [address], [place] [id number] Creatinine [Mass/Vol] 2.4 mg/dL High 0.7-1.4 [facility] Specialist Comment on above: Performed By: #### B MP #### [facility] [address], [place] [id number] eGFRAA 32 mL/min/1.73m2 Low >60 [facility] Assistant Director Of Public Works Comment on above: Performed By: #### B MP #### [facility] [address], [place] [id number] eGFRNAA 26 mL/min/1.73m2 Low >60 [facility] Assistant Director Of Public [employer] Comment on above: Performed By: #### B MP #### [facility] [address], [place] [id number] Glucose [Mass/Vol] 291 mg/dL High 65-99 [facility] Assistant [employer] Of Public [employer] Comment on above: Result Comment: For FASTING Glucose --- ADA reference ranges: Normal 65-99 mg/dl Prediabetes 100-125 Diabetes >/= 126 Performed By: #### B MP #### [facility] [address], [place] [id number] Potassium [Moles/Vol] 4.8 mmol/L Normal 3.5-5.5 [facility] Assistant Director Of Public Works Comment on above: Performed By: #### B MP #### [facility] [address], [place] [id number] Sodium [Moles/Vol] 142 mmol/L Normal 135-146 [facility] Specialist Comment on above: Performed By: #### B MP #### [facility] [address], [place] [id number] Urea nitrogen [Mass/Vol] 58 mg/dL High 7-25 [facility] Assistant Director Of Public Works Comment on above: Performed By: #### B MP #### [facility] [address], [place] [phone] Tobacco Screening.on 022 Adult depression screening assessment No [facility] [place] [address] DO Work Phone: Fall risk assessment a) No falls within the last year [facility] [place] [address] DO Work Phone: [phone] [facility] [place] [address] DO Work Phone: [phone] Tobacco use status [facility]PH[facility] b) No [facility] [place] 250 DO Work Phone: Comprehensive Metabolic Pane bret 06-23-2021 Albumin [Mass/Vol] 4.1 g/dL Normal 3.6-5.1 [facility] Assistant Director Of Public Works Comment on above: Performed By: #### L IPD, CMP #### [facility] [address], [place] [id number] Albumin/Globulin [Mass ratio] 1.0 {ratio} Normal 1.0-2.5 [facility] Assistant Director Of Public Works Comment on above: Performed By: #### L IPD, CMP #### [facility] [address], [place] [id number] ALP [Catalytic activity/Vol] 89 U/L Normal 40-129 [facility] Assistant Director Of Public Works Comment on above: Performed By: #### L IPD, CMP #### [facility] [address], [place] [id number] ALT [Catalytic activity/Vol] 14 U/L Normal 9-46 [facility] Assistant Director Of Public Works Comment on above: Result Comment: 06/18 Female reference range changed. Performed By: #### L IPD, CMP #### [facility] [address], [place] [phone] Anion gap [Moles/Vol] 18 mmol/L Normal 12-20 [facility] Assistant Director Of Public Works Comment on above: Result Comment: Effe ctive 07/24/2019 reference range changed. Performed By: #### L IPD, CMP #### [facility] [address], [place] [phone] AST [Catalytic activity/Vol] 19 U/L Normal 10-40 [facility] Specialist Comment on above: Performed By: #### L IPD, CMP #### [facility] [address], [place] [id number] Bilirubin [Mass/Vol] 0.63 mg/dL Normal 0.30-1.20 [facility] Assistant Director Of Public Works Comment on above: Performed By: #### L IPD, CMP #### [facility] [address], [place] [id number] BUN/CREA 22 Ratio Normal 6-22 [facility] Specialist Comment on above: Performed By: #### L IPD, CMP #### [facility] [address], [place] [phone] Calcium [Mass/Vol] 9.5 mg/dL Normal 8.6-10.2 [facility] Assistant Director Of Public Works Comment on above: Performed By: #### L IPD, CMP #### [facility] [address], [place] [id number] Chloride [Moles/Vol] 109 mmol/L High 98-107 [facility] Assistant Director Of Public Works Comment on above: Performed By: #### L IPD, CMP #### [facility] [address], [place] [id number] CO2 [Moles/Vol] 21 mmol/L Normal 20-31 [facility] Specialist Comment on above: Performed By: #### L IPD, CMP #### [facility] [address], [place] [id number] Creatinine [Mass/Vol] 2.9 mg/dL High 0.7-1.4 [facility] Assistant Director Of Public Works Comment on above: Performed By: #### L IPD, CMP #### [facility] [address], [place] [id number] eGFRAA 26 mL/min/1.73m2 Low >60 [facility] Assistant Director Of Public Works Comment on above: Performed By: #### L IPD, CMP #### [facility] [address], [place] [id number] eGFRNAA 21 mL/min/1.73m2 Low >60 [facility] Assistant Director Of Public Works Comment on above: Performed By: #### L IPD, CMP #### [facility] [address] [facility] [place] [id number] Globulin (S) [Mass/Vol] 4.0 g/dL High 1.9-3.7 [facility] Assistant Director Of Public Works Comment on above: Performed By: #### L IPD, CMP #### [facility] [address], [place] [id number] Glucose [Mass/Vol] 133 mg/dL High 65-99 [facility] Assistant Director Of Public Works Comment on above: Result Comment: For FASTING Glucose --- ADA reference ranges: Normal 65-99 mg/dl Prediabetes 100-125 Diabetes >/= 126 Performed By: #### L IPD, CMP #### [facility] [address], [place] [id number] Potassium [Moles/Vol] 4.4 mmol/L Normal 3.5-5.5 [facility] Assistant Director Of Public Works Comment on above: Performed By: #### L IPD, CMP #### [facility] [address], [place] [id number] Protein [Mass/Vol] 8.1 g/dL Normal 6.1-8.1 [facility] Assistant Director Of Public Works Comment on above: Performed By: #### L IPD, CMP #### [facility] [address], [place] [id number] Sodium [Moles/Vol] 144 mmol/L Normal 135-146 [facility] Assistant Director Of Public Works Comment on above: Performed By: #### L IPD, CMP #### [facility] [address], [place] [id number] Urea nitrogen [Mass/Vol] 62 mg/dL High 7-25 [facility] Assistant Director Of Public Works Comment on above: Performed By: #### L IPD, CMP #### [facility] [address], [place] [id number] Lipid Panelon 06-23-2021 Cholesterol [Mass/Vol] 136 mg/dL Normal 125-200 [facility] Assistant Director Of Public Works Comment on above: Result Comment: Low risk < 200mg/dL Borderline risk 201-239 mg/dl High risk > or equal to 240 Performed By: #### L IPD, CMP #### [facility] [address] [facility] [place] [id number] Cholesterol in HDL [Mass/Vol] 30 mg/dL Low >40 [facility] Assistant Director Of Public Works Comment on above: Result Comment: High Cardiovascular Risk HDL <40 mg/dL Low Cardiovascular Risk HDL > or equal to 60 mg/dl Performed By: #### L IPD, CMP #### [facility] [address], [place] [id number] Cholesterol in LDL [Mass/Vol] 86 mg/dL Normal [facility] Specialist Comment on above: Result Comment: LDL ATP III CLASSIFICATION LDL less than 100 mg/dl Optimal LDL 100-129 mg/dl Near or above optimal LDL 130-159 Borderline high LDL 160-189 High LDL greater than 189 mg/dl Very High Performed By: #### L IPD, CMP #### [facility] [address], [place] [id number] Cholesterol in VLDL [Mass/Vol] 20 mg/dL Normal [facility] Specialist Comment on above: Performed By: #### L IPD, CMP #### [facility] [address], [place] [id number] Cholesterol.total /Cholesterol in HDL [Mass ratio] 5 {ratio} Normal [facility] Specialist Comment on above: Performed By: #### L IPD, CMP #### [facility] [address], [place] [id number] Triglyceride [Mass/Vol] 102 mg/dL Normal 30-150 [facility] Assistant Director Of Public Works Comment on above: Result Comment: TRIG ATPIII CLASSIFICATIONS TRIG less than 150 mg/dl Normal TRIG 150-199 mg/dl Borderline High TRIG 200-500 mg/dl High TRIG greather than 500 mg/dl Very High Performed By: #### L IPD, CMP #### [facility] [address], [place] [id number] Q - B-TYPE NATRIURETIC (BNP) on 06-23-2021 Natriuretic peptide B (Bld) [Mass/Vol] 117 pg/mL High <100 [facility] Assistant Director Of Public Works Comment on above: Order Comment: [facility] Testing performed at: [employer], [employer] [facility], [address], [address] [place] [address], [phone], Dietary Aide: Kulwant Gibbs MD [facility] Collection Date/Time: [facility] Results Received Date/Time: [facility] Reported Date/Time: [id number] Result Comment: BNP levels increase with age in the general population with the highest values seen in individuals greater than 75 years of age. Reference: J. Am. Eun. Cardiol. 2002; 40:976-982. Performed By: #### [id number] #### [facility] [address] [place] [address] Lab Reportson 12-30-2020 Lab Reports [id number]#1.00CD:127 [facility] Consent for COVID Vaccineon 10-16-2020 SARS-CoV-2 (COVID-19) RNA GLORIA+probe Ql (Unsp spec) [id number]#1.00CD:127 [facility] Consent for COVID Vaccineon 09-28-2020 SARS-CoV-2 (COVID-19) RNA GLORIA+probe Ql (Unsp spec) [id number]#1.00CD:127 [facility] Consent for Treatmenton 09-16 Consent for Treatment [id number]#1.00CD:127 [facility] Coding Summary.on 09-26-2020 Coding Summary. CODING DATE: [facility] STATUS: PAYOR: Medicare APC DESCRIPTION 1492 New [...] Casie Mullins Date Saved: 09/26/2020 12:04 pm [facility] CNSWon 03-30-2018 CNSW Social Work ([place]) -JONY MCKAY ([id number]) 1940 MDate Time Provider Department03/30/18 BRIGID LIRA) [...] No SWassessment is indicated at this time.JOSESITO Alva-sAllergies As of Date: 03/30/2018(No Known Allergies)Date Reviewed: [...] Status:Closed by BRIGID LIRA on 04/06/[address] [facility] PROGRESSon 03-30-2018 Protein mass conc HNO ID: [id number] thor: Brigid FerminRubber Flap Tuber Machine Operator) AbranSerjanee: (none)Author Type: Social WorkerType: Progress NotesFiled: 04/06/2018 9:11 AMNote Text:SOCIAL WORK NOTE:CANCER CENTERDate of service: 03/30/2018PLAN: Continue follow up as neededF/U APPOINTMENT: PRNChart review completed by this SW due to the Patient being listed on theFirst Time Treatment Report. Patient is receiving a non-chemo regime. NoSW assessment is indicated at this time.Bebe Alva Normal [facility] CEAon 03-23-2018 CEA 5.5 ng/mL High 0.0-2.[address] [facility] Comment on above: Result Comment: Test analyzed by the Kady DxI method. Performed By: #### R CBCDF ####[facility] [address], [place] [phone] CNOVSPon 03-23-2018 CNOVSP Visit (SP) Office ([place]) -[facility] MCKAY ([id number]) 1940 [facility]18 11:30 AM LORENZO BELCHER [...] iron deficiency.11/2015 : Admitted to [facility] with microcytic anemia, recommendationwas to complete [...] monoclonal protein4. Tubulovillous adenoma-resection completedAlfred Desirae Belcher, DEBBIElguanaco Belcher MD 03/23/2018 1:17 PM SignedCHIEF COMPLAINT: iron deficiency anemia, colorectal cancerHISTORY OF PRESENT ILLNESS: Jony Mckay is a 76 year old male who presentsin follow-up of above. Previously seen in consultation for iron deficiency.11/2015 : Admitted to [facility] with microcytic anemia, recommendationwas to complete [...] Neut (ANC) 6.33 04/13/2017Abs Lym 1.44 07/08/2016Abs [place] 0.83 04/13/2017Abs Eosin 0.67 04/13/2017Abs Baso 0.11 [...] identify a monoclonal protein4. Tubulovillous adenoma-resection completedAlfred Renita Agudelo Provider: LORENZO BELCHER [[id number]]Allergies As of Date: 03/23/2018(No Known Allergies)Date Reviewed: [...] by LORENZO BELCHER MD on 03/23/[address] [facility] Comp Metabolic Panelon 03-23 Albumin mass conc 3.7 g/dL Low 3.9-4.9 [facility] Comment on above: Performed By: #### R CBCDF ####[facility], [place] [phone] ALP enzyme act/vol 70 U/L Normal 36-[address] [facility] Comment on above: Performed By: #### R CBCDF ####[facility] [address], [place] [phone] ALT enzyme act/vol 10 U/L Normal 10-[address] [facility] Comment on above: Performed By: #### R CBCDF ####[place] [phone] Anion gap 3 molar conc 7 mmol/L Low 9-[address] [facility] Comment on above: Performed By: #### R CBCDF ####[place] [phone] AST enzyme act/vol 10 U/L Low 14-[address] [facility] Comment on above: Performed By: #### R CBCDF ####[place] [phone] Bilirubin mass conc 0.5 mg/dL Normal 0.2-1.[address] [facility] Comment on above: Performed By: #### R CBCDF ####[place] [phone] Calcium mass conc 9.3 mg/dL Normal 8.5-10.2 [facility] Comment on above: Performed By: #### R CBCDF ####[place] [phone] Chloride molar conc 111 mmol/L High 97-[address] [facility] Comment on above: Performed By: #### R CBCDF ####[place] [phone] CO2 molar conc 27 mmol/L Normal 22-[address] [facility] Comment on above: Performed By: #### R CBCDF ####[place] [address] [place], [place] [phone] Creatinine mass conc 2.41 mg/dL High 0.73-1.[address] [facility] Comment on above: Performed By: #### R CBCDF ####[address] [phone] eGFR- Amer. [address] [facility] Comment on above: Performed By: #### R CBCDF ####[address] [phone] GFR/1.73 sq M predicted among non-blacks MDRD vol rate/area (S/P/Bld) 26 . Normal [facility] Comment on above: Result Comment: eGFR (Estimated [...] actual GFR. Performed By: #### R CBCDF ####[address] [phone] Glucose mass conc 137 mg/dL High 74-99 [facility] Comment on above: Performed By: #### R CBCDF ####[address] [phone] Potassium molar conc 4.4 mmol/L Normal 3.7-5.[address] [facility] Comment on above: Performed By: #### R CBCDF ####[address] [phone] Protein mass conc 7.0 g/dL Normal 6.3-8.0 [facility] Comment on above: Performed By: #### R CBCDF ####[address] [phone] Sodium molar conc 145 mmol/L High 136-144 [facility] Comment on above: Performed By: #### R CBCDF ####[address], [place] [phone] Urea nitrogen mass conc 39 mg/dL High 9-[address] [facility] Comment on above: Performed By: #### R CBCDF ####[address] [phone] EPOon 03-23-2018 EPO 95.3 mIU/mL High 2.6-18.[address] [facility] Comment on above: Result Comment: Test analyzed by the [place] DxI method. Performed By: #### R CBCDF ####[place] [phone] Ferritinon 03-23-2018 Ferritin 30.8 ng/mL Normal 30.3-565.[address] [facility] Comment on above: Performed By: #### R CBCDF ####[place] [phone] Iron and TIBCon 03-23-2018 Iron mass conc 23 ug/dL Low 41-[address] [facility] Comment on above: Performed By: #### R CBCDF ####[place] [phone] TIBC 311 ug/dL Normal 232-[address] [facility] Comment on above: Performed By: #### R CBCDF ####[place] [phone] Transferrin Saturatn 7 % Low 15-[address] [facility] Comment on above: Performed By: #### R CBCDF ####[address] [phone] PROGRESSon 03-23-2018 Protein mass conc HNO ID: [id number] thor: Lorenzo Tucker: (none)Author Type: PhysicianType: Progress NotesFiled: 03/23/2018 1:17 PMNote Text:CHIEF COMPLAINT: iron deficiency anemia, colorectal cancerHISTORY OF PRESENT ILLNESS: Jony Mckay is a 76 year old male whopresents in follow-up of above. Previously seen in consultation for irondeficiency.11/2015 : Admitted to [facility] with microcytic anemia,recommendation was to complete [...] Neut (ANC) 6.33 04/13/2017Abs Lym 1.44 07/08/2016Abs [place] 0.83 04/13/2017Abs Eosin 0.67 04/13/2017Abs Baso 0.11 [...] Tubulovillous adenoma-resection completedAlfred Desirae Belcher MD Normal [facility] Protein mass conc HNO ID: [id number] thor: Lorenzo Powersice: (none)Author Type: PhysicianType: Progress NotesFiled: 03/23/2018 1:17 PMNote Text:CHIEF COMPLAINT: iron deficiency anemia, colorectal cancerHISTORY OF PRESENT ILLNESS: Jony Mckay is a 77 year old male whopresents in follow-up of above. Previously seen in consultation for irondeficiency.11/2015 : Admitted to [facility] with microcytic anemia,recommendation was to complete [...] 100.0 fL 82.6 80. COLONOSCOPY WITH PATHOLOGY BELOW6/2016 Resection07/2017 ColonoscopyASSESSMENT/PLAN: Jony Mckay is a 77 [...] Tubulovillous adenoma-resection completedAlfred Desirae Belcher MD Normal [facility] Remote CBCDIF (for [facility] use o nly)on 03-23-2018 Abs Baso 0.03 k/uL Normal 0.00-0.[address] [facility] Abs [place] 0.74 k/uL Normal 0.00-0.[address] [facility] Abs Neut 6.21 k/uL Normal 1.45-7.[address] [facility] Basophils/100 WBC Auto (Bld) 0.3 % Normal [facility] Eosinophils Auto #/vol (Bld) 0.63 10*3/uL High 0.00-0.[address] [facility] Eosinophils/100 WBC Auto (Bld) 7.3 % Normal [facility] Erythrocyte distribution width Auto Ratio (RBC) 18.1 % High 11.5-15.[address] [facility] Hematocrit Auto Volume Fraction (Bld) 34.6 % Low 39.0-51.[address] [facility] Hemoglobin mass conc (Bld) 10.2 g/dL Low 13.0-17.[address] [facility] Lymphocytes Auto #/vol (Bld) 0.98 10*3/uL Low 1.00-4.[address] [facility] Lymphocytes/100 WBC Auto (Bld) 11.4 % Normal [facility] MCH Auto Entitic mass (RBC) 23.8 pG Low 26.0-34.[address] [facility] MCHC Auto mass conc (RBC) 29.5 g/dL Low 30.5-36.[address] [facility] MCV Auto Entitic volume (RBC) 80.7 fL Normal 80.0-100.[address] [facility] Monocytes/100 WBC Auto (Bld) 8.6 % Normal [facility] Neutrophils/100 WBC Auto (Bld) 72.4 % Normal [facility] Platelet mean volume Auto Entitic volume (Bld) 9.5 fL Normal 9.0-12.[address] [facility] Platelets Auto #/vol (Bld) 252 10*3/uL Normal 150-[address] [facility] RBC Auto #/vol (Bld) 4.29 10*6/uL Normal 4.20-6.[address] [facility] WBC Auto #/vol (Bld) 8.59 10*3/uL Normal 3.70-11.[address] [facility] Reticulocyteon 03-23-2018 Abs Retic 0.075 M/uL Normal 0.0180-0.[address] [facility] Comment on above: Performed By: #### R CBCDF ####[facility], [place] [phone] Retic% 1.8 % Normal 0.4-2.[address] [facility] Comment on above: Performed By: #### R CBCDF ####[facility], [place] [phone] Vitamin B12on 03-23-2018 Cobalamin (Vitamin B12) mass conc 434 pg/mL Normal 232-[address] [facility] Comment on above: Performed By: #### R CBCDF ####[place] [address], [place] [phone] CEAon 01-12-2018 CEA 5.4 ng/mL High 0.0-2.[address] [facility] Comment on above: Result Comment: Test analyzed by the Kady DxI method. Performed By: #### C MP, CEA ####[facility] [address] [place], [place] [phone] CNOVSPon 01-12-2018 CNOVSP Visit (SP) Office ([place]) -JONY MCKAY ([id number]) 1940 MDate Time Provider Department01/12/18 11:15 AM [...] iron deficiency.11/2015 : Admitted to [facility] with microcytic anemia, recommendationwas to complete [...] 08/10/2017Platelet Count 238 08/10/2017MPV 9.4 08/10/2017Neut% 69.5 9/26/2017Lymph% 12.8 04/13/2017Mono% 9.1 04/13/2017Eosin% 7.4 04/13/2017Baso% 1.2 04/13/2017Abs Neut (ANC) 6.33 04/13/2017Abs Lym 1.44 07/08/2016Abs [place] 0.83 04/13/2017Abs Eosin 0.67 04/13/2017Abs Baso 0.11 [...] adenoma-resection completedAlfred BEAN Agudeloefterrence Provider: LORENZO BELCHER [[id number]]Allergies As of Date: 01/12/2018(No Known Allergies)Date Reviewed: 01/12/2018Reviewed by: Noreen Cantu - Fully AssessedReason for Visit: Colon Cancer [529] Cmt: 3 month follow upPrimary Visit Diagnosis:History of colon cancer [Z85.038] Other Visit Diagnoses:Microcytic anemia [D50.9] Anemia of chronic renal failure, stage 4 (severe) (HCC) [N18.4, D63.1]Order(s):IRON + TIBC [SQIRON] Order #: [id number] FUTURE FERRITIN BLD [SQFERR] Order #: [id number] FUTURE VITAMIN B12 BLOOD [SQB12] Order #: [id number] FUTURE CBC + DIFF (FOR REMOTE [facility] USE) [SQRCBCDF] Order #: [id number] FUTURE RETIC COUNT [SQRETIC] Order #: [id number] FUTURE ERYTHROPOIETIN/EPO [SQEPO] Order #: [id number] FUTUREDisposition: Return in about 2 months (around [...] TABLET Take 1 mg by mouth twice aimrah* HYDRALAZINE 50 MG TABLET Take 50 mg [...] by LORENZO BELCHER MD on 01/24/[address] [facility] Comp Metabolic Panelon 01-12 Albumin mass conc 3.6 g/dL Low 3.9-4.9 [facility] Comment on above: Performed By: #### C MP, CEA ####[place] [address] [place] [phone] ALP enzyme act/vol 68 U/L Normal 36-[address] [facility] Comment on above: Performed By: #### C MP, CEA ####[place] [address] [place] [place] [phone] ALT enzyme act/vol 17 U/L Normal 10-[address] [facility] Comment on above: Performed By: #### C MP, CEA ####[place] [address] [address] [place] [phone] Anion gap 3 molar conc 11 mmol/L Normal 9-[address] [facility] Comment on above: Performed By: #### C MP, CEA ####[place] [address] [place] [place] [phone] AST enzyme act/vol 19 U/L Normal 14-[address] [facility] Comment on above: Performed By: #### C MP, CEA ####[place] [address] [address] [place] [phone] Bilirubin mass conc 0.4 mg/dL Normal 0.2-1.[address] [facility] Comment on above: Performed By: #### C MP, CEA ####[place] [address] [place] [place] [phone] Calcium mass conc 9.1 mg/dL Normal 8.5-10.2 [facility] Comment on above: Performed By: #### C MP, CEA ####[facility] [phone] Chloride molar conc 108 mmol/L High 97-[address] [facility] Comment on above: Performed By: #### C MP, CEA ####[facility] [phone] CO2 molar conc 23 mmol/L Normal 22-[address] [facility] Comment on above: Performed By: #### C MP, CEA ####[place] [address] [place] [phone] Creatinine mass conc 2.33 mg/dL High 0.73-1.[address] [facility] Comment on above: Performed By: #### C MP, CEA ####[place] [address] [place] [phone] eGFR- Amer. [address] [facility] Comment on above: Performed By: #### C MP, CEA ####[place] [phone] GFR/1.73 sq M predicted among non-blacks MDRD vol rate/area (S/P/Bld) 27 . Normal [facility] Comment on above: Result Comment: eGFR (Estimated [...] actual GFR. Performed By: #### C MP, CEA ####[place] [address] [place], [place] [phone] Glucose mass conc 215 mg/dL High 74-99 [facility] Comment on above: Result Comment: The [place] [employer] (ADA) provides guidance for cutoff [...] Standards of Medical Care in Diabetes 2016, [place] [employer]. Diabetes Care. 2016.39(Suppl 1). Performed By: #### C OLIVER, CEA ####[facility], [place] [phone] Potassium molar conc 4.7 mmol/L Normal 3.7-5.[address] [facility] Comment on above: Performed By: #### C OLIVER, CEA ####[facility] [place], [place] [phone] Protein mass conc 7.0 g/dL Normal 6.3-8.0 [facility] Comment on above: Performed By: #### C OLIVER, CEA ####[facility] [place], [place] [phone] Sodium molar conc 142 mmol/L Normal 136-144 [facility] Comment on above: Performed By: #### C OLIVER, CEA ####[facility] [address] [place], [place] [phone] Urea nitrogen mass conc 43 mg/dL High 9-[address] [facility] Comment on above: Performed By: #### C OLIVER, CEA ####[facility], [place] [phone] Creatinineon 01-12-2018 Creatinine 2.39 mg/dL High 0.50-1.30 [facility] Comment on above: Performed By: #### 1 [id number] ####[facility] [address] [place] [address] eGFR (MDRD) 27 mL/min/{1.73_m2} Normal [facility] Comment on above: Result Comment: Inte rpretation for Chronic Kidney Disease:Stages 1&2 >60 Healthy or potential kidney damage.Mild decrease of GFR.Stage 3 30-59 Moderate decrease of GFR.Stage 4 15-29 Severe decrease of GFR.Stage 5 <15 Kidney failure or on dialysis. Performed By: #### 1 [id number] ####[facility] [address] [place] [address] Electrolyte Panelon 01-13-20 18 Anion gap 11 mmol/L Normal 10-20 [facility] Comment on above: Performed By: #### 1 [id number] ####[facility] [address] [place] [address] Bicarbonate (HCO3) 26 mmol/L Normal 21-32 [facility] Comment on above: Performed By: #### 1 186472 ####[facility] [address] [place] [address] Chloride 111 mmol/L High 98-107 [facility] Comment on above: Performed By: #### 1 [id number] ####[facility] [address] [place] [address] Potassium molar conc 4.7 mmol/L Normal 3.5-5.1 [facility] Comment on above: Performed By: #### 1 [id number] ####[facility] [address] [place] [address] Sodium 143 mmol/L Normal 136-145 [facility] Comment on above: Performed By: #### 1 [id number] ####[facility] [address] [place] [address] PROGRESSon 01-12-2018 Protein mass conc HNO ID: [id number] thor: Lorenzo Tucker: (none)Author Type: PhysicianType: Progress NotesFiled: 01/24/2018 3:05 PMNote Text:CHIEF COMPLAINT: iron deficiency anemia, colorectal cancerHISTORY OF PRESENT ILLNESS: Jony Deppen is a 76 year old male whopresents in follow-up of above. Previously seen in consultation for irondeficiency.11/2015 : Admitted to [facility] with microcytic anemia,recommendation was to complete [...] Neut (ANC) 6.33 04/13/2017Abs Lym 1.44 07/08/2016Abs [place] 0.83 04/13/2017Abs Eosin 0.67 04/13/2017Abs Baso 0.11 [...] Tubulovillous adenoma-resection completedAlfred Desirae Belcher MD Normal [facility] Remote CBCDIF (for [facility] use o nly)on 01-12-2018 Abs Baso 0.12 k/uL High <0.[address] [facility] Comment on above: Performed By: #### R CBCDF ####[facility] [phone] Abs [place] 0.55 k/uL Normal <0.[address] [facility] Comment on above: Performed By: #### R CBCDF ####[facility] [address] [place] [phone] Abs Neut 6.01 k/uL Normal 1.45-7.[address] [facility] Comment on above: Performed By: #### R CBCDF ####[facility] [address] [place] [phone] Basophils/100 WBC Auto (Bld) 1.4 % Normal [facility] Comment on above: Performed By: #### R CBCDF ####[facility] [address] [place] [phone] Comment AGC=6.[address] [facility] Comment on above: Result Comment: Prel iminary result. Interpret with caution. Final results may vary. Results requested and read back by:MCKENNA CARRILLO NCCC1 @1045 6'27'18 NICOLLE Performed By: #### R CBCDF ####[facility] [place] [phone] Eosinophils Auto #/vol (Bld) 1.20 10*3/uL High <0.[address] [facility] Comment on above: Performed By: #### R CBCDF ####[place] [address], [place] [phone] Eosinophils/100 WBC Auto (Bld) 13.8 % Normal [facility] Comment on above: Performed By: #### R CBCDF ####[place] [address] [place] [phone] Erythrocyte distribution width Auto Ratio (RBC) 18.7 % High 11.5-15.[address] [facility] Comment on above: Performed By: #### R CBCDF ####[place] [address] [place] [phone] Hematocrit Auto Volume Fraction (Bld) 35.1 % Low 39.0-51.[address] [facility] Comment on above: Performed By: #### R CBCDF ####[place] [address] [place] [phone] Hemoglobin mass conc (Bld) 10.7 g/dL Low 13.0-17.[address] [facility] Comment on above: Performed By: #### R CBCDF ####[place] [address] [place] [phone] Lymphocytes Auto #/vol (Bld) 0.84 10*3/uL Low 1.00-4.[address] [facility] Comment on above: Performed By: #### R CBCDF ####[place] [address] [place] [phone] Lymphocytes/100 WBC Auto (Bld) 9.6 % Normal [facility] Comment on above: Performed By: #### R CBCDF ####[place] [address], [place] [phone] MCH Auto Entitic mass (RBC) 25.2 pG Low 26.0-34.[address] [facility] Comment on above: Performed By: #### R CBCDF ####[place] [address] [place], [place] [phone] MCHC Auto mass conc (RBC) 30.5 g/dL Normal 30.5-36.[address] [facility] Comment on above: Performed By: #### R CBCDF ####[place] [phone] MCV Auto Entitic volume (RBC) 82.6 fL Normal 80.0-100.[address] [facility] Comment on above: Performed By: #### R CBCDF ####[address] [phone] Monocytes/100 WBC Auto (Bld) 6.3 % Normal [facility] Comment on above: Performed By: #### R CBCDF ####[place] [phone] Neutrophils/100 WBC Auto (Bld) 68.9 % Normal [facility] Comment on above: Performed By: #### R CBCDF ####[address] [phone] Platelet mean volume Auto Entitic volume (Bld) 10.0 fL Normal 9.0-12.[address] [facility] Comment on above: Performed By: #### R CBCDF ####[place] [phone] Platelets Auto #/vol (Bld) 295 10*3/uL Normal 150-[address] [facility] Comment on above: Performed By: #### R CBCDF ####[address] [phone] RBC Auto #/vol (Bld) 4.25 10*6/uL Normal 4.20-6.[address] [facility] Comment on above: Performed By: #### R CBCDF ####[facility] [address], [place] [phone] WBC Auto #/vol (Bld) 8.94 10*3/uL Normal 3.70-11.[address] [facility] Comment on above: Performed By: #### R CBCDF ####[facility] [address], [place] [phone] Urea Nitrogenon 01-12-2018 Urea nitrogen 46 mg/dL High 6-23 [facility] Comment on above: Performed By: #### 1 [id number] ####[facility] [address] [place] [address] CEAon 11-30-2017 CEA 5.6 ng/mL High 0.0-2.[address] [facility] Comment on above: Result Comment: Test analyzed by the Kady DxI method. Performed By: #### C MP, IRON, FERR, CEA ####[facility], [place] [phone] CNOVSPon 11-30-2017 CNOVSP Visit (SP) Office ([place]) -JONY MCKAY ([id number]) 1940 MDate Time Provider Department11/30/17 11:30 AM SHANIQUA JEFFERY [...] the ascending colon. Would have resection- noted [id number], beta resection December 2015. Had repeat 08/2016 [...] didnot identify a monoclonal protein4. Tubulovillous adenoma-resection completedMINLORENA REYES-CCc:Dr. Tong Cerrato. EloshiReferring Provider: LORENZO BELCHER [[id number]]Allergies As of Date: 11/30/2017(No Known Allergies)Date Reviewed: 11/30/2017Reviewed by: Shaniqua Jeffery - Fully AssessedReason for Visit: Colon Cancer [529] Cmt: follow upPrimary Visit Diagnosis:Iron deficiency anemia, unspecified iron deficiency anemia type [D50.9] Other Visit Diagnoses:Anemia of chronic renal failure, stage 4 (severe) (HCC) [N18.4, D63.1] History of colon cancer [Z85.038]Order(s):CBC + DIFF (FOR REMOTE [facility] USE) [SQRCBCDF] Order #: [id number] FUTURE CEA BLD [SQCEA] Order #: [id number] FUTURE IRON + TIBC [SQIRON] Order #: [id number] FUTURE FERRITIN BLD [SQFERR] Order #: [id number] FUTURE COMP METABOLIC PANEL [SQCMP] Order #: [id number] FUTUREDisposition: Return in about 3 months (around 03/02/2018).Follow-up and Disposition History RecordedPrescriptions as of 11/30/2017 Sig: XARELTO ORAL Take by mouth. SITAGLIPTIN 100 MG TABLET Take 100 mg by mouth once lcaho* ASPIRIN 81 MG TABLET,DELAYED * Take 81 [...] colon cancer [Z85.038] INVALID FOR*Visit Notes:>> Isabel Venkat WedNovember 30, 2017 11:12 AM Status: SignedPatient looked over medication list. Medication list updated.Encounter Status:Closed by SHANIQUA JEFFERY on 11/30/[address] [facility] Comp Metabolic Panelon 11-30 Albumin mass conc 3.6 g/dL Low 3.9-4.9 [facility] Comment on above: Performed By: #### C MP, IRON, FERR, CEA ####[place] [address] [phone] ALP enzyme act/vol 78 U/L Normal 36-[address] [facility] Comment on above: Performed By: #### C MP, IRON, FERR, CEA ####[place] [address] [place] [phone] ALT enzyme act/vol 27 U/L Normal 10-[address] [facility] Comment on above: Performed By: #### C MP, IRON, FERR, CEA ####[place] [address] [phone] Anion gap 3 molar conc 12 mmol/L Normal 9-[address] [facility] Comment on above: Performed By: #### C MP, IRON, FERR, CEA ####[place] [address] [place] [phone] AST enzyme act/vol 20 U/L Normal 14-[address] [facility] Comment on above: Performed By: #### C MP, IRON, FERR, CEA ####[place] [address] [place] [phone] Bilirubin mass conc 0.4 mg/dL Normal 0.2-1.[address] [facility] Comment on above: Performed By: #### C MP, IRON, FERR, CEA ####[facility] [address] [place] [phone] Calcium mass conc 8.6 mg/dL Normal 8.5-10.2 [facility] Comment on above: Performed By: #### C MP, IRON, FERR, CEA ####[place] [address] [place] [phone] Chloride molar conc 106 mmol/L High 97-[address] [facility] Comment on above: Performed By: #### C MP, IRON, FERR, CEA ####[place] [address] [place] [phone] CO2 molar conc 25 mmol/L Normal 22-[address] [facility] Comment on above: Performed By: #### C MP, IRON, FERR, CEA ####[place] [address] [place] [phone] Creatinine mass conc 2.30 mg/dL High 0.73-1.[address] [facility] Comment on above: Performed By: #### C MP, IRON, FERR, CEA ####[place] [address] [place] [phone] eGFR- Amer. [address] [facility] Comment on above: Performed By: #### C MP, IRON, FERR, CEA ####[place] [address] [place] [phone] GFR/1.73 sq M predicted among non-blacks MDRD vol rate/area (S/P/Bld) 28 . Normal [facility] Comment on above: Result Comment: eGFR (Estimated [...] By: #### C MP, IRON, FERR, CEA ####[facility] [address], [place] [phone] Glucose mass conc 166 mg/dL High 74-99 [facility] Comment on above: Result Comment: The [place] [employer] (ADA) provides guidance for cutoff [...] Standards of Medical Care in Diabetes 2016, [place] [employer]. Diabetes Care. 2016.39(Suppl 1). Performed By: #### C MP, IRON, FERR, CEA ####[facility] [address], [place] [phone] Potassium molar conc 4.8 mmol/L Normal 3.7-5.[address] [facility] Comment on above: Performed By: #### C MP, IRON, FERR, CEA ####[facility] [address], [place] [phone] Protein mass conc 7.0 g/dL Normal 6.3-8.0 [facility] Comment on above: Performed By: #### C MP, IRON, FERR, CEA ####[facility] [address], [place] [phone] Sodium molar conc 143 mmol/L Normal 136-144 [facility] Comment on above: Performed By: #### C MP, IRON, FERR, CEA ####[facility] [address], [place] [phone] Urea nitrogen mass conc 38 mg/dL High 9-[address] [facility] Comment on above: Performed By: #### C MP, IRON, FERR, CEA ####[place] [phone] Ferritinon 11-30-2017 Ferritin 33.0 ng/mL Normal 30.3-565.[address] [facility] Comment on above: Performed By: #### C MP, IRON, FERR, CEA ####[place] [phone] Iron and TIBCon 11-30-2017 Iron mass conc 32 ug/dL Low 41-[address] [facility] Comment on above: Performed By: #### C MP, IRON, FERR, CEA ####[place] [phone] TIBC 304 ug/dL Normal 232-[address] [facility] Comment on above: Performed By: #### C MP, IRON, FERR, CEA ####[place] [phone] Transferrin Saturatn 11 % Low 15-[address] [facility] Comment on above: Performed By: #### C MP, IRON, FERR, CEA ####[place] [phone] PROGRESSon 11-30-2017 Protein mass conc HNO ID: [id number] thor: Shaniqua Boogieervice: (none)Author Type: Physician AssistantType: [...] not identify a monoclonal protein4. Tubulovillous adenoma-resection completedMINLORENA REYES-CCc:Dr. Tong Neil Normal [facility] Remote CBCDIF (for [facility] use o nly)on 11-30-2017 Abs Baso 0.05 k/uL Normal <0.[address] [facility] Comment on above: Performed By: #### R CBCDF ####[facility] [place] [phone] Abs [place] 0.68 k/uL Normal <0.[address] [facility] Comment on above: Performed By: #### R CBCDF ####[place] [address] [address] [place] [phone] Abs Neut 5.95 k/uL Normal 1.45-7.[address] [facility] Comment on above: Performed By: #### R CBCDF ####[place] [address] [address] [place] [phone] Basophils/100 WBC Auto (Bld) 0.6 % Normal [facility] Comment on above: Performed By: #### R CBCDF ####[place] [address] [phone] Comment AGC=6.[address] [facility] Comment on above: Result Comment: Prel iminary result. Interpret with caution. Final results may vary. Results requested and read back by:MAL/KRUNAL/1118/11/30/17/ANA Performed By: #### R CBCDF ####[place] [address] [address] [place] [phone] Eosinophils Auto #/vol (Bld) 0.14 10*3/uL Normal <0.[address] [facility] Comment on above: Performed By: #### R CBCDF ####[place] [address], [place] [phone] Eosinophils/100 WBC Auto (Bld) 1.6 % Normal [facility] Comment on above: Performed By: #### R CBCDF ####[place] [address] [place] [phone] Erythrocyte distribution width Auto Ratio (RBC) 19.4 % High 11.5-15.[address] [facility] Comment on above: Performed By: #### R CBCDF ####[address] [phone] Hematocrit Auto Volume Fraction (Bld) 38.0 % Low 39.0-51.[address] [facility] Comment on above: Performed By: #### R CBCDF ####[place] [phone] Hemoglobin mass conc (Bld) 11.8 g/dL Low 13.0-17.[address] [facility] Comment on above: Performed By: #### R CBCDF ####[place] [phone] Lymphocytes Auto #/vol (Bld) 0.93 10*3/uL Low 1.00-4.[address] [facility] Comment on above: Performed By: #### R CBCDF ####[place] [phone] Lymphocytes/100 WBC Auto (Bld) 12.0 % Normal [facility] Comment on above: Performed By: #### R CBCDF ####[place] [phone] MCH Auto Entitic mass (RBC) 25.4 pG Low 26.0-34.[address] [facility] Comment on above: Performed By: #### R CBCDF ####[place] [phone] MCHC Auto mass conc (RBC) 31.1 g/dL Normal 30.5-36.[address] [facility] Comment on above: Performed By: #### R CBCDF ####[address] [phone] MCV Auto Entitic volume (RBC) 81.9 fL Normal 80.0-100.[address] [facility] Comment on above: Performed By: #### R CBCDF ####[address] [phone] Monocytes/100 WBC Auto (Bld) 8.8 % Normal [facility] Comment on above: Performed By: #### R CBCDF ####[address] [phone] Neutrophils/100 WBC Auto (Bld) 76.8 % Normal [facility] Comment on above: Performed By: #### R CBCDF ####[address] [phone] Platelet mean volume Auto Entitic volume (Bld) 10.1 fL Normal 9.0-12.[address] [facility] Comment on above: Performed By: #### R CBCDF ####[address] [phone] Platelets Auto #/vol (Bld) 180 10*3/uL Normal 150-[address] [facility] Comment on above: Performed By: #### R CBCDF ####[address] [phone] RBC Auto #/vol (Bld) 4.64 10*6/uL Normal 4.20-6.[address] [facility] Comment on above: Performed By: #### R CBCDF ####[address] [phone] WBC Auto #/vol (Bld) 7.86 10*3/uL Normal 3.70-11.[address] [facility] Comment on above: Performed By: #### R CBCDF ####[address] [phone] CEAon 08-10-2017 CEA 4.9 ng/mL High 0.0-2.[address] [facility] Comment on above: Result Comment: Test analyzed by the Kady DxI method. Performed By: #### C MP, FERR, IRON, CEA ####[facility] [address], [place] [phone] CNOVSPon 08-10-2017 CNOVSP Visit (SP) Office ([place]) -JONY MCAKY ([id number]) 1940 MDate Time Provider Department08/10/17 10:45 AM [...] the ascending colon. Would have resection- noted [id number], beta resection December 2015. Had repeat 08/2016 [...] daily as directed. On hold09/10 for OR 3o current facility-administered medications for this visit.REVIEW OF [...] kg (256 lb 3.2 oz) BMI 35.63 kg/l5Ruesebs appearance: No distress, alert awakeLungs: clear to [...] Neut (ANC) 6.33 04/13/2017Abs Lym 1.44 07/08/2016Abs [place] 0.83 04/13/2017Abs Eosin 0.67 04/13/2017Abs Baso 0.11 [...] completedAled Desirae Belcher, MDReferring Provider: LORENZO BELCHER [[id number]]Allergies As of Date: 08/10/2017(No Known Allergies)Date Reviewed: 08/10/2017Reviewed by: Lorenzo Belcher - Fully AssessedReason for Visit: Anemia [6] Cmt: 4 month follow upPrimary Visit Diagnosis:History of colon cancer [Z85.038] Other Visit Diagnoses:Iron deficiency anemia, unspecified iron deficiency anemia type [D50.9] Abnormal weight gain [R63.5] Chronic kidney disease, stage IV (severe) (HCC) [N18.4]Order(s):TSH BLD [SQTSH] Order #: [id number] FUTURE CBC + DIFF (FOR REMOTE [facility] USE) [SQRCBCDF] Order #: [id number] FUTURE COMP METABOLIC PANEL [SQCMP] Order #: [id number] FUTURE IRON + TIBC [SQIRON] Order #: [id number] FUTURE FERRITIN BLD [SQFERR] Order #: [id number] FUTURE CEA BLD [SQCEA] Order #: [id number] FUTUREDisposition: Return in about 4 months (around [...] * Take 60 mg by mouth once mairah* WARFARIN 5 MG TABLET Take 5 mg by mouth daily as d*Problem List As Of Date 08/10/2017 Noted Resolved Microcytic anemia [D50.9] INVALID FOR* Anemia of chronic kidney failure [N18.9, D63.1] INVALID FOR* Iron deficiency anemia [D50.9] INVALID FOR* History of colon cancer [Z85.038] INVALID FOR*Encounter Status:Closed by LORENZO BELCHER MD on 08/10/[address] [facility] Comp Metabolic Panelon 08-10 Albumin mass conc 3.4 g/dL Low 3.9-4.9 [facility] Comment on above: Performed By: #### C MP, FERR, IRON, CEA ####[facility], [place] [phone] ALP enzyme act/vol 81 U/L Normal 36-[address] [facility] Comment on above: Performed By: #### C MP, FERR, IRON, CEA ####[facility], [place] [phone] ALT enzyme act/vol 20 U/L Normal 10-[address] [facility] Comment on above: Performed By: #### C MP, FERR, IRON, CEA ####[facility], [place] [phone] Anion gap 3 molar conc 11 mmol/L Normal 9-[address] [facility] Comment on above: Performed By: #### C MP, FERR, IRON, CEA ####[facility], [place] [phone] AST enzyme act/vol 17 U/L Normal 14-[address] [facility] Comment on above: Performed By: #### C MP, FERR, IRON, CEA ####[facility] [place] [phone] Bilirubin mass conc 0.3 mg/dL Normal 0.2-1.[address] [facility] Comment on above: Performed By: #### C MP, FERR, IRON, CEA ####[place] [address] [address] [place] [phone] Calcium mass conc 8.9 mg/dL Normal 8.5-10.2 [facility] Comment on above: Performed By: #### C MP, FERR, IRON, CEA ####[place] [address] [address] [place] [phone] Chloride molar conc 103 mmol/L Normal 97-[address] [facility] Comment on above: Performed By: #### C MP, FERR, IRON, CEA ####[place] [address] [address] [place] [phone] CO2 molar conc 26 mmol/L Normal 22-[address] [facility] Comment on above: Performed By: #### C MP, FERR, IRON, CEA ####[place] [address] [address] [place] [phone] Creatinine mass conc 2.39 mg/dL High 0.73-1.[address] [facility] Comment on above: Performed By: #### C MP, FERR, IRON, CEA ####[place] [address] [address] [place] [phone] eGFR- Amer. [address] [facility] Comment on above: Performed By: #### C MP, FERR, IRON, CEA ####[place] [address] [address] [place] [phone] GFR/1.73 sq M predicted among non-blacks MDRD vol rate/area (S/P/Bld) 27 . Normal [facility] Comment on above: Result Comment: eGFR (Estimated [...] By: #### C MP, FERR, IRON, CEA ####[facility] [place], [place] [phone] Glucose mass conc 174 mg/dL High 74-99 [facility] Comment on above: Result Comment: The [place] [employer] (ADA) provides guidance for cutoff [...] Standards of Medical Care in Diabetes 2016, [place] [employer]. Diabetes Care. 2016.39(Suppl 1). Performed By: #### C MP, FERR, IRON, CEA ####[facility] [place], [place] [phone] Potassium molar conc 4.3 mmol/L Normal 3.7-5.[address] [facility] Comment on above: Performed By: #### C MP, FERR, IRON, CEA ####[facility] [place], [place] [phone] Protein mass conc 7.9 g/dL Normal 6.3-8.0 [facility] Comment on above: Performed By: #### C MP, FERR, IRON, CEA ####[facility] [place], [place] [phone] Sodium molar conc 140 mmol/L Normal 136-144 [facility] Comment on above: Performed By: #### C MP, FERR, IRON, CEA ####[place] [address] [address] [place] [phone] Urea nitrogen mass conc 34 mg/dL High 9-[address] [facility] Comment on above: Performed By: #### C MP, FERR, IRON, CEA ####[place] [address] [address] [place] [phone] Ferritinon 08-10-2017 Ferritin 45.5 ng/mL Normal 30.3-565.[address] [facility] Comment on above: Performed By: #### C MP, FERR, IRON, CEA ####[address] [phone] Iron and TIBCon 08-10-2017 Iron mass conc 31 ug/dL Low 41-[address] [facility] Comment on above: Performed By: #### C MP, FERR, IRON, CEA ####[address] [phone] TIBC 275 ug/dL Normal 232-[address] [facility] Comment on above: Performed By: #### C MP, FERR, IRON, CEA ####[place] [phone] Transferrin Saturatn 11 % Low 15-[address] [facility] Comment on above: Performed By: #### C MP, FERR, IRON, CEA ####[address] [phone] PROGRESSon 08-10-2017 Protein mass conc HNO ID: [id number] thor: Lorenzo Tucker: (none)Author Type: PhysicianType: Progress [...] kg (256 lb 3.2 oz) BMI 35.63 kg/u4Usgqgci appearance: No distress, alert awakeLungs: clear to [...] Neut (ANC) 6.33 04/13/2017Abs Lym 1.44 07/08/2016Abs [place] 0.83 04/13/2017Abs Eosin 0.67 04/13/2017Abs Baso 0.11 [...] Tubulovillous adenoma-resection completedAlfred Desirae Belcher MD Normal [facility] Remote CBCDIF (for [facility] use o nly)on 08-10-2017 Abs Baso 0.08 k/uL Normal <0.[address] [facility] Comment on above: Performed By: #### R CBCDF ####[facility] [address], [place] [phone] Abs [place] 0.72 k/uL Normal <0.[address] [facility] Comment on above: Performed By: #### R CBCDF ####[facility] [address], [place] [phone] Abs Neut 5.73 k/uL Normal 1.45-7.[address] [facility] Comment on above: Performed By: #### R CBCDF ####[place] [phone] Basophils/100 WBC Auto (Bld) 1.0 % Normal [facility] Comment on above: Performed By: #### R CBCDF ####[place] [phone] Comment AGC=5.[address] [facility] Comment on above: Result Comment: Prel iminary result. Interpret with caution. Final results may vary. Results requested and read back by: [email or web address] @1100 NICOLLE Performed By: #### R CBCDF ####[address] [phone] Eosinophils Auto #/vol (Bld) 0.47 10*3/uL High <0.[address] [facility] Comment on above: Performed By: #### R CBCDF ####[place] [phone] Eosinophils/100 WBC Auto (Bld) 5.8 % Normal [facility] Comment on above: Performed By: #### R CBCDF ####[place] [phone] Erythrocyte distribution width Auto Ratio (RBC) 18.7 % High 11.5-15.[address] [facility] Comment on above: Performed By: #### R CBCDF ####[place] [phone] Hematocrit Auto Volume Fraction (Bld) 39.7 % Normal 39.0-51.[address] [facility] Comment on above: Performed By: #### R CBCDF ####[place] [phone] Hemoglobin mass conc (Bld) 12.2 g/dL Low 13.0-17.[address] [facility] Comment on above: Performed By: #### R CBCDF ####[place] [address], [place] [phone] Lymphocytes Auto #/vol (Bld) 1.07 10*3/uL Normal 1.00-4.[address] [facility] Comment on above: Performed By: #### R CBCDF ####[place] [address] [place] [phone] Lymphocytes/100 WBC Auto (Bld) 13.3 % Normal [facility] Comment on above: Performed By: #### R CBCDF ####[place] [address], [place] [phone] MCH Auto Entitic mass (RBC) 24.6 pG Low 26.0-34.[address] [facility] Comment on above: Performed By: #### R CBCDF ####[place] [address] [place] [phone] MCHC Auto mass conc (RBC) 30.7 g/dL Normal 30.5-36.[address] [facility] Comment on above: Performed By: #### R CBCDF ####[place] [address] [address], [place] [phone] MCV Auto Entitic volume (RBC) 80.2 fL Normal 80.0-100.[address] [facility] Comment on above: Performed By: #### R CBCDF ####[place] [address] [place] [phone] Monocytes/100 WBC Auto (Bld) 8.9 % Normal [facility] Comment on above: Performed By: #### R CBCDF ####[place] [address], [place] [phone] Neutrophils/100 WBC Auto (Bld) 71.0 % Normal [facility] Comment on above: Performed By: #### R CBCDF ####[place] [address], [place] [phone] Platelet mean volume Auto Entitic volume (Bld) 9.4 fL Normal 9.0-12.[address] [facility] Comment on above: Performed By: #### R CBCDF ####[address] [phone] Platelets Auto #/vol (Bld) 238 10*3/uL Normal 150-[address] [facility] Comment on above: Performed By: #### R CBCDF ####[address] [phone] RBC Auto #/vol (Bld) 4.95 10*6/uL Normal 4.20-6.[address] [facility] Comment on above: Performed By: #### R CBCDF ####[address] [phone] WBC Auto #/vol (Bld) 8.00 10*3/uL Normal 3.70-11.[address] [facility] Comment on above: Performed By: #### R CBCDF ####[address] [phone] TSHon 08-10-2017 Thyrotropin Qn 2.540 uU/mL Normal 0.400-5.500 [facility] Comment on above: Performed By: #### T SH ####[address] [phone] Vital Signs Date Time Vital Sign Value Performing Clinician Facility 09-15-2023 10:41-0500 Diastolic blood pressure 78 mm[Hg] Sameera Simmons MD Work Phone: [facility] 09-15-2023 10:41-0500 Systolic blood pressure 136 mm[Hg] Sameera Simmons MD Work Phone: [facility] 09-15-2023 10:14-0500 Body height 188 cm Sameera Simmons MD Work Phone: [facility] 09-15-2023 10:14-0500 Body mass index (BMI) [Ratio] 27.48 kg/m2 Sameera Simmons MD Work Phone: [facility] 09-15-2023 10:14-0500 Body weight 97.07 kg Sameera Simmons MD Work Phone: [facility] 09-15-2023 10:14-0500 Heart rate 72 /min Sameera Simmons MD Work Phone: [facility] 09-02-2023 13:15-0500 Body height 188 cm Pillo Mckenna DPM Work Phone: [facility] 09-02-2023 13:15-0500 Body mass index (BMI) [Ratio] 29.53 kg/m2 Pillo Mckenna DPM Work Phone: [facility] 09-02-2023 13:15-0500 Body weight 104.33 kg Pillo Mckenna DPM Work Phone: [facility] 09-02-2023 13:15-0500 Diastolic blood pressure 80 mm[Hg] Pillo Mckenna DPM Work Phone: [facility] 09-02-2023 13:15-0500 Heart rate 79 /min Pillo Mckenna DPM Work Phone: [facility] 09-02-2023 13:15-0500 Systolic blood pressure 123 mm[Hg] Pillo Mckenna DPM Work Phone: [facility] 03-10-2023 10:34-0400 Body height 187.96 cm Antonio Canales Work Phone: [facility] 250 DO Work Phone: 03-10-2023 10:34-0400 Body mass index (BMI) [Ratio] 29.53 kg/m2 Antonio Canales Work Phone: [facility] 250 DO Work Phone: 03-10-2023 10:34-0400 Body surface area Derived from formula 2.31 m2 Antonio Canales Work Phone: [facility] [address] DO Work Phone: 03-10-2023 10:34-0400 Body weight 104.33 kg Antonio Canales Work Phone: [facility] 250 DO Work Phone: 03-10-2023 10:34-0400 Diastolic blood pressure 58 mm[Hg] Antonio Canales Work Phone: [facility] [address] DO Work Phone: 03-10-2023 10:34-0400 Heart rate 66 /min Antonio Canales Work Phone: [facility] 250 DO Work Phone: 03-10-2023 10:34-0400 Systolic blood pressure 118 mm[Hg] Antonio Canales Work Phone: [facility] 250 DO Work Phone: 09-23-2022 11:00-0500 Body height 192.02 cm Ipselexgeneva [employer] Other [employer] Other 09-23-2022 11:00-0500 Body mass index (BMI) [Ratio] 28.51 kg/m2 [employer] Other [employer] Other 09-23-2022 11:00-0500 Body temperature 97.2 [degF] [employer] Other [employer] Other 09-23-2022 11:00-0500 Body weight 105.14 kg Ipselexgeneva [employer] Other [employer] Other 09-23-2022 11:00-0500 Diastolic blood pressure 66 mm[Hg] Barbara Cordova Other [facility] [employer] Other 09-23-2022 11:00-0500 Respiratory rate 20 /min Barbara Cordova Other [facility] [employer] Other 09-23-2022 11:00-0500 SaO2% (BldA) [Mass fraction] 93 % Barbara Cordova Other [facility] [employer] Other 09-23-2022 11:00-0500 Systolic blood pressure 103 mm[Hg] Barbara Cordova Other [facility] [employer] Other 09-02-2022 10:31-0500 Body height 187.96 cm Sameera Simmons MD Work Phone: [facility] [place] 250 DO Work Phone: 09-02-2022 10:31-0500 Body mass index (BMI) [Ratio] 30.56 kg/m2 Sameera Simmons MD Work Phone: [facility] [place] 250 DO Work Phone: 09-02-2022 10:31-0500 Body surface area Derived from formula 2.34 m2 Sameera Simmons MD Work Phone: [facility] [employer] 250 DO Work Phone: 09-02-2022 10:31-0500 Body weight 107.96 kg Sameera Simmons MD Work Phone: [facility] 250 DO Work Phone: 09-02-2022 10:31-0500 Diastolic blood pressure 74 mm[Hg] Sameera Simmons MD Work Phone: [facility] [place] 250 DO Work Phone: 09-02-2022 10:31-0500 Heart rate 78 /min Sameera Simmons MD Work Phone: [facility] 250 DO Work Phone: 09-02-2022 10:31-0500 Systolic blood pressure 114 mm[Hg] Sameera Simmons MD Work Phone: [facility] 250 DO Work Phone: 05-20-2022 12:20-0400 Body height 192.02 cm Azgeneva Molinas Other [employer] Other 05-20-2022 12:20-0400 Body mass index (BMI) [Ratio] 29.1 kg/m2 Azgeneva [employer] Other [employer] Other 05-20-2022 12:20-0400 Body temperature 97.5 [degF] Azgeneva Bakramones Other [employer] Other 05-20-2022 12:20-0400 Body weight 107.32 kg Aziz Bakhous Other [employer] Other 05-20-2022 12:20-0400 Diastolic blood pressure 86 mm[Hg] Aziz Bakhous Other [employer] Other 05-20-2022 12:20-0400 Respiratory rate 20 /min Aziz Bakhous Other [employer] Other 05-20-2022 12:20-0400 SaO2% (BldA) [Mass fraction] 94 % Aziz Bakhous Other [employer] Other 05-20-2022 12:20-0400 Systolic blood pressure 126 mm[Hg] Barbara Cordova Other [facility] [employer] Other 03-24-2022 10:01-0400 Diastolic blood pressure 70 mm[Hg] Sameera Simmons MD Work Phone: [facility] 250 DO Work Phone: 03-24-2022 10:01-0400 Systolic blood pressure 110 mm[Hg] Sameera Simmons MD Work Phone: [facility] 250 DO Work Phone: 03-24-2022 09:43-0400 Diastolic blood pressure 88 mm[Hg] Sameera Simmons MD Work Phone: [facility] 250 DO Work Phone: 03-24-2022 09:43-0400 Systolic blood pressure 130 mm[Hg] Sameera Simmons MD Work Phone: [facility] 250 DO Work Phone: 03-24-2022 09:33-0400 Body height 187.96 cm Sameera Simmons MD Work Phone: [facility] 250 DO Work Phone: 03-24-2022 09:33-0400 Body mass index (BMI) [Ratio] 29.92 kg/m2 Sameera Simmons MD Work Phone: [facility] DO Work Phone: 03-24-2022 09:33-0400 Body surface area Derived from formula 2.32 m2 Sameera Simmons MD Work Phone: [facility] 250 DO Work Phone: 03-24-2022 09:33-0400 Body weight 105.69 kg Sameera Simmons MD Work Phone: [facility] 250 DO Work Phone: 03-24-2022 09:33-0400 Diastolic blood pressure 100 mm[Hg] Sameera Simmons MD Work Phone: [facility] DO Work Phone: 03-24-2022 09:33-0400 Heart rate 70 /min Sameera Simmons MD Work Phone: [facility] DO Work Phone: 03-24-2022 09:33-0400 Systolic blood pressure 130 mm[Hg] Sameera Simmons MD Work Phone: [facility] DO Work Phone: 02-18-2022 11:05-0400 Diastolic blood pressure 94 mm[Hg] Sameera Simmons MD Work Phone: [facility] DO Work Phone: 02-18-2022 11:05-0400 Systolic blood pressure 160 mm[Hg] Sameera Simmons MD Work Phone: [facility] 250 DO Work Phone: 02-18-2022 10:30-0400 Body height 187.96 cm Sameera Simmons MD Work Phone: [facility] 250 DO Work Phone: 02-18-2022 10:30-0400 Body mass index (BMI) [Ratio] 30.04 kg/m2 Sameera Simmons MD Work Phone: [facility] 250 DO Work Phone: 02-18-2022 10:30-0400 Body surface area Derived from formula 2.32 m2 Sameera Simmons MD Work Phone: [facility] 250 DO Work Phone: 02-18-2022 10:30-0400 Body weight 106.14 kg Sameera Simmons MD Work Phone: [facility] 250 DO Work Phone: 02-18-2022 10:30-0400 Diastolic blood pressure 96 mm[Hg] Sameera Simmons MD Work Phone: [facility] 250 DO Work Phone: 02-18-2022 10:30-0400 Heart rate 66 /min Sameera Simmons MD Work Phone: [facility] 250 DO Work Phone: 02-18-2022 10:30-0400 Systolic blood pressure 152 mm[Hg] Sameera Simmons MD Work Phone: [facility] 250 DO Work Phone: 01-14-2022 12:20-0400 Body height 192.02 cm Barbara [employer] Other [facility] [employer] Other 01-14-2022 12:20-0400 Body mass index (BMI) [Ratio] 29.2 kg/m2 Barbara [employer] Other [facility] [employer] Other 01-14-2022 12:20-0400 Body temperature 97.6 [degF] Barbara [employer] Other [employer] Other 01-14-2022 12:20-0400 Body weight 107.68 kg Barbara [employer] Other [employer] Other 01-14-2022 12:20-0400 Diastolic blood pressure 93 mm[Hg] Barbara Cordova Other [employer] Other 01-14-2022 12:20-0400 Respiratory rate 20 /min Barbara Molinas Other [employer] Other 01-14-2022 12:20-0400 SaO2% (BldA) [Mass fraction] 95 % Aziz Bakramones Other [employer] Other 01-14-2022 12:20-0400 Systolic blood pressure 151 mm[Hg] Aziz Jesses Other [employer] Other 09-10-2021 14:20-0500 Body height 192.02 cm Barbara Molinas Other [employer] Other 09-10-2021 14:20-0500 Body mass index (BMI) [Ratio] 29.47 kg/m2 Barbara Molinas Other [employer] Other 09-10-2021 14:20-0500 Body temperature 97.6 [degF] Barbara Molinas Other [employer] Other 09-10-2021 14:20-0500 Body weight 108.68 kg Barbara Bakramones Other [employer] Other 09-10-2021 14:20-0500 Diastolic blood pressure 93 mm[Hg] Aziz Jesses Other [employer] Other 09-10-2021 14:20-0500 Respiratory rate 20 /min Barbara Gordonhous Other [employer] Other 09-10-2021 14:20-0500 SaO2% (BldA) [Mass fraction] 96 % Azgeneva Bakhous Other [employer] Other 09-10-2021 14:20-0500 Systolic blood pressure 155 mm[Hg] Barbara Cordova Other [facility] [employer] Other 08-29-2021 10:11-0500 Body height 187.96 cm Sameera Simmons MD Work Phone: [facility] 250 DO Work Phone: 08-29-2021 10:11-0500 Body mass index (BMI) [Ratio] 30.69 kg/m2 Sameera Simmons MD Work Phone: [facility] 250 DO Work Phone: 08-29-2021 10:11-0500 Body surface area Derived from formula 2.34 m2 Sameera Simmons MD Work Phone: [facility] 250 DO Work Phone: 08-29-2021 10:11-0500 Body weight 108.41 kg Sameera Simmons MD Work Phone: [facility] 250 DO Work Phone: 08-29-2021 10:11-0500 Diastolic blood pressure 72 mm[Hg] Sameera Simmons MD Work Phone: [facility] [facility] 250 DO Work Phone: 08-29-2021 10:11-0500 Heart rate 84 /min Sameera Simmons MD Work Phone: [facility] [facility] 250 DO Work Phone: 08-29-2021 10:11-0500 Systolic blood pressure 136 mm[Hg] Sameera Simmons MD Work Phone: [facility] 250 DO Work Phone: Encounters Encounter Date Encounter Type Care Provider Facility Start: 09-23-2023 End: 09-23-2023 ambulatory STEPHANIE MARSHALL Not Available Start: 09-15-2023 End: 09-15-2023 Office outpatient visit 25 minutes Sameera Simmons MD Work Phone: [facility] Comment on above: High risk medication use (Primary Dx); Atherosclerosis of coronary artery, unspecified vessel or lesion type, unspecified whether angina present, unspecified whether hoopa or transplanted heart; Permanent atrial fibrillation (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) Start: 09-09-2023 End: 09-09-2023 ambulatory STEPHANIE MARSHALL Not Available Start: 09-02-2023 End: 09-02-2023 ambulatory PILLO MCKENNA Not Available Start: 09-02-2023 Chart abstracting Pillo jovel DPM Work Phone: [facility] Start: 09-02-2023 End: 09-02-2023 Office outpatient visit 15 minutes Pillo Mckenna DPM Work Phone: [facility] Comment on above: Dry gangrene ([facility]/ C) (Primary Dx); Diabetes mellitus due to underlying condition with diabetic polyneuropathy, without long-term current use of insulin ([facility]); Onychomycosis; Toe pain, bilateral; PVD (peripheral vascular disease) ([facility]) Start: 06-24-2023 End: 06-24-2023 ambulatory PILLO MCKENNA Not Available Start: 03-10-2023 Office outpatient vi sit 25 minutes Antonio Canales Work Phone: [facility] 250 DO Work Phone: Start: 03-10-[address] Sameera Simmons Facility: Start: 09-23-2022 End: 09-23-2022 ambulatory Barbara Cordova Other [facility] [employer] Other Start: 09-23-2022 Office outpatient vi sit 25 minutes Aziz Bakhous [facility] Start: 09-15-2022 End: 09-16-2022 ambulatory AZGENEVA MOLINAS Facility:[facility]1 Start: 09-02-2022 Office outpatient vi sit 25 minutes Sameera Simmons MD Work Phone: [facility] 250 DO Work Phone: Start: 09-02-[address] Sameera Simmons Facility: Start: 05-20-2022 End: 05-20-2022 ambulatory Azgeneva Bakhous Other [facility] [employer] Other Start: 05-20-2022 Office outpatient vi sit 25 minutes Aziz Bakhous [facility] Start: 05-18-2022 End: 05-19-2022 ambulatory BARBARA CORDOVA Facility:[facility]1 Start: 03-24-2022 Office outpatient vi sit 10 minutes Sameera Simmons MD Work Phone: [facility] 250 DO Work Phone: Start: 03-24-[address] Sameera Simmons Facility: Start: 02-18-2022 Office outpatient vi sit 25 minutes Sameera Simmons MD Work Phone: [facility] 250 DO Work Phone: Start: 01-14-2022 End: 01-14-2022 ambulatory Azgeneva Cordova Other [facility] [employer] Other Start: 01-14-2022 Office outpatient vi sit 25 minutes Aziz Bakhous [facility] Start: 01-10-2022 End: 01-11-[address] DOCTOR JEWELL Facility:[facility] Start: 01-09-2022 End: 01-10-[address] ANTONIO CANALES Facility:[facility]1 Start: 01-01-2022 End: 01-01-2022 Emergency department patient visit Kraig Mar Facility:[facility] Start: 12-29-2021 End: 12-29-2021 ambulatory Awildamarley Culverr Other [facility] [employer] Other Start: 12-29-2021 Telephone encounter Awilda Culverr [facility] Start: 09-10-2021 End: 09-10-2021 ambulatory Azgeneva Molinas Other [facility] [employer] Other Start: 09-10-2021 Office outpatient vi sit 15 minutes Aziz Heidiramones [facility] Start: 08-29-2021 Office outpatient vi sit 25 minutes Sameera Simmons MD Work Phone: [facility] [place] 250 DO Work Phone: Start: 06-06-2021 AUDIT Sameera Simmons MD Work Phone: [facility] [place] [address] [place] Work Phone: Start: 04-06-2018 End: 04-07-2018 Patient encounter LORENZO BELCHER [facility] Start: 03-30-2018 End: 03-31-2018 Patient encounter LORENZO BELCHER [facility] Start: 03-23-2018 End: 03-24-2018 Patient encounter LORENZO BELCHER [facility] Start: 01-12-2018 Ambulatory SAMEERA SIMMONS Facility :[id number] Start: 01-12-2018 End: 01-25-2018 Patient encounter LORENZO BELCHER [facility] Start: 11-30-2017 End: 12-01-2017 Patient encounter LORENZO BELCHER [facility] Start: 08-10-2017 End: 08-11-2017 Patient encounter LORENZO BELCHER [facility] Start: 04-07-2017 Ambulatory SAMEERA SIMMONS Facility :[id number] [...] Activity Detail Author Start: 09-13-2024 Echocardiography Echocardiogram [facility] Start: 05-20-2024 Medicare Annual Well ness (AWV) [...] procedure 03/29/2024 9:50 AM EDT Office Visit [facility] [address] [facility] [address] [place] [address] Sameera Simmons MD [address] [facility] [address] [place] [address] [facility] Start: 01-16-2024 Influenza vaccination Influenza Vacc ine (#1) [facility] Comment on above: Postponed from 03/19 (Patient Refused) Start: 11-11-2023 End: 11-11-2023 Patient encounter procedure 11/11/2023 2:10 PM EDT Office Visit [facility] [address] [place] [address] Pillo Mckenna DPM [address] [facility] [address] [place] [address] [facility] Start: 09-15-2023 FUV, Provider: Sameera Simmons, Status: Pen, Time: 10:00 AM FUV, Provider: Sameera Simmons, Status: Pen, Time: 10:[address] [facility] 250 DO Work Phone: Start: 09-09-2023 End: 09-09-2023 Patient encounter procedure 09/09/2023 2:00 PM EST Office Visit [facility] [address] [facility] [address] [place] [address] Antonio Canales MD [address] [facility] [address] [place], [place] [phone] [facility] Start: 09-02-2023 End: 10-01-2023 US.doppler Lower extremity artery Vascular US lower extremity arterial Doppler complete Vascular Ultrasound Routine Dry gangrene (CMS/HCC) PVD (peripheral vascular disease) ([facility]/HCC) Expected: 09/02/2023 (Approximate), Expires: 10/01/2023 [facility] Work Phone: Comment on above: Expected: 09/02/2023 (Approximate), Expires: 10/01/2023 Start: 09-02-2023 End: 09-02-2023 Patient encounter procedure 09/02/2023 1:20 PM EST Procedure Visit [facility] [address] [facility] [address] [place] [id number] Pillo Mckenna DPM [address] [facility] [address] [place] [address] [facility] Start: 08-20-2023 Hemoglobin A1c measurement Kourtney betes: Hemoglobin A1C [facility] Start: 03-19-2023 COVID-19 Vaccine ( season) COVID-19 Vaccine ( season) [facility] Start: 03-19-2023 Influenza vaccination Influenza Vacc ine (#1) [facility] Start: 08-23-2023 FUV, Provider: Sameera Simmons, Status: Pen, Time: 10:30 AM FUV, Provider: Sameera Simmons, Status: Pen, Time: 10:30 AM [facility] 250 DO Work Phone: Start: 09-02-2022 FUV, Provider: Sameera Simmons, Status: Pen, Time: 10:20 AM FUV, Provider: Sameera Simmons, Status: Pen, Time: 10:20 AM [facility] 250 DO Work Phone: Start: 03-10-2022 NURSEVST, Provider: RALF PEREZ TUBE WASHER 1,[id number], Status: Pen, Time: 10:00 AM NURSEVST, Provider: RALF PEREZ TUBE WASHER 1,[id number], Status: Pen, Time: 10:00 AM [facility] 250 DO Work Phone: Start: 02-18-2022 FUV, Provider: Sameera Simmons, Status: Pen, Time: 10:20 AM FUV, Provider: Sameera Simmons, Status: Pen, Time: 10:20 AM [facility] 250 DO Work Phone: Start: 08-20-2021 FUV, Provider: Sameera Simmons, Status: Pen, Time: 11:15 AM FUV, Provider: Sameera Simmons, Status: Pen, Time: 11:15 AM [facility] [place] Work Phone: Start: 03-24-2020 Pneumococcal Vaccine : 65+ Years (3 - PCV) Pneumococcal Vaccine: 65+ Years (3 - PCV) [facility] Start: 12-15-2019 Glaucoma screening Diabetes: R etinopathy Screening [facility] Start: 1992 Zoster Vaccines (1 of 2) Zoste r Vaccines (1 of 2) [facility] Start: 1964 DTaP/Tdap/Td Vaccine s (1 - Tdap) DTaP/Tdap/Td Vaccines (1 - Tdap) [facility] Start: 1961 Urine screening for protein Diabetes: Urine Protein Screening [facility] Start: 1952 Diabetic foot examination Diabetes: Foot Exam [facility] Start: 1952 Glaucoma screening Diabetes: R etinopathy Screening [facility] Start: 1940 Creatinine measurement Creatinine Le brendon [facility] Start: 1942 Hemoglobin A1c measurement Kourtney betes: Hemoglobin A1C [facility] Start: 1942 Lipid panel Lipid Panel [facility] Start: 1942 Medicare Annual Well ness Visit Medicare Annual Wellness Visit (AWV) [facility] Start: 1942 Potassium measurement Potassium Leve l [facility] Immunizations Immunization Date Immunization Notes Care Provider Carlos rojas 10-11-2020 Pfizer-BioNTech COVID-19 Vacc 30 MCG/0.3ML Intramuscular Suspension Sameera Simmons MD Work Phone: [place] [address] DO Work Phone: 09-20-2020 Pfizer-BioNTech COVID-19 Vacc 30 MCG/0.3ML Intramuscular Suspension Sameera Simmons MD Work Phone: [facility] 250 DO Work Phone: 03-24-2019 pneumococcal polysaccharide vaccine, 23 valent Sameera Simmons MD Work Phone: [facility] 07-19-2012 influenza virus vaccine, unspecified formulation Sameera Simmons MD Work Phone: [facility] 250 DO Work Phone: 07-19-2004 pneumococcal polysaccharide vaccine, 23 valmirna Simmons MD Work Phone: [facility] 250 DO Work Phone: NEGATED: Highlighted row has not occurred! 8 pneumococcal polysaccharide vaccine, 23 valent Patient Objection Barbara Cordova Other [employer] Other NEGATED: Highlighted row has not occurred! 8 zoster vaccine recombinant Patient Objection Barbara Cordova Other [employer] Other NEGATED: Highlighted row has not occurred! 8 influenza, high dose seasonal, preservative-free Patient Objection Barbara Cordova Other [employer] Other NEGATED: Highlighted row has not occurred! 6 influenza, injectable,quadrival ent, preservative free, pediatric Patient Objection Barbara Cordova Other [employer] Other NEGATED: Highlighted row has not occurred! 6 pneumococcal polysaccharide vaccine, 23 valent Barbara Cordova Other [employer] Other Payers Date Payer Category Payer Unknown 2022 Self-pay 2007 Medicare [id number] 1959 Medicare [id number] 2.1 [id number] 1959 Unknown [id number] 2.1 [id number] 1942 Unknown [id number] 2.16.84 [id number] 1942 Unknown [id number] 2.16.84 [id number] 1942 Unknown [id number] 2.16.84 [id number] 1942 Unknown [id number] 2.16.84 0.1.490568.3.579.2.593 1942 Unknown [id number] 2.16. [id number] 1942 Unknown [id number] 2.16. [id number] 1942 Unknown [id number] 2.16. [id number] 1942 Unknown [id number] 2.16.84 [id number] 1942 Unknown [id number] 2.16.84 [id number] 1942 Unknown [id number] 2.16.84 0.1.357875.3.579.2.1259 1942 Unknown [id number] 2.16.840 .[id number] Medicare [id number] Unknown [id number] 2.16.8 [id number] Social History Date Type Detail Facility Start: 02-11-2023 End: 09-15-2023 Daily caffeine consumption, 1 serving a day Daily caffeine consumption, 1 serving a day [facility] Work Phone: Start: 02-11-2023 End: 09-15-2023 Sex Assigned At [facility] Work Phone: Start: 01-26-2023 End: 09-15-2023 Tobacco smoking status [facility] Never smoked tobacco [facility] Start: 01-26-2023 End: 09-15-2023 Tobacco use and exposure Smokeless tobacco non-user [facility] Start: 09-01-2023 End: 09-15-2023 Alcohol intake Lifetime non-drinker (finding) [facility] Within the last year , have you been afraid of your partner or ex-partner? No [facility] Work Phone: Do you belong to any clubs or organizations such as confucianist groups, unions, fraternal or athletic groups, or [...] 09-15-2023 Exposure to SARS-CoV-2 (event) Not sure [facility] Medical Equipment Procedure Code Equipment Code Equipment Original Text Equi pment Identifier Dates 1 each by Other route every 12 (twelve) hours. [id number] Clinical Notes 09-10-2021 to 09-15-2023 Sameera Simmons MD - 09/15/2023 10:00 AM ESTPatient InstructionsPillo Mckenna DPM - 09/02/2023 1:20 PM EST Note Date & Type Note Facility 09-15-2023 History of Present illness Narrative Subjective Jony Nely Castellon. is a 83 y.o. male Chief Complaint Follow-up HPI Patient is in the office for follow-up for the problems noted below accompanied by his and his bppadgha-wp-etx. I saw the patient in the hospital for the last several days while he was inpatient at [facility] and was discharged home yesterday. He was [...] artery disease. Previous angioplasty in 2013 in [place]. Involving the LAD and the right coronary artery both are patent by cardiac catheterization November 2018, I reiterated the need for aggressive risk factors modification 6. High-risk medication, with anticoagulation. There has been no bleeding complications 7. Diabetes, managed by PCP, diabetes seems to be under control 8. 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 Ejection fraction echo August 2023 at [facility] 40-45%. Due to renal insufficiency the use [...] by mouth once daily., Disp: , Rfl: kvxronekian-ziglbnhjb-vaiicgwl (TRELEGY-ELLIPTA) 100-62.5-25 mcg blister with device, Inhale [...] type, unspecified whether angina present, unspecified whether hoopa or transplanted heart 3. Permanent atrial fibrillation [...] Scribe Attestation By signing my name below, Marline Henriquez LPN, Scribe attest that this documentation has [...] discussion and plan. documented in this encounter [facility] Work Phone: 09-15-2023 Instructions Marline Hope LPN [...] of your visit. documented in this encounter [facility] Work Phone: 09-02-2023 History of Present illness [...] History: Past Medical History: Diagnosis Date A-fib ([facility]) CL (acute kidney injury) on CKD2 Nephrolithiasis with Hydroureter may 23-2018 (hx of hospitalization) Anemia Arthritis CAD (coronary artery disease) ([facility]) CHF (congestive heart failure) ([facility]) Chronic airway obstruction ([facility]) Chronic kidney disease Chronic sinusitis 2012 CKD (chronic kidney disease) Colon cancer ([facility]) Controlled diabetes mellitus type II without complication ([facility]) COPD (chronic obstructive pulmonary disease) ([facility]) Coronary atherosclerosis ([facility] Depression ([facility]) Depression ([facility]) Deviated septum Diabetes mellitus ([facility]) Gout Hx of echocardiogram 04/07/2017 EF-45-50% Hydronephrosis of left kidney with ureteral calculus Hydronephrosis, left 04/2018 Hypertension ([facility]) SAVAGE (iron deficiency anemia) Impaired mobility, debility, bacteremia 2010 hx of hospitalization Lumbar discitis 2018 OA (osteoarthritis) involving multiple sites, but not specified as generalized Osteoarthritis of left hip Other forms of chronic ischemic heart disease ([facility]) Pneumonia 2010 Systolic CHF ([facility]) Tubulovillous adenoma resected Medications: Current Outpatient Medications: [...] Rfl: 5 cholecalciferol (Vitamin D-3) 50 MCG (1999 [place]) tablet, Take by mouth Daily., Disp: , Rfl: Coreg 25 MG tablet, Take 25 mg by mouth every 12 (twelve) hours., Disp: , Rfl: Tkgvcprocfx-Flyvkkmug-Yypmed (Trelegy Ellipta) 100-62.5-25 MCG/ACT aerosol powder , [...] min Stress: No Stress Concern Present (02/11/2023) [place] [place] [employer] - Occupational Stress Questionnaire Feeling of Stress : Not at all Social Connections: Socially Integrated (02/11/2023) Social Connection and Isolation Panel [NHANES] Frequency of Communication with Friends and Family: More than three times a week Frequency of Social Gatherings with Friends and Family: More than three times a week Attends Buddhist Services: More than 4 times per year [...] and negative PT pedal pulses NEURO: 5.07 [place] Td monofilament test intact to digits and forefoot bilaterally 125Hz tuning fork diminished to 1st MPJ bilaterally ORTHO: Positive pain on palpation to nails 1 through 10 Negative pain on palpation to left 3rd and 4th digits ASSESSMENT 1. Diabetes mellitus due to underlying condition with diabetic polyneuropathy, without long-term current use of insulin ([facility]) 2. Onychomycosis 3. Toe pain, bilateral 4. Dry gangrene ([facility]) 5. PVD (peripheral vascular disease) ([facility]) PLAN Patient continue with creams and lotions feet daily Discussed proper foot care with patient today. Debride nails in length and thickness digits 1 through 10 Will order LYNN and PVRs at [facility] with follow up of testing post test Discussed with patient if symptoms worsen or any drainage or redness to contact Podiatry once Pillo Mckenna DPM documented in this encounter [facility] 09-23-2022 Evaluation note Encounter Date Diagnosis Assessment [...] 13. I asked the patient to take hvxs-ulp-bfn nter vitamin D supplement. I will check PTH and 25 [place] VD next visit Sep, Hyperlipidemia LDL goal <100 (ICD-10 - E78.5) 25-hydroxy vitamin D level next visitF/U with Dr. Simmons. He used to be on atorvastatin . Sep, Vitamin D deficiency (ICD-10 - E55.9) I asked the patient to take scsd-ehd-dmv nter vitamin D supplement 2000 units daily [employer] Other 11-02-2022 Evaluation note* Encounter Date Diagnosis [...] 13. I asked the patient to take qcqy-yte-zrflsy r vitamin D supplement. I will check [...] E55.9) I asked the patient to take pfml-mnk-mcwitx r vitamin D supplement 2000 units daily May, Other Yuki. fib is being managed by Dr. Simmons [employer] Other 06-29-2022 Evaluation note* Encounter Date Diagnosis [...] 19. I asked the patient to take xtke-hlt-nauzls r vitamin D supplement. I will check Dec, Hyperlipidemia LDL g oal <100 (ICD-10 - E78.5) 25-hydroxy vitamin D level next visitF/U with Dr. Simmons. He used to be on atorvastatin. Dec, BMI 30.0-30.9,adult (ICD-10 - Z68.30) Importance of weight loss has been addressed. Dec, Vitamin D deficiency (ICD-10 - E55.9) I asked the patient to take ovlk-svn-xvnehv r vitamin D supplement 2000 units daily Dec, Other A. fib is being managed by Dr. Simmons [employer] Other 06-13-2022 Evaluation note* Encounter Date Diagnosis Assessment Notes Treatment Notes Treatment Clinical Notes Dec, Hyperuricemia (ICD-1 0 - E79.0) [employer] Other 02-23-2022 Evaluation note* Encounter Date Diagnosis [...] fib is being managed by Dr. Simmons [facility] [employer] Other Evaluation note* Diagnosis Dry gangrene (CMS/HCC)- Primary Diabetes mellitus due to underlying condition with diabetic polyneuropathy, without long-term current use of insulin ([facility]) Onychomycosis Dermatophytosis of nail Toe pain, bilateral PVD (peripheral vascular disease) (CMS/HCC) Unspecified peripheral vascular disease documented in this encounter [facility] HealthcareEvaluation note* Diagnosis High risk medication use- Primary Atherosclerosis of coronary artery, unspecified vessel or lesion type, unspecified whether angina present, unspecified whether hoopa or transplanted heart Permanent atrial fibrillation ([facility]) Atrial fibrillation Status post coronary angioplasty Postsurgical [...] stated as uncontrolled documented in this encounter [facility] Work Phone: History general Narrative - Reported* [...] Hospitalization History see above Hospitalization History MRSA [employer] Other Reason for referral (narrative)* Consultation (Routine) - Authorized Specialty Diagnoses / Procedures Referred By Contac t Referred To Contact Cardiology Diagnoses Permanent atrial fibrillation (CMS/HCC) Procedures Follow Up In Cardiology Sameera Simmons MD [address] [place], [place] [id number] Sameera Simmons MD [address] [place] [address], [address] [address] Referral ID Status Reason Start Date Expiration Date V isits Requested Visits Authorized [id number] Authorized 09/15/2023 09/14/2024 1 1 [facility] Work Phone: Summary Purpose Family History No [...] artery disease. Previous angioplasty in 2013 in [place]. Involving the LAD and the rightcoronary artery [...] artery disease. Previous angioplasty in 2013 in [place]. Involving the LAD and the rightcoronary artery [...] artery disease. Previous angioplasty in 2013 in [place]. Involving the LAD and the rightcoronary artery [...] artery disease. Previous angioplasty in 2013 in [place]. Involving the LAD and the rightcoronary artery [...] artery disease. Previous angioplasty in 2013 in [place]. Involving the LAD and the rightcoronary artery [...] Referred To Contact Radiology Diagnoses Dry gangrene (CMS/HCC) PVD (peripheral vascular disease) ([facility]) Procedures Vascular US lower extremity arterial Doppler complete Pillo Mckenna DPM [address] [address] Referral ID Status Reason Start Date Expiration Date Visits Requested Visits Authorized [id number] Pending Review Perform Procedure 09/02/2023 02/29/2024 1 1 Additional Source Comments (unrecognized sect ion and content) No Status Records FoundNo Status Records FoundNo Status Records FoundNo Status Records FoundNo Status Records FoundNo Status Records FoundNo Status Records FoundNo Status Records FoundNo Status Records Found INFORMATION SOURCE (unrecogn ized section and content) DATE CREATED AUTHOR 01/12/2018 [facility] DATE CREATED AUTHOR AUTHOR'S ORGANIZ ATION 05/04/[address] [facility] DATE CREATED AUTHOR AUTHOR'S ORGANIZ ATION 01/11/2021 [facility] DATE CREATED AUTHOR AUTHOR'S ORGANIZ ATION 12/27/2021 [facility] dical Specialist DATE CREATED AUTHOR AUTHOR'S ORGANIZ ATION 08/22/2022 [facility] DATE CREATED AUTHOR AUTHOR'S ORGANIZ ATION 09/22/2022 [facility] DATE CREATED AUTHOR AUTHOR'S ORGANIZ ATION 03/11/2023 [facility] DATE CREATED AUTHOR AUTHOR'S ORGANIZ ATION 03/11/2023 [employer] DATE CREATED AUTHOR AUTHOR'S ORGANIZ ATION 09/24/2023 [facility] Me dical Specialists EPIC REASON FOR VISIT (unrecogniz ed section and content) Reason Comments DM Foot Care Dm Nails Reason Comments Follow-up 6 months Care Teams (unrecognized sec tion and content) Senior [employer] Administrator Relationship Specialty Start Date End Date Antonio Canales MD [address] [facility] [address] [place] [address] PCP - ACO Reach 12/10/22 Antonio Canales MD [address] [facility] [address] [place] [address] PCP - General Internal Medicine 01/04/23 Senior Linux Unix Administrator Relationship Specialty Start Date End Date Antonio Canales MD [address] [facility] [address] [place] [address] PCP - ACO Reach 12/10/22 Antonio Canales MD [address] [facility] [address] [place] [address] PCP - General Internal Medicine 01/04/23 Senior Linux Unix Administrator Relationship Specialty Start Date End Date Antonio aCnales MD [address] [facility] [address] [place] [address] PCP - General 02/16/23 FOR RECORDS PERTAINING [...] BE BASED ON THE PRIMARY CLINICAL RECORDS. [employer] provides no warranty or guarantee of the accuracy or completeness of information in this document.
[2023-10-07 16:20] LABS: Creatinine Urine Random 49.02 mg/dL (20.00-300.00); Protein Creatinine Ratio Urine 1.06
[2023-10-07 16:21] LABS: Bilirubin Urine NEGATIVE (NEGATIVE); Blood Urine TRACE-I (NEGATIVE); Clarity Urine CLOUDY (CLEAR); Color Urine LT. YELLOW (YELLOW); Glucose Urine UA NEGATIVE (NEGATIVE); Ketones Urine NEGATIVE (NEGATIVE); Leukocyte Esterase Urine LARGE (NEGATIVE); Nitrite Urine POSITIVE (NEGATIVE); Protein Urine TRACE mg/dL (NEG/TRACE); Urobilinogen Urine 0.2 EU/dL (0.2-1.0); pH Urine 5.5 (5.0-9.0)
[2023-10-07 16:21] LABS: Hematocrit 42.3 % (42.0-54.0); Hemoglobin 12.8 g/dL (14.0-18.0); Mean Corpuscular HGB Conc 30.3 g/dL (29.9-35.2); Mean Corpuscular Hemoglobin 28.4 pg (25.9-34.0); Mean Platelet Volume 9.9 fL (9.5-13.5); Platelet Count 209 10^3/uL (150-450); Red Cell Distribution Width 17.6 % (11.0-15.0); White Blood Count 7.4 10^3/uL (4.0-11.0)
[2023-10-07 16:43] LABS: Alanine Aminotransferase 23 U/L (16-63); Albumin Globulin Ratio 0.4; Albumin Level 2.8 g/dL (3.4-5.0); Alkaline Phosphatase 87 U/L (46-116); Anion Gap 12.9; Aspartate Amino Transferase 31 U/L (15-37); Bilirubin Total 0.5 mg/dL (0.2-1.0); Carbon Dioxide 28.7 mmol/L (21.0-32.0); Chloride 106 mmol/L (98-107); Estimated GFR (African America 30 (>=60); Estimated GFR (Non-African Ame 24 (>=60); Globulin 6.3 g/dL; Glucose 90 mg/dL (74-106); Phosphorus 4.4 mg/dL (2.6-4.7); Potassium 4.6 mmol/L (3.5-5.1); Sodium 143 mmol/L (136-145); Total Protein 9.1 g/dL (6.4-8.2); Uric Acid 8.5 mg/dL (3.5-7.2)
[2023-10-09 11:09] LABS: PTH, Intact 69 pg/mL (15-65)
== END 2023-10-07 15:52 | disposition home or self-care (01) ==
LOC: LAB 15:52
PROVIDERS: PCP Internal Medicine; Visit Provider Internal Medicine Nephrology
DX: I12.9 Hypertensive chronic kidney disease with stage 1 through stage 4 chronic kidney disease, or unspecified chronic kidney disease (principal); N18.4 Chronic kidney disease, stage 4 (severe); N20.0 Calculus of kidney; E11.22 Type 2 diabetes mellitus with diabetic chronic kidney disease; E21.1 Secondary hyperparathyroidism, not elsewhere classified; E78.5 Hyperlipidemia, unspecified; E55.9 Vitamin D deficiency, unspecified
CPT/HCPCS: 36415; 80053; 81003; 82306; 82570; 82607; 83735; 83970; 84100; 84156; 84550; 85027

== ENCOUNTER 2023-12-27 13:40 | Outpatient (OUT) | payer MEDICARE, SELFPAY ==
--- NOTE | 2023-12-27 13:42 | VEIN_ITS ---
The [place] [address] Patient Name: FAWAD KIRKPATRICK MRN: [id number] date: 1940 Sex: M Assigned Patient Location: Current Patient Location: Accession/Order Number: [id number] Exam Date: 12/27/2023 13:42 Report Date: 12/27/2023 16:14 At the request of: CHRISTINA GLASGOW Procedure: VC SEGMENTAL PRESSURES EXAM: VC SEGMENTAL PRESSURES HISTORY: PVD I73.9 COMPARISON: None. FINDINGS: Segmental pressures presented as follows (right, left) in mmHg. Brachial: 130, 141 Upper thigh: 232, 241 Lower thigh: 181, 194 Calf: 243, 83 DPA: 157, 273 FUEL CELL REPAIRER: 155, 148 1st Toe: 65, 47 LYNN: 1.11, 1.94 TBI: 0.46, 0.33 The ABIs are abnormally high in the left suggesting vessel hardening/calcification The TBI's are low PVR waveforms: Right leg: Thigh: Mild peripheral arterial disease Above knee: Mild peripheral arterial disease Below knee: Mild peripheral arterial disease Right ankle: Moderate peripheral arterial disease Left leg: Thigh: Mild peripheral arterial disease Above knee: Mild peripheral arterial disease Below knee: Mild peripheral arterial disease Right ankle: Moderate peripheral arterial disease VEIN/VC SEGMENTAL PRESSURES IMPRESSION: ABIs suggest vessel hardening/calcification PVR waveforms suggest mild to moderate peripheral arterial disease Electronically authenticated by: SAWYER CARDOSO Date: 12/27/2023 16:14
== END 2023-12-27 13:41 | disposition home or self-care (01) ==
LOC: VC 13:40
PROVIDERS: PCP Internal Medicine
DX: I73.9 Peripheral vascular disease, unspecified (principal)
CPT/HCPCS: 93923

== ENCOUNTER 2023-12-30 13:03 | Outpatient (OUT) | payer MEDICARE, SELFPAY ==
[2023-12-30 14:01] LABS: Hematocrit 38.7 % (42.0-54.0); Hemoglobin 11.5 g/dL (14.0-18.0); Mean Corpuscular HGB Conc 29.7 g/dL (29.9-35.2); Mean Corpuscular Hemoglobin 27.5 pg (25.9-34.0); Mean Corpuscular Volume 92.6 fL (80.0-94.0); Mean Platelet Volume 10.8 fL (9.5-13.5); Platelet Count 183 10^3/uL (150-450); Red Blood Count 4.18 10^6/uL (4.70-6.10); Red Cell Distribution Width 17.7 % (11.0-15.0); White Blood Count 6.5 10^3/uL (4.0-11.0)
[2023-12-30 14:20] LABS: Albumin Level 2.9 g/dL (3.4-5.0); Anion Gap 12.3; BUN Creatinine Ratio 16.7; Calcium 8.8 mg/dL (8.5-10.1); Carbon Dioxide 27.8 mmol/L (21.0-32.0); Chloride 108 mmol/L (98-107); Estimated GFR (African America 28 (>=60); Estimated GFR (Non-African Ame 23 (>=60); Glucose 189 mg/dL (74-106); Phosphorus 3.5 mg/dL (2.6-4.7); Potassium 4.1 mmol/L (3.5-5.1); Sodium 144 mmol/L (136-145); Uric Acid 9.1 mg/dL (3.5-7.2)
[2023-12-30 15:49] LABS: Bilirubin Urine NEGATIVE (NEGATIVE); Blood Urine TRACE-I (NEGATIVE); Clarity Urine CLEAR (CLEAR); Color Urine LT. YELLOW (YELLOW); Glucose Urine UA NEGATIVE (NEGATIVE); Ketones Urine NEGATIVE (NEGATIVE); Leukocyte Esterase Urine SMALL (NEGATIVE); Nitrite Urine NEGATIVE (NEGATIVE); Protein Urine TRACE mg/dL (NEG/TRACE); Specific Gravity Urine 1.015 (1.005-1.025); Urobilinogen Urine 0.2 EU/dL (0.2-1.0)
[2023-12-30 15:57] LABS: Creatinine Urine Random 24.37 mg/dL (20.00-300.00); Protein Creatinine Ratio Urine 1.78; Total Protein Urine Random 43.4 mg/dL (<=11.9)
[2023-12-31 12:10] LABS: PTH, Intact 88 pg/mL (15-65)
== END 2023-12-30 13:04 | disposition home or self-care (01) ==
LOC: LAB 13:07
PROVIDERS: PCP Internal Medicine; Visit Provider Internal Medicine Nephrology
DX: E55.9 Vitamin D deficiency, unspecified (principal); E78.5 Hyperlipidemia, unspecified; E21.3 Hyperparathyroidism, unspecified; I12.9 Hypertensive chronic kidney disease with stage 1 through stage 4 chronic kidney disease, or unspecified chronic kidney disease; N20.0 Calculus of kidney; N18.4 Chronic kidney disease, stage 4 (severe); E11.22 Type 2 diabetes mellitus with diabetic chronic kidney disease
CPT/HCPCS: 36415; 80069; 81003; 82306; 82570; 83735; 83970; 84156; 84550; 85027

== ENCOUNTER 2024-02-02 12:53 | Outpatient (OUT) | payer MEDICARE, SELFPAY ==
--- NOTE | 2024-02-02 12:54 | US_ITS ---
The [address] [address] Patient Name: FAWAD KIRKPATRICK MRN: [id number] date: 1940 Sex: M Assigned Patient Location: US Current Patient Location: Accession/Order Number: [id number] Exam Date: 02/02/2024 13:00 Report Date: 02/03/2024 05:21 At the request of: ARI CORDOVA Procedure: US renal BI EXAMINATION: US renal BI HISTORY: Chronic Renal Failure, Calculus Of Kidney COMPARISON: No relevant comparison available. TECHNIQUE: Ultrasound examination was performed of the kidneys and urinary bladder. FINDINGS: RIGHT KIDNEY: Moderate cortical thinning, 7 mm. Contains several cortical cysts favoring benign etiology, largest is 2.5 cm. No appreciable stones or hydronephrosis. Kidney: 10.5-4 0.3 x 4.7 cm LEFT KIDNEY: Moderate cortical thinning, 5 mm. Contains several cortical cysts favoring benign etiology, largest is 7.1 cm. No appreciable stones or hydronephrosis. Kidney: 12.5 x 4.9 x 5.6 cm BLADDER: No visible wall thickening, mass, or calculi. US/US renal BI IMPRESSION: 1. Moderate cortical thinning bilaterally; possibly age related. 2. No stones, hydronephrosis, appreciable mass. 3. Multiple nonspecific cysts bilaterally favoring benign etiology. Electronically authenticated by: DARYA TOLEDO Date: 02/03/2024 05:21
== END 2024-02-02 12:54 | disposition home or self-care (01) ==
LOC: US 12:53
PROVIDERS: PCP Internal Medicine; Visit Provider Internal Medicine Nephrology
DX: E55.9 Vitamin D deficiency, unspecified (principal); E78.5 Hyperlipidemia, unspecified; E21.3 Hyperparathyroidism, unspecified; I12.9 Hypertensive chronic kidney disease with stage 1 through stage 4 chronic kidney disease, or unspecified chronic kidney disease; N20.0 Calculus of kidney
CPT/HCPCS: 76775

== ENCOUNTER 2024-02-08 12:01 | Emergency (ER) | payer MEDICARE, SELFPAY ==
[2024-02-08 12:09] VITALS: BP 155/93; PULSE 67; O2SAT 97; BMI 29.3
[2024-02-08] MEDS: OXYMETAZOLINE HCL 0.05% NASAL SPRAY 2 SPRAY NS (12:29)
--- NOTE | 2024-02-08 13:40 | ED.EPISTAXI1 ---
HPI - Epistaxis General Chief Complaint: Epistaxis Stated Complaint: NOSE BLEED Time Seen by Provider: 02/08/24 12:22 Source: family Mode of arrival: Wheelchair History of Present Illness HPI Narrative: Patient with history of epistaxis according to him he had multiple episodes epistaxis over the last few weeks and he did stop taking his Eliquis, but the patient mentioned that today he had this epistaxis that continued for more than an hour and he just came for the to the ER, patient denies any dizziness chest pain or any other concerns Related Data Home Medications ?Medication ?Instructions ?Recorded ?Confirmed albuterol sulfate 0.63 mg/3 mL 0.63 mg inhalation Q6H PRN 09/09/23 09/09/23 solution for nebulization shortness of breath or wheezing apixaban 5 mg tablet (Eliquis) 5 mg PO Q12H 09/09/23 09/09/23 bumetanide 1 mg tablet 1 mg PO BID 09/09/23 09/09/23 carvedilol 25 mg tablet 25 mg PO BID 09/09/23 09/09/23 fluticasone fur. 200 mcg-umeclid 1 inh inhalation DAILY 09/09/23 09/09/23 62.5 mcg-vilant 25 mcg inhalat.powder (Trelegy Ellipta) hydralazine 100 mg tablet 100 mg PO BID 09/09/23 09/09/23 insulin glargine 100 55 unit subcut DAILY 09/09/23 09/09/23 unit-lixisenatide 33 mcg/mL subcutaneous pen (Soliqua 100/33) isosorbide mononitrate 120 mg 120 mg PO DAILY 09/09/23 09/09/23 tablet,extended release 24 hr triamcinolone acetonide 0.1 % 1 applic topical BID 09/09/23 09/09/23 topical cream Previous Rx's ?Medication ?Instructions ?Recorded cephalexin 500 mg capsule 500 mg PO BID 7 days #14 caps 02/08/24 Allergies Allergy/AdvReac Type Severity Reaction Status Date / Time No Known Drug Allergies Allergy Verified 09/09/23 13:28 Review of Systems ROS Status of ROS 10 or more systems reviewed and unremarkable except as noted in history and below [facility] Medical History (Updated 02/08/24 @ 13:40 by Kari Kaye MD) Benign essential hypertension ?I10 - Essential (primary) hypertension (ICD-10) CKD (chronic kidney disease) stage 4, GFR 15-29 ml/min ?N18.4 - Chronic kidney disease, stage 4 (severe) (ICD-10) CAD (coronary artery disease) ?I25.10 - Atherosclerotic heart disease of [place] coronary artery without angina pectoris (ICD-10) Type 2 diabetes mellitus with hyperglycemia ?E11.65 - Type 2 diabetes mellitus with hyperglycemia (ICD-10) COPD (chronic obstructive pulmonary disease) ?J44.9 - Chronic obstructive pulmonary disease, unspecified (ICD-10) Acute on chronic heart failure with preserved ejection fraction (HFpEF) ?I50.33 - Acute on chronic diastolic (congestive) heart failure (ICD-10) Chronic heart failure with preserved ejection fraction (HFpEF) ?I50.32 - Chronic diastolic (congestive) heart failure (ICD-10) Paroxysmal atrial fibrillation ?I48.0 - Paroxysmal atrial fibrillation (ICD-10) Acute kidney injury ?N17.9 - Acute kidney failure, unspecified (ICD-10) Hypoxia ?R09.02 - Hypoxemia (ICD-10) Acute confusion ?R41.0 - Disorientation, unspecified (ICD-10) CHF (congestive heart failure) ?I50.9 - Heart failure, unspecified (ICD-10) Social History Smoking status: Never smoker Highest level of school completed/degree received: high school graduate Exam Narrative Exam Narrative: Nurses notes and vital signs reviewed and patient is not hypoxic. General: Well-appearing and in no apparent distress. Skin: Warm, dry, no pallor noted. No rash. Head: Normocephalic, atraumatic. Neck: Supple, non-tender. Eye: Pupils are equal, round and EOMI. No scleral icterus. Ears, Nose, Mouth, and Throat there is an obvious small clot in the posterior aspect of the left nostril and the patient bleeding is mostly posteriorly, the patient have mild bleeding in the posterior aspect of the pharynx, no compromise of the airway and the right nostril is clear Cardiovascular: Regular Rate and Rhythm without murmur, gallop or rub. Respiratory: No accessory muscle use or respiratory distress. Lungs are clear to auscultation, no wheezing, rales or rhonchi Chest Wall: no tenderness Back: No midline thoracic or lumbar vertebral tenderness. No CVA tenderness Musculoskeletal: normal ROM, no calf or popliteal tenderness, no lower extremity edema/swelling GI: Abdomen is soft, non-distended. Normal bowel sounds. No masses appreciated. No tenderness to palpation. No rebound, guarding, or rigidity noted. Neurological: A&O x4. No cranial nerve dysfunction observed. No truncal ataxia. Moves all extremities. Sensation intact. Psychiatric: Cooperative and interactive. Normal mood and affect. Constitutional Vital Signs, click to edit/add: Last Vital Signs Pulse 67 02/08/24 12:09 Resp 20 02/08/24 12:09 BP 155/93 H 02/08/24 12:09 Pulse Ox 97 02/08/24 12:09 Course Vital Signs Vital signs: Vital Signs Pulse Rate 02/08/24 12:09 Respiratory Rate 20 02/08/24 12:09 Blood Pressure 155/93 H 02/08/24 12:09 Pulse Oximetry 97 02/08/24 12:09 Pulse Rate 02/08/24 12:09 Respiratory Rate 02/08/24 12:09 Blood Pressure 155/93 H 02/08/24 12:09 Pulse Oximetry 97 02/08/24 12:09 MDM - Epistaxis MDM Narrative Medical decision making narrative: After applying a nasal clip and then applying Afrin The patient still had continued to have a bleed and ended up applying Rhino Rocket 7.5 cm anterior-posterior that was successful to stop the bleeding Patient was monitored in the ER for a while during which he had no bleeding anteriorly or posteriorly Patient was started on Keflex and instructed to come back tomorrow to remove the Rhino Rocket Patient daughter at the bedside mentioned that she works in the ENT office and she mentioned that she could be able to get him to follow-up tomorrow with the ENT doctor that she works with and this is a good plan as long as I told her that she needs to make sure that the Rhino Rocket would not stay for more than 24 hours The patient is to follow up with primary care physician in next 2-3 days or to return to the emergency department should any of the signs or symptoms worsen or new symptoms develop. The patient agrees with the following Diagnosis and Treatment plan and the patient will be discharged home. Discharge Plan Discharge Stand Alone Forms: Portal Instructions Chief Complaint: Epistaxis Clinical Impression: Epistaxis Patient Disposition: Home, Self-Care Time of Disposition Decision: 13:40 Condition: Good Prescriptions / Home Meds: New cephalexin 500 mg capsule 500 mg PO BID 7 Days Qty: 14 0RF No Action carvedilol 25 mg tablet 25 mg PO BID hydralazine 100 mg tablet 100 mg PO BID bumetanide 1 mg tablet 1 mg PO BID Eliquis 5 mg tablet 5 mg PO Q12H isosorbide mononitrate 120 mg tablet extended release 24 hr 120 mg PO DAILY triamcinolone acetonide 0.1 % cream 1 applic TOPICAL BID albuterol sulfate 0.63 mg/3 mL solution for nebulization 0.63 mg inhalation Q6H PRN (Reason: shortness of breath or wheezing) Trelegy Ellipta 200-62.5-25 mcg blister with device 1 inh inhalation DAILY Soliqua 100/33 100 unit-33 mcg/mL insulin pen 55 unit subcut DAILY Print Language: Upper Sorbian Instructions: Nosebleed (ED) Referrals: DENNIS RICH [Primary Care Provider] - 1 week Discharge Date/Time: 02/08/24 14:35
== END 2024-02-08 14:35 | disposition home or self-care (01) ==
PROVIDERS: Emergency Provider Emergency Medicine; PCP Internal Medicine
DX: R04.0 Epistaxis (principal)
CPT/HCPCS: 30901; 30905; 99282

== ENCOUNTER 2024-03-08 12:37 | Outpatient (OUT) | payer MEDICARE, SELFPAY ==
--- NOTE | 2024-03-08 12:40 | CT_ITS ---
[address] [address] Patient Name: FAWAD KIRKPATRICK MRN: [facility]:[id number] date: 1940 Sex: M Assigned Patient Location: CT Current Patient Location: Accession/Order Number: [id number] Exam Date: 03/08/2024 12:49 Report Date: 03/09/2024 05:58 At the request of: DAVID THOMPSON Procedure: CT chest wo con EXAMINATION: CT chest wo con HISTORY: Pleural Effusion J90 COMPARISON: No relevant comparison available. TECHNIQUE: Axial, Coronal, and Sagittal images were created without the administration of IV contrast material. Dose reduction techniques were achieved by using automated exposure control and/or adjustment of mA and/or kV according to patient size and/or use of iterative reconstruction technique. FINDINGS: LUNGS: Geographic shaped mass/opacity within right upper lobe at level of hilum, 2.2 x 1.3 x 1.9 cm. Partial collapse/consolidation of right lower lobe basilar segments. PLEURA: Bilateral pleural effusions, 5.7 cm in thickness on right, 0.8 cm on left. VASCULATURE: No abnormality. JOSE: No mass or pathologic adenopathy. MEDIASTINUM: Mild adenopathy. CARDIAC:Cardiomegaly and trace amount of pericardial fluid. Coronary Artery calcifications: Coronary calcifications are heavy. AORTA: Dilation of ascending thoracic aorta, 4.4 cm. CHEST WALL: No mass or axillary adenopathy BONES: No bone lesion or fracture. LIMITED ABDOMEN: Small hypodensity within left hepatic lobe; nonspecific but favoring a cyst or hemangioma. 3.0 cm cyst suspected to arise from superior pole of left kidney. Limited images of the upper abdomen. OTHER: Negative. CT/CT chest wo con IMPRESSION: 1. Geographic shaped 2.2 cm mass within right upper lobe; nonspecific but suspicious for malignancy. 2. Large right and small left pleural effusions with partial collapse/consolidation of right lower lobe basilar segments. 3. Mild mediastinal adenopathy. 4. Cardiomegaly and small pericardial effusion. 5. 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 Electronically authenticated by: DARYA TOLEDO Date: 03/09/2024 05:58
== END 2024-03-08 12:38 | disposition home or self-care (01) ==
LOC: CT 12:38
PROVIDERS: PCP Internal Medicine; Visit Provider Physician Assistant
DX: J90 Pleural effusion, not elsewhere classified (principal); R91.8 Other nonspecific abnormal finding of lung field; I51.7 Cardiomegaly
CPT/HCPCS: 71250

== ENCOUNTER 2024-04-11 11:59 | Emergency (ER) | payer MEDICARE, SELFPAY ==
[2024-04-11] VITALS (75 sets, daily range): BP systolic 91–168; BP diastolic 66–123; PULSE 78–126; RESP 12; TEMP 37.3–37.5; O2SAT 69–100; BMI 29.9
--- NOTE | 2024-04-11 12:25 | XR_ITS ---
The [address] [address] Patient Name: FAWAD KIRKPATRICK MRN: [id number] date: 1940 Sex: M Assigned Patient Location: ER Current Patient Location: ED.MAIN Accession/Order Number: [id number] Exam Date: 04/11/2024 12:30 Report Date: 04/11/2024 13:05 At the request of: RYAN WHITAKER Procedure: XR chest 1V EXAMINATION: XR chest 1V HISTORY: sob COMPARISON: XR chest 09/11/2023 FINDINGS: LUNGS: Underexpanded lungs with opacities obscuring the right lung base. VASCULATURE: No increased pulmonary vasculature. PLEURA: Right pleural effusion. CARDIAC: Obscured. MEDIASTINUM: No visible mass or adenopathy. BONES: No fracture or visible bone lesion. OTHER: Negative. XR/XR chest 1V IMPRESSION: 1. Underexpanded lungs slightly limits evaluation. 2. Moderate right pleural effusion with moderate bibasilar infiltrates versus atelectasis. 3. Left lung is suspected to be clear. Electronically authenticated by: DARYA TOLEDO Date: 04/11/2024 13:05
[2024-04-11 12:43] LABS: Basophils Absolute Auto 0.1 10^3/uL (0.0-0.1); Basophils Percent Auto 0.6 % (0.2-2.0); Eosinophils Absolute Auto 0.1 10^3/uL (0.0-0.7); Eosinophils Percent Auto 0.8 % (0.9-7.0); Hemoglobin 11.3 g/dL (14.0-18.0); Immature Granulocytes Pct Auto 0.9 % (0.0-0.5); Lymphocytes Absolute Auto 0.8 10^3/uL (1.2-3.8); Lymphocytes Percent Auto 6.9 % (20.5-60.0); Mean Corpuscular HGB Conc 29.7 g/dL (29.9-35.2); Mean Corpuscular Hemoglobin 25.7 pg (25.9-34.0); Mean Corpuscular Volume 86.6 fL (80.0-94.0); Mean Platelet Volume 10.4 fL (9.5-13.5); Monocytes Percent Auto 9.2 % (1.7-12.0); Neutrophils Absolute Auto 8.9 10^3/uL (1.4-6.5); Neutrophils Percent Auto 81.6 % (43.0-75.0); Platelet Count 207 10^3/uL (150-450); Red Blood Count 4.39 10^6/uL (4.70-6.10); Red Cell Distribution Width 18.7 % (11.0-15.0); White Blood Count 10.9 10^3/uL (4.0-11.0)
[2024-04-11 13:04] LABS: Alanine Aminotransferase 18 U/L (16-63); Albumin Globulin Ratio 0.4; Albumin Level 2.9 g/dL (3.4-5.0); Alkaline Phosphatase 95 U/L (46-116); Aspartate Amino Transferase 48 U/L (15-37); BUN Creatinine Ratio 29.2; Calcium 9.3 mg/dL (8.5-10.1); Carbon Dioxide 25.8 mmol/L (21.0-32.0); Chloride 101 mmol/L (98-107); Estimated GFR (African America 20 (>=60); Estimated GFR (Non-African Ame 17 (>=60); Globulin 6.6 g/dL; Glucose 176 mg/dL (74-106); Potassium 4.8 mmol/L (3.5-5.1); Sodium 137 mmol/L (136-145); Total Protein 9.5 g/dL (6.4-8.2)
--- NOTE | 2024-04-11 13:46 | ED.GENADUL1 ---
HPI HPI - General Adult General Chief complaint: Shortness of Breath/Dyspnea Stated complaint: SHORTNESS OF BREATH/ GENERAL WEAKNESS Time Seen by Provider: 04/11/24 12:19 Source: patient Mode of arrival: ambulance History of Present Illness HPI narrative: The patient brought to us from the [facility], after he was recently admitted to [facility] for congestive heart failure and diuresis after he was fluid overloaded, the patient according to the family members today he is not acting himself, has been more sleepy and not talking to them, they mentioned that he is sometimes aggressive as well. This all was only today as he was doing well yesterday The patient was just discharged from [facility] on Wednesday Related Data Home Medications ?Medication ?Instructions ?Recorded ?Confirmed albuterol sulfate 0.63 mg/3 mL 0.63 mg inhalation Q6H PRN 09/09/23 04/11/24 solution for nebulization shortness of breath or wheezing apixaban 5 mg tablet (Eliquis) 2.5 mg PO Q12H 09/09/23 04/11/24 bumetanide 1 mg tablet 1 mg PO BID 09/09/23 04/11/24 carvedilol 25 mg tablet 25 mg PO BID 09/09/23 04/11/24 fluticasone fur. 200 mcg-umeclid 1 inh inhalation DAILY 09/09/23 04/11/24 62.5 mcg-vilant 25 mcg inhalat.powder (Trelegy Ellipta) hydralazine 100 mg tablet 50 mg PO BID 09/09/23 04/11/24 insulin glargine 100 55 unit subcut DAILY 09/09/23 04/11/24 unit-lixisenatide 33 mcg/mL subcutaneous pen (Soliqua 100/33) isosorbide mononitrate 120 mg 120 mg PO DAILY 09/09/23 04/11/24 tablet,extended release 24 hr triamcinolone acetonide 0.1 % 1 applic topical BID 09/09/23 09/09/23 topical cream acetaminophen 325 mg capsule 650 mg PO Q4H PRN pain 04/11/24 04/11/24 allopurinol 100 mg tablet 100 mg PO DAILY 04/11/24 04/11/24 aspirin 81 mg capsule 81 mg PO DAILY 04/11/24 04/11/24 atorvastatin 10 mg tablet 10 mg PO DAILY 04/11/24 04/11/24 ergocalciferol (vitamin D2) 1,250 1,250 mcg PO DAILY 04/11/24 04/11/24 mcg (50,000 unit) capsule fluticasone fur. 100 mcg-umeclid 1 inh inhalation DAILY 04/11/24 04/11/24 62.5 mcg-vilant 25 mcg inhalat.powder (Trelegy Ellipta) montelukast 10 mg tablet 10 mg PO BEDTIME 04/11/24 04/11/24 nitroglycerin 0.4 mg sublingual 0.4 mg sublingual Q5M 04/11/24 04/11/24 tablet (Nitrostat) torsemide 100 mg tablet 100 mg PO DAILY 04/11/24 04/11/24 Previous Rx's ?Medication ?Instructions ?Recorded cephalexin 500 mg capsule 500 mg PO BID 7 days #14 caps 02/08/24 Allergies Allergy/AdvReac Type Severity Reaction Status Date / Time oxycodone AdvReac Severe Confusion Verified 04/11/24 12:51 ED Inhibitors AdvReac Intermediate Unknown Verified 04/11/24 12:51 amlodipine AdvReac Intermediate Unknown Verified 04/11/24 12:51 lisinopril AdvReac Intermediate Unknown Verified 04/11/24 12:51 moxifloxacin AdvReac Intermediate Unknown Verified 04/11/24 12:51 neomycin AdvReac Intermediate Unknown Verified 04/11/24 12:51 nifedipine AdvReac Intermediate Unknown Verified 04/11/24 12:51 Opioid HPI Opioid Management Most Recent Opioid Data: Last Pain Scale 6 09/10/23 09:37 Review of Systems ROS Status of ROS 10 or more systems reviewed and unremarkable except as noted in history and below [facility] Medical History (Updated 04/11/24 @ 18:22 by Kari Kaye MD) Benign essential hypertension ?I10 - Essential (primary) hypertension (ICD-10) CKD (chronic kidney disease) stage 4, GFR 15-29 ml/min ?N18.4 - Chronic kidney disease, stage 4 (severe) (ICD-10) CAD (coronary artery disease) ?I25.10 - Atherosclerotic heart disease of [place] coronary artery without angina pectoris (ICD-10) Type 2 diabetes mellitus with hyperglycemia ?E11.65 - Type 2 diabetes mellitus with hyperglycemia (ICD-10) COPD (chronic obstructive pulmonary disease) ?J44.9 - Chronic obstructive pulmonary disease, unspecified (ICD-10) Acute on chronic heart failure with preserved ejection fraction (HFpEF) ?I50.33 - Acute on chronic diastolic (congestive) heart failure (ICD-10) Chronic heart failure with preserved ejection fraction (HFpEF) ?I50.32 - Chronic diastolic (congestive) heart failure (ICD-10) Paroxysmal atrial fibrillation ?I48.0 - Paroxysmal atrial fibrillation (ICD-10) Acute kidney injury ?N17.9 - Acute kidney failure, unspecified (ICD-10) Hypoxia ?R09.02 - Hypoxemia (ICD-10) Acute confusion ?R41.0 - Disorientation, unspecified (ICD-10) CHF (congestive heart failure) ?I50.9 - Heart failure, unspecified (ICD-10) Social History Smoking status: Never smoker Highest level of school completed/degree received: high school graduate Little interest or pleasure in doing things: not at all Feeling down, depressed, or hopeless: not at all Exam Narrative Exam Narrative: Nurses notes and vital signs reviewed and patient is not hypoxic. General: Well-appearing and in no apparent distress. Skin: Warm, dry, no pallor noted. No rash. Head: Normocephalic, atraumatic. Neck: Supple, non-tender. Eye: Pupils are equal, round and EOMI. No scleral icterus. Ears, Nose, Mouth, and Throat: TM are clear, no nasal mucosal hypertrophy. Oral mucosa is moist, no posterior oropharynx erythema, uvula is mid-line Cardiovascular: Regular Rate and Rhythm without murmur, gallop or rub. Respiratory: No accessory muscle use or respiratory distress. Lungs are clear to auscultation, no wheezing, rales or rhonchi Chest Wall: no tenderness Back: No midline thoracic or lumbar vertebral tenderness. No CVA tenderness Musculoskeletal: normal ROM, no calf or popliteal tenderness, no lower extremity edema/swelling GI: Abdomen is soft, non-distended. Normal bowel sounds. No masses appreciated. No tenderness to palpation. No rebound, guarding, or rigidity noted. Neurological: Patient is sleepy when calling his name but just wakes up and he is obviously ignoring just because every time he talk to him he just waved his hand that he does did not want to wake up, no cranial nerve dysfunction observed. Constitutional Vital Signs, click to edit/add: Last Vital Signs Temp 99.5 F 04/11/24 12:07 Pulse 90 04/11/24 15:50 Resp 16 04/11/24 15:40 BP 160/90 H 04/11/24 14:02 Pulse Ox 96 04/11/24 16:30 O2 Del Method Nasal Cannula 04/11/24 13:00 O2 Flow Rate 5 04/11/24 13:00 Course Vital Signs Vital signs: Vital Signs Temperature 99.5 F 04/11/24 12:07 Pulse Rate 80 04/11/24 12:07 Respiratory Rate 20 04/11/24 12:07 Blood Pressure 118/85 04/11/24 12:07 Pulse Oximetry 94 L 04/11/24 12:07 Oxygen Delivery Method Nasal Cannula 04/11/24 12:07 Oxygen Delivery Flow Rate 6 04/11/24 12:07 Temperature 99.5 F 04/11/24 12:07 Pulse Rate 90 04/11/24 15:50 Respiratory Rate 16 04/11/24 15:40 Blood Pressure 160/90 H 04/11/24 14:02 Pulse Oximetry 96 04/11/24 16:30 Oxygen Delivery Method Nasal Cannula 04/11/24 13:00 Oxygen Delivery Flow Rate 5 04/11/24 13:00 Medical Decision Making MDM Narrative Medical decision making narrative: The patient upon presentation is having an EKG showing sinus rhythm with a heart rate of [address] elevation or depression Upon presentation the patient neurologically does not show any symptoms of distress and he is awake but in a way ignoring everybody and does not want to talk to us he just want to cover his head every time the blanket is removed from his head that he just put it back on. He is trying to get out of the bed continuously The patient is not showing any respiratory distress pulse ox was on 2 L 97% and I measured it personally but it seems like from the nursing home facility he had some order for oxygen to be used when needed The patient was just discharged from the hospital due to fluid overload and diuresis----blood workup showing that the patient creatinine was above 3 and the patient BUN is above 100 Right now the BUN elevation could be the reason for the patient altered mental status He mostly has also underlying dementia and is trying to get out of the bed all the time He also have some small signs of UTI with elevated white blood cells mildly as well as leukocyte Estrace and nitrite is positive The patient was started on Keflex treatment for UTI and urine culture was sent But also with elevated BUN above 100 could be the reason for the altered mental status--- the patient was provided with boluses of 250 cc that was x 2 to help improving hydration and lowering the BUN I did explain to the that the patient will need observation with gentle hydration but the patient requested that he goes back to [facility] when he was admitted Lab Data Labs: Lab Results 04/11/24 04/11/24 Range/Units 12:20 15:20 WBC 10.9 (4.0-11.0) 10^3/uL RBC 4.39 L (4.70-6.10) 10^6/uL Hgb 11.3 L (14.0-18.0) g/dL Hct 38.0 L (42.0-54.0) % MCV 86.6 (80.0-94.0) fL MCH 25.7 L (25.9-34.0) pg MCHC 29.7 L (29.9-35.2) g/dL RDW 18.7 H (11.0-15.0) % Plt Count 207 (150-450) 10^3/uL MPV 10.4 (9.5-13.5) fL Neut % (Auto) 81.6 H (43.0-75.0) % Lymph % (Auto) 6.9 L (20.5-60.0) % [place] % (Auto) 9.2 (1.7-12.0) % Eos % (Auto) 0.8 L (0.9-7.0) % Baso % (Auto) 0.6 (0.2-2.0) % Neut # (Auto) 8.9 H (1.4-6.5) 10^3/uL Lymph # (Auto) 0.8 L (1.2-3.8) 10^3/uL [place] # (Auto) 1.0 H (0.3-0.8) 10^3/uL Eos # (Auto) 0.1 (0.0-0.7) 10^3/uL Baso # (Auto) 0.1 (0.0-0.1) 10^3/uL Abs Immat Gran (auto) 0.10 H (0.00-0.03) 10^3/uL Imm/Tot Granulo (auto) 0.9 H (0.0-0.5) % Sodium 137 (136-145) mmol/L Potassium 4.8 (3.5-5.1) mmol/L Chloride 101 (98-107) mmol/L Carbon Dioxide 25.8 (21.0-32.0) mmol/L Anion Gap 15.0 BUN 103.0 H* (7.0-18.0) mg/dL Creatinine 3.53 H (0.70-1.30) mg/dL Est GFR ( Amer) 20 L (>=60) Est GFR (Non-Af Amer) 17 L (>=60) BUN/Creatinine Ratio 29.2 Glucose 176 H (74-106) mg/dL Calcium 9.3 (8.5-10.1) mg/dL Total Bilirubin 1.0 (0.2-1.0) mg/dL AST 48 H (15-37) U/L ALT 18 (16-63) U/L Alkaline Phosphatase 95 (46-116) U/L Total Protein 9.5 H (6.4-8.2) g/dL Albumin 2.9 L (3.4-5.0) g/dL Globulin 6.6 g/dL Albumin/Globulin Ratio 0.4 Urine Color Lt. yellow (YELLOW) Urine Clarity Clear (CLEAR) Urine pH 6.0 (5.0-9.0) Ur Specific [place] 1.010 (1.005-1.025) Urine Protein 100 A (NEG/TRACE) mg/dL Urine Glucose (UA) Negative (NEGATIVE) mg/dL Urine Ketones Negative (NEGATIVE) mg/dL Urine Occult Blood Large A (NEGATIVE) Urine Nitrite Positive A (NEGATIVE) Urine Bilirubin Negative (NEGATIVE) Urine Urobilinogen 0.2 (0.2-1.0) EU/dL Ur Leukocyte Esterase Moderate A (NEGATIVE) Urine RBC 20-50 A (0-2) #/HPF Urine WBC 10-20 A (NONE SEEN) #/HPF Ur Squamous Epith Cells Few A (NONE/RARE) #/LPF Urine Crystals None seen (None Seen) #/HPF Urine Bacteria Small A (NONE SEEN) #/HPF Urine Casts Seen A (NONE SEEN) #/LPF Hyaline Casts Rare Urine Mucus Trace A (NONE SEEN) Ur Culture Indicated? Yes Discharge Plan Discharge Patient Disposition: Still a Patient
[2024-04-11] MEDS: 0.9 % SODIUM CHLORIDE 1,000 ML 250 ML IV (13:52)
[2024-04-11] MEDS: IPRATROPIUM/ALBUTEROL SULFATE 3 ML AMPUL.NEB IH (14:17)
[2024-04-11 15:29] LABS: Bilirubin Urine NEGATIVE (NEGATIVE); Blood Urine LARGE (NEGATIVE); Clarity Urine CLEAR (CLEAR); Color Urine LT. YELLOW (YELLOW); Glucose Urine UA NEGATIVE (NEGATIVE); Ketones Urine NEGATIVE (NEGATIVE); Leukocyte Esterase Urine MODERATE (NEGATIVE); Nitrite Urine POSITIVE (NEGATIVE); Protein Urine 100 mg/dL (NEG/TRACE); Urobilinogen Urine 0.2 EU/dL (0.2-1.0)
[2024-04-11 15:37] LABS: Urine Microscopic Indicated YES
[2024-04-11 15:39] LABS: Bacteria Urine SMALL #/HPF (NONE SEEN); Cast Seen? SEEN #/LPF (NONE SEEN); Crystals Seen? None Seen #/HPF (None Seen); Hyaline Casts Urine RARE; Mucus Urine TRACE (NONE SEEN); RBC Urine 20-50 #/HPF (0-2); Squamous Epithelial Cell Urine FEW #/LPF (NONE/RARE); Urine Culture Indicated YES
--- NOTE | 2024-04-11 17:48 | ECG_ITS ---
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
[2024-04-11 18:57] LABS: pH ABG 7.418 (7.350-7.450)
[2024-04-11 18:58] LABS: ABG PCO2 39.8 mmHg (35.0-45.0); Allen Test POSITIVE (POSITIVE); Base Excess ABG 1.2 mmol/L (-2.0-2.0); HCO3 ABG 25.7 mmol/L (22.0-26.0); Liters per Minute 2.5; O2 Mode NC; Oxygen Saturation ABG 83.1 %; Puncture Site RR
[2024-04-11 18:59] LABS: PO2 ABG 47.7 mmHg (80.0-100.0)
--- NOTE | 2024-04-11 19:04 | CT_ITS ---
The [address] [address] Patient Name: FAWAD KIRKPATRICK MRN: [id number] date: 1940 Sex: M Assigned Patient Location: ER Current Patient Location: ER Accession/Order Number: [id number] Exam Date: 04/11/2024 19:20 Report Date: 04/11/2024 20:09 At the request of: RYAN WHITAKER Procedure: CT stroke head/brain wo con EXAMINATION: CT stroke head/brain wo con, 04/11/2024 7:20 PM EDT HISTORY: ams COMPARISON: CT head 09/09/2023. TECHNIQUE: CT scan of the head was performed without IV contrast. CT dose reduction technique was used, including Automated Exposure Control. FINDINGS: BRAIN PARENCHYMA/CSF SPACES: There is a moderate right-sided subdural hematoma adjacent to the frontal, parietal, temporal and occipital lobes which measures up to 1.7 cm and contains hyperdense as well as hypodense components. There is significant mass effect with effacement of the adjacent sulci. There is right to left midline shift/subfalcine herniation which measures 7 mm. There is also hyperdensity along the right tentorium consistent with subdural hemorrhage extending from the right-sided subdural hematoma. PARANASAL SINUSES: There is extensive mucosal thickening and fluid throughout the paranasal sinuses and there is complete opacification of the left frontal sinus. There is thickening of the maxillary sinus murphy. SKULL BASE AND CALVARIUM: Normal. EXTRACRANIAL SOFT TISSUES: Normal. CT/CT stroke head/brain wo con IMPRESSION: 1. Moderate acute mixed density right-sided subdural hematoma adjacent to the right cerebral hemisphere and extending into the tentorium with mass effect and 7 mm right to left subfalcine herniation. 2. Extensive sinusitis as described above. Critical results were called to LORENA Rdz at 8:02 PM EST 04/11/2024. Electronically authenticated by: DARYA MUELLER Date: 04/11/2024 20:09
--- NOTE | 2024-04-11 19:09 | RESP.RT ---
Placed pt on BIPAP due to low Sp02 in the 80%. Bipap Settings 16/8 Fi02 40%. SP02 increased to 97%
[2024-04-11 19:31] LABS: Anion Gap 12.7; BUN Creatinine Ratio 30.6; Calcium 9.3 mg/dL (8.5-10.1); Carbon Dioxide 25.2 mmol/L (21.0-32.0); Chloride 104 mmol/L (98-107); Estimated GFR (African America 21 (>=60); Estimated GFR (Non-African Ame 17 (>=60); Glucose 94 mg/dL (74-106); Potassium 4.9 mmol/L (3.5-5.1); Sodium 137 mmol/L (136-145)
--- NOTE | 2024-04-11 20:15 | XR_ITS ---
The [address] [address] Patient Name: FAWAD KIRKPATRICK MRN: [id number] date: 1940 Sex: M Assigned Patient Location: ER Current Patient Location: ER Accession/Order Number: [id number] Exam Date: 04/11/2024 20:50 Report Date: 04/11/2024 21:47 At the request of: RYAN WHITAKER Procedure: XR chest 1V EXAM: XR chest 1V HISTORY: postintubation COMPARISON: 04/11/2024 TECHNIQUE: One view chest FINDINGS: An endotracheal tube terminates the clavicular heads. The cardiac mediastinal silhouette is enlarged. There is worsening pulmonary edema. There is right lower lobe atelectasis or pneumonia with a moderate sized right effusion. There is no pneumothorax. XR/XR chest 1V IMPRESSION: 1. Well-positioned endotracheal tube. 2. Cardiomegaly with progressive edema. 3. Right lower lobe atelectasis or pneumonia with a moderate sized right effusion. Electronically authenticated by: BRADY FIELD Date: 04/11/2024 21:47
[2024-04-11] MEDS: MIDAZOLAM HCL 2 MG/2 ML VIAL IV (20:40)
[2024-04-11] MEDS: ETOMIDATE 20 MG/10 ML VIAL IVP (20:41)
[2024-04-11] MEDS: PROPOFOL 1,000 MG/100 ML VIAL 3.171 MG IV ×2 (20:55→22:45)
--- NOTE | 2024-04-11 20:55 | RESP.RT ---
Pt was taken off of BIPAP and placed on nonrebreather and moved to room 5 for intubation.
[2024-04-11] MEDS: HUM PROTHROMBIN CPLX(PCC)4FACT 2,000 UNIT in EMPTY BAG 80 ML 507.298 UNIT IV (21:09)
[2024-04-11] MEDS: LORAZEPAM 2 MG/ML VIAL 1 MG IV (21:48)
--- NOTE | 2024-04-11 23:03 | PC.NURSE ---
[facility]35 [facility] arrives.
--- NOTE | 2024-04-12 07:48 | PC.NURSE ---
Positive Blood culture results were faxed to the [facility] with a positive results.
== END 2024-04-11 23:05 | disposition short-term general hospital (02) ==
PROVIDERS: Emergency Provider Emergency Medicine; PCP Internal Medicine
DX: I62.00 Nontraumatic subdural hemorrhage, unspecified (principal)
CPT/HCPCS: 31500; 36415; 36600; 70450; 71045; 80048; 80053; 81001; 82805; 85025; 87086; 87186; 93005; 94002; 94640; 94660; 96365; 96366; 96375; 96376; 99291; 99292; J2060; J2250; J2704; J7168